=== PATIENT | female | born 1960 | race Caucasian/White ===

== ENCOUNTER → 2017-06-25 12:28 | Outpatient (CLI) | payer OTHER, SELFPAY ==
[2017-06-25 14:10] LABS: Absolute Lymphocyte Count 1.99 X10^3/ul (0.83-4.51); Absolute Neutrophil Count 2.7 X10^3/uL (2.0-7.7); Basophil# 0.02 X10^3/uL; Basophil% 0.4 % (0-1); Eosinophils% 1.9 % (0-5); Hematocrit 38.7 % (37-47); Hemoglobin 12.8 g/dl (12.0-15.0); Lymphocyte # 1.99 X10^3/ul (4.0); Mean Corp Hgb Conc 33.1 g/gl (32-36); Mean Corpuscular Hgb 29.2 pg (27.0-32.0); Mean Corpuscular Volume 88.2 fL (81-99); Mean Platelet Vol. 9.7 fl (6.2-12.0); Monocyte# 0.38 X10^3/uL; Monocyte% 7.3 % (0-10); Neutrophil # 2.74 X10^3/uL (2.7-7.7); Neutrophil % 52.4 % (47-70); Platelet Count 223 K/mm3 (150-450); RBC Distribution Width CV 13.1 % (11.6-14.6); RBC Distribution Width SD 41.8 fl (35.1-43.9); Red Blood Count 4.39 M/mm3 (4.2-5.4); White Blood Count 5.2 K/mm3 (4.4-11.0)
[2017-06-25 14:11] LABS: POSITIVE COUNT NO; POSITIVE DIFFERENTIAL NO; POSITIVE MORPHOLOGY NO
[2017-06-25 14:36] LABS: AST(SGOT) 18 U/L (15-37); Alanine Aminotransfer ALT/SGPT 25 U/L (13-56); Albumin, Serum 3.6 g/dL (3.2-5.0); Alkaline Phosphatase 74 U/L (45-117); Amylase 42 U/L (25-115); Anion Gap 6 (5-15); BUN 18 mg/dL (7-18); BUN/Creat Ratio 22.3 RATIO (10-20); Calcium,Total 8.8 mg/dL (8.5-10.1); Chloride 104 mmol/L (98-107); Creatinine, Serum 0.81 mg/dL (0.55-1.02); EST Glomerular Filtration Rate 77 mL/min (>60); Est Glom Filt Rate - Afr Amer 94 mL/min (>60); Globulin 3.5 g/dL (2.2-4.2); Glucose 128 mg/dL (74-106); Lipase 189 U/L (73-393); Potassium 3.7 mmol/L (3.5-5.1); Protein, Total 7.1 g/dL (6.4-8.2); Sodium Level 139 mmol/L (136-145); Thyroid Stim Hormone (TSH) 1.92 uIU/mL (0.358-3.74)
== END ==
PROVIDERS: Family Provider Family Medicine; PCP Family Medicine; Visit Provider Nurse Practitioner Adult Health
DX: R53.83 Other fatigue (principal); R11.0 Nausea
CPT/HCPCS: 36415; 80053; 82150; 83690; 84443; 85025

== ENCOUNTER → 2018-03-19 14:32 | Outpatient (CLI) | payer OTHER, SELFPAY ==
--- NOTE | 2018-03-19 14:34 | BI_ITS ---
MAMMOGRAPHY - BILATERAL SCREENING REASON FOR EXAM: Female, 58 years old. Routine annual screening examination. PERTINENT HISTORY: Mother with breast cancer. TECHNIQUE: Digital bilateral breast rosio (3D mammographic acquisition) in the CC and MLO projections. 2-D mediolateral oblique (MLO) and craniocaudad (CC) views of both breasts were obtained. CAD: Full Field Digital Mammography with Computer Added Detection was performed. COMPARISON: Comparison is made with prior study dated October 02, 2016 and May 08, 2016. FINDINGS: Breast Composition: The breasts are heterogeneously dense, which may obscure small masses. There are no dominant masses or suspicious calcifications. No other significant abnormalities are identified. There has been no significant change since the prior study. BI/SCREENING MAMM (CAD), BILAT IMPRESSION: Stable bilateral screening mammogram. Yearly follow-up mammogram recommended. (A) ASSESSMENT CATEGORY: BIRADS Category 1: Negative. A letter regarding these results will be sent to the patient by the facility within 30 days. Approximately 10% of breast cancers are not detected by mammography. A normal mammogram should not delay biopsy of a clinically suspicious abnormality. [id number] Electronically Signed: [place] MD at 15:32 EST Tel [phone], Service support ,
== END ==
PROVIDERS: Family Provider Family Medicine; PCP Family Medicine; Referring Provider Family Medicine; Visit Provider Family Medicine
DX: Z12.31 Encounter for screening mammogram for malignant neoplasm of breast (principal)
CPT/HCPCS: 77063; 77067

== ENCOUNTER → 2018-05-05 09:58 | Outpatient (CLI) | payer OTHER, SELFPAY ==
[2018-04-05 12:13] VITALS: BMI 24.5
[2018-05-05 12:49] LABS: AST(SGOT) 33 U/L (15-37); Alanine Aminotransfer ALT/SGPT 42 U/L (13-56); Cholesterol 267 mg/dL (200); High Density Lipoprotein 76 mg/dL; Thyroid Stim Hormone (TSH) 3.96 uIU/mL (0.358-3.74); Triglycerides 122 mg/dL; Very Low Density Lipoprotein 24 mg/dL (5-40)
[2018-05-05 15:27] LABS: T4 Total, Thyroxin 10.5 ug/dL (4.8-13.9)
== END ==
PROVIDERS: Family Provider Family Medicine; PCP Family Medicine; Visit Provider Family Medicine
DX: E78.00 Pure hypercholesterolemia, unspecified (principal); E03.9 Hypothyroidism, unspecified
CPT/HCPCS: 36415; 80061; 84436; 84443; 84450; 84460

== ENCOUNTER → 2018-07-10 08:01 | Outpatient (CLI) | payer OTHER, SELFPAY ==
[2018-04-05 12:13] VITALS: BMI 24.5
[2018-07-10 09:31] LABS: Cholesterol 153 mg/dL (200); High Density Lipoprotein 71 mg/dL; Thyroid Stim Hormone (TSH) 0.32 uIU/mL (0.358-3.74); Triglycerides 72 mg/dL; Very Low Density Lipoprotein 14 mg/dL (5-40)
== END ==
PROVIDERS: Family Provider Family Medicine; PCP Family Medicine; Referring Provider Family Medicine; Visit Provider Family Medicine
DX: E03.9 Hypothyroidism, unspecified (principal); E78.00 Pure hypercholesterolemia, unspecified
CPT/HCPCS: 36415; 80061; 84443

== ENCOUNTER → 2018-08-07 14:45 | Outpatient (CLI) | payer OTHER, SELFPAY ==
[2018-08-07 09:24] VITALS: BMI 24.5
[2018-08-07 14:48] LABS: Mucous, Urine 0 SEEN /hpf (<or=2+)
[2018-08-07 14:55] LABS: Color, Urine Yellow (Yellow); Glucose, Dipstick Normal (Normal); Ketone-Dipstick Negative (Negative); Leukocyte Esterase-Dipstick 500 /ul (Negative); Nitrite-Dipstick Positive (Negative); Occult Blood-Urine 50 /ul (Negative); Protein-Dipstick Negative (Negative); Urine Bilirubin Dipstick Negative (Negative); Urine Clarity Clear (Clear); Urine Urobilinogen Normal (Normal); Urine pH 6.5 (5.0 - 8.0)
[2018-08-07 15:02] LABS: Bacteria 2+ /hpf (None Seen); Red Blood Cells-Urine 0-5 SEEN /hpf (0-5); Squamous Epithelial Cells - UA 0-5 SEEN /hpf (5-10); White Blood Cells 10-25 SEEN /hpf (0-5)
== END ==
PROVIDERS: Family Provider Family Medicine; PCP Family Medicine; Visit Provider Physician Assistant
DX: R30.0 Dysuria (principal)
CPT/HCPCS: 81001; 87086; 87088; 87186

== ENCOUNTER → 2018-09-20 14:56 | Outpatient (CLI) | payer SELFPAY ==
[2018-09-19 08:09] VITALS: BMI 24.5
== END ==
PROVIDERS: Family Provider Family Medicine; PCP Family Medicine; Referring Provider Physician Assistant Medical; Visit Provider Physician Assistant Medical
DX: J02.9 Acute pharyngitis, unspecified (principal)
CPT/HCPCS: 87081

== ENCOUNTER → 2019-01-04 08:42 | Outpatient (CLI) | payer OTHER, SELFPAY ==
[2018-09-19 08:09] VITALS: BMI 24.5
--- NOTE | 2019-01-04 08:45 | BD_ITS ---
STUDY: DUAL ENERGY X-RAY ABSORPTIOMETRY / DXA REASON FOR EXAM: Female, 58 years old. Early menopause. Loss of height. TECHNIQUE: Bone Mineral Density (BMD) measurements of lumbar spine and bilateral hips were obtained. COMPARISON: Comparison is made with prior examination dated March 01, 2009. FINDINGS: Lumbar Spine (L1-L4): g/cm2 (0.834) / T-score (-2.9) / Z-score (-1.7) Findings are suggestive of osteoporosis with a high fracture risk. Left Femur Total: g/cm2 (0.718) / T-score (-2.3) / Z-score (-1.4) Left Femoral Neck: g/cm2 (0.737) / T-score (-2.2) / Z-score (-0.9) Right Femur Total: g/cm2 (0.701) / T-score (-2.4) / Z-score (-1.5) Right Femoral Neck: g/cm2 (0.763) / T-score (-2.0) / Z-score (-0.7) The T-Scores on the most recent prior examination were: Lumbar Spine (L1-L4): There has been worsening of bone density since the previous examination. Left Femur Total: which represents a worsening of 14.6%. Right Femur Total: which represents a worsening of 17%. BD/Dexa Bone Density Study IMPRESSION: The patient is considered osteoporotic as outlined below according to World Ck Organization (WHO) criteria with a high fracture risk. There has been worsening of bone density since the previous examination. Reference Information: The T-score is the number of standard deviations above or below the standard which is normal for young adults at their peak bone mineral density. The World Health Organization (WHO) interprets the T-scores as follows: Above -1 Normal bone density Between -1 and -2.5 Osteopenia Equal to / or below -2.5 Osteoporosis As a practical clinical guideline, osteopenia may be graded as follows: Mild -1 through -1.5 Moderate -1.6 through -2.0 Severe -2.1 through -2.4 The Z-score is the number of standard deviations above or below age-matched controls. A Z-score of less than -1.5 would be considered abnormal. References: 1. NIH Osteoporosis and Related Bone Diseases http://www.osteo.org 2. International Society for Clinical Densitometry http://www.iscd.org 3. National Osteoporosis Foundation http://www.nof.org Electronically Signed: [place], at 15:02 EDT , Service support ,
== END ==
PROVIDERS: Family Provider Family Medicine; PCP Family Medicine; Referring Provider Family Medicine; Visit Provider Family Medicine
DX: M85.80 Other specified disorders of bone density and structure, unspecified site (principal); M81.0 Age-related osteoporosis without current pathological fracture
CPT/HCPCS: 77080

== ENCOUNTER → 2019-01-05 13:32 | Outpatient (CLI) | payer OTHER, SELFPAY ==
[2018-09-19 08:09] VITALS: BMI 24.5
[2019-01-05 16:08] LABS: Vitamin D,25 Hydroxy 24.9 ng/mL (29.95-100.01)
== END ==
PROVIDERS: Family Provider Family Medicine; PCP Family Medicine; Referring Provider Family Medicine; Visit Provider Family Medicine
DX: M81.0 Age-related osteoporosis without current pathological fracture (principal)
CPT/HCPCS: 36415; 82306

== ENCOUNTER → 2019-05-06 10:09 | Outpatient (CLI) | payer OTHER, SELFPAY ==
[2018-09-19 08:09] VITALS: BMI 24.5
[2019-05-06 12:35] LABS: AST(SGOT) 31 U/L (15-37); Alanine Aminotransfer ALT/SGPT 46 U/L (13-56); Cholesterol 203 mg/dL (200); High Density Lipoprotein 83 mg/dL; T4 Total, Thyroxin 13.3 ug/dL (4.8-13.9); Thyroid Stim Hormone (TSH) 0.52 uIU/mL (0.358-3.74); Triglycerides 107 mg/dL; Very Low Density Lipoprotein 21 mg/dL (5-40)
== END ==
PROVIDERS: Family Provider Family Medicine; PCP Family Medicine; Visit Provider Family Medicine
DX: E03.9 Hypothyroidism, unspecified (principal); E78.00 Pure hypercholesterolemia, unspecified
CPT/HCPCS: 36415; 80061; 84436; 84443; 84450; 84460

== ENCOUNTER → 2019-06-16 09:48 | Outpatient (CLI) | payer OTHER, SELFPAY ==
[2019-05-17 09:22] VITALS: BMI 24.5
--- NOTE | 2019-06-16 09:48 | RAD_ITS ---
STUDY: X-RAY - CERVICAL SPINE REASON FOR EXAM: Female, 59 years old. RIGHT SHOULDER AND NECK PAIN TECHNIQUE: 5 view(s) of the cervical spine were obtained. COMPARISON: None FINDINGS: Normal anterior atlantoaxial articulation. Normal odontoid process. There is straightening of the normal cervical lordosis. There is multi-level endplate spondylosis. Disc space narrowing at multiple levels, most conspicuous at C5-C6 and C6-C7. Multilevel facet arthropathy uncovertebral hypertrophy. There is mild bilateral bony encroachment of bilateral C5-C6 and C6-C7. The soft tissue structures are unremarkable. RAD/Cerv Spine 4 or 5 Views IMPRESSION: 1. Degenerative changes, as above, most conspicuous at C5-C6 and C6-C7. Electronically Signed: Isreal Odonnell MD (Brooks) at 11:42 EST , Service support ,
--- NOTE | 2019-06-16 09:48 | RAD_ITS ---
STUDY: X-RAY - RIGHT SHOULDER REASON FOR EXAM: Right shoulder and neck pain. TECHNIQUE: 4 view(s) of the shoulder. COMPARISON: None. FINDINGS: Normal glenohumeral articulation. There is no substantial acromioclavicular arthrosis. Normal acromion. Normal humeral head and visualized proximal humerus. The soft tissue structures are unremarkable. Normal visualized pulmonary apex. RAD/Shoulder min 2 Views IMPRESSION: Unremarkable x-ray examination of the right shoulder. Electronically Signed: Dennis Petersen MD at 11:11 EST Tel , Service support ,
== END ==
PROVIDERS: PCP Family Medicine; Referring Provider Orthopaedic Surgery; Visit Provider Orthopaedic Surgery
DX: M25.511 Pain in right shoulder (principal); M54.2 Cervicalgia
CPT/HCPCS: 72050; 73030

== ENCOUNTER 2019-07-22 09:00 | Outpatient (RCR) | payer OTHER, SELFPAY ==
[2019-06-16 10:52] VITALS: BMI 24.5
--- NOTE | 2019-06-22 17:24 | HP.PTEVAL ---
Patient's Visit Information BIANCA MORTENSEN is a 59 year old F referred to Physical Therapy by Dr. Tita Gracia DO with a diagnosis of CERVICAL OA, BICEPS TENODESIS. Date of Evaluation: 06/22/19 Physical Therapist: Noelle Mcmahon, PT, Cert MDT - Visit Plan Frequency: 2-3x /Week Duration: 4-6 Weeks Plan: *OSTEOPOROSIS*. *PROGRESS SLOWLY*. US, CTX, POSTURE CORRECTION/STRENGTHENING, INSTRUCTION IN APPROPRIATE BODY MECHANICS AND ACTIVITY MODIFICATIONS. RADHA UE ROM, STRETCHING AND STRENGTHENING (INCLUDING REP RET IN SITTING. REP RET IN LYING. SCAP SQUEEZES. DEEP NECK FLEXOR LIFT. PRONE W'S. UE WALL SLIDES. PRONE ROWS. UE TBAND WALL WALKS. ANTERIOR/MIDDLE SCALENE STRETCH. UPPER TRAP STRETCH). HEP INSTRUCTION. 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 NOT CURRENTLY OFF WORK. Disability: NO. Present symptoms: NECK PAIN AND STIFFNESS, PAIN BETWEEN SHOULDER BLADES AND RIGHT SHOULDER PAIN. INTERMITTENT RADHA UE NUMBNESS ALL THE WAY DOWN. INTERMITTENT RIGHT DIGITS 1-3 NUMBNESS AND TINGLING. INTERMITTENT REED'S. Present since: MAR 2019. Pain Scale: Worst - 7/10 Least - 3/10. Currently: 07/18. Commenced as a result of: NO APPARENT REASON. Symptoms at onset: NUMBNESS IN THE ARMS. Worse: THROWING THE BALL FOR THE DOG, WALKING THE DOG, LIFTING, LYING ON RIGHT SIDE, IN A LOT OF PAIN AFTER TRYING TO DO UE WORKOUTS AT [employer] EVEN WITH MODIFICATIONS IT IS A DISASTER. Better: ICE, HEAT, STRETCHING ON A FOAM ROLLER, [facility]. Disturbed sleep: YES. Previous history/Previous treatment: HX OF NECK PROBLEMS FOR ABOUT 4 YEARS. TX IN THE PAST FOR NECK AND SHLD PAIN AT [facility]. 15 YEARS AGO NECK PAIN TREATED WITH TRACTION HERE IN PT. This episode: [facility] - HAS HELPED BUT STOPPED GOING FOR NOW AND WANTS TO TRY PT. ANTI-INFLAMMATORY. 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 Dizziness: YES. Tinnitis: YES - CHRONIC. Nausea: A LITTLE BIT. Shortness of Breath: NO. Difficulty Swollowing: NO. Gait: NORMAL. Accidents: NO. Unexplained weight loss: NO. Imaging: NECK AND SHLD RECENT X-RAYS - OSTEOPOROSIS. SEE [facility] EMR. PMH/Recent major surgery: OSTEOPOROSIS. HYPOTHYROIDISM - Objective Sitting Posture/Standing Posture: POOR. Active Correction of posture: BETTER. Other Observations: INDEP GAIT AND TRANSFERS. Motor deficit: RIGHT HANDED. RIGHT RESISTANCE BRAZER 60 LBS, LEFT 50 LBS. RADHA UE'S GROSSLY 5/5 WITH MMT'ING. Sensory deficit: RADHA UE LIGHT TOUCH SENSATION IS INTACT AND SYMMETRICAL. ROM deficit: RADHA UE'S WFL. Reflexes: 2/3 RADHA UE'S. Dural Signs: POSITIVE RADHA UE'S. Cervical Mvmt Loss: Flex: NIL. Pro: NIL. Ext: MIN - TIGHT. Ret: MOD. RSB: MOD. LSB: MOD +. R Rot: MOD. L Rot: MOD +. Postural strength: POOR. Palpation: MILD TENDERNESS WITH PALPATION OF RADHA CERVICAL AND THORACIC PARASPINALS AND UPPER TRAPS. MILD LOWER CERVICAL SPINE TENDERNESS. TRACTION: NE. TREATMENT: NEUROMUSCULAR REEDUCATION - RETRAINING OF MVMT AND POSTURE FOR SITTING, LYING AND STANDING ACTIVITIES. - Goals Goal 1:: DECREASE C/O NECK AND RADHA UE SX'S. Goal Time Frame: 4-6 Weeks Goal 2:: IMPROVE PERSONAL CARE, LIFTING, READING, SLEEP, DRIVING AND RECREATIONAL FUNCTION Goal Time Frame: 4-6 Weeks Goal 3:: INSTRUCT IN PROPHYLAXIS Goal Time Frame: 4-6 Weeks - Rehabilitation Potential Rehabilitation Potential: Fair - Anticipated Interventions Patient/Client Instruction: Educate patient on: Condition, Plan of Care, Risk Factors, Benefits of Fitness Program For the Purpose of:: To improve self management Therapeutic Exercise to Include: Strength training, Body mechanics, Postural training, Neuromotor development, Scapular Strength/Stabilization For the Purpose of:: To decrease pain, To increase ROM, To improve muscle performance and motor function, To increase tolerance to activity/condition/position, To improve ability of physical actions for home/community/work/leisure Thank you for the opportunity to evaluate your patient. For Medicare and Medicare HMO plans, please review the plan of care and approve it. It will need to be FAXED BACK to us at [phone] for Medicare purposes. For Medicare only, by signing this I certify the plan of care. Please let me know if there are questions or concerns regarding this plan of care. Physician Signature: Date:
--- NOTE | 2019-09-14 16:25 | HP.PTDCNRP_ITS ---
BIANCA MORTENSEN was seen in my office for initial evaluation on 06/22/19. The following Plan of Care was established for this patient: Initial Frequency: 2-3x /Week Initial Duration: 4-6 Weeks Patient/Client Instruction: Educate patient on: Condition, Plan of Care, Risk Factors, Benefits of Fitness Program For the Purpose of:: To improve self management Therapeutic Exercise to Include: Strength training, Body mechanics, Postural training, Neuromotor development, Scapular Strength/Stabilization For the Purpose of:: To decrease pain, To increase ROM, To improve muscle performance and motor function, To increase tolerance to ac tivity/condition/position, To improve ability of physical actions for home/community/work/leisure This patient was last seen in our office 07/22/19. Pertinent comments regarding their Physical therapy will appear below: This patient has not returned to Physical Therapy and is appropriate to return to MD for further follow-up as needed. Patient called and said she is doing her home ex's and doing well and does not feel she needs to come back at this time. At this point I will be discontinuing this patient from physical therapy. I would be happy to see this patient again in the future if found appropriate by the physician. Thank you! Noelle Mcmahon, PT, Cert MDT
== END 2019-07-22 19:00 | disposition home or self-care (01) ==
LOC: PT 09:00
PROVIDERS: PCP Family Medicine; Referring Provider Orthopaedic Surgery; Visit Provider Orthopaedic Surgery
DX: M47.812 Spondylosis without myelopathy or radiculopathy, cervical region (principal); M75.20 Bicipital tendinitis, unspecified shoulder; G56.22 Lesion of ulnar nerve, left upper limb
CPT/HCPCS: 97035; 97110; 97112; 97162; 97530

== ENCOUNTER 2019-12-13 14:53 | Emergency (ER) | payer OTHER, SELFPAY ==
[2019-06-25 08:17] VITALS: BMI 24.5
[2019-12-13 14:54] VITALS: BP 144/84; PULSE 121; RESP 21; TEMP 36.4; O2SAT 99; BMI 23.8
--- NOTE | 2019-12-13 14:57 | EKG12_ITS ---
Test Reason : CP Blood Pressure : / mmHG Vent. Rate : 117 BPM Atrial Rate : 117 BPM P-R Int : 174 ms QRS Dur : 072 ms QT Int : 318 ms P-R-T Axes : 076 097 068 degrees QTc Int : 443 ms Sinus tachycardia with frequent Premature ventricular complexes Low voltage QRS (Limb Leads) Confirmed by JOSI GIL, MARISELA ([id number]), map editor MAMI TELLES ([id number]) on 12/19/2019 9:16:43 AM Referred By: CRISTO Confirmed By:MARISELA PRATER MD
--- NOTE | 2019-12-13 15:07 | ED.VISSUMM ---
- ER Visit Summary Date of Service: 12/13/19 Chief Complaint: Palpitations History of Present Illness: The patient is a 59 F past medical history of high cholesterol and hypothyroidism. Patient states she had a negative stress test about 2 years ago. No prior cardiac catheterization. Denies any history of DVT or PE. No recent travel, surgery or mobilization. No hemoptysis. No calf pain. No substantial family history of cardiac disease or clotting disorder. She quit smoking 33 years ago. Denies any exertional dyspnea or exertional chest pain. Says she can walk steps without any difficulty. Patient states that since last evening and today she has had mainly palpitations possibly some mild chest discomfort. Really no shortness of breath. Not exertional. Physical Examination: White female no acute distress vital signs stable afebrile. Socks is 99% on room air no signs of hypoxia.. Frequent PVCs. H EENT exam unremarkable. Neck nontender. Lungs clear to auscultation bilaterally. Heart regular rhythm rate about 100-1 20 with a sinus rhythm with PVCs. No murmur. Chest were nontender. Abdomen soft nontender. Normal bowel sounds no peritoneal signs. Extremities moves all 4. Calves nontender without edema or cords. 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 Normal dorsi plantarflexion. Neurologically she is awake and alert with no focal motor deficits. Test Results: EKG shows a sinus tachycardia with frequent PVCs with a heart rate of 117. No signs of AK or ischemia. X-ray portable 1 view shows no acute abnormality read both by myself and radiologist. CBC normal white count 8. Hemoglobin 14. Chemistries unremarkable potassium slightly low at 3.2. Glucose elevated at 285 but patient states she ate prior to arrival. Normal gap. Normal troponin. Normal TSH at 0.7 she is on thyroid medication. Emergency Department Course and Treatment: Patient undergo cardiac work-up. She received aspirin. She does not have any significant exertional symptoms recently. She has obvious PVCs on the monitor during the exam. Repeat exam at 3:43 PM patient is doing well. Currently she has much less PVCs on the monitor. States she feels well. She and I discussed all of her test results. We went over different things here because palpitations. She really does not drink a lot of caffeine but does have some caffeine intake. Says she has been under a lot of stress and has had decrease in sleep both of which could cause this. She requested something else for sleep. States she is tried Benadryl with limited effectiveness. Treatment Plan: Follow-up with her house director as needed if symptoms persist. Ativan half milligram 1 to 2 hours before bedtime #5 no refill. Disposition: Discharge Impression: Acute palpitations secondary to PVCs. Atypical chest pain History of hypothyroidism This note was generated with [employer] dictation software. It may contain incorrect words, spelling, and punctuation that were not noted in review of the chart prior to signing ED Disposition - Plan for ED Patient: Referrals: Kimi Felix MD [Primary Care Provider] -
--- NOTE | 2019-12-13 15:10 | RAD_ITS ---
STUDY: X-RAY CHEST REASON FOR EXAM: Female, 59 years old. Pt with burning sternal chest pain on and off since last night worsening since noon. Pain worsened while at rest with palpitations TECHNIQUE: Single AP portable view of the chest. COMPARISON: Comparison is made with prior examination dated 09/18/2014. FINDINGS: EKG electrodes are seen. Hyperinflation. The lungs are clear. There is no demonstrated pleural abnormality. Normal size heart. Normal mediastinum and dariel. Normal visualized pulmonary arteries. Normal visualized aortic arch and descending thoracic aorta. Normal visualized thoracic spine. Normal visualized ribs, clavicles, and shoulders. There is no demonstrated abnormality of the visualized soft tissue structures of the upper abdomen. RAD/Chest 1 View (Portable) IMPRESSION: Hyperinflation. The lungs are clear. Electronically Signed: [place], at 15:41 EDT , Service support ,
[2019-12-13 15:13] LABS: Absolute Lymphocyte Count 1.51 X10^3/uL (0.83-4.51); Absolute Neutrophil Count 6.1 X10^3/uL (2.0-7.7); Basophil# 0.03 X10^3/uL; Basophil% 0.4 % (0-1); Eosinophil# 0.01 X10^3/uL; Eosinophils% 0.1 % (0-5); Hematocrit 42.6 % (37-47); Hemoglobin 14.3 g/dL (12.0-15.0); Lymphocyte # 1.51 X10^3/ul (4.0); Lymphocyte % 18.3 % (19-41); Mean Corp Hgb Conc 33.6 g/dL (32-36); Mean Corpuscular Hgb 29.6 pg (27.0-32.0); Mean Corpuscular Volume 88.2 fL (81-99); Mean Platelet Vol. 9.5 fl (6.2-12.0); Monocyte# 0.51 X10^3/uL; Monocyte% 6.2 % (0-10); NRBC Flagged by Analyzer 0 % (0-5); Neutrophil # 6.14 X10^3/uL (2.7-7.7); Neutrophil % 74.5 % (47-70); Platelet Count 282 K/mm3 (150-450); RBC Distribution Width CV 12.8 % (11.6-14.6); RBC Distribution Width SD 41.2 fl (35.1-43.9); Red Blood Count 4.83 M/mm3 (4.2-5.4); White Blood Count 8.2 K/mm3 (4.4-11.0)
[2019-12-13] MEDS: Aspirin 81 MG TAB.CHEW 324 MG PO (15:17)
[2019-12-13 15:38] LABS: Anion Gap 8 (5-15); BUN 9 mg/dL (7-18); BUN/Creat Ratio 9.6 RATIO (10-20); Calcium,Total 9.3 mg/dL (8.5-10.1); Chloride 105 mmol/L (98-107); Creatinine, Serum 0.94 mg/dL (0.55-1.02); EST Glomerular Filtration Rate 65 mL/min (>60); Est Glom Filt Rate - Afr Amer 78 mL/min (>60); Estimated Creatinine Clearance 61.89 ml/min; Glucose 285 mg/dL (74-106); Potassium 3.2 mmol/L (3.5-5.1); Sodium Level 138 mmol/L (136-145); Thyroid Stim Hormone (TSH) 0.71 uIU/mL (0.358-3.74)
[2019-12-13 15:46] VITALS: BP 137/90; PULSE 94; RESP 20; O2SAT 98
--- NOTE | 2019-12-13 15:48 | ED.DEP ---
ED Disposition - Plan for ED Patient: Disposition: Home or Assisted Living Instructions: ED Palpitations Prescriptions: Lorazepam [Ativan] 0.5 mg PO DAILY PRN PRN #7 tab PRN Reason: to sleep Prescription Printed Referrals: Kimi Felix MD [Primary Care Provider] - As Needed Additional Instructions: Follow-up with Dr. Felix or Dr. Jang if symptoms persist. Ativan 1 to 2 hours prior to bedtime to help you sleep. If works well you can ask Dr. Felix for a larger prescription. Do not drink alcohol or drive while using Ativan.
[2019-12-13 16:01] VITALS: BP 137/90; PULSE 95; RESP 18; O2SAT 98
== END 2019-12-13 16:02 | disposition home or self-care (01) ==
PROVIDERS: Emergency Provider Emergency Medicine; PCP Family Medicine
DX: R00.2 Palpitations (principal); R07.9 Chest pain, unspecified; E03.9 Hypothyroidism, unspecified; E78.00 Pure hypercholesterolemia, unspecified; Z87.891 Personal history of nicotine dependence
CPT/HCPCS: 71045; 80048; 84443; 84484; 85025; 93005; 99285

== ENCOUNTER → 2020-05-21 08:27 | Outpatient (CLI) | payer OTHER, SELFPAY ==
[2019-05-17 08:54] VITALS: BMI 24.5
--- NOTE | 2020-05-21 08:29 | BI_ITS ---
MAMMOGRAPHY - BILATERAL SCREENING REASON FOR EXAM: Female, 60 years old. Routine annual screening examination. PERTINENT HISTORY: Mother with breast cancer. Aunt with breast cancer. Occasional bilateral axillary tenderness. TECHNIQUE: Digital bilateral breast marcin (3D mammographic acquisition) in the CC and MLO projections. 2-D mediolateral oblique (MLO) and craniocaudad (CC) views of both breasts were obtained. CAD: Full Field Digital Mammography with Computer Added Detection was performed. COMPARISON: Comparison is made with prior study dated 03/19/2018 and 10/02/2016. FINDINGS: Breast Composition: The breasts are extremely dense, which lowers the sensitivity of mammography. There are no dominant masses or suspicious calcifications. No other significant abnormalities are identified. There has been no significant change since the prior study. BI/SCREEN MAMM (CAD) W/MARCIN BILAT IMPRESSION: Stable bilateral screening mammogram. Yearly follow-up mammogram recommended. (A) ASSESSMENT CATEGORY: BIRADS Category 1: Negative. A letter regarding these results will be sent to the patient by the facility within 30 days. Approximately 10% of breast cancers are not detected by mammography. A normal mammogram should not delay biopsy of a clinically suspicious abnormality. [id number] Electronically Signed: [place], at 9:50 EST , Service support ,
== END ==
PROVIDERS: Family Provider Family Medicine; PCP Family Medicine; Referring Provider Nurse Practitioner Women's Health; Visit Provider Nurse Practitioner Women's Health
DX: Z12.31 Encounter for screening mammogram for malignant neoplasm of breast (principal)
CPT/HCPCS: 77063; 77067

== ENCOUNTER → 2020-08-29 15:43 | Outpatient (CLI) | payer OTHER, SELFPAY ==
[2020-05-21 09:00] VITALS: BMI 22.8
[2020-08-29 17:42] LABS: Absolute Lymphocyte Count 1.98 X10^3/uL (0.83-4.51); Absolute Neutrophil Count 3.1 X10^3/uL (2.0-7.7); Basophil# 0.03 X10^3/uL; Basophil% 0.5 % (0-1); Eosinophil# 0.09 X10^3/uL; Eosinophils% 1.6 % (0-5); Hematocrit 42.9 % (37-47); Hemoglobin 13.9 g/dL (12.0-15.0); Lymphocyte # 1.98 X10^3/ul (0.83-4.51); Lymphocyte % 35.2 % (19-41); Mean Corp Hgb Conc 32.4 g/dL (32-36); Mean Corpuscular Hgb 29.6 pg (27.0-32.0); Mean Corpuscular Volume 91.5 fL (81-99); Mean Platelet Vol. 10.1 fl (6.2-12.0); Monocyte# 0.44 X10^3/uL; Monocyte% 7.8 % (0-10); NRBC Flagged by Analyzer 0 % (0-5); Neutrophil # 3.07 X10^3/uL (2.7-7.7); Neutrophil % 54.7 % (47-70); Platelet Count 255 K/mm3 (150-450); RBC Distribution Width CV 12.8 % (11.6-14.6); RBC Distribution Width SD 43.1 fl (35.1-43.9); Red Blood Count 4.69 M/mm3 (4.2-5.4); White Blood Count 5.6 K/mm3 (4.4-11.0)
== END ==
PROVIDERS: PCP Family Medicine; Visit Provider Family Medicine
DX: R19.7 Diarrhea, unspecified (principal)
CPT/HCPCS: 36415; 84443; 85025

== ENCOUNTER → 2020-08-31 10:27 | Outpatient (CLI) | payer OTHER, SELFPAY ==
[2020-05-21 09:00] VITALS: BMI 22.8
== END ==
PROVIDERS: PCP Family Medicine; Visit Provider Family Medicine
DX: R19.7 Diarrhea, unspecified (principal)
CPT/HCPCS: 87177; 87209; 87493; 87506

== ENCOUNTER → 2020-10-18 10:17 | Outpatient (CLI) | payer OTHER, SELFPAY ==
[2020-10-18 09:55] VITALS: BMI 22.8
[2020-10-18 12:20] LABS: PTHIN 24.2 pg/mL (18.4-80.1)
[2020-10-18 12:23] LABS: Vitamin D,25 Hydroxy 72.2 ng/mL
[2020-10-18 12:26] LABS: Thyroid Stim Hormone (TSH) 0.93 uIU/mL (0.358-3.74)
== END ==
PROVIDERS: PCP Family Medicine; Referring Provider Internal Medicine Endocrinology, Diabetes & Metabolism; Visit Provider Internal Medicine Endocrinology, Diabetes & Metabolism
DX: M81.0 Age-related osteoporosis without current pathological fracture (principal); E07.9 Disorder of thyroid, unspecified; E55.9 Vitamin D deficiency, unspecified
CPT/HCPCS: 36415; 82306; 83970; 84443

== ENCOUNTER → 2020-11-02 10:14 | Outpatient (CLI) | payer OTHER, SELFPAY ==
[2020-10-18 09:55] VITALS: BMI 22.8
[2020-11-02 10:29] VITALS: BP 99/63; PULSE 74; RESP 16; TEMP 36.6; O2SAT 100; BMI 22.8
[2020-11-02] MEDS: 0.9% NaCl Peripheral Flush Adult/Peds IV (10:35)
[2020-11-02] MEDS: Zoledronic Acid 5 MG 100 ML 300 MG IV (10:41)
[2020-11-02 11:08] VITALS: BP 98/61; PULSE 67; RESP 16
== END ==
PROVIDERS: PCP Family Medicine; Referring Provider Internal Medicine Endocrinology, Diabetes & Metabolism; Visit Provider Internal Medicine Endocrinology, Diabetes & Metabolism
DX: M81.0 Age-related osteoporosis without current pathological fracture (principal)
CPT/HCPCS: 96365; A4216; J3489

== ENCOUNTER → 2020-12-17 09:54 | Outpatient (CLI) | payer OTHER, SELFPAY ==
[2020-12-17 08:29] VITALS: BMI 22.8
[2020-12-17 10:04] LABS: Mucous, Urine 0 SEEN /hpf (<or=2+); Red Blood Cells-Urine 0 SEEN /hpf (0-5)
[2020-12-17 10:13] LABS: Color, Urine Yellow (Yellow); Glucose, Dipstick Normal (Normal); Ketone-Dipstick Negative (Negative); Leukocyte Esterase-Dipstick 500 /ul (Negative); Nitrite-Dipstick Negative (Negative); Occult Blood-Urine Negative /ul (Negative); Protein-Dipstick Negative (Negative); Specific Gravity, Urine 1.005 (1.002-1.030); Urine Bilirubin Dipstick Negative (Negative); Urine Clarity Sl. Cloudy (Clear); Urine Urobilinogen Normal (Normal)
[2020-12-17 10:19] LABS: Bacteria 1+ /hpf (None Seen); Squamous Epithelial Cells - UA 0-5 SEEN /hpf (5-10); White Blood Cells 25-50 SEEN /hpf (0-5)
== END ==
PROVIDERS: PCP Family Medicine; Visit Provider Physician Assistant Surgical
DX: R30.0 Dysuria (principal)
CPT/HCPCS: 81001; 87086; 87186

== ENCOUNTER → 2021-01-09 18:21 | Outpatient (CLI) | payer OTHER, SELFPAY | PROVIDERS: PCP Family Medicine; Visit Provider Family Medicine | DX: R30.0 Dysuria (principal) | CPT/HCPCS: 87086; 87088 ==

== ENCOUNTER → 2021-01-31 09:29 | Outpatient (CLI) | payer OTHER, SELFPAY | PROVIDERS: PCP Family Medicine; Referring Provider Family Medicine; Visit Provider Family Medicine | DX: M81.0 Age-related osteoporosis without current pathological fracture (principal) | CPT/HCPCS: 87086 ==

== ENCOUNTER → 2021-02-09 07:11 | Outpatient (CLI) | payer OTHER, SELFPAY ==
[2021-02-09 08:33] LABS: AST(SGOT) 18 U/L (15-37); Alanine Aminotransfer ALT/SGPT 28 U/L (13-56); Cholesterol 152 mg/dL (200); High Density Lipoprotein 78 mg/dL; Triglycerides 75 mg/dL; Very Low Density Lipoprotein 15 mg/dL (5-40)
== END ==
PROVIDERS: PCP Family Medicine; Referring Provider Family Medicine; Visit Provider Family Medicine
DX: E78.00 Pure hypercholesterolemia, unspecified (principal)
CPT/HCPCS: 36415; 80061; 84450; 84460

== ENCOUNTER → 2021-03-19 17:40 | Outpatient (CLI) | payer OTHER, SELFPAY ==
--- NOTE | 2021-03-19 17:48 | CT_ITS ---
INDICATION: RLQ pain EXAMINATION: CT ABDOMEN AND PELVIS WITH CONTRAST - CT Abdomen And Pelvis W/ Contrast Injection TECHNIQUE: Helically acquired images were obtained of the abdomen and pelvis following IV contrast. A radiation dose optimization technique was used for this scan. IV Contrast dosage and agent: 100 cc of [id number] Oral contrast: Redicat COMPARISON: None. FINDINGS: LOWER CHEST: Lung bases are clear. No cardiomegaly or pericardial effusion. LIVER: Peripheral segment 4 area of mildly decreased density suggesting mild focal hepatic steatosis. Segment 7, 6 mm hypodensity too small to currently characterize. Renal size and contour liver. GALLBLADDER AND BILIARY TREE: Collapse versus surgically absent gallbladder No gallbladder distension or wall edema. No intra- or extrahepatic biliary ductal dilation. PANCREAS: No focal cystic or solid mass. SPLEEN: Normal size without focal cystic or solid mass. ADRENAL GLANDS: No nodules. KIDNEYS AND URETERS: Normal renal size and position. No hydronephrosis. PERITONEUM: No ascites or free air. No other fluid collection. BOWEL: Retrocecal appendix, just inferior to the inferior margin of the liver, shows air in the proximal aspect however the distal half of the appendix contains fluid and there is slight mucosal hyperenhancement with a diameter at the upper limit of normal; 6 mm. In the right clinical setting, these findings can be consistent with early appendicitis. No surrounding inflammatory changes. No stomach or bowel distension. Small bowel is normal in appearance the majority of which contains enteric contrast. LYMPH NODES: No enlarged mesenteric or retroperitoneal lymph nodes. VESSELS: Aorta is non-dilated. URINARY BLADDER: Unremarkable. REPRODUCTIVE ORGANS: No pelvic masses. ABDOMINAL WALL: No discrete abdominal or pelvic wall hernia. BONES: No lytic or blastic abnormality. No fracture. L5-S1 degenerative disc changes. Benign bone island right femoral head. CT/Abdomen/Pelvis WITH Contrast IMPRESSION: Nonspecific findings as above which, in the right clinical setting, can be indicative of early appendicitis. 6 mm hypodensity segment 7 of the liver, too small to characterize. Likely focal fatty infiltration periphery of segment 4, liver. Electronically Signed: Jorge Guerrero DO at 21:30 EST Tel , Service support ,
[2021-03-19 17:55] LABS: CREATININE FINGERSTICK 0.7 mg/dL (0.55-1.02); EGFR FINGERSTICK > 60.0000 mL/min (>60)
== END ==
PROVIDERS: PCP Family Medicine; Visit Provider Family Medicine
DX: R10.31 Right lower quadrant pain (principal)
CPT/HCPCS: 74177; Q9967

== ENCOUNTER → 2021-03-27 09:47 | Outpatient (CLI) | payer OTHER, SELFPAY ==
[2021-03-27 10:15] LABS: Absolute Lymphocyte Count 1.92 X10^3/uL (0.83-4.51); Absolute Neutrophil Count 2.9 X10^3/uL (2.0-7.7); Basophil# 0.02 X10^3/uL; Basophil% 0.4 % (0-1); Eosinophil# 0.04 X10^3/uL; Eosinophils% 0.8 % (0-5); Hematocrit 41.7 % (37-47); Hemoglobin 13.9 g/dL (12.0-15.0); Lymphocyte # 1.92 X10^3/ul (0.83-4.51); Lymphocyte % 36.5 % (19-41); Mean Corp Hgb Conc 33.3 g/dL (32-36); Mean Corpuscular Hgb 29.5 pg (27.0-32.0); Mean Corpuscular Volume 88.5 fL (81-99); Mean Platelet Vol. 9.1 fl (6.2-12.0); Monocyte# 0.41 X10^3/uL; Monocyte% 7.8 % (0-10); NRBC Flagged by Analyzer 0 % (0-5); Neutrophil # 2.86 X10^3/uL (2.7-7.7); Neutrophil % 54.3 % (47-70); Platelet Count 227 K/mm3 (150-450); RBC Distribution Width CV 12.6 % (11.6-14.6); RBC Distribution Width SD 40.8 fl (35.1-43.9); Red Blood Count 4.71 M/mm3 (4.2-5.4); White Blood Count 5.3 K/mm3 (4.4-11.0)
[2021-03-27 10:48] LABS: AST(SGOT) 20 U/L (15-37); Alanine Aminotransfer ALT/SGPT 30 U/L (13-56); Albumin, Serum 3.8 g/dL (3.2-5.0); Alkaline Phosphatase 41 U/L (45-117); Anion Gap 4 (5-15); BUN 16 mg/dL (7-18); BUN/Creat Ratio 19.6 RATIO (10-20); Calcium,Total 9.7 mg/dL (8.5-10.1); Chloride 104 mmol/L (98-107); Creatinine, Serum 0.82 mg/dL (0.55-1.02); EST Glomerular Filtration Rate 76 mL/min (>60); Est Glom Filt Rate - Afr Amer 91 mL/min (>60); Glucose 88 mg/dL (74-106); Lipase 96 U/L (73-393); Potassium 3.9 mmol/L (3.5-5.1); Protein, Total 7.8 g/dL (6.4-8.2); Sodium Level 138 mmol/L (136-145)
== END ==
PROVIDERS: PCP Family Medicine; Referring Provider Surgery; Visit Provider Surgery
DX: R10.9 Unspecified abdominal pain (principal); R19.4 Change in bowel habit
CPT/HCPCS: 36415; 80053; 83690; 85025

== ENCOUNTER → 2021-03-28 08:49 | Outpatient (CLI) | payer OTHER, SELFPAY | PROVIDERS: PCP Family Medicine; Referring Provider Family Medicine; Visit Provider Surgery | DX: R10.9 Unspecified abdominal pain (principal); R19.7 Diarrhea, unspecified | CPT/HCPCS: 87177; 87209; 87506 ==

== ENCOUNTER 2021-04-15 09:49 | Day surgery (SDC) | payer OTHER, SELFPAY ==
--- NOTE | 2021-04-15 | GASB_PTH ---
PATIENT: BIANCA MORTENSEN LOC: EN U#:[id number] AGE/SX: 61/F ROOM: RE04/15/[address]: Dr. Jorge Kaur MD : 1960 BED: DIS: 04/15/2021 SPEC #: [id number] RECD: 04/15/21 13:49 STATUS: EDUARDO ARMENTAClarisse #: [id number] ELIA: 04/15/21 00:[address]: Jorge Kaur DEPT: SURGICAL PATHOLOGY RECD BY: Sandeep Roa ENTERED: 04/15/21 13:50 SP TYPE: Gastric Bx OTHR DR: Dr. Kimi Felix MD Tissues: A - Gastric mucous membrane B - Gastric mucous membrane C - Descending colon D - Sigmoid colon biopsy Procedures: Surgery Specimen Level IV HEADER OPERATION: Colonoscopy, EGD ([facility] [place]) PRE-OP DIAGNOSIS: Change in bowel habits and abdominal pain TISSUE SUBMITTED: A ? Antrum biopsy, H. pylori and path, B ? Gastric body polyp, C ? Random biopsy descending colon, D ? Sigmoid colon-sessile biopsy MICROSCOPIC DIAGNOSIS A. Gastric antrum, biopsy: Mild chronic gastritis. B. Gastric body polyp, biopsy: Polypoid fragments of gastric mucosa with focal hyperplastic change. C. Descending colon, biopsy: No pathologic change. D. Sigmoid colon, biopsy: Polypoid fragment of benign colonic mucosa. AM:jovita 04/16/2021 COMMENT A. The results of immunohistochemistry for Helicobacter pylori will be reported separately ([id number]). MICROSCOPIC DESCRIPTION Slides are reviewed. GROSS DESCRIPTION A - Received in fixative is one container labeled with the patient's name and designated antrum biopsy. The specimen consists of two irregular fragments of light pisano soft tissue that in aggregate measure 0.5 x 0.2 x 0.1 cm. The specimen is totally submitted in one cassette. B - Received in fixative is one container labeled with the patient's name and designated gastric body polyp. The specimen consists of multiple irregular fragments of light pisano soft tissue that in aggregate measure 0.5 x 0.3 x 0.1 cm. The specimen is totally submitted in one cassette. C - Received in fixative is one container labeled with the patient's name and designated random biopsy descending colon. The specimen consists of two irregular fragments of light pisano soft tissue that in aggregate measure 0.4 x 0.2 x 0.1 cm. The specimen is totally submitted in one cassette. D - Received in fixative is one container labeled with the patient's name and designated sigmoid colon sessile biopsy. The specimen consists of one irregular fragment of light pisano soft tissue that measures 0.3 x 0.3 x 0.1 cm. The specimen is totally submitted in one cassette. / SJ:rg 04/15/21 TC:3 CPT: 70934 x4
[2021-04-15] MEDS: Lactated Ringers 1,000 ML 15 ML IV (10:38)
[2021-04-15 10:39] VITALS: BMI 22.1
--- NOTE | 2021-04-15 11:00 | IMM_PTH ---
PATIENT: BIANCA MORTENSEN LOC: EN U#:[id number] AGE/SX: 61/F ROOM: RE04/15/[address]: Dr. Jorge Kaur MD : 1960 BED: DIS: 04/15/2021 SPEC #: [id number] RECD: 04/15/21 13:48 STATUS: EDUARDO REClarisse #: [id number] ELIA: 04/15/21 11:[address]: Jorge Kaur DEPT: IMMUNOHISTOCHEMISTRY RECD BY: Miryam Dsouza ENTERED: 04/15/21 13:49 SP TYPE: IMMUNO OTHR DR: Dr. Kimi Felix MD Tissues: A - Stomach, NOS Procedures: H Pylori (initial) PHYSICIAN & INSTITUTION [place] [id number] SPECIMEN INFORMATION: Tissue Source: A ? Antrum biopsy Clinical Info: Change in bowel habits, abdominal pain Specimen Number: [id number] CPT code: 23168 METHODOLOGY: Deparaffinized sections of prefer/formalin-fixed tissue or PAP/DQ stained slides are incubated with monoclonal/polyclonal antibodies/oligonucleotide probes. Localization is made via biotin free immunoperoxidase method. Appropriate controls are performed and reacted as expected. Results on target cell population are indicated in the following table: RESULTS: ANTIBODY / CLONE RESULT Block A H Pylori (polyclonal) negative These tests were developed and their performance characteristics determined by [facility]. They may not have been cleared or approved by the U.S. Food and Drug Administration. The FDA has determined that such clearance or approval is not necessary. INTERPRETATION: A. Antrum biopsy: Negative for Helicobacter pylori organisms. AM:jovita 04/17/2021
--- NOTE | 2021-04-15 11:10 | HP.PCM_ITS ---
History and Physical Date of Admission: 04/15/21 Date of Service: 03/27/21 MR#:[id number]: BIANCA MORTENSENRep #:[id number] Provider:Mikel Pringle/Sex: 61/F [facility] Vital Signs 03/27/21 08:49 Height 5 ft 7 in Weight: 163 lb 8 oz BMI 25.6 BP 109/72 Blood Pressure Location Rt brachial Position Sitting Respiration 18 Pulse 85 Pulse Source NIBP Temp 97.8 F Temp Source Temporal Pulse Oximetry (%) 100 Oxygen Delivery Method room air Intake Visit Reasons: ABDOMINAL PAIN, POSSIBLE EARLY APPENDITIS Chief Complaint: RLQ pain Global Climate Change Researcher Required: No Is patient in pain?: Yes (RLQ) Pain scale (1-10): 3 Allergies esomeprazole [From Nexium] Adverse Reaction (Mild, Verified 03/27/21 08:50) diarrhea Medications celecoxib 100 mg capsule 100 mg PO BID PRN 10/18/20 [History Confirmed 03/27/21] gabapentin 100 mg capsule 300 mg PO QHS PRN cap 10/18/20 [History Confirmed 03/27/21] lorazepam 0.5 mg tablet 0.5 mg PO QHS PRN 10/18/20 [History Confirmed 03/27/21] albuterol sulfate 90 mcg/actuation aerosol inhaler 1 inh INHALATION ONCE 03/27/21 [History Confirmed 03/27/21] ascorbate calcium (vitamin C) 500 mg tablet 500 mg PO DAILY 03/27/21 [History Confirmed 03/27/21] baclofen 20 mg tablet 20 mg PO DAILY PRN 03/27/21 [History Confirmed 03/27/21] cholecalciferol (vitamin D3) 50 mcg (2,000 unit) capsule 50 mcg PO DAILY 03/27/21 [History Confirmed 03/27/21] dicyclomine 20 mg tablet 20 mg PO BID PRN 03/27/21 [History Confirmed 03/27/21] fluticasone propionate 50 mcg/actuation blister powder for inhalation 1 inh INHALATION BID 03/27/21 [History Confirmed 03/27/21] levothyroxine 150 mcg tablet 150 mcg PO DAILY tab 03/27/21 [History Confirmed 03/27/21] miconazole nitrate 200 mg vaginal suppository 200 mg VAGINAL ONCE PRN ea 03/27/21 [History Confirmed 03/27/21] multivitamin 1 tab PO DAILY 03/27/21 [History Confirmed 03/27/21] simvastatin 40 mg tablet 40 mg PO DAILY tab 03/27/21 [History Confirmed 03/27/21] Is last menstrual period known: No Post menopausal: Yes Patient : No PFSH Medical History (Updated 03/27/21 @ 09:[address] Jorge Kaur MD) Arthritis Atrial fibrillation Back problem GERD (gastroesophageal reflux disease) High cholesterol HLD (hyperlipidemia) Hypoglycemia Hypothyroidism Irritable bowel syndrome Cormier's neuroma of right foot Nonrheumatic mitral valve prolapse Osteoporosis Other peripheral vertigo, unspecified ear Palpitations Pneumonia Seasonal allergies Thyroid disease Vitamin D deficiency Vitamin deficiency Surgical History (Updated 03/27/21 @ 08:47 by Mattie Ngeron) H/O bladder repair surgery History of colonoscopy (~2016) History of foot surgery History of total abdominal hysterectomy and bilateral salpingo-oophorectomy Hx of cholecystectomy S/P wrist surgery Family History Father Cancer Aunt Breast cancer Other Alcoholism Anemia Anxiety Depression High cholesterol Hypertension Kidney disease Osteoporosis Social History Smoking Status: Former smoker alcohol intake: never substance use type: does not use caffeine: Yes Type: coffee Number of servings: 2 what type of physical activity do you participate in: walking, bicycling and other details: hiking frequency: 1-2 times per week duration: 30-45 minutes/day seatbelt use: always do you feel safe at home: Yes HPI HPI HPI: BIANCA MORTENSEN, is a 61 F who presents to the office today for acute?on?chronic abdominal pain and recent CT imaging suggesting possibility of early appendicitis. Symptoms include: Right lower quadrant and periumbilical abdominal pain that is fluctuating intensity ranging from a 3-5 out of 10. Pain is not associated with any fever but there has been some chills past couple of days. Patient denies any overtly sick contacts but does have several grandchildren in public schools whom she has been in contact. Her bowel movements occur 1-4 times daily and recently have been looser in consistency. She denies noting any blood. She takes Metamucil daily. The abdominal discomfort and looser stools been associated with some mild nausea and bloating. The current symptoms have been present for approximately 1 month, however, she states that she has had 4 to 5 years of abdominal discomfort. At the beginning of the symptoms she underwent colonoscopy with Dr. Jimenez, but states the findings were unremarkable. She does have a diagnosis of irritable bowel syndrome which manifests as crampy upper abdominal pain for which she takes dicyclomine on a as needed basis but has not required this medication in several months. CT of the abdomen pelvis was obtained earlier this month which showed a mildly dilated appendix and radiology reported early appendicitis could not be excluded. Pertinent surgical history includes: A total abdominal hysterectomy and bilateral salpingo-oophorectomy (13 years ago) as well as bladder sling surgery all done minimally invasively. Patient has no family history of colon cancer, inflammatory bowel disease, or diverticulitis. Her father of pancreatic cancer and her mother of metastatic renal cancer. Patient has a [id number] smoking history but underwent cessation over 30 years ago. She takes Celebrex as needed for history of osteoarthritis. ROS General General: Yes weight change and fatigue; No appetite, colon cancer, breast cancer or weakness HEENT HEENT: No difficulty swallowing, eye injury, eye surgery, swollen glands or hoarseness Endo Endocrine: Yes thyroid disease; No diabetes mellitus, thyroid cancer, Hair loss, heat intolerance or cold intolerance Musc Musculoskeletal: Yes back problems and arthritis; No rheumatoid arthritis, gout or joint pain Cardio Cardiovascular: No murmur, pacemaker, heart disease, atrial fibrillation, high blood pressure, heart attack, heart stent, palpitations, shortness of breat with exertion or chest pain Psych Psychiatric: Yes anxiety; No depression or hearing voices Resp Respiratory: No shortness of breath, No sleep apnea, No cough, No COPD, No asthma, No emphysema and No wheezing Gastro Gastrointestinal: Yes abdominal pain, Yes nausea or vomiting, Yes diarrhea, No constipation, No blood in stool, Yes acid reflux, No hemorrhoids, No ulcers, Yes gallbladder problem and No black,tarry stools Jose Hematologic: No blood thinners, No blood disorders, No bleeding, No anemia and No blood clots Neuro Neurologic: No weakness Exam Const General: cooperative, healthy appearing, comfortable and no acute distress Orientation: alert, awake and oriented x3 GI Inspection: non-distended, scar (Port site scars now well-healed) and no visible herniation Palpation: soft, no guarding and tender in the LLQ (Mild) and in the RLQ (Mild, slightly more pronounced than in the left lower quadrant) Assessment and Plan Assessment and Plan (1) Change in bowel habits: Status: Acute Comment: This is a 61-year-old female with a chronic complaint of bilateral lower quadrant abdominal pain who underwent recent CT imaging with slightly abnormal appearance of her appendix., While she does have a recent, worsening of her abdominal symptoms that are associated with some chills and looser stools, her exam and other clinical presentation is not consistent with appendicitis. She describes her stools now as loose in consistency and watery in character. This is despite the use of Metamucil daily. Given the intensification of her abdominal pains as well, I am suspicious for possible infectious etiology versus microscopic colitis. Patient reports a unremarkable colonoscopic evaluation 4 to 5 years ago. We will look to obtain these records, but she will likely require repeat colonoscopy with random colon biopsies to exclude the latter diagnosis of this differential. Orders: Orders: Colonoscopy Today Comprehensive Metabolic Profil Today Lipase Today CBC W/Diff, Automated Today Plan - Dr. Jorge Kaur MD: ?Stool studies to evaluate for possible infectious etiology ?Obtain updated CBC with differential to assess for any abnormalities that could better direct the course of this investigation ?Plan to repeat colonoscopy with random biopsies (2) Abdominal pain: Status: Acute Qualifiers: Abdominal location: lower abdomen, unspecified Qualified Code(s): R10.30 - Lower abdominal pain, unspecified Comment: Exam and history not consistent with appendicitis but appendix is mildly dilated on CT imaging. Given change in bowel habits, suspicion is higher for some sort of enterocolitis. Work-up as above for investigation of this suspicion. I have not completely excluded possible diagnostic laparoscopy with laparoscopic appendectomy if the above work-up is unrevealing. Plan - Dr. Jorge Kaur MD: Labs and colonoscopy as above. Plan Details Other Orders: Orders: Colonoscopy Today R10.9 Comprehensive Metabolic Profil Today R10.9 Lipase Today R10.9 CBC W/Diff, Automated Today R10.9 Ova and Parasites 8623 Today R10.9, R19.7 ENTERIC PATHOGEN PANEL STOOL Today R19.7 I have re-examined the patient. There are no clinical changes since date of exam. Patient states that she complete her bowel prep and her output is now clear. She denies any significant changes in her GI complaints and confirms that she did receive news of her prior results to this point. Plan to proceed with scheduled EGD and colonoscopy under local [facility].
[2021-04-15 12:17] VITALS: BP 104/63; PULSE 81; RESP 16; TEMP 36.1; O2SAT 100
--- NOTE | 2021-04-15 12:19 | OP.EGD_ITS ---
Patient Name: Randee Issa Procedure Date: 04/15/2021 11:02 AM Date of : 1960 Age: 61 Procedure: Upper GI endoscopy Indications: Helicobacter pylori status to be determined, Abdominal bloating, Nausea with vomiting Providers: Jorge Kaur MD Medicines: See the Anesthesia note for documentation of the administered medications Patient Profile: Refer to note in patient chart for documentation of history and physical. Patient has symptoms of chronic abdominal distention and chronic nausea. Complications: No immediate complications. Estimated blood loss: Minimal. Procedure: Pre-Anesthesia Assessment: - The heart rate, respiratory rate, oxygen saturations, blood pressure, adequacy of pulmonary ventilation, and response to care were monitored throughout the procedure. After obtaining informed consent, the endoscope was passed under direct vision. Throughout the procedure, the patient's blood pressure, pulse, and oxygen saturations were monitored continuously. The gastroscope was introduced through the mouth, and advanced to the second part of duodenum. The upper GI endoscopy was accomplished without difficulty. The patient tolerated the procedure well. Scope In: 11:14:46 AM Scope Out: 11:35:19 AM Total Procedure Duration Time 0 hours 20 minutes 33 seconds Findings: No gross lesions were noted in the entire examined duodenum. Localized mild inflammation characterized by erythema was found in the gastric antrum. Biopsies were taken with a cold forceps for histology. Estimated blood loss was minimal. Biopsies were taken with a cold forceps for Helicobacter pylori testing. Estimated blood loss was minimal. A single 5 mm pedunculated and sessile polyp with bleeding and no stigmata of recent bleeding was found in the gastric body. The polyp was removed with a hot snare. Resection and retrieval were complete. Estimated blood loss was minimal. The Z-line was regular and was found 35 cm from the incisors. No biopsies or other specimens were collected for this exam. Impression: - No gross lesions in the entire examined duodenum. - Gastritis. Biopsied. - A single gastric polyp. Resected and retrieved. - Z-line regular, 35 cm from the incisors. No specimens collected. Recommendation: - Discharge patient to home (via wheelchair). - Resume regular diet today. - Use Prilosec (omeprazole) 20 mg PO daily today. - Await pathology results. - Telephone my office for pathology results in 1 week. - Continue present medications. Procedure Code(s): --- Professional --- 33097, Esophagogastroduodenoscopy, flexible, transoral; with removal of tumor(s), polyp(s), or other lesion(s) by snare technique 40832, 59, Esophagogastroduodenoscopy, flexible, transoral; with biopsy, single or multiple Diagnosis Code(s): --- Professional --- K29.70, Gastritis, unspecified, without bleeding K31.7, Polyp of stomach and duodenum R14.0, Abdominal distension (gaseous) R11.2, Nausea with vomiting, unspecified CPT copyright 2017 [employer]. All rights reserved. The codes documented in this report are preliminary and upon braille coder review may be revised to meet current compliance requirements. Jorge Kaur MD 04/15/2021 12:18:58 PM This report has been signed electronically. Number of Addenda: 0 Note Initiated On: 04/15/2021 11:02 AM
--- NOTE | 2021-04-15 12:19 | OP.CCLET_ITS ---
04/15/2021 Kimi Felix [address] [place] [address] Re : Upper GI endoscopy procedure for Randee Issa Dear Dr. Felix This procedure was performed on Thursday, April 15, 2021. My impressions and recommendations are as follows: Impressions : - No gross lesions in the entire examined duodenum. - Gastritis. Biopsied. - A single gastric polyp. Resected and retrieved. - Z-line regular, 35 cm from the incisors. No specimens collected. Recommendations : - Discharge patient to home (via wheelchair). - Resume regular diet today. - Use Prilosec (omeprazole) 20 mg PO daily today. - Await pathology results. - Telephone my office for pathology results in 1 week. - Continue present medications. My findings are described in the full procedure note, which is enclosed. If I can be of further assistance, please feel free to contact me at Doctor phone number(s): , Work: . Sincerely, Jorge Kaur MD 04/15/2021 12:18:58 PM This report has been signed electronically.
[2021-04-15 12:20] VITALS: BP 126/76; PULSE 78; RESP 16; O2SAT 100
[2021-04-15 12:25] VITALS: BP 112/69; PULSE 75; RESP 16; O2SAT 98
[2021-04-15 12:30] VITALS: BP 126/76; PULSE 79; RESP 16; O2SAT 16
--- NOTE | 2021-04-15 12:31 | OP.COLON_ITS ---
Patient Name: Randee Issa Procedure Date: 04/15/2021 11:37 AM Date of : 1960 Age: 61 Procedure: Colonoscopy Indications: Generalized abdominal pain, Diarrhea Providers: Jorge Kaur MD Medicines: See the Anesthesia note for documentation of the administered medications Patient Profile: Refer to note in patient chart for documentation of history and physical. Patient has symptoms of chronic abdominal distention and chronic nausea. Last Colonoscopy: 3 years ago. Complications: No immediate complications. Estimated blood loss: Minimal. Procedure: Pre-Anesthesia Assessment: - The heart rate, respiratory rate, oxygen saturations, blood pressure, adequacy of pulmonary ventilation, and response to care were monitored throughout the procedure. - The heart rate, respiratory rate, oxygen saturations, blood pressure, adequacy of pulmonary ventilation, and response to care were monitored throughout the procedure. After I obtained informed consent, the scope was passed under direct vision. Throughout the procedure, the patient's blood pressure, pulse, and oxygen saturations were monitored continuously. The Colonoscope was introduced through the anus and advanced to the cecum, identified by the ileocecal valve. The colonoscopy was performed without difficulty. The patient tolerated the procedure well. The quality of the bowel preparation was fair. Scope In: 11:39:20 AM Scope Withdrawal Time 0 hours 22 minutes 6 seconds Scope Out: 12:11:05 PM Total Procedure Duration Time 0 hours 31 minutes 45 seconds Findings: Many medium-mouthed diverticula were found in the sigmoid colon. No biopsies or other specimens were collected for this exam. No biopsies or other specimens were collected for this exam. One 7 mm mucosal nodule was found in the distal sigmoid colon. Biopsies were taken with a cold forceps for histology. Estimated blood loss was minimal. No additional abnormalities were found on retroflexion. Normal mucosa was found in the descending colon. Biopsies were taken with a cold forceps for histology. Estimated blood loss was minimal. Impression: - Preparation of the colon was fair. - Diverticulosis in the sigmoid colon. No specimens collected. - Mucosal nodule in the distal sigmoid colon. Biopsied. - Normal mucosa in the descending colon. Biopsied. Recommendation: - Discharge patient to home (via wheelchair). - Resume regular diet today. - Continue present medications. - Await pathology results. - Repeat colonoscopy for surveillance based on pathology results. - Telephone my office for pathology results in 1 week. Procedure Code(s): --- Professional --- 68771, Colonoscopy, flexible; with biopsy, single or multiple Diagnosis Code(s): --- Professional --- K63.89, Other specified diseases of intestine R10.84, Generalized abdominal pain R19.7, Diarrhea, unspecified K57.30, Diverticulosis of large intestine without perforation or abscess without bleeding CPT copyright 2017 [employer]. All rights reserved. The codes documented in this report are preliminary and upon milk receiver review may be revised to meet current compliance requirements. Jorge Kaur MD 04/15/2021 12:31:25 PM This report has been signed electronically. Number of Addenda: 0 Note Initiated On: 04/15/2021 11:37 AM
--- NOTE | 2021-04-15 12:32 | OP.CCLET_ITS ---
04/15/2021 Kimi Felix [address] [place] [address] Re : Colonoscopy procedure for Randee Issa Dear Dr. Felix This procedure was performed on Thursday, April 15, 2021. My impressions and recommendations are as follows: Impressions : - Preparation of the colon was fair. - Diverticulosis in the sigmoid colon. No specimens collected. - Mucosal nodule in the distal sigmoid colon. Biopsied. - Normal mucosa in the descending colon. Biopsied. Recommendations : - Discharge patient to home (via wheelchair). - Resume regular diet today. - Continue present medications. - Await pathology results. - Repeat colonoscopy for surveillance based on pathology results. - Telephone my office for pathology results in 1 week. My findings are described in the full procedure note, which is enclosed. If I can be of further assistance, please feel free to contact me at Doctor phone number(s): , Work: . Sincerely, Jorge Kaur MD 04/15/2021 12:31:25 PM This report has been signed electronically.
[2021-04-15 12:34] VITALS: PULSE 80; RESP 16; TEMP 36.1; O2SAT 100
== END 2021-04-15 13:02 ==
LOC: EN 09:54 → AC 09:57
PROVIDERS: PCP Family Medicine; Referring Provider Family Medicine; Visit Provider Surgery
PROC: 0DJD8ZZ Inspection of Lower Intestinal Tract, Via Natural or Artificial Opening Endoscopic (ICD-10-PCS; CPT 45378; principal; 2021-04-15 10:55)
DX: K31.7 Polyp of stomach and duodenum (principal); K29.50 Unspecified chronic gastritis without bleeding; K57.30 Diverticulosis of large intestine without perforation or abscess without bleeding; K31.89 Other diseases of stomach and duodenum; E55.9 Vitamin D deficiency, unspecified; E03.9 Hypothyroidism, unspecified; E07.9 Disorder of thyroid, unspecified; M19.90 Unspecified osteoarthritis, unspecified site; E78.00 Pure hypercholesterolemia, unspecified; K21.9 Gastro-esophageal reflux disease without esophagitis; K58.9 Irritable bowel syndrome, unspecified; F41.9 Anxiety disorder, unspecified; Z80.0 Family history of malignant neoplasm of digestive organs; Z87.891 Personal history of nicotine dependence; Z79.899 Other long term (current) drug therapy
CPT/HCPCS: 43239; 43251; 45380; 88305; 88342; J7120

== ENCOUNTER → 2021-04-29 13:43 | Outpatient (CLI) | payer OTHER, SELFPAY ==
--- NOTE | 2021-04-29 13:45 | CT_ITS ---
STUDY: CT ABDOMEN AND PELVIS WITH CONTRAST REASON FOR EXAM: Female, 61 years old. Abnormal colonoscopy. Intermittent abdominal pain. RADIATION DOSAGE (If Supplied By Facility): CTDIvol = ( 11.23 ) mGy, DLP = ( 583.88 ) mGycm TECHNIQUE: Transaxial images were obtained from the dome of the diaphragm to the symphysis pubis without oral contrast. IV 100mL Isovue-300 was administered. Sagittal and coronal images were reconstructed. Individualized dose optimization techniques were used for this CT. COMPARISON: Comparison is made with prior examination dated 03/19/2021. FINDINGS: The visualized lung bases are unremarkable. The visualized portions of the heart are within normal limits. Stable 7 mm cyst in the posterior aspect of the right lobe of the liver. The patient is status post cholecystectomy. Normal spleen. Normal pancreas. Normal bilateral adrenal glands. Normal right kidney. Normal left kidney. Normal visualized stomach. Normal small intestine. There are multiple colonic diverticula consistent with diverticulosis. A large amount of fecal material is seen in the right hemicolon. The appendix is visualized and appears normal. Normal abdominal aorta. Normal inferior vena cava. Normal retroperitoneum. Distended urinary bladder. There is absence of the uterus consistent with a prior hysterectomy. There is a small umbilical hernia containing fat. Disc space narrowing and degenerative changes at the L5-S1 level. CT/Abdomen/Pelvis W IV Cont ONLY IMPRESSION: Sigmoid diverticulosis. Moderate amount of fecal material is seen in the colon. Electronically Signed: New Morris MD at 15:09 EST , Service support ,
[2021-04-29 14:21] LABS: CREATININE FINGERSTICK < 0.6 mg/dL (0.55-1.02); EGFR FINGERSTICK > 60.0000 mL/min (>60)
== END ==
PROVIDERS: PCP Family Medicine; Referring Provider Surgery; Visit Provider Surgery
DX: R10.30 Lower abdominal pain, unspecified (principal); R19.4 Change in bowel habit; R93.3 Abnormal findings on diagnostic imaging of other parts of digestive tract
CPT/HCPCS: 74177; Q9967

== ENCOUNTER 2021-05-23 09:55 | Outpatient (CLI) | payer OTHER, SELFPAY ==
--- NOTE | 2021-05-23 09:57 | BI_ITS ---
MAMMOGRAPHY - BILATERAL SCREENING REASON FOR EXAM: Female, 61 years old. Routine annual screening examination. PERTINENT HISTORY: Mother with breast cancer. Aunt with breast cancer. TECHNIQUE: Digital bilateral breast marcin (3D mammographic acquisition) in the CC and MLO projections. 2-D mediolateral oblique (MLO) and craniocaudad (CC) views of both breasts were obtained. CAD: Full Field Digital Mammography with Computer Added Detection was performed. COMPARISON: Comparison is made with prior study dated 05/21/2020 and 03/19/2018. FINDINGS: Breast Composition: The breasts are extremely dense, which lowers the sensitivity of mammography. There are no dominant masses or suspicious calcifications. No other significant abnormalities are identified. There has been no significant change since the prior study. BI/SCRN MAMM (CAD)W/MARCIN BILAT IMPRESSION: Stable bilateral screening mammogram. Yearly follow-up mammogram recommended. (A) ASSESSMENT CATEGORY: BIRADS Category 1: Negative. A letter regarding these results will be sent to the patient by the facility within 30 days. Approximately 10% of breast cancers are not detected by mammography. A normal mammogram should not delay biopsy of a clinically suspicious abnormality. [id number] Electronically Signed: New Morris MD at 10:50 EST , Service support ,
== END 2021-05-23 23:59 | disposition short-term general hospital (02) ==
LOC: OPBI 09:55
PROVIDERS: PCP Family Medicine; Referring Provider Nurse Practitioner Women's Health; Visit Provider Nurse Practitioner Women's Health
DX: Z12.31 Encounter for screening mammogram for malignant neoplasm of breast (principal)
CPT/HCPCS: 77063; 77067

== ENCOUNTER 2021-06-04 10:21 | Outpatient (CLI) | payer OTHER, SELFPAY ==
--- NOTE | 2021-06-04 10:22 | RAD_ITS ---
STUDY: X-RAY - ABDOMEN/PELVIS REASON FOR EXAM: Female, 61 years old. Sitz marker test TECHNIQUE: Single AP view of the abdomen / pelvis. COMPARISON: None. FINDINGS: Normal visualized lung bases. There is an abundance of fecal material throughout the colon. The visualized liver, spleen and kidneys are grossly normal in size and morphology. Normal soft tissue structures. Normal visualized osseous structures. RAD/Abdomen Single View IMPRESSION: A large amount of fecal material is seen in the colon. Electronically Signed: New Morris MD at 10:45 EST ,
== END 2021-06-04 23:59 | disposition short-term general hospital (02) ==
LOC: MTRAD 10:22
PROVIDERS: PCP Family Medicine; Referring Provider Internal Medicine Gastroenterology; Visit Provider Internal Medicine Gastroenterology
DX: R19.8 Other specified symptoms and signs involving the digestive system and abdomen (principal)
CPT/HCPCS: 74018

== ENCOUNTER 2021-06-14 12:43 | Outpatient (CLI) | payer OTHER, SELFPAY ==
--- NOTE | 2021-06-14 12:49 | MRI_ITS ---
STUDY: MR MRCP WITHOUT CONTRAST REASON FOR EXAM: Female, 61 years old. abnormal EGD, sausage pancreas TECHNIQUE: Standard MRCP technique was utilized. 3-D postprocessing images were reviewed. COMPARISON: None. FINDINGS: Gall Bladder: Gall bladder is surgically absent. Cystic duct: Normal with no demonstrated fixed filling defect. Intrahepatic ducts: Normal visualized intrahepatic ducts with no demonstrated fixed filling defect, dilation or stricture. Common hepatic duct: Normal with no demonstrated fixed filling defect, dilation or stricture. Common bile duct: Normal with no demonstrated fixed filling defect, dilation or stricture. Pancreatic duct: Normal with no demonstrated fixed filling defect, dilation or stricture. MRI/MRCP Abdomen without Contrast IMPRESSION: Normal MR Cholangiopancreatography (MRCP). Electronically Signed: Blaine Casper MD at 19:26 [facility] ,
== END 2021-06-14 23:59 | disposition short-term general hospital (02) ==
PROVIDERS: PCP Family Medicine; Referring Provider Internal Medicine Gastroenterology; Visit Provider Internal Medicine Gastroenterology
DX: R19.8 Other specified symptoms and signs involving the digestive system and abdomen (principal)
CPT/HCPCS: 74181

== ENCOUNTER 2021-06-26 09:17 | Outpatient (CLI) | payer OTHER, SELFPAY ==
[2021-06-27 16:16] LABS: Carbohydrate AG 19-9 7 U/mL (0-35)
== END 2021-06-26 23:59 | disposition home or self-care (01) ==
LOC: MTLAB 09:18
PROVIDERS: PCP Family Medicine; Referring Provider Internal Medicine Gastroenterology; Visit Provider Internal Medicine Gastroenterology
DX: K59.00 Constipation, unspecified (principal)
CPT/HCPCS: 36415; 86301

== ENCOUNTER → 2021-10-21 | Outpatient (CLI) | payer OTHER, SELFPAY ==
[2021-10-21 12:23] LABS: ALB/GLOB Ratio 1.1 RATIO (0.9-2.4); AST(SGOT) 23 U/L (15-37); Alanine Aminotransfer ALT/SGPT 26 U/L (13-56); Alkaline Phosphatase 46 U/L (45-117); Anion Gap 5 (5-15); BUN 13 mg/dL (7-18); BUN/Creat Ratio 17.2 RATIO (10-20); Calcium,Total 9.3 mg/dL (8.5-10.1); Chloride 106 mmol/L (98-107); Cholesterol 190 mg/dL (200); Creatinine, Serum 0.76 mg/dL (0.55-1.02); EST Glomerular Filtration Rate 82 mL/min (>60); Est Glom Filt Rate - Afr Amer 99 mL/min (>60); Globulin 3.5 g/dL (2.2-4.2); Glucose 98 mg/dL (74-106); High Density Lipoprotein 73 mg/dL; Potassium 3.8 mmol/L (3.5-5.1); Protein, Total 7.5 g/dL (6.4-8.2); Sodium Level 140 mmol/L (136-145); T4 Free Direct 1.33 ng/dL (0.76-1.46); Thyroid Stim Hormone (TSH) 0.83 uIU/mL (0.358-3.74); Triglycerides 165 mg/dL; Very Low Density Lipoprotein 33 mg/dL (5-40)
[2021-10-21 12:33] LABS: Vitamin D,25 Hydroxy 44.2 ng/mL
== END | disposition home or self-care (01) ==
LOC: BIMLAB 10:50
PROVIDERS: PCP Family Medicine; Referring Provider Internal Medicine Endocrinology, Diabetes & Metabolism; Visit Provider Internal Medicine Endocrinology, Diabetes & Metabolism
DX: E55.9 Vitamin D deficiency, unspecified (principal); M81.0 Age-related osteoporosis without current pathological fracture; E03.9 Hypothyroidism, unspecified; E78.5 Hyperlipidemia, unspecified
CPT/HCPCS: 36415; 80053; 80061; 82306; 84439; 84443

== ENCOUNTER → 2021-11-08 | Outpatient (CLI) | payer OTHER, SELFPAY ==
[2021-11-08 09:59] VITALS: BP 103/73; PULSE 93; RESP 16; TEMP 37.2; O2SAT 99; BMI 23.5
[2021-11-08] MEDS: Zoledronic Acid 5 MG 100 ML 300 MG IV (10:10)
[2021-11-08] MEDS: 0.9% NaCl Peripheral Flush Adult/Peds IV (10:10)
[2021-11-08] MEDS: 0.9% NaCl IVPB Med Flush (250 mL) 15 ML IV (10:10)
[2021-11-08 10:37] VITALS: BP 114/65; PULSE 82; RESP 16; TEMP 36.8; O2SAT 99
== END | disposition home or self-care (01) ==
LOC: MEDOUTP 09:48
PROVIDERS: PCP Family Medicine; Referring Provider Internal Medicine Endocrinology, Diabetes & Metabolism; Visit Provider Internal Medicine Endocrinology, Diabetes & Metabolism
DX: M81.0 Age-related osteoporosis without current pathological fracture (principal)
CPT/HCPCS: 96365; J7050; A4216; J3489

== ENCOUNTER → 2021-11-19 | Outpatient (CLI) | payer OTHER, SELFPAY ==
[2021-11-20 16:04] LABS: Carbohydrate Ag 19-9 2261 7 U/mL (0-35)
[2021-11-22 11:08] LABS: Beef <0.10 kU/L (Class 0); Corn <0.10 kU/L (Class 0); Egg, Whole <0.10 kU/L (Class 0); Milk (Cow) <0.10 kU/L (Class 0); Peanut <0.10 kU/L (Class 0); Pork <0.10 kU/L (Class 0); Soybean <0.10 kU/L (Class 0); Wheat <0.10 kU/L (Class 0)
[2021-11-22 11:33] LABS: Chocolate <0.10 kU/L (Class 0)
== END | disposition home or self-care (01) ==
LOC: LAB 10:55
PROVIDERS: PCP Family Medicine; Visit Provider Internal Medicine Gastroenterology
DX: K58.1 Irritable bowel syndrome with constipation (principal); Z80.0 Family history of malignant neoplasm of digestive organs
CPT/HCPCS: 36415; 86003; 86005; 86301

== ENCOUNTER → 2021-12-12 | Outpatient (CLI) | payer OTHER, SELFPAY ==
--- NOTE | 2021-12-12 07:17 | MRI_ITS ---
STUDY: MRI LEFT ANKLE WITHOUT CONTRAST REASON FOR EXAM: Soft tissue mass at the lateral left ankle for one month. TECHNIQUE: Standardized fat and water weighted pulse sequences were obtained in all 3 orthogonal planes. COMPARISON: None. FINDINGS: There is a small ganglion cyst at the peripheral aspect of the peroneal tendon sheath corresponding to the skin marker (T2 coronal image 17; T2 axial image 19) measuring 0.45 cm in length. Normal posterior tibialis tendon. Normal flexor digitorum longus tendon. Normal flexor hallucis longus tendon. There is a longitudinal split of the perimalleolar peroneus brevis tendon (T2 axial images 15-18). Normal peroneus longus tendon. Normal tibialis anterior tendon. Normal extensor hallucis longus tendon. Normal extensor digitorum longus tendons. Normal Achilles tendon and teno-osseous insertion. Normal plantar fascia. Normal plantar calcaneal tubercles. Normal intrinsic muscles of the rearfoot. Normal distal tibiofibular syndesmotic ligamentous complex. Normal lateral ligamentous complex. Normal subtalar ligaments and sinus tarsi. Normal deltoid ligamentous complexes. Normal plantar calcaneonavicular (spring) ligament. Normal tibiotalar articulation. Normal talar dome. Normal subtalar articulations. There is a very small os trigonum. Normal talonavicular articulation. Normal calcaneocuboid articulation. Normal navicular-cuneiform articulations. MRI/Lower Ext Joint Only (Routine) IMPRESSION: Small ganglion cyst at the peripheral aspect of the peroneal tendon sheath corresponding to the skin marker. Longitudinal split of the peroneus brevis tendon. Electronically Signed: Dennis Petersen MD at 9:02 EDT ,
== END | disposition home or self-care (01) ==
PROVIDERS: PCP Family Medicine; Referring Provider Podiatrist; Visit Provider Podiatrist
DX: R22.42 Localized swelling, mass and lump, left lower limb (principal)
CPT/HCPCS: 73721

== ENCOUNTER 2022-02-17 10:30 | Outpatient (RCR) | payer OTHER, SELFPAY ==
--- NOTE | 2022-01-10 13:09 | HP.PTEVAL_ITS ---
Patient's Visit Information BIANCA MORTENSEN is a 62 year old F referred to Physical Therapy by Dr. Kimi Felix MD with a diagnosis of RIGHT UT TRAPEZIUS STRAIN ,LUMBAR STRAIN. Date of Evaluation: 01/10/22 Physical Therapist: Jamil Pink, PT, Cert MDT, OCS - Visit Plan Frequency: 2x /Week Duration: 6 Weeks Plan: PT INTERVETIONS POSTURAL EX'S , FLEXABILITY ,DLS , MANUAL THERAPY CERVICAL TRACTION ,CERVICAL/LUMBAR -MECKENZIE EX'S AND MODALTIES TO INCLUDE ICTX - Subjective This 62 y/o female presents to physical therapy with right UT and lumbar pain. Patient back 15 years and neck pain for ~ 5 years. Patient stated thinks recent ly flare up arthritis. Patient seen DR because pain was progressively worse, did steroid injection. Patient does take naproxen. Patient has seen chiropractor in past and PT in shoulder. Patient LBP is left back and posterior glut along UT and right neck. Aggravating lifting, bending ,sitting and affects housework tasks . Alleviating factors walking and moving. Denies paresthesia/tingling. Bowel/bladder-. Coughing/sneezing-. No abnormal night pain. Pain affect sleeping in back and neck. Aggravating factors neck lifting ,sitting and affects housework tasks. Denies dizziness/tinnitus/ nausea. No h/o . Patient lifting clients [employer] caused cumulative affect of back pain. Patient pain affects QOL and function. PRECAUTION: OSTEOPOROSIS Patient has h/o bulging disc. SOCAIL: . 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 NEURO: denies paresthesia/tingling ,reflexes C5-6-7 2/3 ,L3-4,L4-5,L5-S 1 2/3. PALPTION: tender SI/LS -L. CERVICAL ROM: flexion WFL ,lateral flexion/rotation ,extension min loss ,retraction WFL. LUMBAR ROM: flexion WFL ,extension min loss ,side glides WFL. MMT: BUE 4/5 except shoulders 4-/5 ,quads/hams/hip ankle 4/5 - Special Tests C/S Radiculapathy - Left Upper limb tension test: Negative C/S Radiculapathy - Right Upper limb tension test: Negative C/S Radiculapathy - Left Spurlings: Negative C/S Radiculapathy - Right Spurlings: Positive C/S Radiculapathy - Left Cervical distraction: Negative C/S Radiculapathy - Right Cervical distraction: Negative C/S Radiculapathy - Left Relief test: Negative C/S Radiculapathy - Right Relief test: Negative C/S Radiculapathy - Valsalva: Negative Sharp Vic: Negative Vertebral Artery Test: Negative Alar Ligament Test: Negative L/S Slump test left side: Negative L/S Slump test right side: Negative L/S Left Straight Leg Raise: Negative L/S Right Straight Leg Raise: Negative L/S Left Femoral Nerve Tension: Negative L/S Right Femoral Nerve Tension: Negative Lumbar Standing: Flexion - Mechanical Response: No effect Lumbar Standing: Flexion - Symptoms During Testing: No effect Lumbar Standing: Flexion - Symptoms After Testing: No effect Lumbar Standing: Extension - Mechanical Response: No effect Lumbar Standing: Extension - Symptoms During Testing: Decreases Lumbar Standing: Extension - Symptoms After Testing: No better Lumbar Standing: Right Side Glides - Mechanical Response: No effect Lumbar Standing: Right Side [place] - Symptoms During Testing: No effect Lumbar Standing: Right Side [place] - Symptoms After Testing: No effect Lumbar Standing: Left Side [place] - Mechanical Response: No effect Lumbar Standing: Left Side [place] - Symptoms During Testing: No effect Lumbar Standing: Left Side [place] - Symptoms After Testing: No effect - Balance/Special Test Scores Oswestry Low Back Score: 26 - Goals Goal 1:: I with HEP for neck and back Goal Time Frame: 4-6 Weeks Goal 2:: Patient to demonstrate 50% improvement with decrease pain and improved function with ADL'S Goal Time Frame: 4-6 Weeks Goal 3:: Patient to improve lumbar ROM for 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 Goal Time Frame: 4-6 Weeks Goal 4:: Patient to improve cervical ROM 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 Goal Time Frame: 4-6 Weeks Goal 5:: Patient to improve back oswestry score by 5 points to improve QOL and function Goal Time Frame: 4-6 Weeks - Rehabilitation Potential Physical Therapy Diagnosis: This patient has lumbar pain with possible disc derangement and right lateral stenosis with pain with positioning , motion testing affects ADL'S and job demands and postural deficits thus benefit from skilled PT Rehabilitation Potential: Good - Anticipated Interventions Patient/Client Instruction: Educate patient on: Condition, Plan of Care For the Purpose of:: To decrease pain, To increase ROM, To improve muscle performance and motor function, To improve ability to perform ADL's, To increase tolerance to activity/condition/position, To improve ability of physical actions for home/community/work/leisure, To improve health of tissue, To decrease soft tissue restriction, To increase flexibility/ROM, To prevent re-injury Therapeutic Exercise to Include: Strength training, Postural training, Flexibilty training, Active ROM, Dynamic Lumbar Stabilization, Keshia Exercises For the Purpose of:: To decrease pain, To increase ROM, To improve muscle performance and motor function, To improve ability to perform ADL's, To increase tolerance to activity/condition/position, To improve ability of physical actions for home/community/work/leisure, To improve health of tissue, To decrease soft tissue restriction, To increase flexibility/ROM, To prevent re-injury Manual Therapy Techniques to Include: Mobilization Comment: TRACTION For the Purpose of:: To decrease pain, To increase ROM, To improve health of tissue, To decrease soft tissue restriction, To increase flexibility/ROM TENS: Yes IF ES: Yes Cryotherapy (ice pack, ice massage): Yes Thermo therapy (hot pack): Yes Ultrasound (thermal/non thermal): Yes Intermittent cervical traction: Yes For the Purpose of:: To decrease pain, To increase ROM, To improve nutrient delivery to tissue, To increase oxygenation perfusion, To improve health of tissue, To decrease soft tissue restriction Thank you for the opportunity to evaluate your patient. For Medicare and Medicare HMO plans, please review the plan of care and approve it. It will need to be FAXED BACK to us at [phone] for Medicare purposes. For Medicare only, by signing this I certify the plan of care. Please let me know if there are questions or concerns regarding this plan of care. Physician Signature:__ Date:
--- NOTE | 2022-02-17 11:11 | HP.PTDCSUM ---
It has been my pleasure to treat BIANCA MORTENSEN referred by Dr. Kimi Felix MD, with the diagnosis of RIGHT UT TRAPEZIUS STRAIN ,LUMBAR STRAIN for a total of 9 visit(s). Discharge Date: 02/17/22 Please see the following information for a summary of their discharge status. Subjective: Patient reports a lot better .. Getting stronger Left Back Pain Intensity (Out of 10): 2 Right Pain Intensity (Out of 10): 2 % Improvement: 75 Objective/Function: CERVICAL ROM: MIN LOSS ALL PLANES. LUMBAR ROM: WNL FLEXION,EXTENSION MIN LOSS. MMT: BUE 4/5. MMT: QUADS/HAMS/HIP 4/5 RIGHT ,LEFT 4-/5. 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 Thank you for the referral of this patient. Sincerely, Jamil Pink, PT, Cert MDT, OCS Balance/Gait/Functional tests - Balance/Special Test Scores Oswestry Low Back Score: 4
== END 2022-02-17 19:00 | disposition home or self-care (01) ==
LOC: PT 10:30
PROVIDERS: PCP Family Medicine; Referring Provider Family Medicine; Visit Provider Family Medicine
DX: S29.012D Strain of muscle and tendon of back wall of thorax, subsequent encounter (principal); S39.012D Strain of muscle, fascia and tendon of lower back, subsequent encounter; X58.XXXD Exposure to other specified factors, subsequent encounter
CPT/HCPCS: 97012; 97110; 97162; 97530

== ENCOUNTER → 2022-06-05 | Outpatient (CLI) | payer OTHER, SELFPAY ==
--- NOTE | 2022-06-05 15:48 | BI_ITS ---
MAMMOGRAPHY - BILATERAL SCREENING REASON FOR EXAM: Female, 62 years old. Routine annual screening examination. PERTINENT HISTORY: Mother with breast cancer. Aunt with breast cancer. TECHNIQUE: Digital bilateral breast marcin (3D mammographic acquisition) in the CC and MLO projections. 2-D mediolateral oblique (MLO) and craniocaudad (CC) views of both breasts were obtained. CAD: Full Field Digital Mammography with Computer Added Detection was performed. COMPARISON: Comparison is made with prior study dated 05/23/2021 and 05/21/2020. FINDINGS: Breast Composition: The breasts are extremely dense, which lowers the sensitivity of mammography. There are no dominant masses or suspicious calcifications. No other significant abnormalities are identified. There has been no significant change since the prior study. BI/SCRN MAMM (CAD)W/MARCIN BILAT IMPRESSION: Stable bilateral screening mammogram. Yearly follow-up mammogram recommended. (A) ASSESSMENT CATEGORY: BIRADS Category 1: Negative. A letter regarding these results will be sent to the patient by the facility within 30 days. Approximately 10% of breast cancers are not detected by mammography. A normal mammogram should not delay biopsy of a clinically suspicious abnormality. [id number] Electronically Signed: New Morris MD at 8:17 EST ,
== END | disposition home or self-care (01) ==
LOC: OPBI 15:46
PROVIDERS: PCP Family Medicine; Referring Provider Nurse Practitioner Women's Health; Visit Provider Nurse Practitioner Women's Health
DX: Z12.31 Encounter for screening mammogram for malignant neoplasm of breast (principal)
CPT/HCPCS: 77063; 77067

== ENCOUNTER → 2022-08-27 | Outpatient (CLI) | payer OTHER, SELFPAY ==
--- NOTE | 2022-08-27 14:44 | NEURO_ITS ---
NCS and/or EMG Patient Report Ordering Doctor: Colten Mayes DATE OF SERVICE: 08/27/22 Randee presents electrodiagnostic testing of the upper limbs. She reports numbness and tingling in both hands as well as aching pain in the arms. Electrodiagnostic findings: Median motor nerve demonstrates normal distal latenc y, amplitude and conduction velocity bilaterally. Normal ulnar motor response bilaterally, including conduction across the elbow. Normal median and ulnar F waves. Sensory responses are within normal limits. On needle EMG, all muscles tested in the upper limbs showed no evidence of denervation with normal motor unit action potentials. Electrodiagnostic impression: This is a normal electrodiagnostic study of the upper limbs. There is no electrodiagnostic evidence for peripheral neuropathy, including carpal tunnel or cubital tunnel syndrome. There is no electrodiagnostic evidence for cervical radiculopathy.
== END | disposition home or self-care (01) ==
PROVIDERS: PCP Family Medicine; Referring Provider Orthopaedic Surgery; Visit Provider Orthopaedic Surgery
DX: M47.22 Other spondylosis with radiculopathy, cervical region (principal); R20.2 Paresthesia of skin
CPT/HCPCS: 95886; 95913

== ENCOUNTER → 2022-10-21 | Outpatient (CLI) | payer OTHER, SELFPAY ==
[2022-10-21 09:59] LABS: Vitamin D,25 Hydroxy 49.8 ng/mL
[2022-10-21 10:01] LABS: AST(SGOT) 22 U/L (15-37); Alanine Aminotransfer ALT/SGPT 36 U/L (13-56); Albumin, Serum 3.9 g/dL (3.2-5.0); Alkaline Phosphatase 54 U/L (45-117); Anion Gap 5 (5-15); BUN 17 mg/dL (7-18); BUN/Creat Ratio 21.8 RATIO (10-20); Calcium,Total 9.4 mg/dL (8.5-10.1); Chloride 105 mmol/L (98-107); Cholesterol 209 mg/dL (200); Creatinine, Serum 0.78 mg/dL (0.55-1.02); EST Glomerular Filtration Rate 79 mL/min (>60); Est Glom Filt Rate - Afr Amer 96 mL/min (>60); Globulin 3.8 g/dL (2.2-4.2); Glucose 96 mg/dL (74-106); High Density Lipoprotein 73 mg/dL; Potassium 4.1 mmol/L (3.5-5.1); Protein, Total 7.7 g/dL (6.4-8.2); Sodium Level 139 mmol/L (136-145); T4 Free Direct 1.48 ng/dL (0.76-1.46); Thyroid Stim Hormone (TSH) 0.84 uIU/mL (0.358-3.74); Triglycerides 334 mg/dL; Very Low Density Lipoprotein 67 mg/dL (5-40)
== END | disposition home or self-care (01) ==
LOC: LAB 08:33
PROVIDERS: PCP Family Medicine; Referring Provider Internal Medicine Endocrinology, Diabetes & Metabolism; Visit Provider Internal Medicine Endocrinology, Diabetes & Metabolism
DX: M81.0 Age-related osteoporosis without current pathological fracture (principal); E07.9 Disorder of thyroid, unspecified; E55.9 Vitamin D deficiency, unspecified; E78.00 Pure hypercholesterolemia, unspecified
CPT/HCPCS: 36415; 80053; 80061; 82306; 84439; 84443

== ENCOUNTER 2022-11-21 10:03 | Outpatient (CLI) | payer OTHER, SELFPAY ==
[2022-11-21 10:34] VITALS: BP 102/65; PULSE 73; RESP 16; TEMP 36.3; O2SAT 96; BMI 23.5
[2022-11-21] MEDS: Zoledronic Acid 5 MG 100 ML 300 MG IV (10:43)
[2022-11-21] MEDS: 0.9% NaCl Peripheral Flush Adult/Peds IV (10:43)
[2022-11-21 11:15] VITALS: BP 124/65; PULSE 68
== END 2022-11-21 10:04 | disposition home or self-care (01) ==
LOC: MEDOUTP 10:03
PROVIDERS: PCP Family Medicine; Referring Provider Internal Medicine Endocrinology, Diabetes & Metabolism; Visit Provider Internal Medicine Endocrinology, Diabetes & Metabolism
DX: M81.0 Age-related osteoporosis without current pathological fracture (principal)
CPT/HCPCS: 96365; A4216; J3489

== ENCOUNTER → 2022-12-22 | Outpatient (CLI) | payer OTHER, SELFPAY ==
[2022-12-22 14:03] LABS: Bacteria 0 SEEN /hpf (None Seen); Mucous, Urine 0 SEEN /hpf (<or=2+); Red Blood Cells-Urine 0 SEEN /hpf (0-5)
[2022-12-22 15:06] LABS: Color, Urine Yellow (Yellow); Glucose, Dipstick Normal (Normal); Ketone-Dipstick 5 mg/dl (Negative); Leukocyte Esterase-Dipstick 500 /ul (Negative); Nitrite-Dipstick Negative (Negative); Occult Blood-Urine Negative /ul (Negative); Protein-Dipstick Negative (Negative); Urine Bilirubin Dipstick Negative (Negative); Urine Clarity Sl. Cloudy (Clear); Urine Urobilinogen Normal (Normal)
[2022-12-22 15:19] LABS: Squamous Epithelial Cells - UA 0-5 SEEN /hpf (5-10); White Blood Cells 25-50 SEEN /hpf (0-5)
== END | disposition home or self-care (01) ==
PROVIDERS: PCP Family Medicine; Referring Provider Physician Assistant; Visit Provider Physician Assistant
DX: R30.0 Dysuria (principal)
CPT/HCPCS: 81001; 87086; 87088

== ENCOUNTER → 2022-12-31 | Outpatient (CLI) | payer OTHER, SELFPAY | END | disposition home or self-care (01) | LOC: LABSPEC 12:33 | PROVIDERS: PCP Family Medicine; Referring Provider Nurse Practitioner Family; Visit Provider Nurse Practitioner Family | DX: N39.0 Urinary tract infection, site not specified (principal) | CPT/HCPCS: 87086; 87088; 87186 ==

== ENCOUNTER → 2023-01-08 | Outpatient (CLI) | payer OTHER, SELFPAY ==
[2023-01-08 16:00] LABS: Absolute Lymphocyte Count 1.84 X10^3/uL (0.83-4.51); Absolute Neutrophil Count 4.4 X10^3/uL (2.0-7.7); Basophil# 0.04 X10^3/uL; Basophil% 0.6 % (0-1); Eosinophil# 0.05 X10^3/uL; Eosinophils% 0.7 % (0-5); Hematocrit 39.7 % (37-47); Hemoglobin 13.4 g/dL (12.0-15.0); Lymphocyte # 1.84 X10^3/ul (0.83-4.51); Lymphocyte % 26.8 % (19-41); Mean Corp Hgb Conc 33.8 g/dL (32-36); Mean Corpuscular Hgb 30.1 pg (27.0-32.0); Mean Corpuscular Volume 89.2 fL (81-99); Mean Platelet Vol. 9.7 fl (6.2-12.0); Monocyte# 0.52 X10^3/uL; Monocyte% 7.6 % (0-10); NRBC Flagged by Analyzer 0 % (0-5); Platelet Count 256 K/mm3 (150-450); RBC Distribution Width CV 12.7 % (11.6-14.6); RBC Distribution Width SD 41.6 fl (35.1-43.9); Red Blood Count 4.45 M/mm3 (4.2-5.4); White Blood Count 6.9 K/mm3 (4.4-11.0)
[2023-01-08 16:16] LABS: Erythrocyte Sedimentation Rate 4 mm/hr (0-30)
[2023-01-08 17:02] LABS: ALB/GLOB Ratio 1.1 RATIO (0.9-2.4); AST(SGOT) 24 U/L (15-37); Alanine Aminotransfer ALT/SGPT 29 U/L (13-56); Albumin, Serum 3.6 g/dL (3.2-5.0); Alkaline Phosphatase 49 U/L (45-117); Anion Gap 6 (5-15); BUN 13 mg/dL (7-18); BUN/Creat Ratio 12.9 RATIO (10-20); CRP < 2.90 mg/L (0.0-3.0); Calcium,Total 8.8 mg/dL (8.5-10.1); Chloride 103 mmol/L (98-107); Creatinine, Serum 1.01 mg/dL (0.55-1.02); EST Glomerular Filtration Rate 59 mL/min (>60); Est Glom Filt Rate - Afr Amer 71 mL/min (>60); Globulin 3.4 g/dL (2.2-4.2); Glucose 165 mg/dL (74-106); Potassium 3.5 mmol/L (3.5-5.1); Sodium Level 137 mmol/L (136-145)
== END | disposition home or self-care (01) ==
PROVIDERS: PCP Family Medicine; Referring Provider Internal Medicine Gastroenterology; Visit Provider Internal Medicine Gastroenterology
DX: R19.7 Diarrhea, unspecified (principal); K58.1 Irritable bowel syndrome with constipation; Z80.0 Family history of malignant neoplasm of digestive organs
CPT/HCPCS: 36415; 80053; 85025; 85652; 86140

== ENCOUNTER → 2023-01-09 | Outpatient (CLI) | payer OTHER, SELFPAY ==
[2023-01-14 22:06] LABS: Calprotectin, Stool 20 ug/g (0-120); Fats, Neutral Normal (.); Fats, Total Normal (.)
== END | disposition home or self-care (01) ==
LOC: LABSPEC 11:00
PROVIDERS: PCP Family Medicine; Referring Provider Internal Medicine Gastroenterology; Visit Provider Internal Medicine Gastroenterology
DX: K58.9 Irritable bowel syndrome, unspecified (principal); R19.7 Diarrhea, unspecified; Z80.0 Family history of malignant neoplasm of digestive organs
CPT/HCPCS: 36415; 82274; 82705; 83630; 83993; 87177; 87209; 87329; 87506

== ENCOUNTER → 2023-02-17 | Outpatient (CLI) | payer OTHER, SELFPAY ==
[2023-02-17 14:59] LABS: Mucous, Urine 0 SEEN /hpf (<or=2+)
[2023-02-17 17:24] LABS: Color, Urine Yellow (Yellow); Glucose, Dipstick Normal (Normal); Ketone-Dipstick Negative (Negative); Leukocyte Esterase-Dipstick 100 /ul (Negative); Nitrite-Dipstick Positive (Negative); Occult Blood-Urine 25 /ul (Negative); Protein-Dipstick 15 mg/dl (Negative); Specific Gravity, Urine 1.015 (1.002-1.030); Urine Bilirubin Dipstick Negative (Negative); Urine Clarity Sl. Cloudy (Clear); Urine Urobilinogen Normal (Normal)
[2023-02-17 17:40] LABS: Bacteria 3+ /hpf (None Seen); Red Blood Cells-Urine 0-5 SEEN /hpf (0-5); Squamous Epithelial Cells - UA 0-5 SEEN /hpf (5-10); White Blood Cells 5-10 SEEN /hpf (0-5)
== END | disposition home or self-care (01) ==
LOC: LABSPEC 12:09
PROVIDERS: PCP Family Medicine; Visit Provider Family Medicine
DX: N39.0 Urinary tract infection, site not specified (principal)
CPT/HCPCS: 81001; 87086; 87088; 87186

== ENCOUNTER → 2023-03-11 | Outpatient (CLI) | payer OTHER, SELFPAY ==
--- NOTE | 2023-03-11 11:35 | US_ITS ---
STUDY: RENAL ULTRASOUND - COMPLETE REASON FOR EXAM: Female, 63 years old. UTI TECHNIQUE: Ultrasound evaluation of the kidneys was performed with real-time and static lino-scale imaging. COMPARISON: None. FINDINGS: RIGHT KIDNEY: Normal location of the right kidney, which is normal in size. The right kidney measures 10.1 cm x 6 cm x 3.9 cm. There is a normal cortex of the right kidney. The renal cortex measures 1.3 cm. There is no right renal mass or cyst. There are no right renal calculi. There is no right hydronephrosis. DISTAL RIGHT URETER: There is non-visualization of the distal right ureter. There is no demonstrated right ureterovesical junction calculus. There is a visualized right ureteral jet. LEFT KIDNEY: Normal location of the left kidney, which is normal in size. The left kidney measures 11.7 cm x 4.6 cm x 5.9 cm. There is a normal cortex of the left kidney. The renal cortex measures 1.7 cm. There is no left renal mass or cyst. There are no left renal calculi. There is no left hydronephrosis. DISTAL LEFT URETER: There is non-visualization of the distal left ureter. There is no demonstrated left ureterovesical junction calculus. There is a visualized left ureteral jet. BLADDER: The distended urinary bladder has a volume of 771 ml. There is a normal wall thickness of the distended urinary bladder. There is no demonstrated mass within the urinary bladder. There are no demonstrated bladder calculi. US/Kidney and Bladder IMPRESSION: Normal ultrasound of the kidneys and urinary bladder. Electronically Signed: New Morris MD at 15:02 EDT ,
== END | disposition home or self-care (01) ==
LOC: US 11:33
PROVIDERS: PCP Family Medicine; Referring Provider Urology; Visit Provider Urology
DX: N39.0 Urinary tract infection, site not specified (principal)
CPT/HCPCS: 76770

== ENCOUNTER → 2023-04-24 | Outpatient (CLI) | payer OTHER, SELFPAY ==
--- NOTE | 2023-04-24 10:26 | NM_ITS ---
CLINICAL: 63-year-old female with history of abdominal pain and bloating. SEMI-SOLID PHASE 99m Tc SULFUR COLLOID GASTRIC EMPTYING STUDY COMPARISON: None available FINDINGS: The patient was administered 1.0 mCi of 99m Tc sulfur colloid mixed with oatmeal and consumed per os. Image acquisitions in the anterior-posterior projections were obtained for 60 minutes. There is prompt visualization of the stomach. There is no gastroesophageal reflux identified. The T ? raw data emptying was calculated to be 19.58 minutes, (Normal: 12-56 minutes). NM/Gastric Emptying Study IMPRESSION: 1. NORMAL 99m Tc sulfur colloid semi-solid phase (oatmeal) gastric emptying imaging examination. A. There is normal and preserved semi-solid phase gastric emptying compared to normal controls. (Hailey et al, J Nucl Med Tech 38: 186, 2010). Electronically Signed: Morales Owen DO at 9:01 EST ,
== END | disposition home or self-care (01) ==
LOC: NM 10:25
PROVIDERS: PCP Family Medicine; Referring Provider Internal Medicine Gastroenterology; Visit Provider Internal Medicine Gastroenterology
DX: K59.00 Constipation, unspecified (principal)
CPT/HCPCS: 78264; A9541

== ENCOUNTER → 2023-05-13 | Outpatient (CLI) | payer OTHER, SELFPAY ==
--- NOTE | 2023-05-13 11:22 | MRI_ITS ---
STUDY: MR ENTEROGRAPHY WITH CONTRAST REASON FOR EXAM: Female, 63 years old. K59.00 - Constipation, unspecified -- possible fistula TECHNIQUE: Multipulse sequence MRI performed with IV contrast according to standard MR enterography protocol following administration of oral contrast for maximal bowel distention. Images were obtained from the dome of the diaphragm to the symphysis pubis. IV 14cc clariscan was administered intravenously. TECHNICAL QUALITY: Image Quality: Satisfactory Small Bowel Distension: Adequate. COMPARISON: CT of abdomen and pelvis dated April 29, 2021. MRI MRCP of the abdomen dated June 14, 2021 FINDINGS: Bowel: Well opacified and adequately distended with oral contrast. No visualized small bowel obstruction or stricturing or narrowing. No intraluminal masses are present. The proximal colon is also opacified with contrast. Bowel wall thickening: Absent. Skip lesions: None. Vascularity: Normal. Enhancement: Normal. Fistula: None. Abscess: None. Other Findings: The lung bases are unremarkable. Normal liver. A single tiny cyst is present in the far anterior and central aspect of the right lobe of the liver, see image 7/24 series 5, which is of no clinical significance. Normal gallbladder and extrahepatic biliary system. Normal spleen. Normal pancreas. Normal bilateral adrenal glands. Normal right kidney. Normal left kidney. Normal visualized stomach. There are multiple distal colonic diverticula consistent with diverticulosis. The appendix is visualized and appears normal. Unremarkable abdominal aorta. Normal interior vena cava. Normal retroperitoneum. Normal urinary bladder. Normal abdominal wall. Unremarkable osseous structures. MRI/Enterography Abd/Pel IMPRESSION: 1. Unremarkable CT enterography. 2. Bowel: Well opacified and adequately distended with oral contrast. No visualized small bowel obstruction or stricturing or narrowing. No intraluminal masses are present. The proximal colon is also opacified with contrast. 3. Distal colonic diverticulosis Electronically Signed: Beka Vernon MD at 15:16 EST ,
[2023-05-13 11:54] VITALS: BP 135/66; PULSE 88; RESP 16; O2SAT 99; BMI 23.9
[2023-05-13 12:05] LABS: CREATININE FINGERSTICK < 1.0 mg/dL (0.55-1.02); EGFR FINGERSTICK > 60.0000 mL/min (>60)
[2023-05-13] MEDS: Glucagon 1 MG/ML Syringe IV (13:18)
[2023-05-13 13:35] VITALS: BP 138/68; PULSE 77; RESP 16; O2SAT 94
== END | disposition home or self-care (01) ==
LOC: MRI 11:07
PROVIDERS: PCP Family Medicine; Referring Provider Internal Medicine Gastroenterology; Visit Provider Internal Medicine Gastroenterology
DX: K59.00 Constipation, unspecified (principal)
CPT/HCPCS: 74183; 96374; A9575; A4216; J1610

== ENCOUNTER → 2023-06-08 | Outpatient (CLI) | payer OTHER, SELFPAY ==
--- NOTE | 2023-06-08 08:35 | BI_ITS ---
MAMMOGRAPHY - BILATERAL SCREENING REASON FOR EXAM: Female, 63 years old. Routine annual screening examination. PERTINENT HISTORY: Mother with breast cancer. Aunt with breast cancer. TECHNIQUE: Digital bilateral breast marcin (3D mammographic acquisition) in the CC and MLO projections. 2-D mediolateral oblique (MLO) and craniocaudad (CC) views of both breasts were obtained. CAD: Full Field Digital Mammography with Computer Added Detection was performed. COMPARISON: Comparison is made with prior study dated June 05, 2022 and May 23, 2021 FINDINGS: Breast Composition: The breasts are extremely dense, which lowers the sensitivity of mammography. There are no dominant masses or suspicious calcifications. No other significant abnormalities are identified. There has been no significant change since the prior study. BI/SCRN MAMM (CAD)W/MARCIN BILAT IMPRESSION: Stable bilateral screening mammogram. Yearly follow-up mammogram recommended. (A) ASSESSMENT CATEGORY: BIRADS Category 1: Negative. A letter regarding these results will be sent to the patient by the facility within 30 days. Approximately 10% of breast cancers are not detected by mammography. A normal mammogram should not delay biopsy of a clinically suspicious abnormality. [id number] Electronically Signed: New Morris MD at 9:22 EST ,
--- OUTSIDE RECORDS SUMMARY | 2023-06-08 08:59 | XMS RPT_ITS | CCD ---
Author Name Unknown Address [id number] [place] [address] Organization [facility] Care Team Providers Care Head Counselor Name Role Phone Zachariah De Jesus Unavailable Fabienne Feliz LPN Unavailable Unavailab le Allergies Allergy Classification Reported Allergen(s) Allergy Type Date of Onset Reaction(s) Facility (1 source) OTHER; Translations: [OTHER] Propensity to adverse reactions (disorder) 9 [facility] Repository Medications Completed/Discontinued Medications Medication Drug Class(es) Dates Sig (Normalized) Sig (Original) amoxicillin 500 mg oral tablet (3 sources) Penicillin-class Antibacterial Start: 09-08-2011 take 4 tablets by mouth every hour AMOXICILLIN 500 MG TABS 4 tablets by mouth 1 hr prior to procedure AMOXICILLIN [id number] Samantha Cisneros RN aspirin 81 mg delayed release oral tablet (6 sources) Nonsteroidal Anti-inflammatory Drug Start: 09-04-2011 End: 09-09-2012 take 1 tablet by mouth once daily ECOTRIN LOW STRENGTH 81 MG TBEC One tablet by mouth daily ASPIRIN [id number] Daniel Jang MD Problems Active Problems Problem Classification Problem Date Documented Da te Episodic/Chronic Disorders of lipid metabolism (3 sources) Hyperlipidemia; Translations: [Hyperlipidemia, unspecified] Onset: 09-04-2011 09-04-2011 Chronic Heart valve disorders (9 sources) Mitral valve prolapse; Translations: [Nonrheumatic mitral (valve) prolapse] Onset: 09-04-2011 05-08-2015 Chronic Thyroid disorders (3 sources) Hypothyroidism; Translations: [Hypothyroidism, unspecified] 04-14-2010 Chronic Past or Other Problems Problem Classification Problem Date Documented Da te Episodic/Chronic Cardiac dysrhythmias (3 sources) Palpitations; Translations: [Palpitations] Onset: 09-04-2011 09-04-2011 Episodic Conditions associated with dizziness or vertigo (3 sources) Other peripheral vertigo, unspecified ear; Translations: [Other peripheral vertigo, unspecified ear] Onset: 01-18-2015 01-18-2015 Episodic Medical examination/evaluation (3 sources) Encounter for pre-employment examination; Translations: [Encounter for pre-employment examination] Onset: 02-03-2017 02-03-2017 Episodic Nonspecific chest pain (6 sources) Chest pain, unspecified; Translations: [Chest pain, unspecified] Onset: 09-04-2011 Resolved: 01-18-2015 01-18-2015 Episodic Urinary tract infections (3 sources) Urinary tract infectious disease; Translations: [Urinary tract infection, site not specified] Onset: 04-14-2010 Resolved: 05-14-2010 04-14-2010 Episodic Results Test Name Value Interpretation Reference Range Facil ity Vital Signs Date Time Vital Sign Value Performing Clinician Facforrest sultana 05-08-2016 08:44-0500 BMI (Body Mass Index) 24.53 kg/m2 Zachariah BLUE [facility] Work Phone: 05-08-2016 08:44-0500 BP Diastolic 60 mm[Hg] Zachariah BLUE [facility] Work Phone: 05-08-2016 08:44-0500 BP Systolic 110 mm[Hg] Zachariah BLUE [facility] Work Phone: 05-08-2016 08:44-0500 BSA (Body Surface Area) 1.85 m2 Zachariah BLUE [facility] Work Phone: 05-08-2016 08:44-0500 Height 171.45 cm Zachariah BLUE [facility] Work Phone: 05-08-2016 08:44-0500 Pulse (Heart Rate) 68 /min Zachariah BLUE [facility] Work Phone: 05-08-2016 08:44-0500 Respiratory Rate 16 /min Zachariah BLUE [facility] Work Phone: 05-08-2016 08:44-0500 Weight 72.12 kg Zachariah BLUE [facility] Work Phone: 09-08-2011 16:19-0400 Heart rate 414 ms Zachariah BLUE [facility] Work Phone: 09-08-2011 16:19-0400 Heart rate 62 /min Zachariah BLUE [facility] Work Phone: 04-14-2010 11:55-0500 Body Temperature 98.2 [degF] Zachariah BLUE [facility] Work Phone: Encounters Encounter Date Encounter Type Care Provider Facility Start: 09-19-2017 End: 09-22-2017 [facility] Procedures Date Procedure Procedure Detail Performing Clinician Start: 02-03-2017 End: 02-03-2017 Pre-employment PE Zachariah BLUE Work Phone: Start: 02-03-2017 End: 02-03-2017 Pre-employment PE Zachariah BLUE Work Phone: Start: 05-08-2016 End: 05-08-2016 KAITLIN Jang MD Start: 05-08-2016 End: 05-08-2016 Follow Up Appt 1 year Daniel Jang MD Start: 05-08-2016 End: 05-08-2016 KAITLIN Jang MD Start: 05-08-2016 End: 05-08-2016 Follow Up Appt 1 year Daniel Jang MD Start: 05-10-2015 End: 05-10-2015 KAITLIN Jang MD Start: 05-10-2015 End: 05-10-2015 Follow Up Appt 1 year Daniel Jang MD Start: 05-10-2015 End: 05-10-2015 KAITLIN Jang MD Start: 05-10-2015 End: 05-10-2015 Follow Up Appt 1 year Daniel Jang MD Start: 01-26-2014 End: 01-26-2014 KAITLIN Jang MD Start: 01-26-2014 End: 01-30-2014 Echocardiography Daniel Jang MD Start: 01-26-2014 End: 01-26-2014 Follow Up Appt 1 year Daniel Jang MD Start: 01-26-2014 End: 01-26-2014 KAITLIN Jang MD Start: 01-26-2014 End: 01-30-2014 Echocardiography Daniel Jang MD Start: 01-26-2014 End: 01-26-2014 Follow Up Appt 1 year Daniel Jang MD Start: 09-09-2012 End: 09-09-2012 KAITLIN Jang MD Start: 09-09-2012 End: 09-09-2012 Follow Up Appt 1 year Daniel Jang MD Start: 09-09-2012 End: 09-09-2012 KAITLIN Jang MD Start: 09-09-2012 End: 09-09-2012 Follow Up Appt 1 year Daniel Jang MD Start: 09-08-2011 End: 09-18-2011 *Hepatic Function Panel Josias Orlando MD Start: 09-08-2011 End: 09-18-2011 Echocardiography Josias Orlando MD Start: 09-08-2011 End: 09-08-2011 Follow Up Appt 1 year Josias Orlando MD Start: 09-08-2011 End: 09-18-2011 Lipid 1996 panel - Serum or Plasma Josias Orlando MD Start: 09-08-2011 End: 09-18-2011 *Hepatic Function Panel Josias Orlando MD Start: 09-08-2011 End: 09-18-2011 Echocardiography Josias Orlando MD Start: 09-08-2011 End: 09-08-2011 Follow Up Appt 1 year Josias Orlando MD Start: 09-08-2011 End: 09-18-2011 Lipid panel [AGGREGATE] Josias Orlando MD Start: 04-17-2010 End: 04-17-2010 Urinalysis Zachariah BLUE Start: 04-14-2010 End: 04-14-2010 Urnls dip stick/tablet rgnt non-auto w/o micrscp Lisette Molina MS,PA-C Start: 04-14-2010 End: 04-14-2010 Urinalysis nonauto w/o scope Lisette fowler MS,PA-C Plan of Treatment Date Care Activity Detail Author Start: 05-07-2017 End: 05-07-2017 Appointment Appointment [facility] Work Phone: Start: 02-16-2017 End: 02-16-2017 Appointment Appointment [facility] Work Phone: Start: 02-03-2017 End: 02-03-2017 Appointment Appointment [facility] Work Phone: Start: 05-08-2016 End: 05-08-2016 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 Work Phone: Start: 05-08-2016 End: 05-08-2016 Follow Up Appt 1 year Follow Up Appt 1 year [facility] Work Phone: Start: 05-08-2016 End: 05-08-2016 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 Work Phone: Start: 05-08-2016 End: 05-08-2016 Follow Up Appt 1 year Follow Up Appt 1 year [facility] Work Phone: Start: 05-10-2015 End: 05-10-2015 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[facility] Work Phone: Start: 05-10-2015 End: 05-10-2015 Follow Up Appt 1 year Follow Up Appt 1 year [facility] Work Phone: Start: 05-10-2015 End: 05-10-2015 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[facility] Work Phone: Start: 05-10-2015 End: 05-10-2015 Follow Up Appt 1 year Follow Up Appt 1 year [facility] Work Phone: Start: 01-26-2014 End: 01-26-2014 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[facility] Work Phone: Start: 01-26-2014 End: 01-26-2014 Echocardiography Echocardiogram (complete) [facility] Work Phone: Start: 01-26-2014 End: 01-26-2014 Follow Up Appt 1 year Follow Up Appt 1 year [facility] Work Phone: Start: 01-26-2014 End: 01-26-2014 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[facility] Work Phone: Start: 01-26-2014 End: 01-26-2014 Echocardiography Echocardiogram (complete) [facility] Work Phone: Start: 01-26-2014 End: 01-26-2014 Follow Up Appt 1 year Follow Up Appt 1 year [facility] Work Phone: Start: 09-09-2012 End: 09-09-2012 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[facility] Work Phone: Start: 09-09-2012 End: 09-09-2012 Follow Up Appt 1 year Follow Up Appt 1 year [facility] Work Phone: Start: 09-09-2012 End: 09-09-2012 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[facility] Work Phone: Start: 09-09-2012 End: 09-09-2012 Follow Up Appt 1 year Follow Up Appt 1 year [facility] Work Phone: Start: 09-08-2011 End: 09-18-2011 *Hepatic Function Panel *Hepatic Function Panel [facility] Work Phone: Start: 09-08-2011 End: 09-08-2011 Echocardiography Echocardiogram (complete) [facility] Work Phone: Start: 09-08-2011 End: 09-08-2011 Follow Up Appt 1 year Follow Up Appt 1 year [facility] Work Phone: Start: 09-08-2011 End: 09-18-2011 Lipid 1996 panel *Lipid Profile [facility] Work Phone: Start: 09-08-2011 End: 09-18-2011 *Hepatic Function Panel *Hepatic Function Panel [facility] Work Phone: Start: 09-08-2011 End: 09-08-2011 Echocardiography Echocardiogram (complete) [facility] Work Phone: Start: 09-08-2011 End: 09-08-2011 Follow Up Appt 1 year Follow Up Appt 1 year [facility] Work Phone: Start: 09-08-2011 End: 09-18-2011 Lipid panel [AGGREGATE] *Lipid Profile [facility] Work Phone: Summary Purpose Family History No Family History Records FoundNo Family History Records Found Advance Directives No Advanced Directives Records FoundNo Advanced Directives Records Found Additional Source Comments INFORMATION SOURCE (unrecogn ized section and content) DATE CREATED AUTHOR AUTHOR'S ORGANIZ ATION 10/04/2020 [employer] FOR RECORDS PERTAINING TO PATIENTS WHO ARE OR HAVE BEEN ENROLLED IN A CHEMICAL DEPENDENCY/SUBSTANCEABUSE PROGRAM, SOME INFORMATION MAY BE OMITTED. This clinical summary was aggregated from multiple sources. Caution should be exercised in using it in the provision of clinical care. This summary normalizes information from multiple sources, and as a consequence, information in this document may materially change the coding, format and clinical context of patient data. In addition, data may be omitted in some cases. CLINICAL DECISIONS SHOULD BE BASED ON THE PRIMARY CLINICAL RECORDS. [facility]. provides no warranty or guarantee of the accuracy or completeness of information in this document.
== END | disposition home or self-care (01) ==
PROVIDERS: PCP Family Medicine; Referring Provider Nurse Practitioner Women's Health; Visit Provider Nurse Practitioner Women's Health
DX: Z12.31 Encounter for screening mammogram for malignant neoplasm of breast (principal)
CPT/HCPCS: 77063; 77067

== ENCOUNTER 2023-06-27 15:20 | Emergency (ER) | payer OTHER, SELFPAY ==
[2023-06-27 15:21] VITALS: BP 158/85; PULSE 110; RESP 16; TEMP 36.9; O2SAT 98; BMI 24.1
--- NOTE | 2023-06-27 15:28 | EKG12_ITS ---
Test Reason : CP Blood Pressure : / mmHG Vent. Rate : 112 BPM Atrial Rate : 112 BPM P-R Int : 188 ms QRS Dur : 080 ms QT Int : 320 ms P-R-T Axes : 073 095 068 degrees QTc Int : 436 ms Sinus tachycardia Rightward axis Low voltage QRS Borderline ECG Confirmed by ANDRE GIL, ADRIANNE ([id number]), senior editor MAMI TELLES ([id number]) on 06/29/2023 10:11:50 AM Referred By: Confirmed By:ADRIANNE POWELL MD
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
--- OUTSIDE RECORDS SUMMARY | 2023-06-27 15:58 | XMS RPT_ITS | CCD ---
Author Name Unknown Address [address] [place] [address] Organization [facility] Care Team Providers Care Police Officer Booking Name Role Phone Zachariah De Jesus Unavailable Fabienne Feliz LPN Unavailable Unavailab le Allergies Allergy Classification Reported Allergen(s) Allergy Type Date of Onset Reaction(s) Facility (1 source) OTHER; Translations: [OTHER] Propensity to adverse reactions (disorder) [facility] Repository Medications Completed/Discontinued Medications Medication Drug Class(es) Dates Sig (Normalized) Sig (Original) amoxicillin 500 mg oral tablet (3 sources) Penicillin-class Antibacterial Start: 09-08-2011 take 4 tablets by mouth every hour AMOXICILLIN 500 MG TABS 4 tablets by mouth 1 hr prior to procedure AMOXICILLIN [id number] Samantha Cisneros RN aspirin 81 mg delayed release oral tablet (6 sources) Nonsteroidal Anti-inflammatory Drug Start: 09-04-2011 End: 09-09-2012 take 1 tablet by mouth once daily ECOTRIN LOW STRENGTH 81 MG TBEC One tablet by mouth daily ASPIRIN [id number] Daniel Jang MD Problems Active Problems Problem [...] (Body Mass Index) 24.53 kg/m2 Zachariah [facility] Work Phone: 05-08-2016 08:44-0500 BP Diastolic 60 mm[Hg] Zachariah [facility] Work Phone: 05-08-2016 08:44-0500 BP Systolic 110 mm[Hg] Zachariah [facility] Work Phone: 05-08-2016 08:44-0500 BSA (Body Surface Area) 1.85 m2 Zachariah [facility] Work Phone: 05-08-2016 08:44-0500 Height 171.45 cm Zachariah [facility] Work Phone: 05-08-2016 08:44-0500 Pulse (Heart Rate) 68 /min Zachariah [facility] Work Phone: 05-08-2016 08:44-0500 Respiratory Rate 16 /min Zachariah [facility] Work Phone: 05-08-2016 08:44-0500 Weight 72.12 kg Zachariah [facility] Work Phone: 09-08-2011 16:19-0400 Heart rate 414 ms Zachariah [facility] Work Phone: 09-08-2011 16:19-0400 Heart rate 62 /min Zachariah [facility] Work Phone: 04-14-2010 11:55-0500 Body Temperature 98.2 [degF] Zachariah [facility] Work Phone: Encounters Encounter Date Encounter Type Care Provider Facility Start: 09-19-2017 End: 09-22-2017 Ambulatory [facility] Procedures Date Procedure Procedure Detail Performing Clinician [...] Author Start: 05-07-2017 End: 05-07-2017 Appointment Appointment [facility] Work Phone: Start: 02-16-2017 End: 02-16-2017 Appointment Appointment [facility] Work Phone: Start: 02-03-2017 End: 02-03-2017 Appointment Appointment [facility] Work Phone: Start: 05-08-2016 End: 05-08-2016 ENTRY LEVEL ACCOUNT EXECUTIVE [facility] Work Phone: Start: 05-08-2016 End: 05-08-2016 Follow Up Appt 1 year Follow Up Appt 1 year [facility] Work Phone: Start: 05-08-2016 End: 05-08-2016 ENTRY LEVEL ACCOUNT EXECUTIVE [facility] Work Phone: Start: 05-08-2016 End: 05-08-2016 Follow Up Appt 1 year Follow Up Appt 1 year [facility] Work Phone: Start: 05-10-2015 End: 05-10-2015 ENTRY LEVEL ACCOUNT EXECUTIVE ENTRY LEVEL ACCOUNT EXECUTIVE [facility] Work Phone: Start: 05-10-2015 End: 05-10-2015 Follow Up Appt 1 year Follow Up Appt 1 year [facility] Work Phone: Start: 05-10-2015 End: 05-10-2015 ENTRY LEVEL ACCOUNT EXECUTIVE ENTRY LEVEL ACCOUNT EXECUTIVE [facility] Work Phone: Start: 05-10-2015 End: 05-10-2015 Follow Up Appt 1 year Follow Up Appt 1 year [facility] Work Phone: Start: 01-26-2014 End: 01-26-2014 ENTRY LEVEL ACCOUNT EXECUTIVE ENTRY LEVEL ACCOUNT EXECUTIVE [facility] Work Phone: Start: 01-26-2014 End: 01-26-2014 Echocardiography Echocardiogram (complete) [facility] Work Phone: Start: 01-26-2014 End: 01-26-2014 Follow Up Appt 1 year Follow Up Appt 1 year [facility] Work Phone: Start: 01-26-2014 End: 01-26-2014 ENTRY LEVEL ACCOUNT EXECUTIVE ENTRY LEVEL ACCOUNT EXECUTIVE [facility] Work Phone: Start: 01-26-2014 End: 01-26-2014 Echocardiography Echocardiogram (complete) [facility] Work Phone: Start: 01-26-2014 End: 01-26-2014 Follow Up Appt 1 year Follow Up Appt 1 year [facility] Work Phone: Start: 09-09-2012 End: 09-09-2012 ENTRY LEVEL ACCOUNT EXECUTIVE ENTRY LEVEL ACCOUNT EXECUTIVE [facility] Work Phone: Start: 09-09-2012 End: 09-09-2012 Follow Up Appt 1 year Follow Up Appt 1 year [facility] Work Phone: Start: 09-09-2012 End: 09-09-2012 ENTRY LEVEL ACCOUNT EXECUTIVE ENTRY LEVEL ACCOUNT EXECUTIVE [facility] Work Phone: Start: 09-09-2012 End: 09-09-2012 Follow Up Appt 1 year Follow Up Appt 1 year [facility] Work Phone: Start: 09-08-2011 End: 09-18-2011 *Hepatic Function Panel *Hepatic Function Panel [facility] Work Phone: Start: 09-08-2011 End: 09-08-2011 Echocardiography Echocardiogram (complete) [facility] Work Phone: Start: 09-08-2011 End: 09-08-2011 Follow Up Appt 1 year Follow Up Appt 1 year [facility] Work Phone: Start: 09-08-2011 End: 09-18-2011 Lipid 1996 panel *Lipid Profile [facility] Work Phone: Start: 09-08-2011 End: 09-18-2011 *Hepatic Function Panel *Hepatic Function Panel [facility] Work Phone: Start: 09-08-2011 End: 09-08-2011 Echocardiography Echocardiogram (complete) [facility] Work Phone: Start: 09-08-2011 End: 09-08-2011 Follow Up Appt 1 year Follow Up Appt 1 year [facility] Work Phone: Start: 09-08-2011 End: 09-18-2011 Lipid panel [AGGREGATE] *Lipid Profile [facility] Work Phone: Summary Purpose Family History No Family History Records FoundNo Family History Records Found Advance Directives No Advanced Directives Records FoundNo Advanced Directives Records Found Additional Source Comments INFORMATION SOURCE (unrecogn ized section and content) DATE CREATED AUTHOR AUTHOR'S ORGANIZ ATION 10/04/2020 [email or web address] FOR RECORDS PERTAINING TO PATIENTS WHO ARE [...] BE BASED ON THE PRIMARY CLINICAL RECORDS. [facility] [employer] [facility] provides no warranty or guarantee of the accuracy or completeness of information in this document.
== END 2023-06-27 16:26 | disposition home or self-care (01) ==
PROVIDERS: Emergency Provider Emergency Medicine; PCP Family Medicine; Visit Provider Emergency Medicine
DX: S20.20XA Contusion of thorax, unspecified, initial encounter (principal); E03.9 Hypothyroidism, unspecified; E78.5 Hyperlipidemia, unspecified; R00.0 Tachycardia, unspecified; Z79.899 Other long term (current) drug therapy; Z87.891 Personal history of nicotine dependence; V49.40XA Driver injured in collision with unspecified motor vehicles in traffic accident, initial encounter
CPT/HCPCS: 71046; 93005; 99283

== ENCOUNTER → 2023-11-13 | Outpatient (CLI) | payer OTHER, SELFPAY ==
[2023-11-13 10:29] LABS: ALB/GLOB Ratio 1.1 RATIO (0.9-2.4); AST(SGOT) 25 U/L (15-37); Alanine Aminotransfer ALT/SGPT 33 U/L (13-56); Albumin, Serum 3.8 g/dL (3.2-5.0); Alkaline Phosphatase 45 U/L (45-117); Anion Gap 5 (5-15); BUN 11 mg/dL (7-18); BUN/Creat Ratio 16.9 RATIO (10-20); Calcium,Total 9.3 mg/dL (8.5-10.1); Chloride 108 mmol/L (98-107); Cholesterol 188 mg/dL (200); Creatinine, Serum 0.65 mg/dL (0.55-1.02); EST Glomerular Filtration Rate 97 mL/min (>60); Est Glom Filt Rate - Afr Amer 118 mL/min (>60); Globulin 3.4 g/dL (2.2-4.2); Glucose 125 mg/dL (74-106); High Density Lipoprotein 66 mg/dL; Potassium 3.7 mmol/L (3.5-5.1); Protein, Total 7.2 g/dL (6.4-8.2); Sodium Level 140 mmol/L (136-145); T4 Free Direct 1.32 ng/dL (0.76-1.46); Thyroid Stim Hormone (TSH) 0.25 uIU/mL (0.358-3.74); Triglycerides 157 mg/dL; Very Low Density Lipoprotein 31 mg/dL (5-40)
== END | disposition home or self-care (01) ==
LOC: LAB 08:24
PROVIDERS: PCP Family Medicine; Referring Provider Internal Medicine Endocrinology, Diabetes & Metabolism; Visit Provider Internal Medicine Endocrinology, Diabetes & Metabolism
DX: E55.9 Vitamin D deficiency, unspecified (principal); M81.0 Age-related osteoporosis without current pathological fracture; E03.9 Hypothyroidism, unspecified; E78.2 Mixed hyperlipidemia
CPT/HCPCS: 36415; 80053; 80061; 82306; 84439; 84443

== ENCOUNTER 2023-11-26 12:40 | Outpatient (CLI) | payer OTHER, SELFPAY ==
[2023-11-26 13:08] VITALS: BP 115/66; PULSE 75; RESP 16; TEMP 36.3; O2SAT 99; BMI 25.2
[2023-11-26] MEDS: 0.9% NaCl Peripheral Flush Adult/Peds IV (13:14)
[2023-11-26] MEDS: Zoledronic Acid 5 MG 100 ML 300 MG IV (13:17)
[2023-11-26 13:46] VITALS: BP 125/77; PULSE 76; RESP 16; TEMP 36.3; O2SAT 100
== END 2023-11-26 23:59 | disposition home or self-care (01) ==
LOC: MEDOUTP 12:40
PROVIDERS: PCP Family Medicine; Referring Provider Internal Medicine Endocrinology, Diabetes & Metabolism; Visit Provider Internal Medicine Endocrinology, Diabetes & Metabolism
DX: M81.0 Age-related osteoporosis without current pathological fracture (principal)
CPT/HCPCS: 96365; A4216; J3489

== ENCOUNTER → 2024-01-04 | Outpatient (CLI) | payer OTHER, SELFPAY ==
[2024-01-04 14:27] LABS: Absolute Lymphocyte Count 1.75 X10^3/uL (0.83-4.51); Basophil# 0.04 X10^3/uL; Basophil% 0.5 % (0-1); Eosinophil# 0.07 X10^3/uL; Hemoglobin 12.9 g/dL (12.0-15.0); Lymphocyte # 1.75 X10^3/ul (0.83-4.51); Mean Corp Hgb Conc 33.1 g/dL (32-36); Mean Corpuscular Hgb 29.4 pg (27.0-32.0); Mean Corpuscular Volume 88.8 fL (81-99); Mean Platelet Vol. 9.5 fl (6.2-12.0); Monocyte# 0.46 X10^3/uL; Monocyte% 6.3 % (0-10); NRBC Flagged by Analyzer 0 % (0-5); Neutrophil # 4.95 X10^3/uL (2.7-7.7); Neutrophil % 67.8 % (47-70); Platelet Count 226 K/mm3 (150-450); RBC Distribution Width CV 12.8 % (11.6-14.6); RBC Distribution Width SD 41.6 fl (35.1-43.9); Red Blood Count 4.39 M/mm3 (4.2-5.4); White Blood Count 7.3 K/mm3 (4.4-11.0)
[2024-01-04 15:02] LABS: AST(SGOT) 17 U/L (15-37); Alanine Aminotransfer ALT/SGPT 25 U/L (13-56); Albumin, Serum 3.6 g/dL (3.2-5.0); Alkaline Phosphatase 54 U/L (45-117); Anion Gap 6 (5-15); BUN 13 mg/dL (7-18); BUN/Creat Ratio 15.2 RATIO (10-20); Calcium,Total 9.3 mg/dL (8.5-10.1); Chloride 107 mmol/L (98-107); Creatinine, Serum 0.86 mg/dL (0.55-1.02); EST Glomerular Filtration Rate 71 mL/min (>60); Est Glom Filt Rate - Afr Amer 85 mL/min (>60); Globulin 3.7 g/dL (2.2-4.2); Glucose 180 mg/dL (74-106); Potassium 3.7 mmol/L (3.5-5.1); Protein, Total 7.3 g/dL (6.4-8.2); Sodium Level 140 mmol/L (136-145)
[2024-01-06 20:08] LABS: Carbohydrate Ag 19-9 2261 5 U/mL (0-35)
== END | disposition home or self-care (01) ==
LOC: LAB 13:50
PROVIDERS: PCP Family Medicine; Referring Provider Student in an Organized Health Care Education/Training Program; Visit Provider Student in an Organized Health Care Education/Training Program
DX: K58.1 Irritable bowel syndrome with constipation (principal); Z80.0 Family history of malignant neoplasm of digestive organs
CPT/HCPCS: 36415; 80053; 85025; 86301

== ENCOUNTER → 2024-01-18 | Outpatient (CLI) | payer MEDICARE, SELFPAY ==
--- NOTE | 2024-01-18 07:34 | CT_ITS ---
STUDY: CT ABDOMEN AND PELVIS WITH CONTRAST REASON FOR EXAM: Female, 64 years old. Abdominal pain RADIATION DOSAGE (If Supplied By Facility): CTDIvol = ( 13.7 ) mGy, DLP = ( 686.29 ) mGycm TECHNIQUE: Oral and amp; IV Readi-CAT and amp; 100mL Isovue-300 was administered. Transaxial images were obtained from the dome of the diaphragm to the symphysis pubis. Multiplanar coronal and sagittal images were reformatted. The protocol utilizes one or more of the following dose reduction techniques: automated exposure control, adjustment of mA and/or kV according to patient size,and/or use of iterative reconstruction technique. COMPARISON: No relevant prior comparison study available FINDINGS: The visualized lung bases are unremarkable. The visualized portions of the heart are within normal limits. Small cyst in the right lobe of the liver. No other focal lesions are identified. There is non-visualization of the gallbladder, which may be secondary to either contraction or a prior cholecystectomy. Normal spleen. Normal pancreas. Normal bilateral adrenal glands. Normal visualized stomach. Normal in caliber small bowel loops. Diverticulosis of the distal descending and sigmoid colon without evidence of acute diverticulitis. The appendix is visualized and appears normal. Normal abdominal aorta. No retroperitoneal adenopathy. Normal right kidney. Normal left kidney. Normal urinary bladder. There is absence of the uterus consistent with a prior hysterectomy. Normal abdominal wall. No demonstrated acute osseous changes. CT/Abdomen/Pelvis WITH Contrast IMPRESSION: 1. Diverticulosis without evidence of acute diverticulitis. 2. No focal acute inflammatory process. 3. Nonvisualization of the gallbladder. 4. Status post hysterectomy. Electronically Signed: Aaron Ruggiero MD at 16:03 EDT ,
== END | disposition home or self-care (01) ==
PROVIDERS: PCP Family Medicine; Referring Provider Family Medicine; Visit Provider Family Medicine
DX: R10.9 Unspecified abdominal pain (principal)
CPT/HCPCS: 74177; Q9967

== ENCOUNTER → 2024-04-06 | Outpatient (CLI) | payer MEDICARE, SELFPAY | END | disposition home or self-care (01) | LOC: LABSPEC 15:44 | PROVIDERS: PCP Family Medicine; Referring Provider Nurse Practitioner Women's Health; Visit Provider Nurse Practitioner Women's Health | DX: N89.8 Other specified noninflammatory disorders of vagina (principal) | CPT/HCPCS: 87070; 87077; 87186; 87205 ==

== ENCOUNTER → 2024-04-15 | Outpatient (CLI) | payer MEDICARE, SELFPAY ==
--- NOTE | 2024-04-15 15:11 | US_ITS ---
EXAM: US PELVIS TRANSABDOMINAL, COMPLETE CLINICAL INDICATION: pelvic pain TECHNIQUE: Transabdominal pelvic ultrasound was performed with grayscale and color Doppler imaging. COMPARISON: No relevant prior studies available. FINDINGS: UTERUS/CERVIX: Status post hysterectomy. RIGHT OVARY: Status post right oophorectomy. LEFT OVARY: Status post left oophorectomy. FREE FLUID: None. BLADDER: Urinary bladder appears normal. US/Pelvic (Non ) IMPRESSION: 1. Status post hysterectomy. 2. Status post right oophorectomy. 3. Status post left oophorectomy. 4. Normal urinary bladder. No acute findings. Electronically Signed: Francisco J Knox DO at 11:35 EST ,
== END | disposition home or self-care (01) ==
LOC: US 15:09
PROVIDERS: PCP Family Medicine; Referring Provider Nurse Practitioner Women's Health; Visit Provider Nurse Practitioner Women's Health
DX: R10.2 Pelvic and perineal pain (principal)
CPT/HCPCS: 76856

== ENCOUNTER → 2024-04-18 | Outpatient (CLI) | payer MEDICARE, SELFPAY ==
[2024-04-18 15:35] LABS: Hemoglobin A1c 6.3 % (3.8-5.6)
[2024-04-18 15:53] LABS: Thyroid Stim Hormone (TSH) 0.921 uIU/mL (0.358-3.740)
== END | disposition home or self-care (01) ==
LOC: MFPLAB 11:42
PROVIDERS: PCP Family Medicine; Referring Provider Family Medicine; Visit Provider Family Medicine
DX: E03.9 Hypothyroidism, unspecified (principal); R73.9 Hyperglycemia, unspecified
CPT/HCPCS: 36415; 83036; 84443

== ENCOUNTER → 2024-06-09 | Outpatient (CLI) | payer MEDICARE, SELFPAY ==
--- NOTE | 2024-06-09 06:59 | BI_ITS ---
PROCEDURE: SCRN MAMM (CAD)W/MARCIN BILAT REASON FOR EXAM: F, Age 64 y/o, no family history. Routine mammogram. TECHNIQUE: Bilateral screening digital breast tomosynthesis with 2D and 3D images. Computer aided detection. COMPARISON: Prior exam(s) dating back to June 08, 2023.. FINDINGS: The breasts are extremely dense which lowers the sensitivity of mammography. Stable examination. No suspicious masses, areas of developing architectural distortion, or suspicious calcifications. BI/SCRN MAMM (CAD)W/MARCIN BILAT IMPRESSION: BI-RADS 1: NEGATIVE. RECOMMEND ANNUAL MAMMOGRAPHIC SCREENING. Follow-up code: Routine Follow-up The patient will be notified of the results by letter. Reading Location: [place] [id number]
== END | disposition home or self-care (01) ==
LOC: OPBI 06:54
PROVIDERS: PCP Family Medicine; Referring Provider Family Medicine; Visit Provider Family Medicine
DX: Z12.31 Encounter for screening mammogram for malignant neoplasm of breast (principal)
CPT/HCPCS: 77063; 77067

== ENCOUNTER 2024-10-14 11:00 | Outpatient (RCR) | payer MEDICARE, SELFPAY ==
--- NOTE | 2024-10-13 17:55 | HP.OTEVAL ---
Patient's Visit Information Visit Information Visit Information: BIANCA MORTENSEN is a 64 year old F, referred to Occupational Therapy by Zeenat Medina MD, with a diagnosis of Tenosynovitis. Date of Evaluation: 10/13/24 Occupational Therapist: Kelly Keating Subjective Subjective: Pt is a 64 y/o female referred by Dr. Zeenat Medina for tenosynovitis to E. She reports she has pain radiating from L side of neck, down to wrist. Pt was placed on Prednisone and took her last dose this date. Pt reports she is very active, playing pickle ball, kayaking, walking, going to the gym, etc. Pt reports past hx of subluxing radial ulnar repair but unsure of date. ADLs Kitchen: Peel fruits & vegetables, Open jars and Open bottle caps Comments: Able to complete but with pain Yard: [place] Comments: Able to complete but with pain Miscellaneous: Drive Comments: Increased pain with use of steering wheel Pain LUE: Current Pain Intensity: 3 Pain Intensity Range: 4, 5 and 6 Objective Objective/Observation: Pt demonstrates with LUE pain that radiates from neck down to wrist, ranging from 3-6/10 pain with steroids. She is presenting with BUE WNL for ROM and slight decrease in strength to LUE compared to RUE. ROM ROM Comments: BUE WNL Strength Shoulder: R:10.9 L:10.8 Elbow: R: 16.9 Flx/19.1 Ex L: 17.2 Flx/14.6 Ex Numberer And Wirer: R:60# L:41# Lateral Pinch: R:14# L:14# Tripod Pinch: R:14# L:13# Tip-to-Tip Pinch: R: 11# L: 9# Quick DASH-Disab of Arm,Shoulder& Hand Quick DASH Score: [phone] Goals Goal:: Pt will report decrease in pain to 2/10 to L wrist with daily tasks for increased independence with IADLs and preferred tasks. Goal:: Following education, pt will demonstrate improved independence in joint protection to wrist while completing daily tasks for decreased pain with IADLs and preferred tasks. Rehabilitation Rehabilitation Potential: Excellent Anticipated Interventions Anticipated Interventions: A/AAROM/PROM, Strengthening, Massage, Modalities, Joint Protection/Energy Conservation, Education re assistive Equipment and Home Program Visit Plan Frequency: 1x/Week Duration: 4 Weeks General Plan: Pt demonstrates with pain radiating down L side of neck to L wrist resulting in range of pain from 4-6/10. Pt would benefit from outpatient occupational therapy for continued education on joint protection and ergonomics, pain management, and wrist stabilization activities to assist in reduction of pain for improved independence with ADLs/IADLs and preferred tasks. Pt to be seen 1x/wk for 4 weeks for areas listed above while monitoring activities that trigger pain. Pt would also benefit from referral to PT for focus on root cause of neck pain. TEXT: Thank you for the opportunity to evaluate your patient. For Medicare and Medicare HMO plans, please review the plan of care and approve it. It will need to be FAXED BACK to us at [phone] for Medicare purposes. Please let me know if there are questions or concerns regarding this plan of care. Physician Signature: Date:
--- NOTE | 2025-01-31 12:05 | HP.OT.NRP ---
Patient Information Patient Information: BIANCA MORTENSEN was seen in my office for initial evaluation on 10/13/24. The following Plan of Care was established for this patient: POC Established Initial Frequency: 1x/Week Initial Duration: 4 Weeks Plan: Continue POC: 4 weeks - 1x week Anticipated Interventions Anticipated Interventions: A/AAROM/PROM, Strengthening, Massage, Modalities, Joint Protection/Energy Conservation, Education re assistive Equipment and Home Program Last Seen Last Seen: This patient was last seen in our office 10/14/24. Pertinent comments regarding their Occupational therapy will appear below: no further apts have been scheduled and due to time lapse in services pt is d/c at this time. At this point I will be discontinuing this patient from occupational therapy. I would be happy to see this patient again in the future if found appropriate by the physician. Thank you! Nona Scales, OTR/L, CHT
== END 2024-10-14 19:00 | disposition home or self-care (01) ==
LOC: OT 11:00
PROVIDERS: PCP Family Medicine; Referring Provider Family Medicine; Visit Provider Family Medicine
DX: M65.90 Unspecified synovitis and tenosynovitis, unspecified site (principal)
CPT/HCPCS: 97035; 97140; 97165; 97530

== ENCOUNTER → 2024-11-18 | Outpatient (CLI) | payer MEDICARE, SELFPAY ==
[2024-11-18 11:54] LABS: AST(SGOT) 25 U/L (<=31); Alanine Aminotransfer ALT/SGPT 23 U/L (<=34); Albumin, Serum 4.6 g/dL (3.4-4.8); Alkaline Phosphatase 47 U/L (35-104); Anion Gap 11 (5-15); BUN 12 mg/dL (4-19); BUN/Creat Ratio 15.8 RATIO (10-20); Calcium,Total 9.9 mg/dL (7.6-11.0); Carbon Dioxide 25.0 mmol/L (21.0-32.0); Chloride 104 mmol/L (98-108); Cholesterol 186 mg/dL (<=200); Globulin 2.8 g/dL (2.2-4.2); Glucose 124 mg/dL (70-99); Low Density Lipoprotein Calc. 87 mg/dL; Potassium 4.7 mmol/L (3.3-5.1); Triglycerides 153 mg/dL; Very Low Density Lipoprotein 31 mg/dL (5-40); Vitamin D,25 Hydroxy 45.8 ng/mL (30-100); cholesterol:hdl ratio screen 2.70
== END | disposition home or self-care (01) ==
LOC: LAB 08:37
PROVIDERS: PCP Family Medicine; Referring Provider Internal Medicine Endocrinology, Diabetes & Metabolism; Visit Provider Internal Medicine Endocrinology, Diabetes & Metabolism
DX: E55.9 Vitamin D deficiency, unspecified (principal); E11.9 Type 2 diabetes mellitus without complications; E03.9 Hypothyroidism, unspecified; M81.0 Age-related osteoporosis without current pathological fracture; E78.2 Mixed hyperlipidemia
CPT/HCPCS: 36415; 80053; 80061; 82306; 83036; 84443

== ENCOUNTER → 2024-11-21 | Outpatient (CLI) | payer MEDICARE, SELFPAY ==
[2024-11-21 13:11] LABS: Creatinine, Urine (random) 30.90 mg/dL (28.00-217.00); Microalbumin,Random Urine < 12.0 mg/L (NO RANGE EST.)
[2024-11-21 13:37] LABS: Amylase 37 U/L (28-100); CRP < 3.00 mg/L (0.0-3.0); Lipase 22 U/L (13-75)
== END | disposition home or self-care (01) ==
LOC: MFPLAB 09:21
PROVIDERS: PCP Family Medicine; Referring Provider Family Medicine; Visit Provider Family Medicine
DX: E11.9 Type 2 diabetes mellitus without complications (principal)
CPT/HCPCS: 36415; 82043; 82150; 82570; 83036; 83525; 83690; 86140

== ENCOUNTER 2024-11-29 09:14 | Outpatient (CLI) | payer MEDICARE, SELFPAY ==
[2024-11-29 09:21] VITALS: BP 128/66; PULSE 71; RESP 16; TEMP 35.6; O2SAT 99; BMI 23.8
[2024-11-29] MEDS: 0.9% NaCl Peripheral Flush Adult IV (09:26)
[2024-11-29 09:53] VITALS: BP 115/61; PULSE 70
== END 2024-11-29 23:59 | disposition home or self-care (01) ==
PROVIDERS: PCP Family Medicine; Referring Provider Internal Medicine Endocrinology, Diabetes & Metabolism; Visit Provider Internal Medicine Endocrinology, Diabetes & Metabolism
DX: M81.0 Age-related osteoporosis without current pathological fracture (principal)
CPT/HCPCS: 96365; 87070; 87077; 87186; 87205; A4216; J3489

== ENCOUNTER 2024-12-26 13:41 | Outpatient (RCR) | payer MEDICARE, SELFPAY | END 2025-01-08 23:59 | LOC: NS 13:41 | PROVIDERS: PCP Family Medicine; Referring Provider Family Medicine; Visit Provider Family Medicine | DX: Z71.3 Dietary counseling and surveillance (principal); E11.9 Type 2 diabetes mellitus without complications | CPT/HCPCS: 97802 ==

== ENCOUNTER → 2025-02-28 | Outpatient (CLI) | payer MEDICARE, SELFPAY ==
--- OUTSIDE RECORDS SUMMARY | 2025-02-28 09:20 | XMS RPT_ITS | CCD ---
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 Syncope History of diverticulosis History of IBS Gastric reflux Former smoker Leg cramps History of echocardiogram History of stress test Cardiology follow-up encounter Vitamin D deficiency Cormier's neuroma of right foot GERD (gastroesophageal reflux disease) Pneumonia Osteoporosis Hypoglycemia Atrial fibrillation Arthritis Seasonal allergies Other peripheral vertigo, unspecified ear Nonrheumatic mitral valve prolapse Hypothyroidism Palpitations Surgical History History of colonoscopy ( 2017) H/O bladder repair surgery History of foot surgery S/P wrist surgery Hx of cholecystectomy History of total abdominal hysterectomy and bilateral salpingo-oophorectomy Family History Father Cancer Aunt Breast cancer Mother Cancer Other Alcoholism Anemia Anxiety Depression High cholesterol Hypertension Kidney disease Osteoporosis Social History household members: spouse Smoking Status: Former smoker alcohol intake: never substance use type: does not use caffeine: Yes Type: coffee Number of servings: 2 what type of physical activity do you participate in: walking and other frequency: 3-4 times per week duration: 30-45 minutes/day seatbelt use: always do you feel safe at home: Yes HPI r/o yeast infection Details: RANDEE OMRTENSEN is a 64 year old who presents for persistent vaginal dryness she has tried multiple products including estrogen cream and tablets, osphena. she dneies any bleeding or discharge co itching burning. she uses mineral oil PRN.. History 3 Elective abortions Hx Para 3 Spontaneous abortions Hx # Term Pregnancies 3 Ectopic pregnancies Hx # Pregnancies Multiple births # of living children 3 Past Pregnancies Del. Date Name GA/Weeks Outcome Route Bth Weight Infant Gen Labor Lgth Anesthesia Del Locatn Provider FOB Unknown Simran 1979 Unknown Rick 1985 Unknown Christi 1987 ROS Const Constitutional: Reports system reviewed and no additional complaints, except as documented Eyes Eyes: Reports system reviewed and no additional complaints, except as documented GI GI: Denies abdominal pain or change in bowel habits : Reports as per HPI Exam Const General: cooperative and no acute distress Nutritional Appearance: well nourished Orientation: oriented x3 External Female Exam: other (mild atrophy noted. ) Speculum Exam - Vagina: normal vaginal discharge, vagina atrophic and other (Pain w/exam just above vag cuff and deep palpation. ) Speculum Exam - Cervix: absent Bimanual Exam- Vagina Uterus: uterus absent Bimanual Exam- Adnexa, other: no masses, non-tender and cystocele Pelvic Support: cystocele mild Coding Level of Care Co (more content not included)... Normal [facility] Insulin Levelon 11-22-2024 INSULIN,FASTING 6.4 uIU/mL Normal 2.6-24.9 [facility] Comment on above: Result Comment: Perf ormed at: - [facility] [address] [id number] Kiln Labourer: Joss Arroyo PhD, Phone: [phone] Performed By: #### L [id number] #### [facility] [address] [place], [place], [id number] Amylaseon 11-21-2024 KIMI 37 U/L Normal 28-100 [facility] Comment on above: Order Comment: Order Date: 11/21/24 Order Info: 1798-8 - KIMI Order Info: 3040-3 - LIPASE Order Info: [id number] - CRP Performed By: #### L [id number] #### [facility] [address] [place], [place], [address] CRPon 11-21-2024 C-REACTIVE PROT < 3.00 Normal 0.0-3.0 [facility] Comment on above: Order Comment: Order Date: 11/21/24 Order Info: 1798-8 - KIMI Order Info: 3040-3 - LIPASE Order Info: [id number] - CRP Performed By: #### L [id number] #### [facility] [address] [place], [place], [address] Hemoglobin A1con 11-21-2024 HbA1c (Bld) [Mass fraction] 6.9 % High <=5.6 [facility] Comment on above: Order Comment: Order Date: 11/21/24 Order Info: [id number] - A1C Result Comment: Norm al < 5.7 % Prediabetic 5.7 - 6.4 % Diabetic >or= 6.5 % Please note range changes. Performed By: #### L [id number] #### [facility] [address] [place], [place], [address] Hemoglobin A1c percentageOrd ered By: Zeenat Medina on 11-21-2024 HbA1c (Bld) [Mass fraction] 6.9 % High <5.7 [facility] Comment on above: Normal < 5.7 % Predi abetic 5.7 - 6.4 % Diabetic >or= 6.5 % Please note range changes. Lipaseon 11-21-2024 Lipase [Catalytic activity/Vol] 22 U/L Normal 13-75 [facility] Comment on above: Order Comment: Order Date: 11/21/24 Order Info: [id number] - KIMI Order Info: 3040-3 - LIPASE Order Info: [id number] - CRP Result Comment: Belén duong note: LIPASE revised reference range effective 22. New Lipase methodology. Expected to produce lower values than the previous assay method. NEW Reference Range: 13 - 75 U/L Performed By: #### L [id number] #### [facility] [address] [place], [address] Lipase measurementOrdered By : Zeenat Medina on 11-21-2024 Lipase [Catalytic activity/Vol] 22 U/L 13-75 [facility] Comment on above: Please note:LIPASE r evised reference range effective 22. New Lipase methodology. Expected to produce lower values than the previous assay method. NEW Reference Range: 13 - 75 U/L Microalb:Creat Ratio,Random URon 11-21-2024 Creatinine [Mass/Vol] 30.90 mg/dL Normal 28.00- 217. 00 [facility] Comment on above: Order Comment: Order Date: 11/21/24 Order Info: 1798-8 - KIMI Order Info: 3040-3 - LIPASE Order Info: [id number] - CRP Performed By: #### L [id number] #### [facility] [address] [place], [place], [address] MALB:CREAT UNABLE TO CALCULATE Normal [facility] Comment on above: Order Comment: Order Date: 11/21/24 Order Info: 1798-8 - KIMI Order Info: 3040-3 - LIPASE Order Info: [id number] - CRP Performed By: #### L [id number] #### [facility] [address] [place], [place], [id number] MICROALBUMIN,UR < 12.0 Normal NO RANGE EST. [facility] Comment on above: Order Comment: Order Date: 11/21/24 Order Info: 8-8 - KIMI Order Info: 3040-3 - LIPASE Order Info: [id number] - CRP Performed By: #### L [id number] #### [facility] [address] [place], [place], [id number] Microalbumin/creat ratio urO rdered By: Zeenat Medina on 11-21-2024 Urine microalbumin/creatinin e ratio measurement UNABLE TO CALCULATE mg/g CRE [facility] Random urine creatinine stephanie urement (mass/volume)Ordered By: Zeenat Medina on 11-21-2024 Creatinine Unsp time (U) [Mass/Vol] 30.90 mg/dL 28.00-217. 00 [facility] Serum or plasma C reactive p rotein measurement (mass/volume)Ordered By: Zeenat Medina on 11-21-2024 CRP [Mass/Vol] mg/L 0.0-3.0 [facility] Serum or plasma amylase stephanie urement (enzymatic activity/volume)Ordered By: Zeenat Medina on 11-21-2024 Amylase [Catalytic activity/Vol] 37 U/L 28-100 [facility] Serum or plasma insulin stephanie urement (mass/volume)Ordered By: Zeenat Medina on 11-21-2024 Insulin [Mass/Vol] 6.4 uIU/mL 2.6-24.9 [facility] Comment on above: Performed at: [address] [id number] Director: Joss Arroyo PhD, Phone: [phone] Urine albumin measurement [facility] detection limit of 20 mg/L or less (mass/volume)Ordered By: Zeenat Medina on 11-21-2024 Albumin DL <= 20 mg/L (U) [Mass/Vol] < 12.0 mg/L NO RANGE EST. [facility] Anion gap in Serum or Plasma Ordered By: Preston Mukherjee on 11-18-2024 Anion gap [Moles/Vol] 11 mmol/L 5-15 [facility] BUN/creatinine ratioOrdered By: Preston Mukherjee on 11-18-2024 Urea nitrogen/Creatinine [Mass ratio] 15.8 mg/mg 10-20 [facility] Bilirubin, totalOrdered By: Preston Mukherjee on 11-18-2024 Bilirubin [Mass/Vol] 0.40 mg/dL 0.00-1.30 [facility] Calculated very low density lipoprotein (VLDL) cholesterol measurementOrdered By: Preston Mukherjee on 11-18-2024 Calculated very low density lipoprotein (VLDL) cholesterol measurement 31 mg/dL 5-40 [facility] Carbon dioxide, total [Moles /volume] in Central venous bloodOrdered By: Preston Mukherjee on 11-18-2024 CO2 [Moles/Vol] 25.0 mmol/L 21.0-32.0 [facility] Chloride assayOrdered By: Matthew Mukherjee on 11-18-2024 Chloride [Moles/Vol] 104 mmol/L 98-108 [facility] Comprehensive Metabolic Prof ilon 11-18-2024 Albumin [Mass/Vol] 4.6 g/dL Normal 3.4-4.8 [facility] Comment on above: Performed By: #### L [id number], [id number], L506.1001, L500.4050, L500.4100 #### [facility] [address] [place], [address] Albumin/Globulin [Mass ratio] 1.6 {ratio} Normal 0.9-2.4 [facility] Comment on above: Performed By: #### L [id number], [id number], L506.1001, L500.4050, L500.4100 #### [facility] [address], [address] ALK PHOS 47 U/L Normal 35-104 [facility] Comment on above: Performed By: #### L [id number], [id number], L506.1001, L500.4050, L500.4100 #### [facility] [address] [place], [address] ALT [Catalytic activity/Vol] 23 U/L Normal <=34 [facility] Comment on above: Performed By: #### L [id number], [id number], L506.1001, L500.4050, L500.4100 #### [facility] [address] [place], [address] AST [Catalytic activity/Vol] 25 U/L Normal <=31 [facility] Comment on above: Performed By: #### L [id number], [id number], L506.1001, L500.4050, L500.4100 #### [facility] [address] [place], [address] Bilirubin [Mass/Vol] 0.40 mg/dL Normal 0.00-1.30 [facility] Comment on above: Performed By: #### L [id number], [id number], L506.1001, L500.4050, L500.4100 #### [facility] [address] [place], [address] BUN/CRE 15.8 RATIO Normal 10-20 [facility] Comment on above: Performed By: #### L [id number], [id number], L506.1001, L500.4050, L500.4100 #### [facility] [address] [place], [address] Calcium [Mass/Vol] 9.9 mg/dL Normal 7.6-11.0 [facility] Comment on above: Performed By: #### L [id number], [id number], L506.1001, L500.4050, L500.4100 #### [facility] [address] [place], [address] Chloride [Moles/Vol] 104 mmol/L Normal 98-108 [facility] Comment on above: Performed By: #### L [id number], [id number], L506.1001, L500.4050, L500.4100 #### [facility] [address] [place], [address] CO2 [Moles/Vol] 25.0 mmol/L Normal 21.0-32.0 [facility] Comment on above: Performed By: #### L [id number], [id number], L506.1001, L500.4050, L500.4100 #### [facility] [address] [place], [address] Creatinine [Mass/Vol] 0.77 mg/dL Normal 0.70-1.20 [facility] Comment on above: Performed By: #### L [id number], [id number], L506.1001, L500.4050, L500.4100 #### [facility] [address] [place], [address] GAP 11 Normal 5-15 [facility] Comment on above: Performed By: #### L [id number], L501.9985, L506.1001, L500.4050, L500.4100 #### [facility] [address] [place], [address] GFR/1.73 sq M.predicted among non-blacks MDRD (S/P/Bld) [Vol rate/Area] 85 mL/min/{1.73_m2} Normal >60 [facility] Comment on above: Result Comment: mL/m in/1.73m2 CKD-EPI Creatinine Equation (2020) Performed By: #### L [id number], L501.9985, L506.1001, L500.4050, L500.4100 #### [facility] [address] [place], [address] Globulin (S) [Mass/Vol] 2.8 g/dL Normal 2.2-4.2 [facility] Comment on above: Performed By: #### L [id number], L501.9985, L506.1001, L500.4050, L500.4100 #### [facility] [address] [place], [address] Glucose [Mass/Vol] 124 mg/dL High 70-99 [facility] Comment on above: Performed By: #### L [id number], L501.9985, L506.1001, L500.4050, L500.4100 #### [facility] [address] [place], [address] Potassium [Moles/Vol] 4.7 mmol/L Normal 3.3-5.1 [facility] Comment on above: Performed By: #### L [id number], L501.9985, L506.1001, L500.4050, L500.4100 #### [facility] [address] [place], [address] Sodium [Moles/Vol] 141 mmol/L Normal 133-145 [facility] Comment on above: Performed By: #### L [id number], L501.9985, L506.1001, L500.4050, L500.4100 #### [facility] [address] [place], [address] T PROT 7.4 g/dL Normal 5.9-8.4 [facility] Comment on above: Performed By: #### L [id number], L501.9985, L506.1001, L500.4050, L500.4100 #### [facility] [address] [place], [address] Urea nitrogen [Mass/Vol] 12 mg/dL Normal 4-19 [facility] Comment on above: Performed By: #### L [id number], L501.9985, L506.1001, L500.4050, L500.4100 #### [facility] [address] [place], [address] Endocrinology Visit Reporton 11-18-2024 Endocrinology Visit Report [facility] [address] [place] [address] OFFICE VISIT Date of Service: 11/18/24 MR#: [id number] Acct: [id number] Name: RANDEE MORTENSEN Rep #: [id number] : 1960 Provider: Nettie Cr Age/Sex: 64/F Location: [facility] Status: Signed Intake Vital Signs 11/13/23 07:56 05/25/24 14:06 11/18/24 07:50 Height 5 ft 6 in 5 ft 6 in 5 ft 6 in Weight: 151 lb BMI 24.3 BP 119/74 Blood Pressure Location Rt brachial Position Sitting Pulse 62 Pulse Source Monitor Pulse Oximetry (%) 97 Oxygen Delivery Method room air Intake Visit Reasons: 1 Y FU Chief Complaint: Bone/thyroid/A1C Is patient in pain?: Yes Allergies esomeprazole (From Nexium) Adverse Reaction (Mild, Verified 11/18/24 07:56) diarrhea Medications ???Medication ???Instructions ???Recorded ???Confirmed ???Type albuterol sulfate 90 mcg/actuation 1 inh inhalation ONCE PRN SOB 11/18/24 History aerosol inhaler (Proventil HFA) ascorbate calcium (vitamin C) 500 500 mg PO DAILY 03/27/21 11/18/24 History mg tablet simvastatin 40 mg tablet 40 mg PO DAILY 03/27/21 11/18/24 H istory fluticasone propionate 50 1 spray intranasal BID PRN 04/11/ 1 11/18/24 History mcg/actuation nasal ALLERGIES spray,suspension (Flonase Allergy Relief) cholecalciferol (vitamin D3) 25 25 mcg PO DAILY 11/13/23 11/18/24 History mcg (1,000 unit) capsule gabapentin 300 mg capsule 300 mg PO QDAY 11/13/23 11/18/24 H istory levothyroxine 125 mcg tablet 125 mcg PO DAILY #90 tabs 11/16/23 11/18/24 Rx dicyclomine 10 mg capsule 10 mg PO BID PRN abdominal pain 11/18/24 Rx #30 caps estradiol 10 mcg vaginal tablet 10 mcg vaginal 2XW #24 tabs 11/18/24 Rx (Vagifem) zoledronic acid 5 mg/100 mL in 1 ea .Route ONCE #100 mL 11/18/24 11/18/24 Rx mannitol 5 %-water intravenous piggybck Have you fallen in the past year?: Yes PFSH Medical History Diabetes Abnormal colonoscopy Anxiety Thyroid disease High cholesterol Easy bruising Back pain Injury of head and neck Syncope History of diverticulosis History of IBS Gastric reflux Former smoker Leg cramps History of echocardiogram History of stress test Cardiology follow-up encounter Vitamin D deficiency Cormier's neuroma of right foot GERD (gastroesophageal reflux disease) Pneumonia Osteoporosis Hypoglycemia Atrial fibrillation Arthritis Seasonal allergies Other peripheral vertigo, unspecified ear Nonrheumatic mitral valve prolapse Hypothyroidism Palpitations Surgical History History of colonoscopy ( 2017) H/O bladder repair surgery History of foot surgery S/P wrist surgery Hx of cholecystectomy History of total abdominal hysterectomy and bilateral salpingo-oophorectomy Family History Father Cancer Aunt Breast cancer Mother Cancer Other Alcoholism Anemia Anxiety Depression High cholesterol Hypertension Kidney disease Osteoporosis Social History household members: spouse Smoking Status: Former smoker alcohol intake: never substance use type: does not use caffeine: Yes Type: coffee Number of servings: 2 what type of physical activity do you participate in: walking and other frequency: 3-4 times per week duration: 30-45 minutes/day seatbelt use: always do you feel safe at home: Yes HPI HPI Chief Complaint: Bone/thyroid/A1C Details: RANDEE MORTENSEN, is a 64 F who presents to the office today for follow up. She has osteoporosis. Bone density 2019 -2.9 LS spine -2.4 femoral neck. No history of fractures. She falls occasionally due to being in a hurry. She has received 4 infusions of Reclast, will get her 5th infusion this year. She has hypothyroidism and is taking levothyroxine. She is taking vitamin D. She has hyperlipidemia and is on a statin. She had an A1C of 6.3% in April. No FMH of DM2. Her father at age 55 of pancreatic cancer. Randee told me that she had a funny shaped pancreas, but I don't see that on the imaging that she has had. No personal history of pancreatitis or pancreatic injury. She does report having reactive hypoglycemia and avoids low fiber carbs or eats them with a protein. ROS Const Constitutional: No fatigue, weight change or change in appetite Eyes Eyes: No change in vision ENT ENT: No dizziness/vertigo or difficulty swallowing Cardio Cardiology: Positive for palpitations; No chest pain at rest, chest pain with exertion or shortness of breath Musc Musculoskeletal (more content not included)... Normal [facility] Glomerular filtration rate ( GFR) estimation/1.73 sq m using serum, plasma, or whole bOrdered By: Preston Mukherjee on 11-18-2024 GFR/1.73 sq M.predicted among non-blacks MDRD (S/P/Bld) [Vol rate/Area] 85 mL/min/{1.73_m2} >60 [facility] Comment on above: mL/min/1.73m2 CKD-EP I Creatinine Equation (2020) Hemoglobin A1con 11-18-2024 HbA1c (Bld) [Mass fraction] 7.2 % High <=5.6 [facility] Comment on above: Result Comment: Norm al < 5.7 % Prediabetic 5.7 - 6.4 % Diabetic >or= 6.5 % Please note range changes. Performed By: #### L 501.4031, L501.9976, L506.1001, L500.4050, L500.4100 #### [facility] [address] [place], [place], [id number] Hemoglobin A1c percentageOrd ered By: Preston Mukherjee on 11-18-2024 HbA1c (Bld) [Mass fraction] 7.2 % High <5.7 [facility] Comment on above: Normal < 5.7 % Predi abetic 5.7 - 6.4 % Diabetic >or= 6.5 % Please note range changes. LDL calc ser/plasOrdered By: Preston Mukherjee on 11-18-2024 Cholesterol in LDL [Mass/Vol] 87 mg/dL [facility] Comment on above: Dspfbzypbq=093-478 m g/dL & Higher Najr=502 mg/dL or greater Laboratory - Chemistry and C hemistry - challengeOrdered By: Preston Mukherjee on 11-18-2024 AST [Catalytic activity/Vol] 25 U/L <32 [facility] Lipid Profileon 11-18-2024 CHOL:HDL 2.70 Normal [facility] Comment on above: Performed By: #### L [id number], L501.9985, L506.1001, L500.4050, L500.4100 #### [facility] [address] [place], [address] Cholesterol [Mass/Vol] 186 mg/dL Normal <=200 [facility] Comment on above: Result Comment: Chol esterol level, Desirable <200 mg/dL Borderline high cholesterol 200-239 mg/dL High cholesterol >=240 mg/dL Recommendations of the NCEP Adult Treatment Panel for the following risk-cutoff thresholds for the [place] population. Performed By: #### L [id number], L501.9985, L506.1001, L500.4050, L500.4100 #### [facility] [address] [place], [address] Cholesterol in HDL [Mass/Vol] 69 mg/dL Normal [facility] Comment on above: Result Comment: Khloe onchivo Cholesterol Education Program (NCEP) guidelines: <40 mg/dL: Low HDL-cholesterol (major risk factor for CHD) >= 60 mg/dL: High HDL-cholesterol (negative risk factor for CHD) HDL-cholesterol is affected by a number of factors, e.g. smoking, exercise, hormones, sex and age. Performed By: #### L [id number], L501.9985, L506.1001, L500.4050, L500.4100 #### [facility] [address] [place], [address] Cholesterol in LDL [Mass/Vol] 87 mg/dL Normal [facility] Comment on above: Result Comment: Bord jglxbl=737-054 mg/dL Higher Rorj=150 mg/dL or greater Performed By: #### L [id number], L501.9985, L506.1001, L500.4050, L500.4100 #### [facility] [address] [place], [address] Cholesterol in VLDL [Mass/Vol] 31 mg/dL Normal 5-40 [facility] Comment on above: Performed By: #### L [id number], L501.9985, L506.1001, L500.4050, L500.4100 #### [facility] [address] [place], [address] Triglyceride [Mass/Vol] 153 mg/dL Normal [facility] Comment on above: Result Comment: The drugs N-Acetylcysteine and Metamizole may falsely depress this assay. Normal range: <150 mg/dL Borderline High: 150-199 mg/dL High: 200-499 mg/dL Very High: >500 mg/dL Performed By: #### L [id number], L501.9985, L506.1001, L500.4050, L500.4100 #### [facility] [address] [place], [address] Potassium measurement (mass/ volume)Ordered By: Preston Mukherjee on 11-18-2024 Potassium (Unsp spec) [Mass/Vol] 4.7 mmol/L 3.3-5.1 [facility] Screening total cholesterol/ high density lipoprotein (HDL) cholesterol ratioOrdered By: Preston Mukherjee on 11-18-2024 Cholesterol.total/Chol esterol in HDL [Mass ratio] 2.70 {ratio} [facility] Serum creatinine measurement (mass/volume)Ordered By: Preston Mukherjee on 11-18-2024 Creatinine [Mass/Vol] 0.77 mg/dL 0.70-1.20 [facility] Serum globulin measurementOr dered By: Preston Mukherjee on 11-18-2024 Globulin (S) [Mass/Vol] 2.8 g/dL 2.2-4.2 [facility] Serum glucose measurement (m ass/volume)Ordered By: Preston Mukherjee on 11-18-2024 Glucose [Mass/Vol] 124 mg/dL High 70-99 [facility] Serum or plasma alanine rivas otransferase (ALT) measurementOrdered By: Preston Mukherjee on 11-18-2024 ALT [Catalytic activity/Vol] 23 U/L <35 [facility] Serum or plasma albumin stephanie urement (mass/volume)Ordered By: Preston Mukherjee on 11-18-2024 Albumin [Mass/Vol] 4.6 g/dL 3.4-4.8 [facility] Serum or plasma albumin/glob ulin mass ratioOrdered By: Preston Mukherjee on 11-18-2024 Albumin/Globulin [Mass ratio] 1.6 {ratio} 0.9-2.4 [facility] Serum or plasma alkaline carrillo sphatase measurementOrdered By: Preston Mukherjee on 11-18-2024 ALP [Catalytic activity/Vol] 47 U/L 35-104 [facility] Serum or plasma calcium stephanie urement (mass/volume)Ordered By: Preston Mukherjee on 11-18-2024 Calcium [Mass/Vol] 9.9 mg/dL 7.6-11.0 [facility] Serum or plasma cholesterol in HDL measurement (mass/volume)Ordered By: Preston Mukherjee on 11-18-2024 Cholesterol in HDL [Mass/Vol] 69 mg/dL >40 [facility] Comment on above: National Cholesterol Education Program (NCEP) guidelines:<40 mg/dL: Low HDL-cholesterol (major risk factor for CHD)>= 60 mg/dL: High HDL-cholesterol (negative risk factor for CHD)HDL-cholesterol is affected by a number of factors, e.g. smoking, exercise, hormones, sex and age. Serum or plasma cholesterol measurement (mass/volume)Ordered By: Preston Mukherjee on 11-18-2024 Cholesterol [Mass/Vol] 186 mg/dL <201 [facility] Comment on above: Cholesterol level, D esirable <200 mg/dLBorderline high cholesterol 200-239 mg/dLHigh cholesterol >=240 mg/dLRecommendations of the NCEP Adult Treatment Panel for the following risk-cutoff thresholds for the [place] population. Serum or plasma urea nitroge n measurement (mass/volume)Ordered By: Preston Mukherjee on 11-18-2024 Urea nitrogen [Mass/Vol] 12 mg/dL 4-19 [facility] Sodium levelOrdered By: Preston Mukherjee on 11-18-2024 Sodium [Moles/Vol] 141 mmol/L 133-145 [facility] TSH DL <= 0.005 mIU/L QnOrde red By: Preston Mukherjee on 11-18-2024 TSH Qn 1.110 uIU/mL 0.300-4.20 0 [facility] Thyroid Stim Hormone (TSH)on 11-18-2024 TSH 1.110 uIU/mL Normal 0.300-4.20 0 [facility] Comment on above: Performed By: #### L 501.9520, L501.9985, L506.1001, L500.4050, L500.4100 #### [facility] Laboratory [address] [place], [address] Total proteinOrdered By: Ollie Mukherjee on 11-18-2024 Protein [Mass/Vol] 7.4 g/dL 5.9-8.4 [facility] Triglycerides measurementOrd ered By: Preston Mukherjee on 11-18-2024 Triglyceride [Mass/Vol] 153 mg/dL <199 [facility] Comment on above: The drugs N-Acetylcy steine and Metamizole may falsely depress this assay. Normal range: <150 mg/dLBorderline High: 150-199 mg/dLHigh: 200-499 mg/dLVery High: >500 mg/dL Vitamin D,25 Hydroxyon 11-18 Vitamin D 25-OH 45.8 ng/mL Normal 30-100 [facility] Comment on above: Result Comment: Trista min D Status Deficiency: <20 ng/mL (50nmol/L) Insufficiency: 20-30 ng/mL (50-75 nmol/L) Sufficiency: 30-100 ng/mL (75-250 nmol/L) Toxicity: >100 ng/mL (>250 nmol/L) Performed By: #### L 501.9520, L501.9985, L506.1001, L500.4050, L500.4100 #### [facility] [address] [place], [place], [address] OT General Evaluationon 06-0 OT General Evaluation [facility] Occupational Therapy [facility] [address] [place] [address] / REHABILITATION SERVICES INITIAL EVALUATION MR#: [id number] Acct: [id number] Name: RANDEE MORTENSEN Rep #: [id number] : 1960 64 From: Kelly Keating Referring Dr.: Dr. Zeenat Medina MD Status: REG [facility] Insurance: [facility] Eval Date: SELF PAY INSURANCE Patient's Visit Information Visit Information Visit Information: RANDEE MORTENSEN is a 64 year old F, referred to Occupational Therapy by Zeenat Medina MD, with a diagnosis of Tenosynovitis. Date of Evaluation: 10/13/24 Occupational Therapist: Kelly Keating Subjective Subjective: Pt is a 64 y/o female referred by Dr. Zeenat Medina for tenosynovitis to [facility]. She reports she has pain radiating from L side of neck, down to wrist. Pt was placed on Prednisone and took her last dose this date. Pt reports she is very active, playing pickle ball, kayaking, walking, going to the gym, etc. Pt reports past hx of subluxing radial ulnar repair but unsure of date. ADLs Kitchen: Peel fruits vegetables, Open jars and Open bottle caps Comments: Able to complete but with pain Yard: [place] Comments: Able to complete but with pain Miscellaneous: Drive Comments: Increased pain with use of steering wheel Pain LUE: Current Pain Intensity: 3 Pain Intensity Range: 4, 5 and 6 Objective Objective/Observation: Pt demonstrates with LUE pain that radiates from neck down to wrist, ranging from 3-6/10 pain with steroids. She is presenting with BUE WNL for ROM and slight decrease in strength to LUE compared to RUE. 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 Goal:: Following education, pt will demonstrate improved independence in joint protection to wrist while completing daily tasks for decreased pain with IADLs and preferred tasks. Rehabilitation Rehabilitation Potential: Excellent Anticipated Interventions Anticipated Interventions: A/AAROM/PROM, Strengthening, Massage, Modalities, Joint Protection/Energy Conservation, Education re assistive Equipment and Home Program Visit Plan Frequency: 1x/Week Duration: 4 Weeks General Plan: Pt demonstrates with pain radiating down L side of neck to L wrist resulting in range of pain from 4-6/10. Pt would benefit from outpatient occupational therapy for continued education on joint protection and ergonomics, pain management, and wrist stabilization activities to assist in reduction of pain for improved independence with ADLs/IADLs and preferred tasks. Pt to be seen 1x/wk for 4 weeks for areas listed above while monitoring activities that trigger pain. Pt would also benefit from referral to PT for focus on root cause of neck pain. TEXT: Thank you for the opportunity to evaluate your patient. For Medicare and Medicare HMO plans, please review the plan of care and approve it. It will need to be FAXED BACK to us at [phone] for Medicare purposes. Please let me know if there are questions or concerns regarding this plan of care. Physician Signature: Date: 10/13/24 1755 CC: Dr. Kimi Felix MD; Dr. Zeenat Medina MD OM Signed For Medicare only, by signing this I certify the plan of care. _ Physicians Signature Date Normal [facility] SCRN MAMM (CAD)W/MARCIN BILATo n 06-09-2024 SCRN MAMM (CAD)W/MARCIN BILAT [facility] Imaging Services [address] [place] [address] SCRN MAMM (CAD)W/MARCIN BILAT MR#: [id number] Acct: [id number] Name: RANDEE MORTENSEN Rep #: [id number] : 1960 F 64 From: [place] MD PCP: Dr. Kimi Felix MD Status: [facility] Study: SCRN MAMM (CAD)W/MARCIN BILAT Date of Exam: 05/13 Exam# [id number] Ordering Dr: Kimi Felix MD PROCEDURE: SCRN MAMM (CAD)W/MARCIN BILAT REASON FOR EXAM: F, Age 64 y/o, no family history. Routine mammogram. TECHNIQUE: Bilateral screening digital breast tomosynthesis with 2D and 3D images. Computer aided detection. COMPARISON: Prior exam(s) dating back to June 08, 2023.. FINDINGS: The breasts are extremely dense which lowers the sensitivity of mammography. Stable examination. No suspicious masses, areas of developing architectural distortion, or suspicious calcifications. BI/SCRN MAMM (CAD)W/MARCIN BILAT IMPRESSION: BI-RADS 1: NEGATIVE. RECOMMEND ANNUAL MAMMOGRAPHIC SCREENING. Follow-up code: Routine Follow-up The patient will be notified of the results by letter. Reading Location: [facility] CC: Dr. Kimi Felix MD Manager Transport: Signed Normal [facility] Manager Float Office Visit Reporton 05-25-2024 Manager Float Office Visit Report [facility] [address], [address] [place] [address] OFFICE VISIT Date of Service: 05/25/24 MR#: [id number] Acct: [id number] Name: RANDEE MORTENSEN Rep #: [id number] : 1960 Provider: Dr. Hillary Torres DO Age/Sex: 64/F Location[place] [facility] Status: Signed Intake Vital Signs 04/06/24 14:46 05/25/24 14:06 Height 5 ft 6 in 5 ft 6 in Weight: 155 lb 4 oz BMI 25.0 BP 121/80 H Intake Visit Reasons: discuss medication options Chief Complaint: Vaginal dryness and pain Hl7 Interface Developer Required: No Is patient in pain?: No Allergies esomeprazole (From Nexium) Adverse Reaction (Mild, Verified 05/25/24 14:06) diarrhea Medications ???Medication ???Instructions ???Recorded ???Confirmed ???Type lorazepam 0.5 mg tablet 0.5 mg PO QHS PRN Anxiety 10/18/20 05/25/24 History albuterol sulfate 90 mcg/actuation 1 inh inhalation ONCE PRN SOB 03/27/21 05/25/24 History aerosol inhaler (Proventil HFA) ascorbate calcium (vitamin C) 500 500 mg PO DAILY 03/27/21 05/25/24 History mg tablet baclofen 20 mg tablet 20 mg PO DAILY PRN Pain 03/27/21 05/25/24 History simvastatin 40 mg tablet 40 mg PO DAILY 03/27/21 05/25/24 History fluticasone propionate 50 1 spray intranasal BID PRN 04/11/21 05/25/24 History mcg/actuation nasal ALLERGIES spray,suspension (Flonase Allergy Relief) naproxen 500 mg tablet 500 mg PO BID PRN pain 09/07/23 05/25/24 History cholecalciferol (vitamin D3) 25 25 mcg PO DAILY 11/13/23 05/25/24 History mcg (1,000 unit) capsule gabapentin 300 mg capsule 300 mg PO QDAY 11/13/23 05/25/24 History zoledronic acid 5 mg/100 mL in 1 ea .Route ONCE #100 mL 11/13/23 05/25/24 Rx mannitol 5 %-water intravenous piggybck levothyroxine 125 mcg tablet 125 mcg PO DAILY #90 tabs 11/16/23 05/25/24 Rx dicyclomine 10 mg capsule 10 mg PO BID PRN abdominal pain 01/04/24 05/25/24 Rx #30 caps estradiol 10 mcg vaginal tablet 10 mcg vaginal 2XW #10 tabs 04/25/24 05/25/24 Rx (Vagifem) ospemifene 60 mg tablet (Osphena) 60 mg PO QDAY #30 tabs 05/25/24 05/25/24 Rx Is last menstrual period known: No Post menopausal: Yes Patient : No : No PFSH Medical History Abnormal colonoscopy Anxiety Thyroid disease High cholesterol Easy bruising Back pain Injury of head and neck Syncope History of diverticulosis History of IBS Gastric reflux Former smoker Leg cramps History of echocardiogram History of stress test Cardiology follow-up encounter Vitamin D deficiency Cormier's neuroma of right foot GERD (gastroesophageal reflux disease) Pneumonia Osteoporosis Hypoglycemia Atrial fibrillation Arthritis Seasonal allergies Other peripheral vertigo, unspecified ear Nonrheumatic mitral valve prolapse Hypothyroidism Palpitations Surgical History History of colonoscopy ( 2017) H/O bladder repair surgery History of foot surgery S/P wrist surgery Hx of cholecystectomy History of total abdominal hysterectomy and bilateral salpingo-oophorectomy Family History Father Cancer Aunt Breast cancer Mother Cancer Other Alcoholism Anemia Anxiety Depression High cholesterol Hypertension Kidney disease Osteoporosis Social History household members: spouse Smoking Status: Former smoker alcohol intake: never substance use type: does not use caffeine: Yes Type: coffee Number of servings: 2 what type of physical activity do you participate in: walking and other frequency: 3-4 times per week duration: 30-45 minutes/day seatbelt use: always do you feel safe at home: Yes HPI discuss medication options Details: RANDEE MORTENSEN is a 64 year old who presents for discussion about vaginal estrogen not working. She is experiencing more discomfort now and can only use it every other week. She has osteoporosis and a history of vaginal hyst + BSO. History 3 Elective abortions Hx Para 3 Spontaneous abortions Hx # Term Pregnancies 3 Ectopic pregnancies Hx # Pregnancies Multiple births # of living children 3 Past Pregnancies Del. Date Name GA/Weeks Outcome Route Bth Weight Gen Labor Lgth Anesthesia Del Locatn Provider FOB Unknown Simran 1979 Unknown Rick 1984 Unknown Christi 1987 ROS Const Constitutional: Reports system reviewed and no additional complaints, except as documented Eyes Eyes: Reports system reviewed and no additional complaints, except as documented GI GI: Denies abdominal pain or change in bowel habits : Reports as per HPI Exam (more content not included)... Normal [facility] Hemoglobin A1con 04-18-2024 HbA1c (Bld) [Mass fraction] 6.3 % High 3.8-5.6 [facility] Comment on above: Result Comment: Norm al < 5.7 % Prediabetic 5.7 - 6.4 % Diabetic >or= 6.5 % Please note range changes. Performed By: #### L 501.9985, L501.9520 #### [facility] Laboratory [address] [place], [place], [id number] Thyroid Stim Hormone (TSH)on 04-18-2024 TSH 0.921 uIU/mL Normal 0.358-3.74 0 [facility] Comment on above: Performed By: #### L 501.9985, L501.9520 #### [facility] [address], [id number] Pelvic (Non )on Pelvic (Non ) [facility] Imaging Services [address] [place], [place] [id number] Pelvic (Non ) MR#: [id number] Acct: [id number] Name: RANDEE MORTENSEN Rep #: [id number] : 1960 F 64 From: Francisco J wang DO PCP: Dr. Kimi Felix MD Status: REG CLI Study: Pelvic (Non ) Date of Exam: 04/15/24 Exam# [id number] Ordering Dr: Jaimee Dorsey NP, NP [id number] EXAM: US PELVIS TRANSABDOMINAL, COMPLETE CLINICAL INDICATION: pelvic pain TECHNIQUE: Transabdominal pelvic ultrasound was performed with grayscale and color Doppler imaging. COMPARISON: No relevant prior studies available. FINDINGS: UTERUS/CERVIX: Status post hysterectomy. RIGHT OVARY: Status post right oophorectomy. LEFT OVARY: Status post left oophorectomy. FREE FLUID: None. BLADDER: Urinary bladder appears normal. US/Pelvic (Non ) IMPRESSION: 1. Status post hysterectomy. 2. Status post right oophorectomy. 3. Status post left oophorectomy. 4. Normal urinary bladder. No acute findings. Electronically Signed: Francisco J Knox DO at 11:35 EST , CC: RAMAN Dorsey; Dr. Kimi Felix MD Manager Transport: Signed Normal [facility] Genital Culture Comprehensiv eli 04-10-2024 VAC Reason for Exam: Vag inal irritation Klebsiella pneumoniae sp pneum Amount Growth 3+ Enterococcus faecalis Enterococcus faecalis Klebsiella pneumoniae sp pneum: REACTION Ampicillin Islt JASON >=32 R Ampicillin+Sulbac Islt JASON >=32 ceFAZolin Islt JASON <=4 S Cefepime Islt JASON <=0.12 S cefTRIAXone Islt JASON <=0.25 S Ciprofloxacin Islt JASON <=0.25 S B-Lactamase Extended Susc Islt NEG Gentamicin Islt JASON <=1 S Imipenem Islt JASON <=0.25 S levoFLOXacin Islt JASON <=0.12 S Pip+Tazo Islt JASON 32 R Tobramycin Islt JASON <=1 S TMP SMX Islt JASON <=20 S Enterococcus faecalis: REACTION Ampicillin Islt JASON <=2 S Gentamicin Synergy Susc Islt SYN-S Linezolid Islt JASON 2 S Streptomycin High Pot Susc Islt SYN-S S Vancomycin Islt JASON 1 S Normal [facility] Comment on above: Performed By: #### L 501.9985 #### [facility] Laboratory [address] [place], [place], [id number] Gram Stainon 04-08-2024 GS Reason for Exam: Vag inal irritation Gram Stain 1+ Gram positive cocci in chains 3+ Gram positive rods No White Blood Cells No Gram negative diplococci Normal [facility] Comment on above: Performed By: #### L 501.9985 #### [facility] [address] [place], [place], [id number] Manager Float Office Visit Reporton 04-06-2024 Manager Float Office Visit Report [facility]'s [address], [address] [place] [address] OFFICE VISIT Date of Service: 04/06/24 MR#: [id number] Acct: [id number] Name: RANDEE MORTENSEN Rep #: [id number] : 1960 Provider: RAMAN ventura Age/Sex: 64/F Location[place] [facility] Status: Signed Intake Vital Signs 11/26/23 13:08 04/06/24 14:40 04/06/24 14:46 Height 5 ft 6 in 5 ft 6 in 5 ft 6 in Weight: 153 lb 4 oz BMI 24.7 BP 122/72 H Intake Visit Reasons: vaginal dryness and pain Chief Complaint: Vaginal dryness and pain Hl7 Interface Developer Required: No Is patient in pain?: No Allergies esomeprazole (From Nexium) Adverse Reaction (Mild, Verified 04/06/24 14:39) diarrhea Medications ???Medication ???Instructions ???Recorded ???Confirmed ???Type lorazepam 0.5 mg tablet 0.5 mg PO QHS PRN Anxiety 10/18/20 04/06/24 History albuterol sulfate 90 mcg/actuation 1 inh inhalation ONCE PRN SOB 03/27/21 04/06/24 History aerosol inhaler (Proventil HFA) ascorbate calcium (vitamin C) 500 500 mg PO DAILY 03/27/21 04/06/24 History mg tablet baclofen 20 mg tablet 20 mg PO DAILY PRN Pain 03/27/21 04/06/24 History simvastatin 40 mg tablet 40 mg PO DAILY 03/27/21 04/06/24 History fluticasone propionate 50 1 spray intranasal BID PRN 04/11/21 04/06/24 History mcg/actuation nasal ALLERGIES spray,suspension (Flonase Allergy Relief) estradiol 0.01% (0.1 mg/gram) See Rx Instructions vaginal 2XW 06/22/23 04/06/24 Rx vaginal cream #42.5 grams naproxen 500 mg tablet 500 mg PO BID PRN pain 09/07/23 04/06/24 History cholecalciferol (vitamin D3) 25 25 mcg PO DAILY 11/13/23 04/06/24 History mcg (1,000 unit) capsule gabapentin 300 mg capsule 300 mg PO QDAY 11/13/23 04/06/24 History zoledronic acid 5 mg/100 mL in 1 ea .Route ONCE #100 mL 11/13/23 04/06/24 Rx mannitol 5 %-water intravenous piggybck levothyroxine 125 mcg tablet 125 mcg PO DAILY #90 tabs 11/16/23 04/06/24 Rx dicyclomine 10 mg capsule 10 mg PO BID PRN abdominal pain 01/04/24 04/06/24 Rx #30 caps Is last menstrual period known: No Post menopausal: Yes Patient : No : No PFSH Medical History Abnormal colonoscopy Anxiety Thyroid disease High cholesterol Easy bruising Back pain Injury of head and neck Syncope History of diverticulosis History of IBS Gastric reflux Former smoker Leg cramps History of echocardiogram History of stress test Cardiology follow-up encounter Vitamin D deficiency Cormier's neuroma of right foot GERD (gastroesophageal reflux disease) Pneumonia Osteoporosis Hypoglycemia Atrial fibrillation Arthritis Seasonal allergies Other peripheral vertigo, unspecified ear Nonrheumatic mitral valve prolapse Hypothyroidism Palpitations Surgical History History of colonoscopy ( 2016) H/O bladder repair surgery History of foot surgery S/P wrist surgery Hx of cholecystectomy History of total abdominal hysterectomy and bilateral salpingo-oophorectomy Family History Father Cancer Aunt Breast cancer Mother Cancer Other Alcoholism Anemia Anxiety Depression High cholesterol Hypertension Kidney disease Osteoporosis Social History household members: spouse Smoking Status: Former smoker alcohol intake: never substance use type: does not use caffeine: Yes Type: coffee Number of servings: 2 what type of physical activity do you participate in: walking and other frequency: 3-4 times per week duration: 30-45 minutes/day seatbelt use: always do you feel safe at home: Yes HPI vaginal dryness and pain Details: RANDEE MORTENSEN is a 64 year old who presents for having more persistent pelvic pain. Did have evaluation per Dr Gaming and Dr Andres and no urinary or GI etiology. She is using estradiol cream for atrophy but states she feels burning with application and also external vulva feels swollen after use. States has tried to be consistent with use but not seeing results and with burning she is very hesitant to continue. History 3 Elective abortions Hx Para 3 Spontaneous abortions Hx # Term Pregnancies 3 Ectopic pregnancies Hx # Pregnancies Multiple births # of living children 3 Past Pregnancies Del. Date Name GA/Weeks Outcome Route Bth Weight Infant Gen Labor Lgth Anesthesia Del Locatn Provider FOB Unknown Simran 1979 Unknown Rick 1984 Unknown Christi 1987 ROS Const Constitutional: Reports system reviewed and no additional complaints, except as documented Eyes Eyes: Reports system reviewed and n (more content not included)... Normal [facility] Basophil percentageOrdered B y: Alexandre Andres on 05-13-2023 Basophil percentage < 1.0 mg/dL 0.55-1.02 [facility] No Panel InformationOrdered By: Alexandre Andres on 05-13-2023 Bedside Estimated GFR (eGFR) > 60.0000 mL/min >60 [facility] Culture, urineOrdered By: Yaakov Felix on 02-18-2023 Bacteria identified Cx Nom (U) Presumptive E. coli [facility] Basophil percentageOrdered B y: Kimi Felix on 02-17-2023 Basophil percentage 5-10 SEEN /hpf 0-5 [facility] Bilirubin Test strip Ql (U)O rdered By: Kimi Felix on 02-17-2023 Bilirubin Ql (U) Negative Negative [facility] Culture, urineOrdered By: Yaakov Felix on 02-17-2023 Bacteria identified Cx Nom (U) Presumptive E. coli [facility] Ketones Test strip Ql (U)Ord ered By: Kimi Felix on 02-17-2023 Ketones Ql (U) Negative Negative [facility] Mucus LM Ql (Urine sed)Order ed By: Kimi Felix on 02-17-2023 Mucus Ql (Urine sed) 0 SEEN /hpf [facility] Nitrite Test strip Ql (U)Ord ered By: Kimi Felix on 02-17-2023 Nitrite Ql (U) Positive Negative [facility] Protein Test strip Ql (U)Ord ered By: Kimi Felix on 02-17-2023 Protein Ql (U) 15 mg/dl Negative [facility] Squamous epithelial cells de tection in urine sediment by light microscopyOrdered By: Kimi Felix on 02-17-2023 Epithelial cells.squamous LM Ql (Urine sed) 0-5 SEEN /hpf 5-10 [facility] Urine blood detectionOrdered By: Kimi Felix on 02-17-2023 RBC Ql (U) 25 /ul Negative [facility] RBC Ql (U) 0-5 SEEN /hpf 0-5 [facility] Urine clarityOrdered By: Kimi Felix on 02-17-2023 Clarity (U) Sl. Cloudy Clear [facility] Urine color determinationOrd ered By: Kimi Felix on 02-17-2023 Color (U) Yellow Yellow [facility] Urine glucose detectionOrder ed By: Kimi Felix on 02-17-2023 Glucose Ql (U) Normal mg/dl Normal [facility] Urine leukocyte esterase det ection by dipstickOrdered By: Kimi Felix on 02-17-2023 Leukocyte esterase Test strip Ql (U) 100 /ul Negative [facility] Urine pHOrdered By: Kimi Brian iff on 02-17-2023 pH (U) 8.0 [pH] 5.0 - 8.0 [facility] Urine sediment bacteria coun t by microscopy (number/high power field)Ordered By: Kimi Felix on 02-17-2023 Bacteria LM.HPF (Urine sed) [#/Area] 3 /[HPF] None Seen [facility] Urine specific gravity measu rementOrdered By: Kimi Felix on 02-17-2023 Specific gravity (U) [Rel density] 1.015 1.002-1.03 0 [facility] Urobilinogen Auto test strip Ql (U)Ordered By: Kimi Felix on 02-17-2023 Urobilinogen Ql (U) Normal mg/dl Normal [facility] No Panel InformationOrdered By: Alexandre Andres on 01-10-2023 Giardia Antigen (JASON) [facility] Ova and parasitesOrdered By: Alexandre Andres on 01-10-2023 Ova and parasites identified LM Nom (Unsp spec) [facility] [facility] No Panel InformationOrdered By: Alexandre Andres on 01-09-2023 Stool Calprotectin 20 ug/g 0-120 [facility] Comment on above: Concentration Interp retation Follow-Up< 5 - 50 ug/g Normal None>50 -120 ug/g Borderline Re-evaluate in 4-6 weeks >120 ug/g Abnormal Repeat as clinically indicatedPerformed at: [facility] [address] [id number] Director: Joss Arroyo PhD, Phone: [phone] at: [facility] [employer] [id number] Director: Dedrick Baron MD, Phone: [phone] Stool Neutral Fats Normal . [facility] Comment on above: Normal (<60 Droplets /HPF) Giardia Antigen (JASON) [facility] Ova and parasitesOrdered By: Alexandre Andres on 01-09-2023 Ova and parasites identified LM Nom (Unsp spec) [facility] Qualitative fecal fat or lip idsOrdered By: Alexandre Andres on 01-09-2023 Fat Ql (Stl) Normal . [facility] Comment on above: Normal (<100 Droplet s/HPF) Stool enteric pathogen panel by probe and target amplification methodOrdered By: Alexandre Andres on 01-09-2023 Gastrointestinal pathogens panel SANJAY+probe (Stl) [facility] Stool gastrointestinal hemog lobin detection by immunologic methodOrdered By: Alexandre Andres on 01-09-2023 Lower GI hemoglobin IA Ql (Stl) [facility] Stool lactoferrin detection by immunoassayOrdered By: Alexandre Andres on 01-09-2023 Lactoferrin IA Ql (Stl) [facility] Absolute lymphocyte countOrd ered By: Alexandrejaylen Andres on 01-08-2023 Lymphocytes Auto (Unsp spec) [#/Vol] 1.84 10*3/uL 0.83-4.51 [facility] Basophil percentageOrdered B y: Alexandre Andres on 01-08-2023 Basophils/100 WBC (Bld) 0.6 % 0-1 [facility] Bilirubin [Mass/Vol] 0.10 mg/dL 0.20-1.00 [facility] Comment on above: For patients on eltr ombopag therapy, use of Dimension [place] TBIL is not recommended. Chloride [Moles/Vol] 103 mmol/L 98-107 [facility] Eosinophils/100 WBC (Bld) 0.7 % 0-5 [facility] Glucose [Mass/Vol] 165 mg/dL 74-106 [facility] Comment on above: Fasting Glucose resu lt greater than or equal to 126 mg/dL suggests DIABETES MELLITUS per A.D.A. criteria. Neutrophils (Bld) [#/Vol] 4.4 10*3/uL 2.0-7.7 [facility] Neutrophils/100 WBC (Bld) 64.0 % 47-70 [facility] Potassium [Moles/Vol] 3.5 mmol/L 3.5-5.1 [facility] Comment on above: Slight Hemolysis, Re sult may be falsely increased. Protein [Mass/Vol] 7.0 g/dL 6.4-8.2 [facility] Sodium [Moles/Vol] 137 mmol/L 136-145 [facility] WBC (Bld) [#/Vol] 6.9 10*3/uL 4.4-11.0 [facility] Blood erythrocytes count (nu mber/volume)Ordered By: Alexandre Anders on 01-08-2023 RBC (Bld) [#/Vol] 4.45 10*6/uL 4.2-5.4 [facility] Blood hemoglobin measurement (mass/volume)Ordered By: Alexandre Andres on 01-08-2023 Hemoglobin (Bld) [Mass/Vol] 13.4 g/dL 12.0-15.0 [facility] Blood lymphocytes/100 leukoc ytesOrdered By: Alexandre Andres on 01-08-2023 Lymphocytes/100 WBC (Bld) 26.8 % 19-41 [facility] Blood monocytes/100 leukocyt esOrdered By: Alexandre Andres on 01-08-2023 Monocytes/100 WBC (Bld) 7.6 % 0-10 [facility] Blood platelet mean volumeOr dered By: Alexandre Andres on 01-08-2023 Platelet mean volume (Bld) [Entitic vol] 9.7 fL 6.2-12.0 [facility] Determination of erythrocyte mean corpuscular volume (MCV)Ordered By: Alexandre Andres on 01-08-2023 MCV (RBC) [Entitic vol] 89.2 fL 81-99 [facility] Erythrocyte sedimentation ra teOrdered By: Alexandre Andres on 01-08-2023 ESR (Bld) [Velocity] 4 mm/h 0-30 [facility] Hematocrit Auto (Bld) [Volum e fraction]Ordered By: Alexandre Andres on 01-08-2023 Hematocrit (Bld) [Volume fraction] 39.7 % 37-47 [facility] Laboratory - Chemistry and C hemistry - challengeOrdered By: Alexandre Andres on 01-08-2023 ALP [Catalytic activity/Vol] 49 U/L 45-117 [facility] ALT [Catalytic activity/Vol] 29 U/L 13-56 [facility] CO2 [Moles/Vol] 28.0 mmol/L 21.0-32.0 [facility] Globulin (S) [Mass/Vol] 3.4 g/dL 2.2-4.2 [facility] Urea nitrogen/Creatinine [Mass ratio] 12.9 mg/mg 10-20 [facility] Laboratory - Hematology and Cell countsOrdered By: Alexandre Andres on 01-08-2023 Erythrocyte distribution width (RBC) [Entitic vol] 41.6 fL 35.1-43.9 [facility] Erythrocyte distribution width (RBC) [Ratio] 12.7 % 11.6-14.6 [facility] Immature granulocytes/100 WBC (Bld) 0.300 % 0.0-0.9 [facility] Comment on above: IG% - Immature Granu locytes (promyelocytes, myelocytes and metamyelocytes) > 1% indicates that a LEFT SHIFT is Present. MCH (RBC) [Entitic mass] 30.1 pg 27.0-32.0 [facility] Nucleated RBC/100 WBC (Bld) [Ratio] 0 % 0-5 [facility] MCHC Auto (RBC) [Mass/Vol]Or dered By: Alexandre Andres on 01-08-2023 MCHC (RBC) [Mass/Vol] 33.8 g/dL 32-36 [facility] No Panel InformationOrdered By: Alexandre Andres on 01-08-2023 Estimated GFR (MDRD) Amer 71 mL/min >60 [facility] Comment on above: GFR Calc Estimated GFR (MDRD) Non-Af Amer 59 mL/min >60 [facility] Comment on above: Non- GFR Calc Miscellaneous Test See comment [facility] Comment on above: TEST RESULT LIMITSVi staSeq Pancreatic Cancer Specimen Type Whole Blood Preauthorization No prior authorization performed- specimen will be billed to the ordering account. Result Summary Negative No clinically significant sequence or copy number variants were detected. No pathogenic or variants of uncertain clinical significance were detected by full gene sequencing or deletion/duplication analysis for any of the genes tested in this panel.Recommendations Genetic counseling is recommended to discuss the clinicalimplications of this result. Genetic counselors areavailable for health care providers to discuss this resultfurther at [phone]. To refer your patient forgenetic counseling through [facility], please call the scheduling line at .LIST OF ALL GENES IN PANELAPC VHL MSH2 PMS2 BRCA1 PALB2 EPCAMATM MLH1 MSH6 TP53 BRCA2 STK11 [id number] Information Specimen Type: Whole BloodIndication for Testing: The indication for testing for this patient was not provided.Variant Classification: Variant classification is a weighted assessment that incorporates but is not limited to the following components: prevalence of a variant in the unaffected (general) population, evidence of co-segregation in affected individuals, review of locus specific databases and observed/reported co-occurrence with other deleterious variants within the gene, published functional evidence linking a variant to phenotypes, and predicted functional impact as determined using in-silico analyses. Variants classified within each gene are reported in accordance to the ACMG standards and guidelines. Evidence affecting a variant classification that alters its clinical significance will be reported via an amended report. Pathogenic variants negatively affect normal gene function, are associated with disease, and should be used in clinical decision making.Likely pathogenic variants are strongly suggestive of normal gene function being negatively affected, and when combined with other evidence of cancer, may be used in clinical decision making. Variants of uncertain significance (VUS) have unknown effects on gene function, have not been previously reported or have been reported with inadequate or conflicting evidence regarding pathogenicity, clinical relevance, or cancer risk. A VUS should not be used in clinical decision making but additional monitoring may be considered. Likely benign variants are strongly suggestive of having no effect on gene function and are unlikely to have an increased risk for cancer. Benign variants have sufficient evidence to be considered of no clinical significance. Likely benign, benign and synonymous variants are not reported, but are available upon request.Methodology and Limitations The coding region and flanking splice sites are analyzed by NGS (+/-10bp) and deletion/duplication analysis. Exon-level deletions/duplications are assessed by aCGH or by MLPA.Analysis is limited to deletion/duplication testing forEPCAM. Analysis is expanded for BRCA1/2 flanking splicesites (+/-20bp) and to include promoter deletions for APC(1B and 1A).Sequencing cannot detect variants in regions not covered by this analysis, including noncoding or deep intronic variants and may not reliably detect changes in repetitive elements, such as microsatellite repeats. Sequencing may not detect mosaic variants, inversions, or other genomic rearrangements such as transposable element insertions. Sequence analysis may also be affected by allele drop-out due to the presence of a rare variant under a primer site or homopolymeric regions. The method does not allow any conclusion as to whether two heterozygous variants are present on the same or on different chromosome copies.Copy number variations are assessed by microarray hwyumlwhrfs-jvbewvjf-uyazd amplification assay (MLPA) todetect gross deletions and duplications. Copy numberanalyses are designed to detect single exon, multi-exon, and full gene deletions or duplications. These analyses may not detect certain genomic rearrangements, such astranslocations (balanced or unbalanced), inversions, or some partial exon rearrangements. This assay cannot determine exact breakpoints of deletions or duplications detected. The presence of pseudogenes can interfere with the abilityto detect variants in certain genes. For example,deletion/duplication analysis of PMS2 exons 11-15, amongothers, is complicated by the highly homologous [id number]. Deletions/duplications in PMS2CL have not beenassociated with Zayas syndrome, however this assay may notbe able to determine if a deletion/duplication affects PMS2 or PMS2CL.Each gene sequence is interpreted independently of all other gene sequences; however, variants in different genes may interact to cause or modify a typically monogenic disease phenotype. In addition, the presence of an inherited cancer syndrome due to a different genetic cause cannot be ruled out. Any interpretation given should be clinically correlated with availabl (more content not included)... Platelets bldOrdered By: Titus Andres on 01-08-2023 Platelets (Bld) [#/Vol] 256 10*3/uL 150-450 [facility] Serum or plasma C reactive p rotein measurement (mass/volume)Ordered By: Alexandre Andres on 01-08-2023 CRP [Mass/Vol] mg/L 0.0-3.0 [facility] Comment on above: C-Reactive Protein ( CRP) provides useful information for thediagnosis, therapy and monitoring of inflammatory processesand associated diseases. For the evaluation of Relative Riskfor Cardiovascular Disease, a High Sensitivity CRP (HSCRP)should be ordered. Serum or plasma albumin stephanie urement (mass/volume)Ordered By: Alexandre Andres on 01-08-2023 Albumin [Mass/Vol] 3.6 g/dL 3.2-5.0 [facility] Serum or plasma albumin/glob ulin mass ratioOrdered By: Alexandre Andres on 01-08-2023 Albumin/Globulin [Mass ratio] 1.1 {ratio} 0.9-2.4 [facility] Serum or plasma calcium stephanie urement (mass/volume)Ordered By: Alexandre Andres on 01-08-2023 Calcium [Mass/Vol] 8.8 mg/dL 8.5-10.1 [facility] Serum or plasma creatinine m easurement (mass/volume)Ordered By: Alexandre Andres on 01-08-2023 Creatinine [Mass/Vol] 1.01 mg/dL 0.55-1.02 [facility] Comment on above: The validity of the calculated GFR & GFRAA in patients over 70 years has not been determined. Clinical correlation is essential. Serum or plasma urea nitroge n measurement (mass/volume)Ordered By: Alexandre Andres on 01-08-2023 Urea nitrogen [Mass/Vol] 13 mg/dL 7-18 [facility] Thin prep Papanicolaou smear with manual screeningOrdered By: Alexandre Andres on 01-08-2023 Thin prep Papanicolaou smear with manual screening 24 U/L 15-37 [facility] Comment on above: Slight Hemolysis, Re sult may be falsely increased. Thin prep Papanicolaou smear with manual screening 6 5-15 [facility] Culture, urineOrdered By: Judith cramen Stathopoulos on 12-31-2022 Bacteria identified Cx Nom (U) Presumptive E. coli [facility] Bacteria identified Cx Nom (U) Presumptive E. coli [facility] Basophil percentageOrdered B y: Rito Brewer on 12-22-2022 Basophil percentage 25-50 SEEN /hpf 0-5 [facility] Bilirubin Test strip Ql (U)O rdered By: Rito Brewer on 12-22-2022 Bilirubin Ql (U) Negative Negative [facility] Culture, urineOrdered By: St roxy Brewer on 12-22-2022 Bacteria identified Cx Nom (U) Mixed Gram Pos & Gram Neg Org [facility] Bacteria identified Cx Nom (U) Mixed Gram Pos & Gram Neg Org [facility] Ketones Test strip Ql (U)Ord ered By: Rito Brewer on 12-22-2022 Ketones Ql (U) 5 mg/dl Negative [facility] Laboratory - Chemistry and C hemistry - challengeon 12-22-2022 Bilirubin Ql (U) Negative [facility] Glucose Ql (U) Negative [facility] Ketones Ql (U) Negative [facility] pH (U) 7.5 [pH] [facility] Specific gravity (U) [Rel density] 1.005 [facility] Urobilinogen (U) [Mass/Vol] 0.5773141 mg/dL [facility] Laboratory - Hematology and Cell countson 12-22-2022 Hemoglobin Ql (U) Negative [facility] Laboratory - Specimen inform ationon 12-22-2022 Clarity (U) Clear [facility] Color (U) Nita [facility] Laboratory - Urinalysison Nitrite Ql (U) Negative [facility] Protein Ql (U) Negative [facility] Mucus LM Ql (Urine sed)Order ed By: Rito Brewer on 12-22-2022 Mucus Ql (Urine sed) 0 SEEN /hpf [facility] Nitrite Test strip Ql (U)Ord ered By: Rito Brewer on 12-22-2022 Nitrite Ql (U) Negative Negative [facility] No Panel Informationon 12-22 Urine Leukocytes Positive [facility] Urine Non-Hemolyzed Blood Negative [facility] Protein Test strip Ql (U)Ord ered By: Rito Brewer on 12-22-2022 Protein Ql (U) Negative Negative [facility] Squamous epithelial cells de tection in urine sediment by light microscopyOrdered By: Rito Brewer on 12-22-2022 Epithelial cells.squamous LM Ql (Urine sed) 0-5 SEEN /hpf 5-10 [facility] Urine blood detectionOrdered By: Rito Brewer on 12-22-2022 RBC Ql (U) Negative Negative [facility] RBC Ql (U) 0 SEEN /hpf 0-5 [facility] Urine clarityOrdered By: Carlos Brewer on 12-22-2022 Clarity (U) Sl. Cloudy Clear [facility] Urine color determinationOrd ered By: Rito Brewer on 12-22-2022 Color (U) Yellow Yellow [facility] Urine glucose detectionOrder ed By: Rito Brewer on 12-22-2022 Glucose Ql (U) Normal mg/dl Normal [facility] Urine leukocyte esterase det ection by dipstickOrdered By: Rito Brewer on 12-22-2022 Leukocyte esterase Test strip Ql (U) 500 /ul Negative [facility] Urine pHOrdered By: Rito lee on 12-22-2022 pH (U) 7.0 [pH] 5.0 - 8.0 [facility] Urine sediment bacteria coun t by microscopy (number/high power field)Ordered By: Rito Brewer on 12-22-2022 Bacteria LM.HPF (Urine sed) [#/Area] 0 /[HPF] None Seen [facility] Urine specific gravity measu rementOrdered By: Rito Brewer on 12-22-2022 Specific gravity (U) [Rel density] 1.010 1.002-1.03 0 [facility] Urobilinogen Auto test strip Ql (U)Ordered By: Rito Brewer on 12-22-2022 Urobilinogen Ql (U) Normal mg/dl Normal [facility] No Panel Informationon 12-14 POC SARS CoV-2 Antigen Positive [facility] Laboratory - Chemistry and C hemistry - challengeon 11-29-2022 Ketones Ql (U) Negative [facility] pH (U) 6.0 [pH] [facility] Specific gravity (U) [Rel density] 1.005 [facility] Laboratory - Hematology and Cell countson 11-29-2022 Hemoglobin Ql (U) Negative [facility] Laboratory - Specimen inform ationon 11-29-2022 Clarity (U) Clear [facility] Color (U) Yellow [facility] Laboratory - Urinalysison Nitrite Ql (U) Negative [facility] Protein Ql (U) Negative [facility] No Panel Informationon 11-29 Urine Leukocytes Positive [facility] Basophil percentageOrdered B y: Preston Mukherjee on 10-21-2022 Bilirubin [Mass/Vol] 0.30 mg/dL 0.20-1.00 [facility] Comment on above: For patients on eltr ombopag therapy, use of Dimension [place] TBIL is not recommended. Chloride [Moles/Vol] 105 mmol/L 98-107 [facility] Cholesterol [Mass/Vol] 209 mg/dL <200 [facility] Comment on above: <200 mg/dL Desirable 200-240 mg/dL Borderline >240 mg/dL High Risk Glucose [Mass/Vol] 96 mg/dL 74-106 [facility] Potassium [Moles/Vol] 4.1 mmol/L 3.5-5.1 [facility] Protein [Mass/Vol] 7.7 g/dL 6.4-8.2 [facility] Sodium [Moles/Vol] 139 mmol/L 136-145 [facility] Triglyceride [Mass/Vol] 334 mg/dL <199 [facility] Comment on above: The drugs N-Acetylcy steine and Metamizole may falsely depress this assay.Serum Triglycerides Reference Interval Normal <150 mg/dL Borderline high 150 - 199 mg/dL High 200 - 499 mg/dL Very High > or = 500 mg/dL Laboratory - Chemistry and C hemistry - challengeOrdered By: Preston Mukherjee on 10-21-2022 ALP [Catalytic activity/Vol] 54 U/L 45-117 [facility] ALT [Catalytic activity/Vol] 36 U/L 13-56 [facility] CO2 [Moles/Vol] 29.0 mmol/L 21.0-32.0 [facility] Free T4 [Mass/Vol] 1.48 ng/dL 0.76-1.46 [facility] Globulin (S) [Mass/Vol] 3.8 g/dL 2.2-4.2 [facility] Urea nitrogen/Creatinine [Mass ratio] 21.8 mg/mg 10-20 [facility] No Panel InformationOrdered By: Preston Mukherjee on 10-21-2022 Estimated GFR (MDRD) Amer 96 mL/min >60 [facility] Comment on above: GFR Calc Estimated GFR (MDRD) Non-Af Amer 79 mL/min >60 [facility] Comment on above: Non- GFR Calc Thyroid Stimulating Hormone (TSH) 0.84 uIU/mL 0.358-3.74 [facility] Vitamin D 25-Hydroxy 49.8 ng/mL [facility] Comment on above: Vitamin D 25(OH) Sta tus Range Deficiency <20 ng/mL (50nmol/L) Insufficiency 20 - 30 ng/mL (50 - 75 nmol/L) Sufficiency 30 - 100 ng/mL (75 - 250 nmol/L) Toxicity >100 ng/mL (>250 nmol/L) Serum or plasma albumin stephanie urement (mass/volume)Ordered By: Preston Mukherjee on 10-21-2022 Albumin [Mass/Vol] 3.9 g/dL 3.2-5.0 [facility] Serum or plasma albumin/glob ulin mass ratioOrdered By: Preston Mukherjee on 10-21-2022 Albumin/Globulin [Mass ratio] 1.0 {ratio} 0.9-2.4 [facility] Serum or plasma calcium stephanie urement (mass/volume)Ordered By: Preston Mukherjee on 10-21-2022 Calcium [Mass/Vol] 9.4 mg/dL 8.5-10.1 [facility] Serum or plasma cholesterol in HDL measurement (mass/volume)Ordered By: Preston Mukherjee on 10-21-2022 Cholesterol in HDL [Mass/Vol] 73 mg/dL >40 [facility] Comment on above: The drugs N-Acetylcy steine and Metamizole may falsely depress this assay. Reference Range HDL <40 mg/dL Low HDL Cholesterol HDL >or= 60 mg/dL High HDL Cholesterol Serum or plasma cholesterol in VLDL measurement (mass/volume)Ordered By: Preston Mukherjee on 10-21-2022 Cholesterol in VLDL [Mass/Vol] 67 mg/dL 5-40 [facility] Serum or plasma creatinine m easurement (mass/volume)Ordered By: Preston Mukherjee on 10-21-2022 Creatinine [Mass/Vol] 0.78 mg/dL 0.55-1.02 [facility] Comment on above: The validity of the calculated GFR & GFRAA in patients over 70 years has not been determined. Clinical correlation is essential. Serum or plasma low density lipoprotein (LDL) cholesterol measurement (mass/volume)Ordered By: Preston Mukherjee on 10-21-2022 Cholesterol in LDL [Mass/Vol] 69 mg/dL 0-130 [facility] Serum or plasma urea nitroge n measurement (mass/volume)Ordered By: Preston Mukherjee on 10-21-2022 Urea nitrogen [Mass/Vol] 17 mg/dL 7-18 [facility] Thin prep Papanicolaou smear with manual screeningOrdered By: Preston Mkuherjee on 10-21-2022 Thin prep Papanicolaou smear with manual screening 22 U/L 15-37 [facility] Thin prep Papanicolaou smear with manual screening 5 5-15 [facility] No Panel Informationon 11-19 CA 19-9 Antigen 7 U/mL 0-35 [facility] Work Phone: Comment on above: [employer] ectrochemiluminescence Immunoassay(ECLIA)Values obtained with different assay methods or kits cannotbe used interchangeably. Results cannot be interpreted asabsolute evidence of the presence or absence of malignantdisease.Performed at: [email or web address] [id number] Director: Joss Arroyo PhD, Phone: [phone] [place] 19-9 Antigen Serial Monitoring Not Reportable [facility] Work Phone: Basophil percentageon 2021 Bilirubin [Mass/Vol] 0.20 mg/dL 0.20-1.00 [facility] Work Phone: Comment on above: For patients on eltr ombopag therapy, use of Dimension [place] TBIL is not recommended. Chloride [Moles/Vol] 106 mmol/L 98-107 [facility] Work Phone: Cholesterol [Mass/Vol] 190 mg/dL <200 [facility] Work Phone: Comment on above: <200 mg/dL Desirable 200-240 mg/dL Borderline >240 mg/dL High Risk Glucose [Mass/Vol] 98 mg/dL 74-106 [facility] Work Phone: Potassium [Moles/Vol] 3.8 mmol/L 3.5-5.1 [facility] Work Phone: Protein [Mass/Vol] 7.5 g/dL 6.4-8.2 [facility] Work Phone: Sodium [Moles/Vol] 140 mmol/L 136-145 [facility] Work Phone: Triglyceride [Mass/Vol] 165 mg/dL <199 [facility] [facility] Work Phone: Comment on above: The drugs N-Acetylcy steine and Metamizole may falsely depress this assay.Serum Triglycerides Reference Interval Normal <150 mg/dL Borderline high 150 - 199 mg/dL High 200 - 499 mg/dL Very High > or = 500 mg/dL Laboratory - Chemistry and C hemistry - challengeon 10-21-2021 ALP [Catalytic activity/Vol] 46 U/L 45-117 [facility] Work Phone: ALT [Catalytic activity/Vol] 26 U/L 13-56 [facility] Work Phone: CO2 [Moles/Vol] 29.0 mmol/L 21.0-32.0 [facility] Work Phone: Free T4 [Mass/Vol] 1.33 ng/dL 0.76-1.46 [facility] Work Phone: Globulin (S) [Mass/Vol] 3.5 g/dL 2.2-4.2 [facility] Work Phone: Urea nitrogen/Creatinine [Mass ratio] 17.2 mg/mg 10-20 [facility] Work Phone: No Panel Informationon 10-21 Estimated GFR (MDRD) Amer 99 mL/min >60 [facility] Work Phone: Comment on above: GFR Calc Estimated GFR (MDRD) Non-Af Amer 82 mL/min >60 [facility] Work Phone: Comment on above: Non- GFR Calc Thyroid Stimulating Hormone (TSH) 0.83 uIU/mL 0.358-3.74 [facility] Work Phone: Vitamin D 25-Hydroxy 44.2 ng/mL [facility] Work Phone: Comment on above: Vitamin D 25(OH) Sta tus Range Deficiency <20 ng/mL (50nmol/L) Insufficiency 20 - 30 ng/mL (50 - 75 nmol/L) Sufficiency 30 - 100 ng/mL (75 - 250 nmol/L) Toxicity >100 ng/mL (>250 nmol/L) Serum or plasma albumin stephanie urement (mass/volume)on 10-21-2021 Albumin [Mass/Vol] 4.0 g/dL 3.2-5.0 [facility] Work Phone: Serum or plasma albumin/glob ulin mass ratioon 10-21-2021 Albumin/Globulin [Mass ratio] 1.1 {ratio} 0.9-2.4 [facility] Work Phone: Serum or plasma calcium stephanie urement (mass/volume)on 10-21-2021 Calcium [Mass/Vol] 9.3 mg/dL 8.5-10.1 [facility] Work Phone: Serum or plasma cholesterol in HDL measurement (mass/volume)on 10-21-2021 Cholesterol in HDL [Mass/Vol] 73 mg/dL >40 [facility] Work Phone: Comment on above: The drugs N-Acetylcy steine and Metamizole may falsely depress this assay. Reference Range HDL <40 mg/dL Low HDL Cholesterol HDL >or= 60 mg/dL High HDL Cholesterol Serum or plasma cholesterol in VLDL measurement (mass/volume)on 10-21-2021 Cholesterol in VLDL [Mass/Vol] 33 mg/dL 5-40 [facility] Work Phone: Serum or plasma creatinine m easurement (mass/volume)on 10-21-2021 Creatinine [Mass/Vol] 0.76 mg/dL 0.55-1.02 [facility] Work Phone: Comment on above: The validity of the calculated GFR & GFRAA in patients over 70 years has not been determined. Clinical correlation is essential. Serum or plasma low density lipoprotein (LDL) cholesterol measurement (mass/volume)on 10-21-2021 Cholesterol in LDL [Mass/Vol] 84 mg/dL 0-130 [facility] Work Phone: Serum or plasma urea nitroge n measurement (mass/volume)on 10-21-2021 Urea nitrogen [Mass/Vol] 13 mg/dL 7-18 [facility] Work Phone: Thin prep Papanicolaou smear with manual screeningon 10-21-2021 Thin prep Papanicolaou smear with manual screening 23 U/L 15-37 [facility] Work Phone: Thin prep Papanicolaou smear with manual screening 5 5-15 [facility] Work Phone: No Panel Informationon 06-26 CA 19-9 Antigen 7 U/mL 0-35 [facility] Work Phone: Comment on above: [employer] El ectrochemiluminescence Immunoassay(ECLIA)Values obtained with different assay methods or kits cannotbe used interchangeably. Results cannot be interpreted asabsolute evidence of the presence or absence of malignantdisease.Performed at: [address] [id number] Director: Joss Arroyo PhD, Phone: [phone] Initial Visit (Gastroenterol ogy)on 09-27-2020 Initial Visit (Gastroenterology) Diagnoses/Problems Assessed Irritable bowel syndrome with diarrhea (564.1) (K58.0) Orders Irritable bowel syndrome with diarrhea Start: Dicyclomine HCl - 20 MG Oral Tablet; 1 TAB 30 MINUTES BEFORE MEALS NEEDED FOR BOWEL SPASM Rx By: Marii Barreto; Dispense: 0 Days ; #:90 Tablet; Refill: 6;For: Irritable bowel syndrome with diarrhea; MAX = N; Sent To: [id number] SocHx: Former cigarette smoker Tobacco Use Screening; Status:Complete; Done: 27Sep2020 Perform:Not Applicable;Ordered; For:SocHx: Former cigarette smoker; Ordered By:Marylin Mullins; Patient Discussion/Summary 1. Previous GI records were reviewed. 2. Begin dicyclomine 20 mg 30 minutes before meals as needed for bowel spasm. 3. Continue Metamucil 1-2 times daily. 4. A FODMAP diet was encouraged for irritable bowel syndrome. 5. Contact office in 3 to 4 weeks with status update. Will defer repeat colonoscopy at this time. Chief Complaint An interactive audio and video telecommunication system which permits real time communications between the patient (at the originating site) and provider (at the distant site) was utilized to provide this telehealth service. Verbal consent was requested and obtained from RANDEE LUIS MANUEL on this date, 09/27/2020 12:30 PM , for a telehealth visit. Diarrhea History of Present [id number] female seen today via virtual visit as a new patient referred by Dr. Felix for diarrhea. Patient has a longstanding history of intermittent diarrhea which led her to have a normal colonoscopy by Dr. Jimenez in 2018. Random colon biopsies were negative for microscopic colitis. She states she has tested negative for celiac disease in the past. She is having between 1 and 4 stools daily prior to starting duloxetine. She was having significant anxiety and depression after the passing of her mother and believes this also exasperated her diarrhea. She was reporting up to 10 bowel movements per day. There was one episode of nocturnal defecation. This was associated with abdominal cramping diffusely throughout the lower abdomen wrapping around towards her back. Stool culture, C. difficile, and ova parasite returned negative. CBC and TSH were normal. Patient has weaned off of her duloxetine over the last 10 days and has noticed an improvement in her diarrhea. She is down to 4 stools per day without hematochezia or melena. There are no fevers, chills, nausea, vomiting. She does continue to have occasional abdominal pain primarily in the right lower quadrant but will occasionally radiate throughout the lower abdomen. This often occurs after eating with improvement after defecation. She does limit bread in her diet as this causes bloating but no other dietary triggers have been identified. Appetite is normal without weight loss. She is taking Metamucil once daily. Review of Systems Const: Denies fatigue, fever and weight loss. CV: Denies chest pain, pacemaker, palpitations and valvular heart disease. Resp: Denies cough, sleep apnea, SOB and snoring. GI: Denies symptoms other than stated above. Musculo: Denies joint pain and muscle pain. Skin: Denies hives and rash. Neuro: Denies seizures and stroke. Psych: Reports anxiety and depression. Endocrine: Reports hypothyroidism. Denies intolerance to cold, hot flashes and impaired glucose tolerance. Jose/Lymph: Denies anemia, blood transfusions, chemotherapy, enlarged lymph nodes and radiation treatment of any kind. Active Problems Problems Irritable bowel syndrome with diarrhea (564.1) (K58.0) Past Medical History Problems History of Anxiety and depression (300.00,311) (F41.9,F32.9) History of chronic obstructive lung disease (V12.69) (Z87.09) History of hyperlipidemia (V12.29) (Z86.39) History of hypothyroidism (V12.29) (Z86.39) History of vitamin D deficiency (V12.1) (Z86.39) Surgical History Problems History of Bladder surgery History of Cholecystectomy History of Colonoscopy History of Esophagogastroduodenoscopy History of Hysterectomy History of Cormier's neuroma excision History of Ulnar nerve transposition Family History Mother Family history of Father Family history of Other Denied: Family history of malignant neoplasm of colon Social History Problems Caffeine use (V49.89) (Z78.9) Denies alcohol consumption (V49.89) (Z78.9) Does not have living will Former cigarette smoker (V15.82) (Z87.891) No illicit drug use Allergies Medication NexIUM 24HR TBEC Diarrhea; Recorded By: Marii Barreto; 09/27/2020 12:23:26 PM NexIUM CPDR Recorded By: Marylin Mullins; 09/27/2020 12:22:27 PM Current Meds Medication NameInstruction Calcium 600 TABSTAKE 1 TABLET DAILY. CeleBREX 100 MG Oral CapsuleTAKE 1 CAPSULE TWICE DAILY NEEDED. Fish Oil 1200 MG Oral CapsuleTAKE DIRECTED. Gabapentin 300 MG Oral Capsule Metamucil 48.57 % Oral PowderUSE DIRECTED. Multi-Vitamins TABSTAKE 1 TABLET DAILY. Simvastatin 40 MG Oral Ta (more content not included)... Normal [employer] CNOVon 09-19-2017 CNOV Office Visit ([facility]) -------RANDEE MORTENSEN ([id number]) 1960 [facility] Time Provider Department09/19/17 9:[address] [facility] During your visit today, we recorded the following information about you: Temperature Pulse Respiration Blood pressure 98 degrees 80/minute 18/minute 118/70 Weight 72.5 kgMohan Ashraf (Mirza) 09/19/2017 10:04 AM SignedSubjectiveCheryl Abraham Luis Manuel is a 57 year old female who presents with a one month h/o redeyes. She has had purulent drainage off and on and also watery drainage. Botheyes are affected, but the right eye is getting worse. She has been usingantihistamine eye drops, warm and cool compresses, she has been taking Zyrtec.Nothing seems to be helping.PAST MEDICAL HISTORYDiagnosis Date- Abdominal pain, unspecified site- Acute gastritis- Diarrhea- Hypoglycemia, unspecified- Mitral valve disorders(424.0)- Unspecified hypothyroidismPAST SURGICAL HISTORYProcedure Laterality Date- HEMORRHOID;BAND LIGAT, SNGL/MUL 08/18/2006 Hemorrhoidectomy- LAPAROSCOPIC CHOLEYCYSTECTOMY Cholecystectomy, lap- LIGATE FALLOPIAN TUBE Tubal ligation- PAST SURGICAL HISTORY OF torn meniscus R knee- PAST SURGICAL HISTORY OF bladder sling- VAGINAL HYSTERECTOMY 10/2008 Hysterectomy, vaginal, totalALLERGIES Seasonal [Other]MEDICATIONSsimvastat in (ZOCOR) 20 mg tablet Take 20 mg by mouth daily at bedtime.multivitamins(MULTI PLE VITAMIN TAB) Take one(1) tablet daily.cetirizine hcl(ZYRTEC 10 MG TAB) Take one(1) tablet daily. As neededMethylcellulose (Laxative) (CITRUCEL) 500 mg ORAL Tab TAKE TWO TABLETS TWICEDAILYPRILOSEC 40 MG CAP Take one(1) capsule daily.SYNTHROID 75 MCG TAB Take one(1) tablet daily.BLACK COHOSH 40 MG CAP as neededsoy protein(SOY PRO PROTEIN ORAL POWDER) as neededFAMILY HISTORYProblem Relation Age of Onset- Breast Cancer Mother- Cancer Father ??Pancreatic- Diabetes Father- Heart Paternal Uncle- Cancer Maternal Aunt kidney- Cancer Son melanoma juvenileSocial HistorySubstance Use Topics- Smoking status: Former Smoker Packs/day: 1.00 Years: 15.00 Types: Cigarettes Quit date: 05/11/1988- Smokeless tobacco: Never Used- Alcohol use NoReview of SystemsConstitutional: Negative for chills and fever.HENT: Negative for ear pain, sinus pain and sore throat.Eyes: Positive for discharge and redness. Negative for blurred vision, doublevision, photophobia and pain.Respiratory: Negative for cough.All other systems reviewed and are negative.ObjectivePhysical ExamConstitutional: She is oriented to person, place, and time and well-developed,well-nourish ed, and in no distress.HENT:Head: Normocephalic.Right Ear: External ear normal.Eyes: EOM are normal. Pupils are equal, round, and reactive to light. Right eyeexhibits discharge. Left eye exhibits no discharge. No scleral icterus.Bilateral scleral injection. Drainage from the right eye.Cardiovascular: Normal rate, regular rhythm, normal heart sounds and intactdistal pulses.Pulmonary/Chest: Effort normal and breath sounds normal.Abdominal: Soft. Bowel sounds are normal.Neurological: She is alert and oriented to person, place, and time.Skin: Skin is warm and dry.Psychiatric: Affect normal.Blood pressure 118/70, pulse 80, temperature 36.7 ?C (98 ?F), temperaturesource Tympanic, resp. rate 18, weight 72.5 kg (159 lb 12.8 oz), last menstrualperiod 08/28/2008.ASSESSMENT/PLAN: 1. Bacterial conjunctivitis - ICD9: 372.39, 041.9, ICD10: H10.9- see medication orders- course and contagiousness issues discussed, including hand washing.- Instructed to call if high fever, development of periorbital redness orswelling, eye pain, visual changes, concerns or if symptoms persist.- ERYTHROMYCIN 5 MG/GRAM (0.5 %) EYE OINTMENTMIRZA Terry-CReferring Provider: SELF [200]Allergies As of Date: 09/19/2017 Noted Allergy ReactionSEASONAL [Other] 10/20/2008Date Reviewed: 09/19/2017Reviewed by: Halie Hill LPN - Fully AssessedReason for Visit: bilateral red eyes [Other] Cmt: x 1 monthPrimary Visit Diagnosis:Bacterial conjunctivitis [H10.9]Order(s):erythromyci n 5 mg/gram (0.5 %) ophthalmic ointmentDisp: Rfl:Prescriptions as of 09/19/2017 Sig: SIMVASTATIN 20 MG TABLET Take 20 mg by mouth daily at * * MULTIPLE VITAMIN TABLET Take one(1) tablet daily. * ZYRTEC 10 MG TABLET Take one(1) tablet daily. As * * CITRUCEL 500 MG TABLET TAKE TWO TABLETS TWICE DAILY * PRILOSEC 40 MG CAPSULE,DELAYE* Take one(1) capsule daily. * SYNTHROID 75 MCG TABLET Take one(1) tablet daily. * BLACK COHOSH ROOT EXTRACT 40 * as needed * SOY PRO PROTEIN ORAL POWDER as neededMedication notes this encounter BLACK COHOSH ROOT EXTRACT 40 MG CAPSULE >> Halie Hill LPN 09/19/2017 9:48 AM >> RANDALLMIKEJF CONTRERASRA VARGAS Sat September 19, 2017 9:48 AM Not Taking SOY PRO PROTEIN ORAL POWDER >> Halie Hill LPN 09/19/2017 9:48 AM >> NAKITA HALIE LPN Sat September 19, 2017 9:48 AM Not TakingProblem List As Of Date 09/19/2017 Noted Resolved DIARRHEA NOS [R19.7] INVALID FOR* INT HEMORRHOID W/O COMPL [K64.8] INVALID FOR* ESOPHAGEAL REFLUX [K21.9] INVALID FOR* MITRAL VALVE DISORDER [I05.9] INVALID FOR* HYPOTHYROIDISM NOS [E03.9] INVALID FOR*Prescriptions ordered this encounter Disp Refills Start End ERYTHROMYCIN 5 MG/GRAM (0.5 %) EYE O* 09/19/2017 Class: Suppress Questions Route: BOTH EYESEncounter Number: [id number] Status:Closed by MOHAN ASHRAF PA-C on 09/19/17 [facility] PROGRESSon 09-19-2017 PROGRESS HNO ID: [id number] thor: Mohan Ashraf (Mirza)Service: (none)Author Type: Physician AssistantType: Progress NotesFiled: 09/19/2017 10:04 AMNote Text:SubjectiveHPIPamela Leigh Mortensen is a 57 year old female who presents with a one month h/ored eyes. She has had purulent drainage off and on and also waterydrainage. Both eyes are affected, but the right eye is getting worse. Shehas been using antihistamine eye drops, warm and cool compresses, she hasbeen taking Zyrtec. Nothing seems to be helping.PAST MEDICAL HISTORYDiagnosis Date- Abdominal pain, unspecified site- Acute gastritis- Diarrhea- Hypoglycemia, unspecified- Mitral valve disorders(424.0)- Unspecified hypothyroidismPAST SURGICAL HISTORYProcedure Laterality Date- HEMORRHOID;BAND LIGAT, SNGL/MUL 08/18/2006 Hemorrhoidectomy- LAPAROSCOPIC CHOLEYCYSTECTOMY Cholecystectomy, lap- LIGATE FALLOPIAN TUBE Tubal ligation- PAST SURGICAL HISTORY OF torn meniscus R knee- PAST SURGICAL HISTORY OF bladder sling- VAGINAL HYSTERECTOMY 10/2008 Hysterectomy, vaginal, totalALLERGIES Seasonal [Other]MEDICATIONSsimvastat in (ZOCOR) 20 mg tablet Take 20 mg by mouth daily at bedtime.multivitamins(MULTI PLE VITAMIN TAB) Take one(1) tablet daily.cetirizine hcl(ZYRTEC 10 MG TAB) Take one(1) tablet daily. As neededMethylcellulose (Laxative) (CITRUCEL) 500 mg ORAL Tab TAKE TWO TABLETSTWICE DAILYPRILOSEC 40 MG CAP Take one(1) capsule daily.SYNTHROID 75 MCG TAB Take one(1) tablet daily.BLACK COHOSH 40 MG CAP as neededsoy protein(SOY PRO PROTEIN ORAL POWDER) as neededFAMILY HISTORYProblem Relation Age of Onset- Breast Cancer Mother- Cancer Father ??Pancreatic- Diabetes Father- Heart Paternal Uncle- Cancer Maternal Aunt kidney- Cancer Son melanoma juvenileSocial HistorySubstance Use Topics- Smoking status: Former Smoker Packs/day: 1.00 Years: 15.00 Types: Cigarettes Quit date: 05/11/1988- Smokeless tobacco: Never Used- Alcohol use NoReview of SystemsConstitutional: Negative for chills and fever.HENT: Negative for ear pain, sinus pain and sore throat.Eyes: Positive for discharge and redness. Negative for blurred vision,double vision, photophobia and pain.Respiratory: Negative for cough.All other systems reviewed and are negative.ObjectivePhysical ExamConstitutional: She is oriented to person, place, and time andwell-developed, well-nourished, and in no distress.HENT:Head: Normocephalic.Right Ear: External ear normal.Eyes: EOM are normal. Pupils are equal, round, and reactive to light.Right eye exhibits discharge. Left eye exhibits no discharge. No scleralicterus.Bilateral scleral injection. Drainage from the right eye.Cardiovascular: Normal rate, regular rhythm, normal heart sounds andintact distal pulses.Pulmonary/Chest: Effort normal and breath sounds normal.Abdominal: Soft. Bowel sounds are normal.Neurological: She is alert and oriented to person, place, and time.Skin: Skin is warm and dry.Psychiatric: Affect normal.Blood pressure 118/70, pulse 80, temperature 36.7 ?C (98 ?F), temperaturesource Tympanic, resp. rate 18, weight 72.5 kg (159 lb 12.8 oz), lastmenstrual period 08/28/2008.ASSESSMENT/PLAN: 1. Bacterial conjunctivitis - ICD9: 372.39, 041.9, ICD10: H10.9- see medication orders- course and contagiousness issues discussed, including hand washing.- Instructed to call if high fever, development of periorbital redness orswelling, eye pain, visual changes, concerns or if symptoms persist.- ERYTHROMYCIN 5 MG/GRAM (0.5 %) EYE OINTMENTMohan Ashraf PA-C Normal [facility] Office Visiton 02-03-2017 Documentation of current medications (procedure) Done Invalid Interpretation Code [facility] Work Phone: Protein mass conc Done Invalid Interpretation Code [facility] Work Phone: Tobacco smoking status NHIS Never smoker Invalid Interpretation Code [facility] Work Phone: Tobacco use CPHS Never smoker Invalid Interpretation Code [facility] Work Phone: External Other: Preferred Me thod of Contacton 05-10-2015 methcontact phone Invalid Interpretation Code [facility] Work Phone: Patient's prefered method of contact phone Invalid Interpretation Code [facility] Work Phone: Office Visiton 05-10-2015 cardiac risk group B Invalid Interpretation Code [facility] Work Phone: General cardiovascular disease 10Y risk [#] Hammett.D'Agostino 2 % Invalid Interpretation Code [facility] Work Phone: Clinical Lists Update: Prelo manager support 12-27-2014 Anion gap 8 mmol/L Invalid Interpretation Code [facility] Work Phone: Anion gap 4 molar conc 8 Invalid Interpretation Code [facility] Work Phone: basophils as percent of blood leukocytes, manual count 0.6 % Invalid Interpretation Code [facility] Work Phone: BUN/Creatinine Ratio 21.4 mg/mg High [facility] Work Phone: Calcium 8.9 mg/dL Invalid Interpretation Code [facility] Work Phone: Chloride 107 mmol/L Invalid Interpretation Code [facility] Work Phone: CO2 26.0 mmol/L Invalid Interpretation Code [facility] Work Phone: [phone] CO2 ppres (BldV) 26.0 mmol/L Invalid Interpretation Code [facility] Work Phone: Creatinine 0.70 mg/dL Invalid Interpretation Code [facility] Work Phone: [phone] eGFR (non-black) 112 mL/min/{1.73_m2} Invalid Interpretation Code [facility] Work Phone: eGFR (non-black) 92 mL/min/{1.73_m2} Invalid Interpretation Code [facility] Work Phone: [phone] eosinophils as percent of blood leukocytes, manual count 1.3 % Invalid Interpretation Code [facility] Work Phone: Erythrocytes (RBC) 4.38 10*6/uL Invalid Interpretation Code [facility] Work Phone: [phone] Glomerular Filtration Rate 112 mL/min/1.73m2 Invalid Interpretation Code [facility] Work Phone: Glucose 129 mg/dL High [facility] Work Phone: [phone] Glucose mass conc 129 mg/dL High [facility] Work Phone: Hematocrit (HCT) 37.9 % Invalid Interpretation Code [facility] Work Phone: [phone] Hemoglobin (HGB) 13.4 g/dL Invalid Interpretation Code [facility] Work Phone: Lymphocytes/100 leukocytes 35.2 % Invalid Interpretation Code [facility] Work Phone: MCH 30.6 pg Invalid Interpretation Code [facility] Work Phone: [phone] MCHC 35.4 g/dL Invalid Interpretation Code [facility] Work Phone: MCV 86.5 fL Invalid Interpretation Code [facility] Work Phone: Monocytes/100 leukocytes 8.0 % Invalid Interpretation Code [facility] Work Phone: [phone] neutrophils, band form as percent of blood leukocytes, manual count 54.9 % Invalid Interpretation Code [facility] Work Phone: [phone] Platelets 208 10*3/mm3 Invalid Interpretation Code [facility] Work Phone: [phone] PMV by Amy 9.4 fL Invalid Interpretation Code [facility] Work Phone: [phone] Potassium 3.8 mmol/L Invalid Interpretation Code [facility] Work Phone: [phone] RDW-CA 12.9 % Invalid Interpretation Code [facility] Work Phone: [phone] Sodium 141 mmol/L Invalid Interpretation Code [facility] Work Phone: [phone] Urea nitrogen 15 mg/dL Invalid Interpretation Code [facility] Work Phone: [phone] WBC (Leukocytes) 4.7 10*3/uL Invalid Interpretation Code [facility] Work Phone: Clinical Lists Update: Prelo manager support 01-21-2013 Alanine aminotransferase (ALT) 28 U/L Invalid Interpretation Code [facility] Work Phone: [phone] Albumin 4.0 g/dL Invalid Interpretation Code [facility] Work Phone: Alkaline phosphatase (ALP) 76 U/L Invalid Interpretation Code [facility] Work Phone: ALP enzyme act/vol (Bld) 76 U/L Invalid Interpretation Code [facility] Work Phone: Aspartate aminotransferase (AST) 18 U/L Invalid Interpretation Code [facility] Work Phone: Bilirubin (direct) 0.09 mg/dL Invalid Interpretation Code [facility] Work Phone: [phone] Bilirubin (total) 0.40 mg/dL Invalid Interpretation Code [facility] Work Phone: [phone] Cholesterol 179 mg/dL Invalid Interpretation Code [facility] Work Phone: [phone] HDL Cholesterol 71 mg/dL Invalid Interpretation Code [facility] Work Phone: [phone] LDL Cholesterol 90 mg/dL Invalid Interpretation Code [facility] Work Phone: [phone] Protein 7.4 g/dL Invalid Interpretation Code [facility] Work Phone: [phone] Triglyceride 88 mg/dL Invalid Interpretation Code [facility] Work Phone: [phone] very low density lipoproteins 18 mg/dL Invalid Interpretation Code [facility] Work Phone: [phone] Clinical Lists Update: Prelo manager support 05-10-2012 Thyroid stimulating hormone (TSH) 1.85 u[iU]/mL Invalid Interpretation Code [facility] Work Phone: triiodothyronine (t3) uptake, serum 32 % Invalid Interpretation Code [facility] Work Phone: [phone] Lab Report: [facility] 09-17-19 12 GE use only - for LinkLogic import when terms are not otherwise specified 7.5 g/dL Normal 6.4-8.2 [facility] Work Phone: [phone] TPROT 7.5 g/dL Normal 6.4-8.2 [facility] Work Phone: [phone] Replaced Document: Feng MARIE Observationson 09-08-2011 EKG QRS axis 70 deg Invalid Interpretation Code [facility] Work Phone: electrocardiogram interpretation Sinus Rhythm WITHIN NORMAL LIMITS Invalid Interpretation Code [facility] Work Phone: Interpretation Sinus Rhythm WITHIN NORMAL LIMITS Invalid Interpretation Code [facility] Work Phone: P [place] 50 deg Invalid Interpretation Code [facility] Work Phone: P wave axis, electrocardiogram 50 deg Invalid Interpretation Code [facility] Work Phone: CT Interval 180 ms Invalid Interpretation Code [facility] Work Phone: [phone] interval, electrocardiogram 180 ms Invalid Interpretation Code [facility] Work Phone: [phone] Pulse (Heart Rate) 62 /min Invalid Interpretation Code [facility] Work Phone: [phone] Pulse (Heart Rate) 414 ms Invalid Interpretation Code [facility] Work Phone: [phone] QRS axis, electrocardiogram 70 deg Invalid Interpretation Code [facility] Work Phone: [phone] QRS Duration 82 ms Invalid Interpretation Code [facility] Work Phone: [phone] QRS duration, electrocardiogram 82 ms Invalid Interpretation Code [facility] Work Phone: [phone] QT Interval new path ms Invalid Interpretation Code [facility] Work Phone: [phone] QT interval, electrocardiogram new path ms Invalid Interpretation Code [facility] Work Phone: [phone] T [place] 53 deg Invalid Interpretation Code [facility] Work Phone: [phone] T wave axis, electrocardiogram 53 deg Invalid Interpretation Code [facility] Work Phone: [phone] Office Visit: Rechecked UAon 04-17-2010 Albumin Ql (U) Negative Invalid Interpretation Code [facility] Work Phone: [phone] Bilirubin Ql (U) Negative Invalid Interpretation Code [facility] Work Phone: [phone] blood in urine (hemoglobin) by dipstick Negative Invalid Interpretation Code [facility] Work Phone: [phone] Glucose Test strip mass conc (U) Negative Invalid Interpretation Code [facility] Work Phone: [phone] Ketones mass conc (U) Negative Invalid Interpretation Code [facility] Work Phone: [phone] specific gravity, urine 1.005 Invalid Interpretation Code [facility] Work Phone: [phone] Urine, appearance clear Invalid Interpretation Code [facility] Work Phone: [phone] Urine, bilirubin presence Negative Invalid Interpretation Code [facility] Work Phone: [phone] Urine, color lt. yellow Invalid Interpretation Code [facility] Work Phone: [phone] Urine, glucose presence Negative Invalid Interpretation Code [facility] Work Phone: [phone] Urine, ketones presence Negative Invalid Interpretation Code [facility] Work Phone: [phone] Urine, leukocyte esterase presence Negative Invalid Interpretation Code [facility] Work Phone: [phone] Urine, nitrite presence Negative Invalid Interpretation Code [facility] Work Phone: [phone] Urine, pH 5.0 [pH] Invalid Interpretation Code [facility] Work Phone: [phone] Urine, protein Negative Invalid Interpretation Code [facility] Work Phone: [phone] Urine, urobilinogen presence Negative Invalid Interpretation Code [facility] Work Phone: Vital Signs Date Time Vital Sign Value Performing Clinician Zaira liny 01-17-2025 08:07-0400 Body height 167.[address] Kimi Felix MD Work Phone: [facility] 01-17-2025 08:07-0400 Body mass index (BMI) [Ratio] 22.2 kg/m2 Dr. Kimi Felix MD Work Phone: [facility] 01-17-2025 08:07-0400 Body weight 62.[address] Kimi Felix MD Work Phone: [facility] 01-17-2025 08:07-0400 Diastolic blood pressure 95 mm[Hg] Dr. Kimi Felix MD Work Phone: [facility] 01-17-2025 08:07-0400 Heart rate 76 /min Dr. Kimi Felix MD Work Phone: [facility] 01-17-2025 08:07-0400 Systolic blood pressure 126 mm[Hg] Dr. Kimi Felix MD Work Phone: [facility] 12-26-2024 13:50-0400 Body height 167.[address] Kimi Felix MD Work Phone: [facility] 12-26-2024 13:50-0400 Body weight 62.[address] Kimi Felxi MD Work Phone: [facility] 12-19-2024 08:49-0400 Body height 167.[address] Kimi Felix MD Work Phone: [facility] 12-19-2024 08:49-0400 Body mass index (BMI) [Ratio] 23.8 kg/m2 Dr. Kimi Felix MD Work Phone: [facility] 12-19-2024 08:49-0400 Body weight 66.[address] Kimi Felix MD Work Phone: [facility] 12-19-2024 08:49-0400 Diastolic blood pressure 91 mm[Hg] Dr. Kimi Felix MD Work Phone: [facility] 12-19-2024 08:49-0400 Heart rate 82 /min Dr. Kimi Felix MD Work Phone: [facility] 12-19-2024 08:49-0400 Systolic blood pressure 133 mm[Hg] Dr. Kimi Felix MD Work Phone: [facility] 11-29-2024 13:06-0400 Body height 167.[address] Kimi Felix MD Work Phone: 7(439)579-542443 [place] [address] 11-29-2024 13:06-0400 Body mass index (BMI) [Ratio] 23.8 kg/m2 Dr. Kimi Felix MD Work Phone: 7(967)859-575044 [address] 11-29-2024 13:06-0400 Body weight 66.[address] Kimi Felix MD Work Phone: 1(085)233-210243 [place] [address] 11-29-2024 13:06-0400 Diastolic blood pressure 80 mm[Hg] Dr. Kimi Felix MD Work Phone: 5(429)640-213943 [place] [address] 11-29-2024 13:06-0400 Systolic blood pressure 132 mm[Hg] Dr. Kimi Felix MD Work Phone: [facility] 11-29-2024 09:53-0400 Diastolic blood pressure 61 mm[Hg] Dr. Kimi Felix MD Work Phone: [facility] 11-29-2024 09:53-0400 Heart rate 70 /min Dr. Kimi Felix MD Work Phone: [facility] 11-29-2024 09:53-0400 Systolic blood pressure 115 mm[Hg] Dr. Kimi Felix MD Work Phone: [facility] 11-29-2024 09:21-0400 Body mass index (BMI) [Ratio] 23.8 kg/m2 Dr. Kimi Felix MD Work Phone: [facility] 11-29-2024 09:21-0400 Body temperature 96 [degF] Dr. Kimi Felix MD Work Phone: 6(802)330-257043 [place] [address] 11-29-2024 09:21-0400 Body weight 67.[address] Kimi Felix MD Work Phone: [facility] 11-29-2024 09:21-0400 Respiratory rate 16 /min Dr. Kimi Felix MD Work Phone: 5(049)623-921044 [address] 11-29-2024 09:21-0400 SaO2% (BldA) [Mass fraction] 99 % Dr. Kimi Felix MD Work Phone: 9(332)070-524797 [place] [address] 11-18-2024 07:50-0400 Body height 167.[address] Kimi Felix MD Work Phone: 7(600)951-457697 [place] [address] 11-18-2024 07:50-0400 Body mass index (BMI) [Ratio] 24.3 kg/m2 Dr. Kimi Felix MD Work Phone: 7(364)624-454443 [place] [address] 11-18-2024 07:50-0400 Body weight 68.[address] Kimi Felix MD Work Phone: 7(556)602-404897 [place] [address] 11-18-2024 07:50-0400 Diastolic blood pressure 74 mm[Hg] Dr. Kimi Felix MD Work Phone: 5(320)270-203997 [place] [address] 11-18-2024 07:50-0400 Heart rate 62 /min Dr. Kimi Felix MD Work Phone: 2(840)205-693797 [place] [address] 11-18-2024 07:50-0400 SaO2% (BldA) [Mass fraction] 97 % Dr. Kimi Felix MD Work Phone: 4(367)065-421697 [place] [address] 11-18-2024 07:50-0400 Systolic blood pressure 119 mm[Hg] Dr. Kimi Felix MD Work Phone: 8(642)967-826097 [place] [address] 06-27-2023 15:21-0500 Body height 167.[address] Kimi Felix Work Phone: 3(625)597-180397 [place] [address] 06-27-2023 15:21-0500 Body mass index (BMI) [Ratio] 24.1 kg/m2 Dr. Kimi Felix Work Phone: [facility] 06-27-2023 15:21-0500 Body temperature 98.5 [degF] Dr. Kimi Felix Work Phone: [facility] 06-27-2023 15:21-0500 Body weight 67.[address] Kimi Felix Work Phone: 4(681)570-788643 [place] [address] 06-27-2023 15:21-0500 Diastolic blood pressure 85 mm[Hg] Dr. Kimi Felix Work Phone: 8(740)540-085643 [place] [address] 06-27-2023 15:21-0500 Heart rate 110 /min Dr. Kimi Felix Work Phone: 1(696)423-585243 [place] [address] 06-27-2023 15:21-0500 Respiratory rate 16 /min Dr. Kimi Felix Work Phone: 6(867)035-124243 [place] [address] 06-27-2023 15:21-0500 SaO2% (BldA) [Mass fraction] 98 % Dr. Kimi Felix Work Phone: 5(873)636-333943 [place] [address] 06-27-2023 15:21-0500 Systolic blood pressure 158 mm[Hg] Dr. Kimi Felix Work Phone: 8(807)188-485343 [place] [address] 06-08-2023 09:11-0500 Body height 170.[address] Kimi Felix Work Phone: [facility] 06-08-2023 09:04-0500 Body mass index (BMI) [Ratio] 24.5 kg/m2 Dr. Kimi Felix Work Phone: [facility] 06-08-2023 09:04-0500 Body weight 70.[address] Kimi Felix Work Phone: [facility] 06-08-2023 09:04-0500 Diastolic blood pressure 66 mm[Hg] Dr. Kimi Felix Work Phone: 6(954)547-744843 [place] [address] 06-08-2023 09:04-0500 Systolic blood pressure 110 mm[Hg] Dr. Kimi Felix Work Phone: [facility] 05-13-2023 13:35-0500 Diastolic blood pressure 68 mm[Hg] Dr. Kimi Felix Work Phone: [facility] 05-13-2023 13:35-0500 Heart rate 77 /min Dr. Kimi Felix Work Phone: [facility] 05-13-2023 13:35-0500 Respiratory rate 16 /min Dr. iKmi Felix Work Phone: [facility] 05-13-2023 13:35-0500 SaO2% (BldA) [Mass fraction] 94 % Dr. Kimi Felix Work Phone: [facility] 05-13-2023 13:35-0500 Systolic blood pressure 138 mm[Hg] Dr. Kimi Felix Work Phone: [facility] 05-13-2023 11:54-0500 Body height 170.[address] Kimi Felix Work Phone: [facility] 05-13-2023 11:54-0500 Body mass index (BMI) [Ratio] 23.9 kg/m2 Dr. Kimi Felix Work Phone: [facility] 05-13-2023 11:54-0500 Body weight 69.[address] Kimi Felix Work Phone: [facility] 12-22-2022 13:51-0400 Body temperature 98.5 [degF] Dr. Kimi Felix Work Phone: [facility] 12-22-2022 13:51-0400 Diastolic blood pressure 74 mm[Hg] Dr. Kimi Felix Work Phone: [facility] 12-22-2022 13:51-0400 Heart rate 80 /min Dr. Kimi Felix Work Phone: [facility] 12-22-2022 13:51-0400 Respiratory rate 14 /min Dr. Kimi Felix Work Phone: [facility] 12-22-2022 13:51-0400 SaO2% (BldA) [Mass fraction] 98 % Dr. Kimi Felix Work Phone: [facility] 12-22-2022 13:51-0400 Systolic blood pressure 126 mm[Hg] Dr. Kimi Felix Work Phone: 9(350)572-559343 [place] [address] 12-14-2022 10:52-0400 Body temperature 98.1 [degF] Dr. Kimi Felix Work Phone: 3(749)922-589144 [address] 12-14-2022 10:52-0400 Diastolic blood pressure 89 mm[Hg] Dr. Kimi Felix Work Phone: 0(327)976-020244 [address] 12-14-2022 10:52-0400 Heart rate 96 /min Dr. Kimi Felix Work Phone: 7(625)776-684943 [place] [address] 12-14-2022 10:52-0400 Respiratory rate 17 /min Dr. Kimi Felix Work Phone: [facility] 12-14-2022 10:52-0400 SaO2% (BldA) [Mass fraction] 97 % Dr. Kimi Felix Work Phone: 5(604)450-883443 [place] [address] 12-14-2022 10:52-0400 Systolic blood pressure 138 mm[Hg] Dr. Kimi Felix Work Phone: [facility] 11-29-2022 08:15-0400 Body height 170.[address] Kimi Felix Work Phone: [facility] 11-29-2022 08:15-0400 Body mass index (BMI) [Ratio] 23.8 kg/m2 Dr. Kimi Felix Work Phone: [facility] 11-29-2022 08:15-0400 Body weight 68.[address] Kimi Felix Work Phone: [facility] 11-29-2022 08:15-0400 Heart rate 72 /min Dr. Kimi Felix Work Phone: [facility] 11-29-2022 08:15-0400 Respiratory rate 16 /min Dr. Kimi Felix Work Phone: [facility] 11-21-2022 11:15-0400 Diastolic blood pressure 65 mm[Hg] Dr. Kimi Felix Work Phone: 8(973)713-506143 [place] [address] 11-21-2022 11:15-0400 Heart rate 68 /min Dr. Kimi Felix Work Phone: 3(640)467-838544 [address] 11-21-2022 11:15-0400 Systolic blood pressure 124 mm[Hg] Dr. Kimi Felix Work Phone: 3(895)948-731697 [place] [address] 11-21-2022 10:34-0400 Body height 170.[address] Kimi Felix Work Phone: 4(651)809-542097 [place] [address] 11-21-2022 10:34-0400 Body mass index (BMI) [Ratio] 23.5 kg/m2 Dr. Kimi Felix Work Phone: 8(346)505-022243 [place] [address] 11-21-2022 10:34-0400 Body temperature 97.3 [degF] Dr. Kimi Felix Work Phone: 1(972)504-361243 [place] [address] 11-21-2022 10:34-0400 Body weight 68.[address] Kimi Felix Work Phone: 3(782)663-856743 [place] [address] 11-21-2022 10:34-0400 Respiratory rate 16 /min Dr. Kimi Felix Work Phone: 5(752)100-305243 [place] [address] 11-21-2022 10:34-0400 SaO2% (BldA) [Mass fraction] 96 % Dr. Kimi Felix Work Phone: 3(586)044-726844 [address] 10-20-2022 15:33-0400 Body mass index (BMI) [Ratio] 23.6 kg/m2 Dr. Kimi Felix Work Phone: 9(056)108-934043 [place] [address] 10-20-2022 15:33-0400 Body temperature 98.4 [degF] Dr. Kimi Felix Work Phone: [facility] 10-20-2022 15:33-0400 Body weight 68.[address] Kimi Felix Work Phone: [facility] 10-20-2022 15:33-0400 Diastolic blood pressure 76 mm[Hg] Dr. Kimi Felix Work Phone: [facility] 10-20-2022 15:33-0400 Heart rate 76 /min Dr. Kimi Felix Work Phone: [facility] 10-20-2022 15:33-0400 Respiratory rate 16 /min Dr. Kimi Felix Work Phone: 3(804)620-657743 [place] [address] 10-20-2022 15:33-0400 SaO2% (BldA) [Mass fraction] 97 % Dr. Kimi Felix Work Phone: [facility] 10-20-2022 15:33-0400 Systolic blood pressure 121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 Inactive Member Role/Relationship Status Dates Zeenat Medina MD Primary Care Provider Active St art: November 18, 2024 End: November 18, 2024 Dr. Preston Mukherjee MD Attending Provider Active Sta rt: November 18, 2024 End: November 18, 2024 Dr. Preston Mukherjee MD Referring Provider Active Sta rt: November 18, 2024 End: November 18, 2024 Team Status: Active Member Role/Relationship Status Dates Zeenat Medina MD Primary Care Provider Active St art: November 21, 2024 Zeenat Medina MD Attending Provider Active Start : November 21, 2024 Zeenat Medina MD Referring Provider Active Start : November 21, 2024 Team Status: Inactive Member Role/Relationship Status Dates Zeenat Medina MD Primary Care Provider Active St art: November 21, 2024 End: November 21, 2024 Zeenat Medina MD Attending Provider Active Start : November 21, 2024 End: November 21, 2024 Zeenat Meidna MD Referring Provider Active Start : November 21, 2024 End: November 21, 2024 Team Status: Inactive Member Role/Relationship Status Jose Medina MD Primary Care Provider Active St art: November 08, 2024 Dr. Melody Gaming MD Attending Provider Active Start: November 08, 2024 Team Status: Inactive Member Role/Relationship Status Dates Dr. Kimi Felix MD Primary Care Provider Active Start: November 18, 2024 End: November 18, 2024 Dr. Kimi Felix MD Referring Provider Active Start: November 18, 2024 End: November 18, 2024 Dr. Preston Mukherjee MD Attending Provider Active Sta rt: November 18, 2024 End: November 18, 2024 Team Status: Inactive Member Role/Relationship Status Jose Medina MD Primary Care Provider Active St art: November 18, 2024 End: November 18, 2024 Dr. Preston Mukherjee MD Attending Provider Active Sta rt: November 18, 2024 End: November 18, 2024 Dr. Preston Mukherjee MD Referring Provider Active Sta rt: November 18, 2024 End: November 18, 2024 Team Status: Inactive Member Role/Relationship Status Jose Medina MD Primary Care Provider Active St art: November 21, 2024 End: November 21, 2024 Zeenat Medina MD Attending Provider Active Start : November 21, 2024 End: November 21, 2024 Zeenat Medina MD Referring Provider Active Start : November 21, 2024 End: November 21, 2024 Team Status: Active Member Role/Relationship Status Jose Medina MD Primary Care Provider Active St art: November 29, 2024 Dr. Preston Mukherjee MD Attending Provider Active Sta rt: November 29, 2024 Dr. Preston Mukherjee MD Referring Provider Active Sta rt: November 29, 2024 Team Status: Inactive Member Role/Relationship Status Jose Medina MD Primary Care Provider Active St art: November 29, 2024 End: November 29, 2024 Zeenat Medina MD Referring Provider Active Start : November 29, 2024 End: November 29, 2024 Dr. Darshana Joseph MD Attending Provider Active Start: November 29, 2024 End: November 29, 2024 Team Status: Inactive Member Role/Relationship Status Jose Medina MD Primary Care Provider Active St art: November 29, 2024 End: November 29, 2024 Dr. Preston Mukherjee MD Attending Provider Active Sta rt: November 29, 2024 End: November 29, 2024 Dr. Preston Mukherjee MD Referring Provider Active Sta rt: November 29, 2024 End: November 29, 2024 Team Status: Inactive Member Role/Relationship Status Jose Medina MD Primary Care Provider Active St art: December 19, 2024 End: December 19, 2024 Zeenat Medina MD Referring Provider Active Start : December 19, 2024 End: December 19, 2024 Dr. Melody Gaming MD Attending Provider Active Start: December 19, 2024 End: December 19, 2024 Team Status: Inactive Member Role/Relationship Status Jose Medina MD Primary Care Provider Active St art: December 26, 2024 End: January 08, 2025 Zeenat Medina MD Attending Provider Active Start : December 26, 2024 End: January 08, 2025 Zeenat Medina MD Referring Provider Active Start : December 26, 2024 End: January 08, 2025 Team Status: Inactive Member Role/Relationship Status Jose Medina MD Primary Care Provider Active St art: January 17, 2025 End: January 17, 2025 Zeenat Medina MD Referring Provider Active Start : January 17, 2025 End: January 17, 2025 Dr. Melody Gaming MD Attending Provider Active Start: January 17, 2025 End: January 17, 2025 Team Status: Active Member Role/Relationship Status Jose Medina MD Primary care physician Active Team Status: Inactive Member Role/Relationship Status Dates Dr. Kimi Felix MD Primary care physician Active Start: October 14, 2024 End: October 14, 2024 Zeenat Medina MD Attending physician Active Star t: October 14, 2024 End: October 14, 2024 Zeenat Medina MD Referring Provider Active Start : October 14, 2024 End: October 14, 2024 Team Status: Inactive Member Role/Relationship Status Jose Medina MD Primary care physician Active S tart: November 08, 2024 Dr. Melody Gaming MD Attending physician Active Start: November 08, 2024 Team Status: Inactive Member Role/Relationship Status Dates Dr. Kimi Felix MD Primary care physician Active Start: November 18, 2024 End: November 18, 2024 Dr. Kimi Felix MD Referring Provider Active Start: November 18, 2024 End: November 18, 2024 Dr. Preston Mukherjee MD Attending physician Active St art: November 18, 2024 End: November 18, 2024 Team Status: Inactive Member Role/Relationship Status Dates Zeenat Medina MD Primary care physician Active S tart: November 18, 2024 End: November 18, 2024 Dr. Preston Mukherjee MD Attending physician Active St art: November 18, 2024 End: November 18, 2024 Dr. Preston Mukherjee MD Referring Provider Active Sta rt: November 18, 2024 End: November 18, 2024 Team Status: Inactive Member Role/Relationship Status Dates Zeenat Medina MD Primary care physician Active S tart: November 21, 2024 End: November 21, 2024 Zeenat Medina MD Attending physician Active Star t: November 21, 2024 End: November 21, 2024 Zeenat Medina MD Referring Provider Active Start : November 21, 2024 End: November 21, 2024 Team Status: Inactive Member Role/Relationship Status Jose Medina MD Primary care physician Active S tart: November 29, 2024 End: November 29, 2024 Dr. Preston Mukherjee MD Attending physician Active St art: November 29, 2024 End: November 29, 2024 Dr. Preston Mukherjee MD Referring Provider Active Sta rt: November 29, 2024 End: November 29, 2024 Team Status: Inactive Member Role/Relationship Status Dates Zeenat Medina MD Primary care physician Active S tart: November 29, 2024 End: November 29, 2024 Zeenat Medina MD Referring Provider Active Start : November 29, 2024 End: November 29, 2024 Dr. Darshana Joseph MD Attending physician Active Start: November 29, 2024 End: November 29, 2024 Team Status: Inactive Member Role/Relationship Status Jose Medina MD Primary care physician Active S tart: December 19, 2024 End: December 19, 2024 Zeenat Medina MD Referring Provider Active Start : December 19, 2024 End: December 19, 2024 Dr. Melody Gaming MD Attending physician Active Start: December 19, 2024 End: December 19, 2024 Team Status: Inactive Member Role/Relationship Status Jose Medina MD Primary care physician Active S tart: December 26, 2024 End: January 08, 2025 Zeenat Medina MD Attending physician Active Star t: December 26, 2024 End: January 08, 2025 Zeenat Medina MD Referring Provider Active Start : December 26, 2024 End: January 08, 2025 Team Status: Inactive Member Role/Relationship Status Jose Medina MD Primary care physician Active S tart: January 17, 2025 End: January 17, 2025 Zeenat Medina MD Referring Provider Active Start : January 17, 2025 End: January 17, 2025 Dr. Melody Gaming MD Attending physician Active Start: January 17, 2025 End: January 17, 2025 FOR RECORDS PERTAINING TO PATIENTS WHO ARE [...] BE BASED ON THE PRIMARY CLINICAL RECORDS. [facility] [employer] provides no warranty or guarantee of the accuracy or completeness of information in this document.
--- OUTSIDE RECORDS SUMMARY | 2025-02-28 09:20 | XMS RPT_ITS | CCD ---
Author Organization [facility] Care Team Providers Care President & Ceo Name Role Phone Zachariah De Jesus Unavailable Fabienne Feliz LPN Unavailable Unavailab Dr. Kimi Vivas Primary Care Provider Dr. Kimi Felix Referring Provider [phone] Alexandre Andres Attending Provider 1([facility])[phone] Dr. Preston Mukherjee Attending Provider 1([facility])[phone] Dr. Preston Mukherjee Attending Provider Dr. Kimi Felix Primary Care Provider Dr. Kimi Felix Referring Provider [phone] RAMAN Dorsey NP Attending Provider [phone] Dr. Kimi Felix Primary Care Provider Dr. Kimi Felix Referring Provider [phone] RAMAN Dorsey NP Attending Provider [phone] Dr. Colten Mayes Referring Provider Dr. Colten Mayes Other Provider Dr. Kimberly Benjamin Attending Provider Dr. Kimi Felix Primary Care Provider Dr. Kimberly Benjamin Attending Provider Dr. Kimi Felix Referring Provider Dr. Preston Mukherjee Attending Provider 1([facility])[phone] MIRZA Meyer Attending Provider MIRZA De [...] Provider Dr. Alexandre Andres Attending Provider Sunita OCCUPATIONAL HEALTH AND SAFETY MANAGER, OCCUPATIONAL HEALTH AND SAFETY MANAGER-C Jaimee Attending Provider Dr. Kimi Felix MD Primary Care Provider Zeenat Medina MD Attending Provider Zeenat Medina MD Referring Provider Dr. Kimi Felix MD Referring Provider King JEFFERY, Dr. Johnston Attending Provider Zeenat Medina MD Primary Care Provider Dr. Preston Mukherjee MD Referring Provider Zeenat Medina MD Primary Care Provider Dr. Melody Gaming MD Attending Provider Opal GIL, Dr. Gilliland Attending Provider [phone] Amberly GIL, Dr. Oliver Attending Provider Amberly GIL, Dr. Oliver Attending Provider Sunita OCCUPATIONAL HEALTH AND SAFETY MANAGER, Jaimee Referring Unavailable [place] OCCUPATIONAL HEALTH AND SAFETY MANAGER, Jaimee Attending Unavailable Jolliff, Kimi S Primary Care Unavailable [place] OCCUPATIONAL HEALTH AND SAFETY MANAGER, Jaimee Referring Unavailable [place] OCCUPATIONAL HEALTH AND SAFETY MANAGER, Jaimee Attending Unavailable Jolliff, Kimi S Primary Care Unavailable Adam, Chalon Primary Care Unavailable Adam, Chalon Referring Unavailable Wyneski, Melody Attending Unavailable Adam, Chalon Primary Care Unavailable Adam, Chalon Referring Unavailable Wyneski, Melody Attending Unavailable Adam, Chalon Primary Care Unavailable Adam, Chalon Referring Unavailable Marcanthony, Darshana Attending Unavailable Jolliff, Kimi S Primary Care Unavailable Jolliff, Kimi S Referring Unavailable Lnony, Preston Attending Unavailable Adam, Chalon Attending Unavailable [...] Care Unavailable Lonny, Preston Referring Unavailable Sunita OCCUPATIONAL HEALTH AND SAFETY MANAGER, Jaimee Attending Unavailable Jolliff, Kimi S Referring [...] Care Physician Adam GIL, Zeenat Attending Physician Adam GIL, Zeenat Primary Care Physician Amberly GIL, Dr. Oliver Attending Physician King JEFFERY, Dr. Johnston Attending Physician Opal GIL, Dr. Gilliland Attending Physician Allergies Allergy Classification Reported Allergen(s) Allergy Type Date of Onset Reaction(s) Facility (1 source) OTHER; Translations: [OTHER] Propensity to adverse reactions (disorder) 9 [facility] Repository (20 sources) Esomeprazole Drug Allergy 2 diarrhea [facility] (1 source) Esomeprazole Drug Allergy 5 [facility] Repository Medications Current Medications Medication Drug Class(es) [...] MG C APS as needed DICYCLOMINE HCL [id number] Daniel Jang MD Start: 09-09-2012 BENTYL 10 MG C APS as needed DICYCLOMINE HCL [id number] Daniel Jang MD fluticasone propionate 0.05 mg/actuat metered dose nasal spray (20 sources) Corticosteroid Start: 04-11-2021 Fluticasone Pr opionate (Flonase Allergy Relief) 50 mcg/actuation [place],Suspension Active 1 NMA INTRANASAL TWICE A DAY as needed for ALLERGIES April 11, 2021 1:00am Complies with drug therapy Start: 04-11-2021 Fluticasone Pr opionate (Flonase Allergy Relief) 50 mcg/actuation [place],Suspension Active 1 SPRAY INTRANASAL TWICE A DAY [...] One tablet by mouth twice daily OMEPRAZOLE 06327268929 Daniel Jang MD Start: 09-09-2012 take 1 tablet by jorgito once daily PRILOSEC 20 MG CPDR One tablet by mouth daily OMEPRAZOLE [id number] Daniel Jang MD Start: 09-09-2012 take 1 tablet by jorgito twice daily PRILOSEC 20 MG CPDR One tablet by mouth twice daily OMEPRAZOLE 89113685989 Daniel Jang MD Start: 04-14-2010 take 1 tablet by jorgito once daily PRILOSEC 40 MG CPDR One tablet by mouth daily OMEPRAZOLE 54477123770 Lisette Molina MS,PADorindaC Start: 04-14-2010 take 1 tablet by jorgito once daily PRILOSEC 40 MG CPDR One tablet by mouth daily OMEPRAZOLE 83910509794 Lisette Molina MSPA-C simvastatin 40 mg oral [...] One tablet by mouth daily LEVOTHYROXINE SODIUM 94734708934 Samantha Cisneros RN Start: 04-14-2010 take 1 tablet by jorgito th once daily SYNTHROID 75 MCG TABS One tablet by mouth daily LEVOTHYROXINE SODIUM 92523714163 Lisette Molina MS,PA-C Start: 04-14-2010 take 1 tablet by jorgito th once daily SYNTHROID 75 MCG TABS One tablet by mouth daily LEVOTHYROXINE SODIUM 71737520950 Lisette Molina MS,PADorindaC Completed/Discontinued Medications Medication Drug [...] HOURS NEEDED 10 3 June 27, 2023 [id number] 200 actuat albuterol 0.09 mg/actuat metered dose [...] Start: 09-08-2011 take 4 tablets by mo [facility] every hour AMOXICILLIN 500 MG TABS 4 tablets by mouth 1 hr prior to procedure AMOXICILLIN 81552828423 Samantha Cisneros RN aspirin 81 mg delayed release oral tablet (6 sources) Nonsteroidal Anti-inflammatory Drug Start: 09-04-2011 End: 09-09-2012 take 1 tablet by mouth once daily ECOTRIN LOW STRENGTH 81 MG TBEC One tablet by mouth daily ASPIRIN 69155976481 Daniel Jang MD Start: 09-04-2011 End: 09-09-2012 take 1 tablet by mouth once daily ECOTRIN LOW STRENGTH 81 MG TBEC One tablet by mouth daily ASPIRIN 10459514191 Daniel Jang MD azithromycin 250 mg oral [...] 2018 12:00am June 25, 2019 9:14am Ca-D3-Mag Jz-Fbaw-Bwh-Raad-B or (17 sources) Start: 01-20-2014 End: 04-05-2018 Ca-D3-Mag Lu-Cdjq-Rsw-Raad-B or Discontinued 1 EACH PO January 19, 2014 11:00pm April 05, 2018 12:23pm Start: 01-20-2014 End: 04-05-2018 Ca-D3-Mag Eh-Djsp-Qcl-Raad-B or Discontinued 1 EACH PO January 20, 2014 12:00am April 05, 2018 1:23pm Ca-D3-Mag Ho-Jtmo-Vha-Raad-Bor 1 EACH tablet (9 sources) Start: 01-20-2014 End: 04-05-2018 Ca-D3-Mag Gu-Yncl-Xbe-Raad-Bor 1 EACH tablet Discontinued 1 NMA PO [...] One tablet by mouth daily CETIRIZINE HCL 61428641218 Roya Patterson ciprofloxacin 500 mg oral tablet [...] 1:24pm Start: 05-08-2016 take 1 tablet by [facility] once daily MOBIC 15 MG TABS One tablet by mouth daily MELOXICAM 65498812090 Daniel Jang MD Multivitamin preparation (17 sources) [...] by mouth daily OMEGA-3 FATTY ACIDS CPDR 31156673464 Roya Patterson OMEGA-3 FATTY ACIDS CPDR (2 sources) Start: 09-04-2011 take 500 tablets by mouth once daily OMEGA 3 CPDR 500, One tablet by mouth daily OMEGA-3 FATTY ACIDS CPDR 70930318196 Roya Patterson ORPHENADRINE CITRATE SOLN (6 sources) Muscle Relaxant Start: 09-04-2011 End: 09-08-2011 NORFLEX SOLN 100mg, Take as directed ORPHENADRINE CITRATE SOLN 05651371453 Samantha Cisneros RN Start: 09-04-2011 NORFLEX SOLN 1 00mg, Take as directed ORPHENADRINE CITRATE SOLN 90507954031 Roya Patterson Start: 09-04-2011 End: 09-08-2011 NORFLEX SOLN 100mg, Take as directed ORPHENADRINE CITRATE SOLN 80480519895 Roya Patterson ospemifene 60 mg oral tablet [...] tablet by mouth twice daily SULFAMETHOXAZOLE- TRIMETHOPRIM 48923272488 Samantha Cisneros RN Start: 04-14-2010 End: 09-08-2011 take 1 tablet by mouth twice daily BACTRIM DS 800-160 MG TABS One tablet by mouth twice daily SULFAMETHOXAZOLE-TRIMETHOPRIM 59451557458 Samantha Cisneros RN Start: 04-14-2010 take 1 tablet by jorgito th twice daily BACTRIM DS 800-160 MG TABS One tablet by mouth twice daily SULFAMETHOXAZOLE-TRIMETHOPRIM 35123123786 Lisette Molina MS,PA-C B COMPLEX VITAMINS (20 sources) Start: 01-26-2014 take 1 tablet by mouth once daily VITAMIN B COMPLEX TABS One tablet by mouth daily B COMPLEX VITAMINS 22044663217 Daniel Jang MD Start: 01-26-2014 take 1 tablet by jorgito th once daily VITAMIN B COMPLEX TABS One tablet by mouth daily B COMPLEX VITAMINS 62473864086 Daniel Jang MD Start: 01-20-2014 End: 04-05-2018 [...] sources) Bisphosphonate Start: 10-21-2021 End: 11-29-2024 Zoledronic Lnur-Hqweljgl-Dnphw 5 mg/100 mL piggyback Discontinued 1 NMA .Route ONCE 100 0 November 14, 2022 7:56am November 13, 2023 8:14am infuse over 20 minutes. Start: 10-18-2020 End: 03-27-2021 Zoledronic Wlwx-Oatdxsqg-Wzh er 5 mg/100 mL piggyback Discontinued 1 [...] 01-31-2025 OT D/C of Non Returning Pt [facility] [place] [address] / REHABILITATION SERVICES DISCHARGE SUMMARY MR#: [id number] Acct: [id number] Name: LUIS MANUELRANDEE GUEVARA Rep #: [id number] : 1960 65 From: Nona Scales OTR/L, CHT Referring Dr.: Dr. Zeenat Medina MD Status: REG RCR Eval Date: Discharge Date: Patient Information Patient Information: RANDEE OMRTENSEN was seen in my office for initial [...] Dr. Zeenat Medina MD MK Signed Normal [facility] MR/BMS.Harper 01-17-2025 MR/BMS.FELICITA [facility] [address] [place] [address], [address] [place] [address] OFFICE VISIT Date of Service: 01/17/25 MR#: [id number] Acct: [id number] Name: RANDEE MORTENSEN Rep #: [id number] : 1960 Provider: Dr. Melody Hauser i, MD Age/Sex: 65/F [place] [facility] [place]: [place] Intake Vital Signs 12/19/24 08:49 12/26/24 13:50 01/17/25 08:07 Height 5 ft 6 in 5 ft 6 in 5 ft 6 in Weight: 138 lb BMI 22.2 BP 126/95 H Pulse 76 Intake Visit Reasons: 4-6wk f/u Chief Complaint: 4-6 week testosterone/estradiol cream follow up Leather Cleaner Required: No Accompanied by: Self Is patient [...] reports that her vaginal dryness seems better. [facility] Medical History Vulvar atrophy Urge incontinence Overactive [...] No yello (more content not included)... Normal [facility] MR/BMSFlako 12-19-2024 /GONZALO [facility] [address] [facility], [address] [place] [address] OFFICE VISIT Date of Service: 12/19/24 MR#: [id number] Acct: [id number] Name: RANDEE MORTENSEN Rep #: [id number] : 1960 Provider: Dr. Melody Hauser i, MD Age/Sex: 64/F Location: [facility] [place] Status: Signed Intake Vital Signs 11/29/24 13:06 12/19/24 08:49 Height 5 ft 6 in 5 ft 6 in Weight: 147 lb 4 oz BMI 23.8 BP 133/91 H Pulse 82 Intake Visit Reasons: possible prolapse Chief Complaint: possible prolapse Leather Cleaner Required: No Accompanied by: Self Is patient [...] macanthony states prolapse and recurrent vaginal infection. [facility] Medical History (Updated 12/20/24 @ 08:02 by [...] and other (more content not included)... Normal [facility] Genital Culture Comprehensiv eli 12-02-2024 VAC Reason [...] TMP SMX Islt JASON <=20 S Normal [facility] Comment on above: Performed By: #### L 501.9985 #### [facility] [address] [place], [address] Genital cultureOrdered By: Cedrick Joseph on 11-29-2024 Source specific culture Klebsiella pneumoniae sp pneum Abnormal [facility] Gram Stainon 11-29-2024 GS Reason for Exam: vag inal irritation Gram Stain 2+ Gram positive rods 3+ Gram variable chichi No Gram negative diplococci Score = 5 Interpretation: 0-3 Normal, 4-6 Intermediate, 7-10 Positive BV Normal [facility] Comment on above: Performed By: #### L 501.9985 #### [facility] [address] [place], [address] Gram stainOrdered By: Darshana Joseph on 11-29-2024 Microscopic observation Gram stain Nom (Unsp spec) [facility] Recycler Office Visit Reporton 11-29-2024 Recycler Office Visit Report [facility] [address] [place] [address], [address] [place] [address] OFFICE VISIT Date of Service: 11/29/24 MR#: [id number] Acct: [id number] Name: RANDEE MORTENSEN Rep #: [id number] : 1960 Provider: Dr. Darshana payne MD Age/Sex: 64/F Location: [facility] [place] Status: Signed Intake Vital Signs 11/18/24 07:50 11/29/24 09:21 11/29/24 13:06 Height 5 ft 6 in 5 ft 6 in 5 ft 6 in Weight: 147 lb 4 oz BMI 23.8 BP 132/80 H Intake Visit Reasons: r/o yeast infection Chief Complaint: Vaginal dryness and pain Leather Cleaner Required: No Is patient in pain?: Yes [...] Yes HPI r/o yeast infection Details: RANDEE MORTENSEN is a 64 year [...] Care Co (more content not included)... Normal [facility] Insulin Levelon 11-22-2024 INSULIN,FASTING 6.4 uIU/mL Normal 2.6-24.9 [facility] Comment on above: Result Comment: Perf ormed at: - [facility] [address] [id number] Lost Charge Card Clerk: Joss Arroyo PhD, Phone: [phone] Performed By: #### L 501.6710 #### [facility] [address] [place], [place], [address] Amylaseon 11-21-2024 KIMI 37 U/L Normal 28-100 [facility] Comment on above: Order Comment: Order Date: 11/21/24 Order Info: 1798-8 - KIMI Order Info: 3040-3 - LIPASE Order Info: [id number] - CRP Performed By: #### L 501.6710 #### [facility] [address] [place], [place], [address] CRPon 11-21-2024 C-REACTIVE PROT < 3.00 Normal 0.0-3.0 [facility] Comment on above: Order Comment: Order Date: 11/21/24 Order Info: 1798-8 - KIIM Order Info: 3040-3 - LIPASE Order Info: [id number] - CRP Performed By: #### L 501.6710 #### [facility] [address] [place], [place], [address] Hemoglobin A1con 11-21-2024 HbA1c (Bld) [Mass fraction] 6.9 % High <=5.6 [facility] Comment on above: Order Comment: Order Date: 11/21/24 Order Info: 4548-4 - A1C Result Comment: Norm al < 5.7 % Prediabetic 5.7 - 6.4 % Diabetic >or= 6.5 % Please note range changes. Performed By: #### L 501.9985 #### [facility] [address] [place], [place], [address] Hemoglobin A1c percentageOrd ered By: Zeenat Medina on 11-21-2024 HbA1c (Bld) [Mass fraction] 6.9 % High <5.7 [facility] Comment on above: Normal < 5.7 % Predi abetic 5.7 - 6.4 % Diabetic >or= 6.5 % Please note range changes. Lipaseon 11-21-2024 Lipase [Catalytic activity/Vol] 22 U/L Normal 13-75 [facility] Comment on above: Order Comment: Order Date: 11/21/24 Order Info: 1798-8 - KIMI Order Info: 3040-3 - LIPASE Order Info: [id number] - CRP Result Comment: Belén duong note: LIPASE revised reference range effective 22. New Lipase methodology. Expected to produce lower values than the previous assay method. NEW Reference Range: 13 - 75 U/L Performed By: #### L 501.6710 #### [facility] [address] [place], [address] Lipase measurementOrdered By : Zeenat Medina on 11-21-2024 Lipase [Catalytic activity/Vol] 22 U/L 13-75 [facility] Comment on above: Please note:LIPASE r evised reference range effective 22. New Lipase methodology. Expected to produce lower values than the previous assay method. NEW Reference Range: 13 - 75 U/L Microalb:Creat Ratio,Random URon 11-21-2024 Creatinine [Mass/Vol] 30.90 mg/dL Normal 28.00- 217. 00 [facility] Comment on above: Order Comment: Order Date: 11/21/24 Order Info: 1798-8 - KIMI Order Info: 3040-3 - LIPASE Order Info: 11031-7 - CRP Performed By: #### L 501.6710 #### [facility] [address] [place], [place], [address] MALB:CREAT UNABLE TO CALCULATE Normal [facility] Comment on above: Order Comment: Order Date: 11/21/24 Order Info: 1798-8 - KIMI Order Info: 3040-3 - LIPASE Order Info: [id number] - CRP Performed By: #### L 501.6710 #### [facility] [address] [place], [place], [address] MICROALBUMIN,UR < 12.0 Normal NO RANGE EST. [facility] Comment on above: Order Comment: Order Date: 11/21/24 Order Info: 8-8 - KIMI Order Info: 3040-3 - LIPASE Order Info: [id number] - CRP Performed By: #### L 501.6710 #### [facility] [address] [place], [place], [address] Microalbumin/creat ratio urO rdered By: Zeenat Medina on 11-21-2024 Urine microalbumin/creatinin e ratio measurement UNABLE TO CALCULATE mg/g CRE [facility] Random urine creatinine stephanie urement (mass/volume)Ordered By: Zeenat Medina on 11-21-2024 Creatinine Unsp time (U) [Mass/Vol] 30.90 mg/dL 28.00-217. 00 [facility] Serum or plasma C reactive p rotein measurement (mass/volume)Ordered By: Zeenat Medina on 11-21-2024 CRP [Mass/Vol] mg/L 0.0-3.0 [facility] Serum or plasma amylase stephanie urement (enzymatic activity/volume)Ordered By: Zeenat Medina on 11-21-2024 Amylase [Catalytic activity/Vol] 37 U/L 28-100 [facility] Serum or plasma insulin stephanie urement (mass/volume)Ordered By: Zeenat Medina on 11-21-2024 Insulin [Mass/Vol] 6.4 uIU/mL 2.6-24.9 [facility] Comment on above: Performed at: [address] [id number] Director: Joss Arroyo PhD, Phone: [phone] Urine albumin measurement [facility] detection limit of 20 mg/L or less (mass/volume)Ordered By: Zeenat Medina on 11-21-2024 Albumin DL <= 20 mg/L (U) [Mass/Vol] < 12.0 mg/L NO RANGE EST. [facility] Anion gap in Serum or Plasma Ordered By: Preston Mukherjee on 11-18-2024 Anion gap [Moles/Vol] 11 mmol/L 5-15 [facility] BUN/creatinine ratioOrdered By: Preston Mukherjee on 11-18-2024 Urea nitrogen/Creatinine [Mass ratio] 15.8 mg/mg 10-20 [facility] Bilirubin, totalOrdered By: Preston Mukherjee on 11-18-2024 Bilirubin [Mass/Vol] 0.40 mg/dL 0.00-1.30 [facility] Calculated very low density lipoprotein (VLDL) cholesterol measurementOrdered By: Preston Mukherjee on 11-18-2024 Calculated very low density lipoprotein (VLDL) cholesterol measurement 31 mg/dL 5-40 [facility] Carbon dioxide, total [Moles /volume] in Central venous bloodOrdered By: Preston Mukherjee on 11-18-2024 CO2 [Moles/Vol] 25.0 mmol/L 21.0-32.0 [facility] Chloride assayOrdered By: Matthew Mukherjee on 11-18-2024 Chloride [Moles/Vol] 104 mmol/L 98-108 [facility] Comprehensive Metabolic Prof ilon 11-18-2024 Albumin [Mass/Vol] 4.6 g/dL Normal 3.4-4.8 [facility] Comment on above: Performed By: #### L 501.9520, L501.9985, L506.1001, L500.4050, L500.4100 #### [facility] [address] [place], [address] Albumin/Globulin [Mass ratio] 1.6 {ratio} Normal 0.9-2.4 [facility] Comment on above: Performed By: #### L 501.9520, L501.9985, L506.1001, L500.4050, L500.4100 #### [facility] [address] [place], [address] ALK PHOS 47 U/L Normal 35-104 [facility] Comment on above: Performed By: #### L 501.9520, L501.9985, L506.1001, L500.4050, L500.4100 #### [facility] [address] [place], [address] ALT [Catalytic activity/Vol] 23 U/L Normal <=34 [facility] Comment on above: Performed By: #### L 501.9520, L501.9985, L506.1001, L500.4050, L500.4100 #### [facility] [address] [place], [address] AST [Catalytic activity/Vol] 25 U/L Normal <=31 [facility] Comment on above: Performed By: #### L 501.9520, L501.9985, L506.1001, L500.4050, L500.4100 #### [facility] [address] [place], [address] Bilirubin [Mass/Vol] 0.40 mg/dL Normal 0.00-1.30 [facility] Comment on above: Performed By: #### L 501.9520, L501.9985, L506.1001, L500.4050, L500.4100 #### [facility] [address] [place], [address] BUN/CRE 15.8 RATIO Normal 10-20 [facility] Comment on above: Performed By: #### L 501.9520, L501.9985, L506.1001, L500.4050, L500.4100 #### [facility] [address] [place], [address] Calcium [Mass/Vol] 9.9 mg/dL Normal 7.6-11.0 [facility] Comment on above: Performed By: #### L 501.9520, L501.9985, L506.1001, L500.4050, L500.4100 #### [facility] [address] [place], [address] Chloride [Moles/Vol] 104 mmol/L Normal 98-108 [facility] Comment on above: Performed By: #### L 501.9520, L501.9985, L506.1001, L500.4050, L500.4100 #### [facility] [address] [place], [address] CO2 [Moles/Vol] 25.0 mmol/L Normal 21.0-32.0 [facility] Comment on above: Performed By: #### L 501.9520, L501.9985, L506.1001, L500.4050, L500.4100 #### [facility] [address] [place], [address] Creatinine [Mass/Vol] 0.77 mg/dL Normal 0.70-1.20 [facility] Comment on above: Performed By: #### L 501.9520, L501.9985, L506.1001, L500.4050, L500.4100 #### [facility] [address] [place], [address] GAP 11 Normal 5-15 [facility] Comment on above: Performed By: #### L 501.9520, L501.9985, L506.1001, L500.4050, L500.4100 #### [facility] [address] [place], [address] GFR/1.73 sq M.predicted among non-blacks MDRD (S/P/Bld) [Vol rate/Area] 85 mL/min/{1.73_m2} Normal >60 [facility] Comment on above: Result Comment: mL/m in/1.73m2 CKD-EPI Creatinine Equation (2020) Performed By: #### L 501.9520, L501.9985, L506.1001, L500.4050, L500.4100 #### [facility] [address] [place], [address] Globulin (S) [Mass/Vol] 2.8 g/dL Normal 2.2-4.2 [facility] Comment on above: Performed By: #### L 501.9520, L501.9985, L506.1001, L500.4050, L500.4100 #### [facility] [address] [place], [address] Glucose [Mass/Vol] 124 mg/dL High 70-99 [facility] Comment on above: Performed By: #### L 501.9520, L501.9985, L506.1001, L500.4050, L500.4100 #### [facility] [address] [place], [address] Potassium [Moles/Vol] 4.7 mmol/L Normal 3.3-5.1 [facility] Comment on above: Performed By: #### L 501.9520, L501.9985, L506.1001, L500.4050, L500.4100 #### [facility] [address] [place], [address] Sodium [Moles/Vol] 141 mmol/L Normal 133-145 [facility] Comment on above: Performed By: #### L 501.9520, L501.9985, L506.1001, L500.4050, L500.4100 #### [facility] [address] [place], [address] T PROT 7.4 g/dL Normal 5.9-8.4 [facility] Comment on above: Performed By: #### L 501.9520, L501.9985, L506.1001, L500.4050, L500.4100 #### [facility] [address] [place], [address] Urea nitrogen [Mass/Vol] 12 mg/dL Normal 4-19 [facility] Comment on above: Performed By: #### L 501.9520, L501.9985, L506.1001, L500.4050, L500.4100 #### [facility] [address] [place], [address] Endocrinology Visit Reporton 11-18-2024 Endocrinology Visit Report [facility] [address] [place] [address] OFFICE VISIT Date of Service: 11/18/24 MR#: [id number] Acct: [id number] Name: RANDEE MORTENSEN Rep #: [id number] : 1960 Provider: Nettie Cr Age/Sex: 64/F [place] [facility] [place]: Signed Intake Vital Signs 11/13/23 07:56 [...] Musc Musculoskeletal (more content not included)... Normal [facility] Glomerular filtration rate ( GFR) estimation/1.73 sq m using serum, plasma, or whole bOrdered By: Preston Mukherjee on 11-18-2024 GFR/1.73 sq M.predicted among non-blacks MDRD (S/P/Bld) [Vol rate/Area] 85 mL/min/{1.73_m2} >60 [facility] Comment on above: mL/min/1.73m2 CKD-EP I Creatinine Equation (2020) Hemoglobin A1con 11-18-2024 HbA1c (Bld) [Mass fraction] 7.2 % High <=5.6 [facility] Comment on above: Result Comment: Norm al < 5.7 % Prediabetic 5.7 - 6.4 % Diabetic >or= 6.5 % Please note range changes. Performed By: #### L 501.2801, L501.9940, L506.1001, L500.4050, L500.4100 #### [facility] [address] [place], [place], [id number] Hemoglobin A1c percentageOrd ered By: Preston Mukherjee on 11-18-2024 HbA1c (Bld) [Mass fraction] 7.2 % High <5.7 [facility] Comment on above: Normal < 5.7 % Predi abetic 5.7 - 6.4 % Diabetic >or= 6.5 % Please note range changes. LDL calc ser/plasOrdered By: Preston Mukherjee on 11-18-2024 Cholesterol in LDL [Mass/Vol] 87 mg/dL [facility] Comment on above: Egibergqka=384-816 m g/dL & Higher Usju=603 mg/dL or greater Laboratory - Chemistry and C hemistry - challengeOrdered By: Preston Mukherjee on 11-18-2024 AST [Catalytic activity/Vol] 25 U/L <32 [facility] Lipid Profileon 11-18-2024 CHOL:HDL 2.70 Normal [facility] Comment on above: Performed By: #### L 501.9520, L501.9985, L506.1001, L500.4050, L500.4100 #### [facility] [address] [place], [address] Cholesterol [Mass/Vol] 186 mg/dL Normal <=200 [facility] Comment on above: Result Comment: Chol esterol level, Desirable <200 mg/dL Borderline high cholesterol 200-239 mg/dL High cholesterol >=240 mg/dL Recommendations of the NCEP Adult Treatment Panel for the following risk-cutoff thresholds for the [place] Stateless population. Performed By: #### L 501.9520, L501.9985, L506.1001, L500.4050, L500.4100 #### [facility] [address] [place], [address] Cholesterol in HDL [Mass/Vol] 69 mg/dL Normal [facility] Comment on above: Result Comment: Khloe onchivo Cholesterol Education Program (NCEP) guidelines: <40 mg/dL: Low HDL-cholesterol (major risk factor for CHD) >= 60 mg/dL: High HDL-cholesterol (negative risk factor for CHD) HDL-cholesterol is affected by a number of factors, e.g. smoking, exercise, hormones, sex and age. Performed By: #### L 501.9520, L501.9985, L506.1001, L500.4050, L500.4100 #### [facility] [address] [place], [address] Cholesterol in LDL [Mass/Vol] 87 mg/dL Normal [facility] Comment on above: Result Comment: Bord pdofee=764-551 mg/dL Higher Kjgd=212 mg/dL or greater Performed By: #### L 501.9520, L501.9985, L506.1001, L500.4050, L500.4100 #### [facility] [address] [place], [address] Cholesterol in VLDL [Mass/Vol] 31 mg/dL Normal 5-40 [facility] Comment on above: Performed By: #### L 501.9520, L501.9985, L506.1001, L500.4050, L500.4100 #### [facility] [address] [place], [address] Triglyceride [Mass/Vol] 153 mg/dL Normal [facility] Comment on above: Result Comment: The drugs N-Acetylcysteine and Metamizole may falsely depress this assay. Normal range: <150 mg/dL Borderline High: 150-199 mg/dL High: 200-499 mg/dL Very High: >500 mg/dL Performed By: #### L 501.9520, L501.9985, L506.1001, L500.4050, L500.4100 #### [facility] [address] [place], [address] Potassium measurement (mass/ volume)Ordered By: Preston Mukherjee on 11-18-2024 Potassium (Unsp spec) [Mass/Vol] 4.7 mmol/L 3.3-5.1 [facility] Screening total cholesterol/ high density lipoprotein (HDL) cholesterol ratioOrdered By: Preston Mukherjee on 11-18-2024 Cholesterol.total/Chol esterol in HDL [Mass ratio] 2.70 {ratio} [facility] Serum creatinine measurement (mass/volume)Ordered By: Preston Mukherjee on 11-18-2024 Creatinine [Mass/Vol] 0.77 mg/dL 0.70-1.20 [facility] Serum globulin measurementOr dered By: Preston Mukherjee on 11-18-2024 Globulin (S) [Mass/Vol] 2.8 g/dL 2.2-4.2 [facility] Serum glucose measurement (m ass/volume)Ordered By: Preston Mukherjee on 11-18-2024 Glucose [Mass/Vol] 124 mg/dL High 70-99 [facility] Serum or plasma alanine rivas otransferase (ALT) measurementOrdered By: Preston Mukherjee on 11-18-2024 ALT [Catalytic activity/Vol] 23 U/L <35 [facility] Serum or plasma albumin stephanie urement (mass/volume)Ordered By: Preston Mukherjee on 11-18-2024 Albumin [Mass/Vol] 4.6 g/dL 3.4-4.8 [facility] Serum or plasma albumin/glob ulin mass ratioOrdered By: Preston Mukherjee on 11-18-2024 Albumin/Globulin [Mass ratio] 1.6 {ratio} 0.9-2.4 [facility] Serum or plasma alkaline carrillo sphatase measurementOrdered By: Preston Mukherjee on 11-18-2024 ALP [Catalytic activity/Vol] 47 U/L 35-104 [facility] Serum or plasma calcium stephanie urement (mass/volume)Ordered By: Preston Mukherjee on 11-18-2024 Calcium [Mass/Vol] 9.9 mg/dL 7.6-11.0 [facility] Serum or plasma cholesterol in HDL measurement (mass/volume)Ordered By: Preston Mukherjee on 11-18-2024 Cholesterol in HDL [Mass/Vol] 69 mg/dL >40 [facility] Comment on above: National Cholesterol Education Program (NCEP) guidelines:<40 mg/dL: Low HDL-cholesterol (major risk factor for CHD)>= 60 mg/dL: High HDL-cholesterol (negative risk factor for CHD)HDL-cholesterol is affected by a number of factors, e.g. smoking, exercise, hormones, sex and age. Serum or plasma cholesterol measurement (mass/volume)Ordered By: Preston Mukherjee on 11-18-2024 Cholesterol [Mass/Vol] 186 mg/dL <201 [facility] Comment on above: Cholesterol level, D esirable <200 mg/dLBorderline high cholesterol 200-239 mg/dLHigh cholesterol >=240 mg/dLRecommendations of the NCEP Adult Treatment Panel for the following risk-cutoff thresholds for the [place] Stateless population. Serum or plasma urea nitroge n measurement (mass/volume)Ordered By: Preston Mukherjee on 11-18-2024 Urea nitrogen [Mass/Vol] 12 mg/dL 4-19 [facility] Sodium levelOrdered By: Preston Mukherjee on 11-18-2024 Sodium [Moles/Vol] 141 mmol/L 133-145 [facility] TSH DL <= 0.005 mIU/L QnOrde red By: Preston Mukherjee on 11-18-2024 TSH Qn 1.110 uIU/mL 0.300-4.20 0 [facility] Thyroid Stim Hormone (TSH)on 11-18-2024 TSH 1.110 uIU/mL Normal 0.300-4.20 0 [facility] Comment on above: Performed By: #### L 501.9520, L501.9985, L506.1001, L500.4050, L500.4100 #### [facility] [address] [place], [address] Total proteinOrdered By: Ollie Mukherjee on 11-18-2024 Protein [Mass/Vol] 7.4 g/dL 5.9-8.4 [facility] Triglycerides measurementOrd ered By: Preston Mukherjee on 11-18-2024 Triglyceride [Mass/Vol] 153 mg/dL <199 [facility] Comment on above: The drugs N-Acetylcy steine and Metamizole may falsely depress this assay. Normal range: <150 mg/dLBorderline High: 150-199 mg/dLHigh: 200-499 mg/dLVery High: >500 mg/dL Vitamin D,25 Hydroxyon 11-18 Vitamin D 25-OH 45.8 ng/mL Normal 30-100 [facility] Comment on above: Result Comment: Trista min D Status Deficiency: <20 ng/mL (50nmol/L) Insufficiency: 20-30 ng/mL (50-75 nmol/L) Sufficiency: 30-100 ng/mL (75-250 nmol/L) Toxicity: >100 ng/mL (>250 nmol/L) Performed By: #### L 501.9520, L501.9985, L506.1001, L500.4050, L500.4100 #### [facility] [address] [place], [place], [address] OT General Evaluationon 06-0 OT General Evaluation [facility] Occupational Therapy [facility] [address] [place] [address] / REHABILITATION SERVICES INITIAL EVALUATION MR#: [id number] Acct: [id number] Name: RANDEE MORTENSEN Rep #: [id number] : 1960 64 From: Kelly Keating Referring Dr.: Dr. Zeenat Medina MD Status: REG [facility] Insurance: [facility] Eval Date: SELF PAY INSURANCE Patient's Visit Information Visit Information Visit Information: RANDEE MORTENSEN is a 64 year old F, referred to Occupational Therapy by Zeenat Medina MD, with a diagnosis of Tenosynovitis. Date of Evaluation: 10/13/24 Occupational Therapist: Kelly Keating Subjective Subjective: Pt is a 64 y/o female referred by Dr. Zeenat Medina for tenosynovitis to [facility] [place]. She reports she has pain radiating from [...] Able to complete but with pain Yard: [place] Comments: Able to complete but with pain [...] 16.9 Flx/19.1 Ex L: 17.2 Flx/14.6 Ex Customs And Immigration Officer: R:60# L:41# Lateral Pinch: R:14# L:14# Tripod [...] to be FAXED BACK to us at [phone] for Medicare purposes. Please let me know if there are questions or concerns regarding this plan of care. Physician Signature: Date: 10/13/24 1755 CC: Dr. Kimi Felix MD; Dr. Zeenat Medina MD OM Signed For Medicare only, by signing this I certify the plan of care. _ Physicians Signature Date Normal [facility] SCRN MAMM (CAD)W/MARCIN BILATo n 06-09-2024 SCRN MAMM (CAD)W/MARCIN BILAT [facility] Imaging Services [address] [place] [address] SCRN MAMM (CAD)W/MARCIN BILAT MR#: [id number] Acct: [id number] Name: RANDEE MORTENSEN Rep #: [id number] : 1960 F 64 From: [place] MD PCP: Dr. Kimi Felix MD Status: [facility] Study: SCRN MAMM (CAD)W/MARCIN BILAT Date of Exam: 05/13 Exam# [id number] Ordering Dr: Kimi Felix MD PROCEDURE: SCRN [...] of the results by letter. Reading Location: [facility] CC: Dr. Kimi Felix MD Mammography Technician: Signed Normal [facility] Recycler Office Visit Reporton 05-25-2024 Recycler Office Visit Report [facility] [address], [address] [place] [address] OFFICE VISIT Date of Service: 05/25/24 MR#: [id number] Acct: [id number] Name: RANDEE MORTENSEN Rep #: [id number] : 1960 Provider: Dr. Hillary Torres DO Age/Sex: 64/F Location: [facility] [facility] Status: Signed Intake Vital Signs 04/06/24 14:46 05/25/24 14:06 Height 5 ft 6 in 5 ft 6 in Weight: 155 lb 4 oz BMI 25.0 BP 121/80 H Intake Visit Reasons: discuss medication options Chief Complaint: Vaginal dryness and pain Leather Cleaner Required: No Is patient in pain?: No [...] HPI Exam (more content not included)... Normal [facility] Hemoglobin A1con 04-18-2024 HbA1c (Bld) [Mass fraction] 6.3 % High 3.8-5.6 [facility] Comment on above: Result Comment: Norm al < 5.7 % Prediabetic 5.7 - 6.4 % Diabetic >or= 6.5 % Please note range changes. Performed By: #### L 501.9985, L501.9520 #### [facility] [address] [place], [place], [id number] Thyroid Stim Hormone (TSH)on 04-18-2024 TSH 0.921 uIU/mL Normal 0.358-3.74 0 [facility] Comment on above: Performed By: #### L 501.9985, L501.9520 #### [facility] [address], [place], [id number] Pelvic (Non )on Pelvic (Non ) [facility] Imaging Services [address] [place], [place] [id number] Pelvic (Non ) MR#: [id number] Acct: [id number] Name: RANDEE MORTENSEN Rep #: [id number] : 1960 F 64 From: Francisco J wang DO PCP: Dr. Kimi Felix MD Status: REG CLI Study: Pelvic (Non ) Date of Exam: 04/15/24 Exam# [id number] Ordering Dr: Jaimee Dorsey NP, NP [id number] EXAM: US PELVIS TRANSABDOMINAL, COMPLETE CLINICAL INDICATION: [...] CC: RAMAN Dorsey; Dr. Kimi Felix MD Mammography Technician: Signed Normal [facility] Genital Culture Comprehensiv eli 04-10-2024 VAC Reason [...] S Vancomycin Islt JASON 1 S Normal [facility] Comment on above: Performed By: #### L 501.9985 #### [facility] [address] [place], [place], [address] Gram Stainon 04-08-2024 GS Reason for Exam: Vag inal irritation Gram Stain 1+ Gram positive cocci in chains 3+ Gram positive rods No White Blood Cells No Gram negative diplococci Normal [facility] Comment on above: Performed By: #### L 501.9985 #### [facility] [address] [place], [place], [id number] Recycler Office Visit Reporton 04-06-2024 Recycler Office Visit Report [facility]'s [address], [address] [place] [address] OFFICE VISIT Date of Service: 04/06/24 MR#: [id number] Acct: [id number] Name: RANDEE MORTENSEN Rep #: [id number] : 1960 Provider: RAMAN ventura Age/Sex: 64/F Location: [facility] [place] [facility] Status: Signed Intake Vital Signs 11/26/23 13:08 04/06/24 14:40 04/06/24 14:46 Height 5 ft 6 in 5 ft 6 in 5 ft 6 in Weight: 153 lb 4 oz BMI 24.7 BP 122/72 H Intake Visit Reasons: vaginal dryness and pain Chief Complaint: Vaginal dryness and pain Leather Cleaner Required: No Is patient in pain?: No [...] and n (more content not included)... Normal [facility] Basophil percentageOrdered B y: [place] Andres on 05-13-2023 Basophil percentage < 1.0 mg/dL 0.55-1.02 [facility] No Panel InformationOrdered By: [place] Andres on 05-13-2023 Bedside Estimated GFR (eGFR) > 60.0000 mL/min >60 [facility] Culture, urineOrdered By: Yaakov Felix on 02-18-2023 Bacteria identified Cx Nom (U) Presumptive E. coli [facility] Basophil percentageOrdered B y: Kimi Felix on 02-17-2023 Basophil percentage 5-10 SEEN /hpf 0-5 [facility] Bilirubin Test strip Ql (U)O rdered By: Kimi Felix on 02-17-2023 Bilirubin Ql (U) Negative Negative [facility] Culture, urineOrdered By: Yaakov Felix on 02-17-2023 Bacteria identified Cx Nom (U) Presumptive E. coli [facility] Ketones Test strip Ql (U)Ord ered By: Kimi Felix on 02-17-2023 Ketones Ql (U) Negative Negative [facility] Mucus LM Ql (Urine sed)Order ed By: Kimi Felix on 02-17-2023 Mucus Ql (Urine sed) 0 SEEN /hpf [facility] Nitrite Test strip Ql (U)Ord ered By: Kimi Felix on 02-17-2023 Nitrite Ql (U) Positive Negative [facility] Protein Test strip Ql (U)Ord ered By: Kimi Felix on 02-17-2023 Protein Ql (U) 15 mg/dl Negative [facility] Squamous epithelial cells de tection in urine sediment by light microscopyOrdered By: Kimi Felix on 02-17-2023 Epithelial cells.squamous LM Ql (Urine sed) 0-5 SEEN /hpf 5-10 [facility] Urine blood detectionOrdered By: Kimi Felix on 02-17-2023 RBC Ql (U) 25 /ul Negative [facility] RBC Ql (U) 0-5 SEEN /hpf 0-5 [facility] Urine clarityOrdered By: Kimi Felix on 02-17-2023 Clarity (U) Sl. Cloudy Clear [facility] Urine color determinationOrd ered By: Kimi Felix on 02-17-2023 Color (U) Yellow Yellow [facility] Urine glucose detectionOrder ed By: Kimi Felix on 02-17-2023 Glucose Ql (U) Normal mg/dl Normal [facility] Urine leukocyte esterase det ection by dipstickOrdered By: Kimi Felix on 02-17-2023 Leukocyte esterase Test strip Ql (U) 100 /ul Negative [facility] Urine pHOrdered By: Kimi Brian iff on 02-17-2023 pH (U) 8.0 [pH] 5.0 - 8.0 [facility] Urine sediment bacteria coun t by microscopy (number/high power field)Ordered By: Kimi Felix on 02-17-2023 Bacteria LM.HPF (Urine sed) [#/Area] 3 /[HPF] None Seen [facility] Urine specific gravity measu rementOrdered By: Kimi Felxi on 02-17-2023 Specific gravity (U) [Rel density] 1.015 1.002-1.03 0 [facility] Urobilinogen Auto test strip Ql (U)Ordered By: Kimi Felix on 02-17-2023 Urobilinogen Ql (U) Normal mg/dl Normal [facility] No Panel InformationOrdered By: [place] Andres on 01-10-2023 Giardia Antigen (JASON) [facility] Ova and parasitesOrdered By: [place] Andres on 01-10-2023 Ova and parasites identified LM Nom (Unsp spec) [facility] No Panel InformationOrdered By: [place] Andres on 01-09-2023 Stool Calprotectin 20 ug/g 0-120 [facility] Comment on above: Concentration Interp retation Follow-Up< 5 - 50 ug/g Normal None>50 -120 ug/g Borderline Re-evaluate in 4-6 weeks >120 ug/g Abnormal Repeat as clinically indicatedPerformed at: [facility] [address] [id number] Director: Joss Arroyo PhD, Phone: [phone] at: [facility] [employer] [id number] Director: Dedrick Baron MD, Phone: [phone] Stool Neutral Fats Normal . [facility] Comment on above: Normal (<60 Droplets /HPF) Giardia Antigen (JASON) [facility] Ova and parasitesOrdered By: [place] Andres on 01-09-2023 Ova and parasites identified LM Nom (Unsp spec) [facility] Qualitative fecal fat or lip idsOrdered By: [place] Andres on 01-09-2023 Fat Ql (Stl) Normal . [facility] Comment on above: Normal (<100 Droplet s/HPF) Stool enteric pathogen panel by probe and target amplification methodOrdered By: [place] Andres on 01-09-2023 Gastrointestinal pathogens panel SANJAY+probe (Stl) [facility] Stool gastrointestinal hemog lobin detection by immunologic methodOrdered By: [place] Andres on 01-09-2023 Lower GI hemoglobin IA Ql (Stl) [facility] Stool lactoferrin detection by immunoassayOrdered By: [place] Andres on 01-09-2023 Lactoferrin IA Ql (Stl) [facility] Absolute lymphocyte countOrd ered By: Alexandrejaylen Andres on 01-08-2023 Lymphocytes Auto (Unsp spec) [#/Vol] 1.84 10*3/uL 0.83-4.51 [facility] Basophil percentageOrdered B y: [place] Andres on 01-08-2023 Basophils/100 WBC (Bld) 0.6 % 0-1 [facility] Bilirubin [Mass/Vol] 0.10 mg/dL 0.20-1.00 [facility] Comment on above: For patients on eltr ombopag therapy, use of Dimension Sigurd TBIL is not recommended. Chloride [Moles/Vol] 103 mmol/L 98-107 [facility] Eosinophils/100 WBC (Bld) 0.7 % 0-5 [facility] Glucose [Mass/Vol] 165 mg/dL 74-106 [facility] Comment on above: Fasting Glucose resu lt greater than or equal to 126 mg/dL suggests DIABETES MELLITUS per A.D.A. criteria. Neutrophils (Bld) [#/Vol] 4.4 10*3/uL 2.0-7.7 [facility] Neutrophils/100 WBC (Bld) 64.0 % 47-70 [facility] Potassium [Moles/Vol] 3.5 mmol/L 3.5-5.1 [facility] Comment on above: Slight Hemolysis, Re sult may be falsely increased. Protein [Mass/Vol] 7.0 g/dL 6.4-8.2 [facility] Sodium [Moles/Vol] 137 mmol/L 136-145 [facility] WBC (Bld) [#/Vol] 6.9 10*3/uL 4.4-11.0 [facility] Blood erythrocytes count (nu mber/volume)Ordered By: [place] Andres on 01-08-2023 RBC (Bld) [#/Vol] 4.45 10*6/uL 4.2-5.4 [facility] Blood hemoglobin measurement (mass/volume)Ordered By: [place] Andres on 01-08-2023 Hemoglobin (Bld) [Mass/Vol] 13.4 g/dL 12.0-15.0 [facility] Blood lymphocytes/100 leukoc ytesOrdered By: [place]re Andres on 01-08-2023 Lymphocytes/100 WBC (Bld) 26.8 % 19-41 [facility] Blood monocytes/100 leukocyt esOrdered By: [place]re Andres on 01-08-2023 Monocytes/100 WBC (Bld) 7.6 % 0-10 [facility] Blood platelet mean volumeOr dered By: [place]re Andres on 01-08-2023 Platelet mean volume (Bld) [Entitic vol] 9.7 fL 6.2-12.0 [facility] Determination of erythrocyte mean corpuscular volume (MCV)Ordered By: [place]re Andres on 01-08-2023 MCV (RBC) [Entitic vol] 89.2 fL 81-99 [facility] Erythrocyte sedimentation ra teOrdered By: [place]re Andres on 01-08-2023 ESR (Bld) [Velocity] 4 mm/h 0-30 [facility] Hematocrit Auto (Bld) [Volum e fraction]Ordered By: [place]re Andres on 01-08-2023 Hematocrit (Bld) [Volume fraction] 39.7 % 37-47 [facility] Laboratory - Chemistry and C hemistry - challengeOrdered By: [place]re Andres on 01-08-2023 ALP [Catalytic activity/Vol] 49 U/L 45-117 [facility] ALT [Catalytic activity/Vol] 29 U/L 13-56 [facility] CO2 [Moles/Vol] 28.0 mmol/L 21.0-32.0 [facility] Globulin (S) [Mass/Vol] 3.4 g/dL 2.2-4.2 [facility] Urea nitrogen/Creatinine [Mass ratio] 12.9 mg/mg 10-20 [facility] - Hematology and Cell countsOrdered By: [place]re Andres on 01-08-2023 Erythrocyte distribution width (RBC) [Entitic vol] 41.6 fL 35.1-43.9 [facility] Erythrocyte distribution width (RBC) [Ratio] 12.7 % 11.6-14.6 [facility] Immature granulocytes/100 WBC (Bld) 0.300 % 0.0-0.9 [facility] Comment on above: IG% - Immature Granu locytes (promyelocytes, myelocytes and metamyelocytes) > 1% indicates that a LEFT SHIFT is Present. MCH (RBC) [Entitic mass] 30.1 pg 27.0-32.0 [facility] Nucleated RBC/100 WBC (Bld) [Ratio] 0 % 0-5 [facility] MCHC Auto (RBC) [Mass/Vol]Or dered By: [place]re Andres on 01-08-2023 MCHC (RBC) [Mass/Vol] 33.8 g/dL 32-36 [facility] No Panel InformationOrdered By: [place]re Andres on 01-08-2023 Estimated GFR (MDRD) Amer 71 mL/min >60 [facility] Comment on above: GFR Calc Estimated GFR (MDRD) Non-Af Amer 59 mL/min >60 [facility] Comment on above: Non- GFR Calc Miscellaneous Test See comment [facility] Comment on above: TEST RESULT LIMITSVi staSeq [...] care providers to discuss this resultfurther at [phone]. To refer your patient forgenetic counseling through [facility], please call the scheduling line at .LIST OF ALL GENES IN PANELAPC VHL MSH2 PMS2 BRCA1 PALB2 EPCAMATM MLH1 MSH6 TP53 BRCA2 STK11 [id number] Information Specimen Type: Whole BloodIndication for Testing: [...] copies.Copy number variations are assessed by microarray xokcxjxpseu-ecaklsce-ytnbs amplification assay (MLPA) todetect gross deletions and [...] amongothers, is complicated by the highly homologous [id number]. Deletions/duplications in PMS2CL have not beenassociated with [...] 01-08-2023 Platelets (Bld) [#/Vol] 256 10*3/uL 150-450 [facility] Serum or plasma C reactive p rotein measurement (mass/volume)Ordered By: [place]re Andres on 01-08-2023 CRP [Mass/Vol] mg/L 0.0-3.0 [facility] Comment on above: C-Reactive Protein ( CRP) provides useful information for thediagnosis, therapy and monitoring of inflammatory processesand associated diseases. For the evaluation of Relative Riskfor Cardiovascular Disease, a High Sensitivity CRP (HSCRP)should be ordered. Serum or plasma albumin stephanie urement (mass/volume)Ordered By: [place]re Andres on 01-08-2023 Albumin [Mass/Vol] 3.6 g/dL 3.2-5.0 [facility] Serum or plasma albumin/glob ulin mass ratioOrdered By: Alexandre Andres on 01-08-2023 Albumin/Globulin [Mass ratio] 1.1 {ratio} 0.9-2.4 [facility] Serum or plasma calcium stephanie urement (mass/volume)Ordered By: Alexandre Andres on 01-08-2023 Calcium [Mass/Vol] 8.8 mg/dL 8.5-10.1 [facility] Serum or plasma creatinine m easurement (mass/volume)Ordered By: Alexandre Andres on 01-08-2023 Creatinine [Mass/Vol] 1.01 mg/dL 0.55-1.02 [facility] Comment on above: The validity of the calculated GFR & GFRAA in patients over 70 years has not been determined. Clinical correlation is essential. Serum or plasma urea nitroge n measurement (mass/volume)Ordered By: Alexandre Andres on 01-08-2023 Urea nitrogen [Mass/Vol] 13 mg/dL 7-18 [facility] Thin prep Papanicolaou smear with manual screeningOrdered By: Alexandre Andres on 01-08-2023 Thin prep Papanicolaou smear with manual screening 24 U/L 15-37 [facility] Comment on above: Slight Hemolysis, Re sult may be falsely increased. Thin prep Papanicolaou smear with manual screening 6 5-15 [facility] Culture, urineOrdered By: Judith carmen Stathopoulos on 12-31-2022 Bacteria identified Cx Nom (U) Presumptive E. coli [facility] Bacteria identified Cx Nom (U) Presumptive E. coli [facility] Basophil percentageOrdered B y: Rito Brewer on 12-22-2022 Basophil percentage 25-50 SEEN /hpf 0-5 [facility] Bilirubin Test strip Ql (U)O rdered By: Rito Brewer on 12-22-2022 Bilirubin Ql (U) Negative Negative [facility] Culture, urineOrdered By: St roxy Brewer on 12-22-2022 Bacteria identified Cx Nom (U) Mixed Gram Pos & Gram Neg Org [facility] Bacteria identified Cx Nom (U) Mixed Gram Pos & Gram Neg Org [facility] Ketones Test strip Ql (U)Ord ered By: Rito Brewer on 12-22-2022 Ketones Ql (U) 5 mg/dl Negative [facility] Laboratory - Chemistry and C hemistry - challengeon 12-22-2022 Bilirubin Ql (U) Negative [facility] Glucose Ql (U) Negative [facility] Ketones Ql (U) Negative [facility] pH (U) 7.5 [pH] [facility] Specific gravity (U) [Rel density] 1.005 [facility] Urobilinogen (U) [Mass/Vol] 0.6492797 mg/dL [facility] Laboratory - Hematology and Cell countson 12-22-2022 Hemoglobin Ql (U) Negative [facility] Laboratory - Specimen inform ationon 12-22-2022 Clarity (U) Clear [facility] Color (U) Nita [facility] Laboratory - Urinalysison Nitrite Ql (U) Negative [facility] Protein Ql (U) Negative [facility] Mucus LM Ql (Urine sed)Order ed By: Rito Brewer on 12-22-2022 Mucus Ql (Urine sed) 0 SEEN /hpf [facility] Nitrite Test strip Ql (U)Ord ered By: Rito Brewer on 12-22-2022 Nitrite Ql (U) Negative Negative [facility] No Panel Informationon 12-22 Urine Leukocytes Positive [facility] Urine Non-Hemolyzed Blood Negative [facility] Protein Test strip Ql (U)Ord ered By: Rito Brewer on 12-22-2022 Protein Ql (U) Negative Negative [facility] Squamous epithelial cells de tection in urine sediment by light microscopyOrdered By: Rito Brewer on 12-22-2022 Epithelial cells.squamous LM Ql (Urine sed) 0-5 SEEN /hpf 5-10 [facility] Urine blood detectionOrdered By: Rito Brewer on 12-22-2022 RBC Ql (U) Negative Negative [facility] RBC Ql (U) 0 SEEN /hpf 0-5 [facility] Urine clarityOrdered By: Carlos Brewer on 12-22-2022 Clarity (U) Sl. Cloudy Clear [facility] Urine color determinationOrd ered By: Rito Brewer on 12-22-2022 Color (U) Yellow Yellow [facility] Urine glucose detectionOrder ed By: Rito Brewer on 12-22-2022 Glucose Ql (U) Normal mg/dl Normal [facility] Urine leukocyte esterase det ection by dipstickOrdered By: Rito Brewer on 12-22-2022 Leukocyte esterase Test strip Ql (U) 500 /ul Negative [facility] Urine pHOrdered By: Rito lee on 12-22-2022 pH (U) 7.0 [pH] 5.0 - 8.0 [facility] Urine sediment bacteria coun t by microscopy (number/high power field)Ordered By: Rito Brewer on 12-22-2022 Bacteria LM.HPF (Urine sed) [#/Area] 0 /[HPF] None Seen [facility] Urine specific gravity measu rementOrdered By: Rito Brewer on 12-22-2022 Specific gravity (U) [Rel density] 1.010 1.002-1.03 0 [facility] Urobilinogen Auto test strip Ql (U)Ordered By: Rito Brewer on 12-22-2022 Urobilinogen Ql (U) Normal mg/dl Normal [facility] No Panel Informationon 12-14 POC SARS CoV-2 Antigen Positive [facility] Laboratory - Chemistry and C hemistry - challengeon 11-29-2022 Ketones Ql (U) Negative [facility] pH (U) 6.0 [pH] [facility] Specific gravity (U) [Rel density] 1.005 [facility] Laboratory - Hematology and Cell countson 11-29-2022 Hemoglobin Ql (U) Negative [facility] Laboratory - Specimen inform ationon 11-29-2022 Clarity (U) Clear [facility] Color (U) Yellow [facility] Laboratory - Urinalysison Nitrite Ql (U) Negative [facility] Protein Ql (U) Negative [facility] No Panel Informationon 11-29 Urine Leukocytes Positive [facility] Basophil percentageOrdered B y: Preston Mukherjee on 10-21-2022 Bilirubin [Mass/Vol] 0.30 mg/dL 0.20-1.00 [facility] Comment on above: For patients on eltr ombopag therapy, use of Dimension Sigurd TBIL is not recommended. Chloride [Moles/Vol] 105 mmol/L 98-107 [facility] Cholesterol [Mass/Vol] 209 mg/dL <200 [facility] Comment on above: <200 mg/dL Desirable 200-240 mg/dL Borderline >240 mg/dL High Risk Glucose [Mass/Vol] 96 mg/dL 74-106 [facility] Potassium [Moles/Vol] 4.1 mmol/L 3.5-5.1 [facility] Protein [Mass/Vol] 7.7 g/dL 6.4-8.2 [facility] Sodium [Moles/Vol] 139 mmol/L 136-145 [facility] Triglyceride [Mass/Vol] 334 mg/dL <199 [facility] Comment on above: The drugs N-Acetylcy steine and Metamizole may falsely depress this assay.Serum Triglycerides Reference Interval Normal <150 mg/dL Borderline high 150 - 199 mg/dL High 200 - 499 mg/dL Very High > or = 500 mg/dL Laboratory - Chemistry and C hemistry - challengeOrdered By: Preston Mukherjee on 10-21-2022 ALP [Catalytic activity/Vol] 54 U/L 45-117 [facility] ALT [Catalytic activity/Vol] 36 U/L 13-56 [facility] CO2 [Moles/Vol] 29.0 mmol/L 21.0-32.0 [facility] Free T4 [Mass/Vol] 1.48 ng/dL 0.76-1.46 [facility] Globulin (S) [Mass/Vol] 3.8 g/dL 2.2-4.2 [facility] Urea nitrogen/Creatinine [Mass ratio] 21.8 mg/mg 10-20 [facility] No Panel InformationOrdered By: Preston Mukherjee on 10-21-2022 Estimated GFR (MDRD) Amer 96 mL/min >60 [facility] Comment on above: GFR Calc Estimated GFR (MDRD) Non-Af Amer 79 mL/min >60 [facility] Comment on above: Non- GFR Calc Thyroid Stimulating Hormone (TSH) 0.84 uIU/mL 0.358-3.74 [facility] Vitamin D 25-Hydroxy 49.8 ng/mL [facility] Comment on above: Vitamin D 25(OH) Sta tus Range Deficiency <20 ng/mL (50nmol/L) Insufficiency 20 - 30 ng/mL (50 - 75 nmol/L) Sufficiency 30 - 100 ng/mL (75 - 250 nmol/L) Toxicity >100 ng/mL (>250 nmol/L) Serum or plasma albumin stephanie urement (mass/volume)Ordered By: Preston Mukherjee on 10-21-2022 Albumin [Mass/Vol] 3.9 g/dL 3.2-5.0 [facility] Serum or plasma albumin/glob ulin mass ratioOrdered By: Preston Mukherjee on 10-21-2022 Albumin/Globulin [Mass ratio] 1.0 {ratio} 0.9-2.4 [facility] Serum or plasma calcium stephanie urement (mass/volume)Ordered By: Preston Mukherjee on 10-21-2022 Calcium [Mass/Vol] 9.4 mg/dL 8.5-10.1 [facility] Serum or plasma cholesterol in HDL measurement (mass/volume)Ordered By: Preston Mukherjee on 10-21-2022 Cholesterol in HDL [Mass/Vol] 73 mg/dL >40 [facility] Comment on above: The drugs N-Acetylcy steine and Metamizole may falsely depress this assay. Reference Range HDL <40 mg/dL Low HDL Cholesterol HDL >or= 60 mg/dL High HDL Cholesterol Serum or plasma cholesterol in VLDL measurement (mass/volume)Ordered By: Preston Mukherjee on 10-21-2022 Cholesterol in VLDL [Mass/Vol] 67 mg/dL 5-40 [facility] Serum or plasma creatinine m easurement (mass/volume)Ordered By: Preston Mukherjee on 10-21-2022 Creatinine [Mass/Vol] 0.78 mg/dL 0.55-1.02 [facility] Comment on above: The validity of the calculated GFR & GFRAA in patients over 70 years has not been determined. Clinical correlation is essential. Serum or plasma low density lipoprotein (LDL) cholesterol measurement (mass/volume)Ordered By: Preston Mukherjee on 10-21-2022 Cholesterol in LDL [Mass/Vol] 69 mg/dL 0-130 [facility] Serum or plasma urea nitroge n measurement (mass/volume)Ordered By: Preston Mukherjee on 10-21-2022 Urea nitrogen [Mass/Vol] 17 mg/dL 7-18 [facility] Thin prep Papanicolaou smear with manual screeningOrdered By: Preston Mukherjee on 10-21-2022 Thin prep Papanicolaou smear with manual screening 22 U/L 15-37 [facility] Thin prep Papanicolaou smear with manual screening 5 5-15 [facility] No Panel Informationon 11-19 CA 19-9 Antigen 7 U/mL 0-35 [facility] Work Phone: Comment on above: [employer] El ectrochemiluminescence Immunoassay(ECLIA)Values obtained with different assay methods or kits cannotbe used interchangeably. Results cannot be interpreted asabsolute evidence of the presence or absence of malignantdisease.Performed at: [employer] [id number] Director: Joss Arroyo PhD, Phone: [phone] CA 19-9 Antigen Serial Monitoring Not Reportable [facility] Work Phone: Basophil percentageon 2021 Bilirubin [Mass/Vol] 0.20 mg/dL 0.20-1.00 [facility] Work Phone: Comment on above: For patients on eltr ombopag therapy, use of Dimension Sigurd TBIL is not recommended. Chloride [Moles/Vol] 106 mmol/L 98-107 [facility] Work Phone: Cholesterol [Mass/Vol] 190 mg/dL <200 [facility] Work Phone: Comment on above: <200 mg/dL Desirable 200-240 mg/dL Borderline >240 mg/dL High Risk Glucose [Mass/Vol] 98 mg/dL 74-106 [facility] Work Phone: Potassium [Moles/Vol] 3.8 mmol/L 3.5-5.1 [facility] Work Phone: Protein [Mass/Vol] 7.5 g/dL 6.4-8.2 [facility] Work Phone: Sodium [Moles/Vol] 140 mmol/L 136-145 [facility] Work Phone: Triglyceride [Mass/Vol] 165 mg/dL <199 [facility] Work Phone: Comment on above: The drugs N-Acetylcy steine and Metamizole may falsely depress this assay.Serum Triglycerides Reference Interval Normal <150 mg/dL Borderline high 150 - 199 mg/dL High 200 - 499 mg/dL Very High > or = 500 mg/dL Laboratory - Chemistry and C hemistry - challengeon 10-21-2021 ALP [Catalytic activity/Vol] 46 U/L 45-117 [facility] Work Phone: ALT [Catalytic activity/Vol] 26 U/L 13-56 [facility] Work Phone: CO2 [Moles/Vol] 29.0 mmol/L 21.0-32.0 [facility] Work Phone: Free T4 [Mass/Vol] 1.33 ng/dL 0.76-1.46 [facility] Work Phone: Globulin (S) [Mass/Vol] 3.5 g/dL 2.2-4.2 [facility] Work Phone: Urea nitrogen/Creatinine [Mass ratio] 17.2 mg/mg 10-20 [facility] Work Phone: No Panel Informationon 10-21 Estimated GFR (MDRD) Amer 99 mL/min >60 [facility] Work Phone: Comment on above: GFR Calc Estimated GFR (MDRD) Non-Af Amer 82 mL/min >60 [facility] Work Phone: Comment on above: Non- GFR Calc Thyroid Stimulating Hormone (TSH) 0.83 uIU/mL 0.358-3.74 [facility] Work Phone: Vitamin D 25-Hydroxy 44.2 ng/mL [facility] Work Phone: Comment on above: Vitamin D 25(OH) Sta tus Range Deficiency <20 ng/mL (50nmol/L) Insufficiency 20 - 30 ng/mL (50 - 75 nmol/L) Sufficiency 30 - 100 ng/mL (75 - 250 nmol/L) Toxicity >100 ng/mL (>250 nmol/L) Serum or plasma albumin stephanie urement (mass/volume)on 10-21-2021 Albumin [Mass/Vol] 4.0 g/dL 3.2-5.0 [facility] Work Phone: Serum or plasma albumin/glob ulin mass ratioon 10-21-2021 Albumin/Globulin [Mass ratio] 1.1 {ratio} 0.9-2.4 [facility] Work Phone: Serum or plasma calcium stephanie urement (mass/volume)on 10-21-2021 Calcium [Mass/Vol] 9.3 mg/dL 8.5-10.1 [facility] Work Phone: Serum or plasma cholesterol in HDL measurement (mass/volume)on 10-21-2021 Cholesterol in HDL [Mass/Vol] 73 mg/dL >40 [facility] Work Phone: Comment on above: The drugs N-Acetylcy steine and Metamizole may falsely depress this assay. Reference Range HDL <40 mg/dL Low HDL Cholesterol HDL >or= 60 mg/dL High HDL Cholesterol Serum or plasma cholesterol in VLDL measurement (mass/volume)on 10-21-2021 Cholesterol in VLDL [Mass/Vol] 33 mg/dL 5-40 [facility] Work Phone: Serum or plasma creatinine m easurement (mass/volume)on 10-21-2021 Creatinine [Mass/Vol] 0.76 mg/dL 0.55-1.02 [facility] Work Phone: Comment on above: The validity of the calculated GFR & GFRAA in patients over 70 years has not been determined. Clinical correlation is essential. Serum or plasma low density lipoprotein (LDL) cholesterol measurement (mass/volume)on 10-21-2021 Cholesterol in LDL [Mass/Vol] 84 mg/dL 0-130 [facility] Work Phone: Serum or plasma urea nitroge n measurement (mass/volume)on 10-21-2021 Urea nitrogen [Mass/Vol] 13 mg/dL 7-18 [facility] Work Phone: Thin prep Papanicolaou smear with manual screeningon 10-21-2021 Thin prep Papanicolaou smear with manual screening 23 U/L 15-37 [facility] Work Phone: Thin prep Papanicolaou smear with manual screening 5 5-15 [facility] Work Phone: No Panel Informationon 06-26 CA 19-9 Antigen 7 U/mL 0-35 [facility] Work Phone: Comment on above: [employer] El ectrochemiluminescence Immunoassay(ECLIA)Values obtained with different assay methods or kits cannotbe used interchangeably. Results cannot be interpreted asabsolute evidence of the presence or absence of malignantdisease.Performed at: [address] [id number] Director: Joss Arroyo PhD, Phone: [phone] Initial Visit (Gastroenterol ogy)on 09-27-2020 Initial Visit (Gastroenterology) Diagnoses/Problems Assessed Irritable bowel syndrome with diarrhea (564.1) (K58.0) Orders Irritable bowel syndrome with diarrhea Start: Dicyclomine HCl - 20 MG Oral Tablet; 1 TAB 30 MINUTES BEFORE MEALS NEEDED FOR BOWEL SPASM Rx By: Marii Barreto; Dispense: 0 Days ; #:90 Tablet; Refill: 6;For: Irritable bowel syndrome with diarrhea; MAX = N; Sent To: [id number] SocHx: Former cigarette smoker Tobacco Use Screening; [...] a telehealth visit. Diarrhea History of Present [id number] female seen today via virtual visit as [...] Oral Ta (more content not included)... Normal [employer] CNOVon 09-19-2017 CNOV Office Visit ([facility]) -------RANDEE MORTENSEN ([id number]) 1960 [facility] Time Provider Department09/19/17 9:45 AM [facility] During your visit today, we [...] Class: Suppress Questions Route: BOTH EYESEncounter Number: [id number] Status:Closed by MOHAN ASHRAF PA-C on 09/19/17 [facility] PROGRESSon 09-19-2017 PROGRESS HNO ID: [id number] thor: Mohan Ashraf (Mirza)Service: (none)Author Type: Physician [...] (0.5 %) EYE OINTMENTMohan Ashraf PA-C Normal [facility] Office Visiton 02-03-2017 Documentation of current medications (procedure) Done Invalid Interpretation Code [facility] Work Phone: Protein mass conc Done Invalid Interpretation Code [facility] Work Phone: Tobacco smoking status NHIS Never smoker Invalid Interpretation Code [facility] Work Phone: Tobacco use CPHS Never smoker Invalid Interpretation Code [facility] Work Phone: External Other: Preferred Me thod of Contacton 05-10-2015 methcontact phone Invalid Interpretation Code [facility] Work Phone: Patient's prefered method of contact phone Invalid Interpretation Code [facility] Work Phone: Office Visiton 05-10-2015 cardiac risk group B Invalid Interpretation Code [facility] Work Phone: General cardiovascular disease 10Y risk [#] [place].D'Agostino 2 % Invalid Interpretation Code [facility] Work Phone: Clinical Lists Update: 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 manager 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 12-27-2014 Anion gap 8 mmol/L Invalid Interpretation Code [facility] Work Phone: Anion gap 4 molar conc 8 Invalid Interpretation Code [facility] Work Phone: basophils as percent of blood leukocytes, manual count 0.6 % Invalid Interpretation Code [facility] Work Phone: BUN/Creatinine Ratio 21.4 mg/mg High [facility] Work Phone: Calcium 8.9 mg/dL Invalid Interpretation Code [facility] Work Phone: Chloride 107 mmol/L Invalid Interpretation Code [facility] Work Phone: CO2 26.0 mmol/L Invalid Interpretation Code [facility] Work Phone: [phone] CO2 ppres (BldV) 26.0 mmol/L Invalid Interpretation Code [facility] Work Phone: Creatinine 0.70 mg/dL Invalid Interpretation Code [facility] Work Phone: [phone] eGFR (non-black) 112 mL/min/{1.73_m2} Invalid Interpretation Code [facility] Work Phone: eGFR (non-black) 92 mL/min/{1.73_m2} Invalid Interpretation Code [facility] Work Phone: [phone] eosinophils as percent of blood leukocytes, manual count 1.3 % Invalid Interpretation Code [facility] Work Phone: Erythrocytes (RBC) 4.38 10*6/uL Invalid Interpretation Code [facility] Work Phone: [phone] Glomerular Filtration Rate 112 mL/min/1.73m2 Invalid Interpretation Code [facility] Work Phone: Glucose 129 mg/dL High [facility] Work Phone: [phone] Glucose mass conc 129 mg/dL High [facility] Work Phone: Hematocrit (HCT) 37.9 % Invalid Interpretation Code [facility] Work Phone: [phone] Hemoglobin (HGB) 13.4 g/dL Invalid Interpretation Code [facility] Work Phone: Lymphocytes/100 leukocytes 35.2 % Invalid Interpretation Code [facility] Work Phone: MCH 30.6 pg Invalid Interpretation Code [facility] Work Phone: [phone] MCHC 35.4 g/dL Invalid Interpretation Code [facility] Work Phone: MCV 86.5 fL Invalid Interpretation Code [facility] Work Phone: Monocytes/100 leukocytes 8.0 % Invalid Interpretation Code [facility] Work Phone: [phone] neutrophils, band form as percent of blood leukocytes, manual count 54.9 % Invalid Interpretation Code [facility] Work Phone: [phone] Platelets 208 10*3/mm3 Invalid Interpretation Code [facility] Work Phone: [phone] PMV by Amy 9.4 fL Invalid Interpretation Code [facility] Work Phone: [phone] Potassium 3.8 mmol/L Invalid Interpretation Code [facility] Work Phone: [phone] RDW-CA 12.9 % Invalid Interpretation Code [facility] Work Phone: [phone] Sodium 141 mmol/L Invalid Interpretation Code [facility] Work Phone: [phone] Urea nitrogen 15 mg/dL Invalid Interpretation Code [facility] Work Phone: [phone] WBC (Leukocytes) 4.7 10*3/uL Invalid Interpretation Code [facility] Work Phone: Clinical Lists Update: Prelo office manager 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 01-21-2013 Alanine aminotransferase (ALT) 28 U/L Invalid Interpretation Code [facility] Work Phone: [phone] Albumin 4.0 g/dL Invalid Interpretation Code [facility] Work Phone: Alkaline phosphatase (ALP) 76 U/L Invalid Interpretation Code [facility] Work Phone: ALP enzyme act/vol (Bld) 76 U/L Invalid Interpretation Code [facility] Work Phone: Aspartate aminotransferase (AST) 18 U/L Invalid Interpretation Code [facility] Work Phone: Bilirubin (direct) 0.09 mg/dL Invalid Interpretation Code [facility] Work Phone: [phone] Bilirubin (total) 0.40 mg/dL Invalid Interpretation Code [facility] Work Phone: [phone] Cholesterol 179 mg/dL Invalid Interpretation Code [facility] Work Phone: [phone] HDL Cholesterol 71 mg/dL Invalid Interpretation Code [facility] Work Phone: [phone] LDL Cholesterol 90 mg/dL Invalid Interpretation Code [facility] Work Phone: [phone] Protein 7.4 g/dL Invalid Interpretation Code [facility] Work Phone: [phone] Triglyceride 88 mg/dL Invalid Interpretation Code [facility] Work Phone: [phone] very low density lipoproteins 18 mg/dL Invalid Interpretation Code [facility] Work Phone: [phone] Clinical Lists Update: Prelo office manager 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 05-10-2012 Thyroid stimulating hormone (TSH) 1.85 u[iU]/mL Invalid Interpretation Code [facility] Work Phone: triiodothyronine (t3) uptake, serum 32 % Invalid Interpretation Code [facility] Work Phone: [phone] Lab Report: [facility] 09-17-19 12 GE use only - for [employer] import when terms are not otherwise specified 7.5 g/dL Normal 6.4-8.2 [facility] Work Phone: [phone] TPROT 7.5 g/dL Normal 6.4-8.2 [facility] Work Phone: [phone] Replaced Document: Feng MARIE Observationson 09-08-2011 EKG QRS axis 70 deg Invalid Interpretation Code [facility] Work Phone: electrocardiogram interpretation Sinus Rhythm WITHIN NORMAL LIMITS Invalid Interpretation Code [facility] Work Phone: Interpretation Sinus Rhythm WITHIN NORMAL LIMITS Invalid Interpretation Code [facility] Work Phone: P [place] 50 deg Invalid Interpretation Code [facility] Work Phone: P wave axis, electrocardiogram 50 deg Invalid Interpretation Code [facility] Work Phone: NV Interval 180 ms Invalid Interpretation Code [facility] Work Phone: [phone] NV interval, electrocardiogram 180 ms Invalid Interpretation Code [facility] Work Phone: [phone] Pulse (Heart Rate) 62 /min Invalid Interpretation Code [facility] Work Phone: [phone] Pulse (Heart Rate) 414 ms Invalid Interpretation Code [facility] Work Phone: [phone] QRS axis, electrocardiogram 70 deg Invalid Interpretation Code [facility] Work Phone: [phone] QRS Duration 82 ms Invalid Interpretation Code [facility] Work Phone: [phone] QRS duration, electrocardiogram 82 ms Invalid Interpretation Code [facility] Work Phone: [phone] QT Interval new path ms Invalid Interpretation Code [facility] [facility] Work Phone: [phone] QT interval, electrocardiogram new path ms Invalid Interpretation Code [facility] Work Phone: [phone] T [place] 53 deg Invalid Interpretation Code [facility] Work Phone: [phone] T wave axis, electrocardiogram 53 deg Invalid Interpretation Code [facility] Work Phone: [phone] Office Visit: Rechecked UAon 04-17-2010 Albumin Ql (U) Negative Invalid Interpretation Code [facility] Work Phone: [phone] Bilirubin Ql (U) Negative Invalid Interpretation Code [facility] Work Phone: [phone] blood in urine (hemoglobin) by dipstick Negative Invalid Interpretation Code [facility] Work Phone: [phone] Glucose Test strip mass conc (U) Negative Invalid Interpretation Code [facility] Work Phone: [phone] Ketones mass conc (U) Negative Invalid Interpretation Code [facility] Work Phone: [phone] specific gravity, urine 1.005 Invalid Interpretation Code [facility] Work Phone: [phone] Urine, appearance clear Invalid Interpretation Code [facility] Work Phone: [phone] Urine, bilirubin presence Negative Invalid Interpretation Code [facility] Work Phone: [phone] Urine, color lt. yellow Invalid Interpretation Code [facility] Work Phone: [phone] Urine, glucose presence Negative Invalid Interpretation Code [facility] Work Phone: [phone] Urine, ketones presence Negative Invalid Interpretation Code [facility] Work Phone: [phone] Urine, leukocyte esterase presence Negative Invalid Interpretation Code [facility] Work Phone: [phone] Urine, nitrite presence Negative Invalid Interpretation Code [facility] Work Phone: [phone] Urine, pH 5.0 [pH] Invalid Interpretation Code [facility] Work Phone: [phone] Urine, protein Negative Invalid Interpretation Code [facility] Work Phone: [phone] Urine, urobilinogen presence Negative Invalid Interpretation Code [facility] Work Phone: Vital Signs Date Time Vital Sign Value Performing Clinician Zaira liny 01-17-2025 08:07-0400 Body height 167.[address] Kimi Felix MD Work Phone: [facility] 01-17-2025 08:07-0400 Body mass index (BMI) [Ratio] 22.2 kg/m2 Dr. Kimi Felix MD Work Phone: [facility] 01-17-2025 08:07-0400 Body weight 62.[address] Kimi Felix MD Work Phone: [facility] 01-17-2025 08:07-0400 Diastolic blood pressure 95 mm[Hg] Dr. Kimi Felix MD Work Phone: [facility] 01-17-2025 08:07-0400 Heart rate 76 /min Dr. Kimi Felix MD Work Phone: [facility] 01-17-2025 08:07-0400 Systolic blood pressure 126 mm[Hg] Dr. Kimi Felix MD Work Phone: [facility] 12-26-2024 13:50-0400 Body height 167.[address] Kimi Felix MD Work Phone: [facility] 12-26-2024 13:50-0400 Body weight 62.[address] Kimi Felix MD Work Phone: [facility] 12-19-2024 08:49-0400 Body height 167.[address] Kimi Felix MD Work Phone: [facility] 12-19-2024 08:49-0400 Body mass index (BMI) [Ratio] 23.8 kg/m2 Dr. Kimi Felix MD Work Phone: [facility] 12-19-2024 08:49-0400 Body weight 66.[address] Kimi Felix MD Work Phone: [facility] 12-19-2024 08:49-0400 Diastolic blood pressure 91 mm[Hg] Dr. Kimi Felix MD Work Phone: [facility] 12-19-2024 08:49-0400 Heart rate 82 /min Dr. Kimi Felix MD Work Phone: [facility] 12-19-2024 08:49-0400 Systolic blood pressure 133 mm[Hg] Dr. Kimi Felix MD Work Phone: [facility] 11-29-2024 13:06-0400 Body height 167.[address] Kimi Felix MD Work Phone: 2(681)540-288877 [place] [address] 11-29-2024 13:06-0400 Body mass index (BMI) [Ratio] 23.8 kg/m2 Dr. Kimi Felix MD Work Phone: 0(332)268-116163 [address] 11-29-2024 13:06-0400 Body weight 66.[address] Kimi Felix MD Work Phone: 3(231)574-197577 [place] [address] 11-29-2024 13:06-0400 Diastolic blood pressure 80 mm[Hg] Dr. Kimi Felix MD Work Phone: 9(815)705-026477 [place] [address] 11-29-2024 13:06-0400 Systolic blood pressure 132 mm[Hg] Dr. Kimi Felix MD Work Phone: [facility] 11-29-2024 09:53-0400 Diastolic blood pressure 61 mm[Hg] Dr. Kimi Felix MD Work Phone: [facility] 11-29-2024 09:53-0400 Heart rate 70 /min Dr. Kimi Felix MD Work Phone: [facility] 11-29-2024 09:53-0400 Systolic blood pressure 115 mm[Hg] Dr. Kimi Felix MD Work Phone: [facility] 11-29-2024 09:21-0400 Body mass index (BMI) [Ratio] 23.8 kg/m2 Dr. Kimi Felix MD Work Phone: [facility] 11-29-2024 09:21-0400 Body temperature 96 [degF] Dr. Kimi Felix MD Work Phone: 2(351)072-722277 [place] [address] 11-29-2024 09:21-0400 Body weight 67.[address] Kimi Felix MD Work Phone: [facility] 11-29-2024 09:21-0400 Respiratory rate 16 /min Dr. Kimi Felix MD Work Phone: 7(888)107-719963 [address] 11-29-2024 09:21-0400 SaO2% (BldA) [Mass fraction] 99 % Dr. Kimi Felix MD Work Phone: 9(352)669-212214 [place] [address] 11-18-2024 07:50-0400 Body height 167.[address] Kimi Felix MD Work Phone: 8(956)986-737814 [place] [address] 11-18-2024 07:50-0400 Body mass index (BMI) [Ratio] 24.3 kg/m2 Dr. Kimi Felix MD Work Phone: 0(790)094-590077 [place] [address] 11-18-2024 07:50-0400 Body weight 68.[address] Kimi Felix MD Work Phone: 0(593)766-367814 [place] [address] 11-18-2024 07:50-0400 Diastolic blood pressure 74 mm[Hg] Dr. Kimi Felix MD Work Phone: 7(241)484-065414 [place] [address] 11-18-2024 07:50-0400 Heart rate 62 /min Dr. Kimi Felix MD Work Phone: 0(885)660-914714 [place] [address] 11-18-2024 07:50-0400 SaO2% (BldA) [Mass fraction] 97 % Dr. Kimi Felix MD Work Phone: 6(187)012-917114 [place] [address] 11-18-2024 07:50-0400 Systolic blood pressure 119 mm[Hg] Dr. Kimi Felix MD Work Phone: 4(003)866-382414 [place] [address] 06-27-2023 15:21-0500 Body height 167.[address] Kimi Felix Work Phone: 3(247)156-309114 [place] [address] 06-27-2023 15:21-0500 Body mass index (BMI) [Ratio] 24.1 kg/m2 Dr. Kimi Felix Work Phone: [facility] 06-27-2023 15:21-0500 Body temperature 98.5 [degF] Dr. Kimi Felix Work Phone: [facility] 06-27-2023 15:21-0500 Body weight 67.[address] Kimi Felix Work Phone: 3(699)040-804177 [place] [address] 06-27-2023 15:21-0500 Diastolic blood pressure 85 mm[Hg] Dr. Kimi Felix Work Phone: 4(065)232-119877 [place] [address] 06-27-2023 15:21-0500 Heart rate 110 /min Dr. Kimi Felix Work Phone: 6(403)689-668477 [place] [address] 06-27-2023 15:21-0500 Respiratory rate 16 /min Dr. Kimi Felix Work Phone: 0(264)183-937877 [place] [address] 06-27-2023 15:21-0500 SaO2% (BldA) [Mass fraction] 98 % Dr. Kimi Felix Work Phone: 0(507)161-729677 [place] [address] 06-27-2023 15:21-0500 Systolic blood pressure 158 mm[Hg] Dr. Kimi Felix Work Phone: 6(505)019-035277 [place] [address] 06-08-2023 09:11-0500 Body height 170.[address] Kimi Felix Work Phone: [facility] 06-08-2023 09:04-0500 Body mass index (BMI) [Ratio] 24.5 kg/m2 Dr. Kimi Felix Work Phone: [facility] 06-08-2023 09:04-0500 Body weight 70.[address] Kimi Felix Work Phone: [facility] 06-08-2023 09:04-0500 Diastolic blood pressure 66 mm[Hg] Dr. Kimi Felix Work Phone: 2(121)213-706977 [place] [address] 06-08-2023 09:04-0500 Systolic blood pressure 110 mm[Hg] Dr. Kimi Felix Work Phone: [facility] 05-13-2023 13:35-0500 Diastolic blood pressure 68 mm[Hg] Dr. Kimi Felix Work Phone: [facility] 05-13-2023 13:35-0500 Heart rate 77 /min Dr. Kimi Felix Work Phone: [facility] 05-13-2023 13:35-0500 Respiratory rate 16 /min Dr. Kimi Felix Work Phone: [facility] 05-13-2023 13:35-0500 SaO2% (BldA) [Mass fraction] 94 % Dr. Kimi Felix Work Phone: [facility] 05-13-2023 13:35-0500 Systolic blood pressure 138 mm[Hg] Dr. Kimi Felix Work Phone: [facility] 05-13-2023 11:54-0500 Body height 170.[address] Kimi Felix Work Phone: [facility] 05-13-2023 11:54-0500 Body mass index (BMI) [Ratio] 23.9 kg/m2 Dr. Kimi Felix Work Phone: [facility] 05-13-2023 11:54-0500 Body weight 69.[address] Kimi Felix Work Phone: [facility] 12-22-2022 13:51-0400 Body temperature 98.5 [degF] Dr. Kimi Felix Work Phone: [facility] 12-22-2022 13:51-0400 Diastolic blood pressure 74 mm[Hg] Dr. Kimi Felix Work Phone: [facility] 12-22-2022 13:51-0400 Heart rate 80 /min Dr. Kimi Felix Work Phone: [facility] 12-22-2022 13:51-0400 Respiratory rate 14 /min Dr. Kimi Felix Work Phone: [facility] 12-22-2022 13:51-0400 SaO2% (BldA) [Mass fraction] 98 % Dr. Kimi Felix Work Phone: [facility] 12-22-2022 13:51-0400 Systolic blood pressure 126 mm[Hg] Dr. Kimi Felix Work Phone: 8(797)509-593877 [place] [address] 12-14-2022 10:52-0400 Body temperature 98.1 [degF] Dr. Kimi Felix Work Phone: 8(167)914-295263 [address] 12-14-2022 10:52-0400 Diastolic blood pressure 89 mm[Hg] Dr. Kimi Felix Work Phone: 7(968)950-380763 [address] 12-14-2022 10:52-0400 Heart rate 96 /min Dr. Kimi Felix Work Phone: 4(952)874-891577 [place] [address] 12-14-2022 10:52-0400 Respiratory rate 17 /min Dr. Kimi Felix Work Phone: [facility] 12-14-2022 10:52-0400 SaO2% (BldA) [Mass fraction] 97 % Dr. Kimi Felix Work Phone: 5(758)852-149977 [place] [address] 12-14-2022 10:52-0400 Systolic blood pressure 138 mm[Hg] Dr. Kimi Felix Work Phone: [facility] 11-29-2022 08:15-0400 Body height 170.[address] Kimi Felix Work Phone: [facility] 11-29-2022 08:15-0400 Body mass index (BMI) [Ratio] 23.8 kg/m2 Dr. Kimi Felix Work Phone: [facility] 11-29-2022 08:15-0400 Body weight 68.[address] Kimi Felix Work Phone: [facility] 11-29-2022 08:15-0400 Heart rate 72 /min Dr. Kimi Felix Work Phone: [facility] 11-29-2022 08:15-0400 Respiratory rate 16 /min Dr. Kimi Felix Work Phone: [facility] 11-21-2022 11:15-0400 Diastolic blood pressure 65 mm[Hg] Dr. Kimi Felix Work Phone: 5(006)338-842877 [place] [address] 11-21-2022 11:15-0400 Heart rate 68 /min Dr. Kimi Felix Work Phone: 3(246)302-436863 [address] 11-21-2022 11:15-0400 Systolic blood pressure 124 mm[Hg] Dr. Kimi Felix Work Phone: 8(006)983-156314 [place] [address] 11-21-2022 10:34-0400 Body height 170.[address] Kimi Felix Work Phone: 8(986)299-777514 [place] [address] 11-21-2022 10:34-0400 Body mass index (BMI) [Ratio] 23.5 kg/m2 Dr. Kimi Felix Work Phone: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 Date/ Time Living Will Yes June 27, 024 4:24pm Do you have a Healthcare Power 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 Yes June 27, 2023 4:24pm Chief Complaint [...] RT TRAPWZIUS STRAIN- LUMBAR. 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 Other spondylosis with radiculopathy, cervical reg [...] Constipation, unspecified POSSIBLE FISTULA; CONSTIPATION SCREENING Annual (MIXER HELPER) Reason for Visit Diarrhea Family history of pancreatic cancer Irritable bowel syndrome with constipation Atrophic vaginitis Encounter for routine gynecological examination Chief Complaint Urinary tract infect ion, site not specified BOWEL Constipation, unspecified POSSIBLE FISTULA; CONSTIPATION SCREENING 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 Kimi Felix MD Primary Care Prov ider, Attending Provider, Referring Provider Active Team Status: Inactive Member Role Status Dates Dr. Kimi Felix MD Primary Care Provider Active Jaimee Dorsey OCCUPATIONAL HEALTH AND SAFETY MANAGER, OCCUPATIONAL HEALTH AND SAFETY MANAGER-C Attending Provider, Referring Provider Active Team Status: [...] Primary Care Provider Active Margoth Romero , OCCUPATIONAL HEALTH AND SAFETY MANAGER-C Attending Provider, Referr ing Provider Active Team Status: Inactive Member Role Status Dates Dr. Kimi Felix MD Primary Care Provider, Referrin g Provider Active Dr. Alexandre Anders DO Attending Provider Active Team Status: Active [...] Status: Inactive Member Role/Relationship Status Dates Dr. iKmi Felix MD Primary care physician Active Start: [...] BE BASED ON THE PRIMARY CLINICAL RECORDS. [facility] [employer] provides no warranty or guarantee of the accuracy or completeness of information in this document.
== END | disposition home or self-care (01) ==
LOC: MFPLAB 08:55
PROVIDERS: PCP Family Medicine; Visit Provider Family Medicine
DX: E11.9 Type 2 diabetes mellitus without complications (principal)
CPT/HCPCS: 36415; 83036

== ENCOUNTER 2025-03-13 08:49 | Outpatient (RCR) | payer MEDICARE, SELFPAY | END 2025-04-09 23:59 | LOC: NS 08:49 | PROVIDERS: PCP Family Medicine; Referring Provider Family Medicine; Visit Provider Family Medicine | DX: Z71.3 Dietary counseling and surveillance (principal); E11.9 Type 2 diabetes mellitus without complications | CPT/HCPCS: 97803 ==

== ENCOUNTER → 2025-04-13 | Outpatient (CLI) | payer MEDICARE, SELFPAY | END | disposition home or self-care (01) | LOC: MFPLAB 11:25 | PROVIDERS: PCP Family Medicine; Visit Provider Family Medicine | DX: E03.9 Hypothyroidism, unspecified (principal) | CPT/HCPCS: 36415; 84443 ==

== ENCOUNTER → 2025-04-14 | Outpatient (CLI) | payer MEDICARE, SELFPAY ==
--- OUTSIDE RECORDS SUMMARY | 2025-04-14 09:15 | XMS RPT_ITS | CCD ---
Author Organization [facility] Care Team Providers Care Tow Feeder Name Role Phone Zachariah De Jesus Unavailable Fabienne Feliz LPN Unavailable Unavailab Dr. Kimi Vivas Primary Care Provider Dr. Kimi Felix Referring Provider [phone] Alexandre Andres Attending Provider 1([facility])[phone] Dr. Preston Mukherjee Attending Provider 1([facility])[phone] Dr. Preston Mukherjee Attending Provider Dr. Kimi Felix Primary Care Provider Dr. Kimi Felix Referring Provider [phone] RAMAN Dorsey NP Attending Provider [phone] Dr. Kimi Felix Primary Care Provider Dr. Kimi Felix Referring Provider [phone] RAMAN Dorsey NP Attending Provider [phone] Dr. Colten Mayes Referring Provider Dr. Colten Mayes Other Provider Dr. Kimberly Benjamin Attending Provider Dr. Kimi Felix Primary Care Provider Dr. Kimberly Benjamin Attending Provider [phone] Kimi Felix Referring Provider Dr. Preston Mukherjee Attending Provider 1([facility])[phone] MIRZA Meyer Attending Provider MIRZA [...] Provider Dr. Alexandre Andres Attending Provider Sunita AUTO BODY MAN, AUTO BODY MAN-C Jaimee Attending Provider Dr. Kimi Felix MD Primary Care Provider Zeenat Medina MD Attending Provider Zeenat Medina MD Referring Provider Dr. Kimi Felix MD Referring Provider King JEFFERY, Dr. Johnston Attending Provider Zeenat Medina MD Primary Care Provider Dr. Preston Mukherjee MD Referring Provider Zeenat Medina MD Primary Care Provider Dr. Melody Gaming MD Attending Provider Opal GIL, Dr. Gilliland Attending Provider [phone] Amberly GIL, Dr. Oliver Attending Provider Amberly GIL, Dr. Oliver Attending Provider Elvira GIL, Dr. Kimi Philip Primary Care Physician Adam GIL, Zeenat Attending Physician Adam GIL, Zeenat Primary Care Physician [phone] Amberly GIL, Dr. Oliver Attending Physician King JEFFERY, Dr. Johnston Attending Physician Opal GIL, Dr. Gilliland Attending Physician Adam, Chalon Referring Unavailable Adam, Chalon Primary Care Unavailable Adam, Chalon Attending Unavailable Adam, Chalon Primary Care Unavailable Adam, Chalon Referring Unavailable Adam, Joelon Attending Unavailable Adam, Chalon Primary Care Unavailable Adam, Chalon Referring Unavailable WyneskiMelody Attending Unavailable Adam, Chalon Primary Care Unavailable Adam, Chalon Referring Unavailable WynesMelody harris Attending Unavailable Jolliff, Kimi S Primary Care Unavailable Jolliff, Kimi S Referring Unavailable Preston Mukherjee Attending Unavailable Adam, Chalon Primary Care Unavailable Adam, Chalon Referring Unavailable MarcanthonyDarshana Attending Unavailable Adam, Chalon Primary Care Unavailable Adam, Chalon Attending Unavailable Jolliff, Kimi S Primary Care Unavailable Jolliff, Kimi S Referring Unavailable Jolliff, Kimi S Attending Unavailable Jolliff, Kimi S Primary Care Unavailable Adam, Chalon Referring Unavailable Adam, Chalon Attending Unavailable Jolliff, Kimi S Primary Care Unavailable Sunita AUTO BODY MAN, Jaimee Referring Unavailable [place] AUTO BODY MAN, Jaimee Attending Unavailable Jolliff, Kimi S Primary Care Unavailable Jolliff, Kimi S Referring Unavailable Jolliff, Kimi S Attending Unavailable Jolliff, Kimi S Primary Care Unavailable Sunita AUTO BODY MAN, Jaimee Referring Unavailable [place] AUTO BODY MAN, Jaimee Attending Unavailable Jolliff, Kimi S Primary Care Unavailable Jolliff, Kimi S Referring Unavailable [place] AUTO BODY MAN, Jaimee Attending Unavailable Jolliff, Kimi S Primary Care Unavailable Jolliff, Kimi S Referring Unavailable Hillary Pedro Attending Unavailabl e Zeenat Medina Primary Care Unavailable Preston Mukherjee Referring Unavailable Preston Mukherjee Attending Unavailable Zeenat Medina Primary Care Unavailable Zeenat Medina Referring Unavailable Zeenat Medina Attending Unavailable Zeenat Medina Primary Care Unavailable Preston Mukherjee Referring Unavailable Preston Mukherjee Attending Unavailable Allergies Allergy Classification Reported Allergen(s) Allergy Type Date of Onset Reaction(s) Facility (1 source) OTHER; Translations: [OTHER] Propensity to adverse reactions (disorder) 9 [facility] Repository (20 sources) Esomeprazole Drug Allergy 2 diarrhea [facility] (1 source) Esomeprazole Drug Allergy 5 [facility] Repository Medications Current Medications Medication Drug Class(es) Dates Sig (Normalized) Sig (Original) Blood-Glucose Meter (Onetouch Ultra2 Meter) misc (4 sources) Start: 12-19-2024 Blood-Glucose Meter (Onetouch Ultra2 Meter) [facility] Active NMA .ROUTE THREE TIMES A DAY [...] ug PO DAILY March 27, 2021 1:00am Payton 5th, 2024 7:59am dicyclomine hydrochloride 10 mg oral capsule [...] MG C APS as needed DICYCLOMINE HCL [id number] Daniel Jang MD Start: 09-09-2012 BENTYL 10 MG C APS as needed DICYCLOMINE HCL [id number] Daniel Jang MD fluticasone propionate 0.05 mg/actuat metered dose nasal spray (20 sources) Corticosteroid Start: 04-11-2021 Fluticasone Pr opionate (Flonase Allergy Relief) 50 mcg/actuation [place],Suspension Active 1 NMA INTRANASAL TWICE A DAY as needed for ALLERGIES April 11, 2021 1:00am Complies with drug therapy Start: 04-11-2021 Fluticasone Pr opionate (Flonase Allergy Relief) 50 mcg/actuation Pacific,Suspension Active 1 SPRAY INTRANASAL TWICE A DAY [...] Start: 09-09-2012 take 1 tablet by jorgito th twice daily PRILOSEC 20 MG CPDR One tablet by mouth twice daily OMEPRAZOLE [id number] Daniel Jang MD Start: 09-09-2012 take 1 tablet by jorgito th once daily PRILOSEC 20 MG CPDR One tablet by mouth daily OMEPRAZOLE 72195707844 Daniel Jang MD Start: 09-09-2012 take 1 tablet by jorgito th twice daily PRILOSEC 20 MG CPDR One tablet by mouth twice daily OMEPRAZOLE 15154581917 Daniel Jang MD Start: 04-14-2010 take 1 tablet by jorgito th once daily PRILOSEC 40 MG CPDR One tablet by mouth daily OMEPRAZOLE 60770355120 Lisette Molina MSPADorindaC Start: 04-14-2010 take 1 tablet by jrogito th once daily PRILOSEC 40 MG CPDR One tablet by mouth daily OMEPRAZOLE 39410954002 Lisette Molina MSPADorindaC simvastatin 40 mg oral tablet (20 sources) [...] One tablet by mouth daily LEVOTHYROXINE SODIUM 05239967922 Samantha Cisneros RN Start: 04-14-2010 take 1 tablet by jorgito th once daily SYNTHROID 75 MCG TABS One tablet by mouth daily LEVOTHYROXINE SODIUM 84547044975 Lisette Molnia MS,PA-C Start: 04-14-2010 take 1 tablet by jorgito th once daily SYNTHROID 75 MCG TABS One tablet by mouth daily LEVOTHYROXINE SODIUM 17172915608 Lisette Molina MS,PADorindaC Completed/Discontinued Medications Medication Drug [...] HOURS NEEDED 10 3 June 27, 2023 [id number] 200 actuat albuterol 0.09 mg/actuat metered dose [...] Start: 09-08-2011 take 4 tablets by mo uth every hour AMOXICILLIN 500 MG TABS 4 tablets by mouth 1 hr prior to procedure AMOXICILLIN 53280203277 Samantha Cisneros RN aspirin 81 mg delayed release oral tablet (6 sources) Nonsteroidal Anti-inflammatory Drug Start: 09-04-2011 End: 09-09-2012 take 1 tablet by mouth once daily ECOTRIN LOW STRENGTH 81 MG TBEC One tablet by mouth daily ASPIRIN 34609233943 Daniel Jang MD Start: 09-04-2011 End: 09-09-2012 take 1 tablet by mouth once daily ECOTRIN LOW STRENGTH 81 MG TBEC One tablet by mouth daily ASPIRIN 99557547766 Daniel Jang MD azithromycin 250 mg oral [...] 2018 12:00am June 25, 2019 9:14am Ca-D3-Mag Zs-Gysc-Ftu-Raad-B or (17 sources) Start: 01-20-2014 End: 04-05-2018 Ca-D3-Mag Sa-Mwcq-Gpr-Raad-B or Discontinued 1 EACH PO January 19, 2014 11:00pm April 05, 2018 12:23pm Start: 01-20-2014 End: 04-05-2018 Ca-D3-Mag Ga-Cghe-Xxn-Raad-B or Discontinued 1 EACH PO January 20, 2014 12:00am April 05, 2018 1:23pm Ca-D3-Mag Wm-Xsyg-Lbj-Raad-Bor 1 EACH tablet (9 sources) Start: 01-20-2014 End: 04-05-2018 Ca-D3-Mag Ws-Dozb-Tqt-Raad-Bor 1 EACH tablet Discontinued 1 NMA PO [...] One tablet by mouth daily CETIRIZINE HCL 13127167940 Roya Patterson ciprofloxacin 500 mg oral tablet [...] 1:24pm Start: 05-08-2016 take 1 tablet by jorgito th once daily MOBIC 15 MG TABS One tablet by mouth daily MELOXICAM 24705135691 Daniel Jang MD Multivitamin preparation (17 sources) [...] by mouth daily OMEGA-3 FATTY ACIDS CPDR 67251213378 Roya Patterson OMEGA-3 FATTY ACIDS CPDR (2 sources) Start: 09-04-2011 take 500 tablets by mouth once daily OMEGA 3 CPDR 500, One tablet by mouth daily OMEGA-3 FATTY ACIDS CPDR 94850654055 Roya Patterson ORPHENADRINE CITRATE SOLN (6 sources) Muscle Relaxant Start: 09-04-2011 End: 09-08-2011 NORFLEX SOLN 100mg, Take as directed ORPHENADRINE CITRATE SOLN 76668067154 Samantha Cisneros RN Start: 09-04-2011 NORFLEX SOLN 1 00mg, Take as directed ORPHENADRINE CITRATE SOLN 13259700454 Roya Patterson Start: 09-04-2011 End: 09-08-2011 NORFLEX SOLN 100mg, Take as directed ORPHENADRINE CITRATE SOLN 08584354020 Roya Patterson ospemifene 60 mg oral tablet [...] tablet by mouth twice daily SULFAMETHOXAZOLE- TRIMETHOPRIM 98560597551 Samantha Cisneros RN Start: 04-14-2010 End: 09-08-2011 take 1 tablet by mouth twice daily BACTRIM DS 800-160 MG TABS One tablet by mouth twice daily SULFAMETHOXAZOLE-TRIMETHOPRIM 28277740179 Samantha Cisneros RN Start: 04-14-2010 take 1 tablet by jorgito th twice daily BACTRIM DS 800-160 MG TABS One tablet by mouth twice daily SULFAMETHOXAZOLE-TRIMETHOPRIM 69057341172 Lisette Molina MS,PA-C B COMPLEX VITAMINS (20 sources) Start: 01-26-2014 take 1 tablet by mouth once daily VITAMIN B COMPLEX TABS One tablet by mouth daily B COMPLEX VITAMINS 43844685473 Daniel Jang MD Start: 01-26-2014 take 1 tablet by jorgito th once daily VITAMIN B COMPLEX TABS One tablet by mouth daily B COMPLEX VITAMINS 79339633497 Daniel Jang MD Start: 01-20-2014 End: 04-05-2018 [...] sources) Bisphosphonate Start: 10-21-2021 End: 11-29-2024 Zoledronic Evjs-Wcywafij-Ecqoa 5 mg/100 mL piggyback Discontinued 1 NMA .Route ONCE 100 0 November 14, 2022 7:56am November 13, 2023 8:14am infuse over 20 minutes. Start: 10-18-2020 End: 03-27-2021 Zoledronic Akzh-Knotlknm-Kzs er 5 mg/100 mL piggyback Discontinued 1 [...] [Age-related osteoporosis without current pathological fracture] Onset: Chronic Comment on above: reclast completed Other [...] Test Name Value Interpretation Reference Range Facility Hemoglobin A1con 02-28-2025 HbA1c (Bld) [Mass fraction] 6.0 % High <=5.6 [facility] Comment on above: Result Comment: Norm al < 5.7 % Prediabetic 5.7 - 6.4 % Diabetic >or= 6.5 % Please note range changes. Performed By: #### L 501.9985 #### [facility] [address] [place], [address] OT D/C of Non Returning Pton 01-31-2025 OT D/C of Non Returning Pt [facility] [place] [id number] [facility] [place] [address] / REHABILITATION SERVICES DISCHARGE SUMMARY MR#: [id number] Acct: [id number] Name: RANDEE MORTENSEN Rep #: [id number] : 1960 65 From: Nona Scales OTR/L, [...] by the physician. Thank you! Nona Scales, DONR/L, CHT 01/31/25 [id number] CC: Dr. Kimi Felix MD; Dr. Zeenat Medina MD MK Signed Normal [facility] MR/BMS.Harper 01-17-2025 MR/BMS.FELICITA [facility] [address] [facility] [address], [address] [place], [place] [address] OFFICE VISIT Date of Service: 01/17/25 MR#: [id number] Acct: [id number] Name: RANDEE MORTENSEN Rep #: [id number] : 1960 Provider: Dr. Melody Hauser i, MD Age/Sex: 65/F Location: [facility] Status: Signed Intake Vital Signs 12/19/24 08:49 12/26/24 13:50 01/17/25 08:07 Height 5 ft 6 in 5 ft 6 in 5 ft 6 in Weight: 138 lb BMI 22.2 BP 126/95 H Pulse 76 Intake Visit Reasons: 4-6wk f/u Chief Complaint: 4-6 week testosterone/estradiol cream follow up Black Belt Required: No Accompanied by: Self Is patient [...] reports that her vaginal dryness seems better. PFSH Medical History Vulvar atrophy Urge incontinence Overactive [...] No yello (more content not included)... Normal [facility] MR/BMSFlako 12-19-2024 MR/BMSPAPA [facility] [address] [address], [address] [place] [address] OFFICE VISIT Date of Service: 12/19/24 MR#: [id number] Acct: [id number] Name: RANDEE MORTENSEN Rep #: [id number] : 1960 Provider: Dr. Melody Hauser i, MD Age/Sex: 64/F [place] [facility] Status: Signed Intake Vital Signs 11/29/24 13:06 12/19/24 08:49 Height 5 ft 6 in 5 ft 6 in Weight: 147 lb 4 oz BMI 23.8 BP 133/91 H Pulse 82 Intake Visit Reasons: possible prolapse Chief Complaint: possible prolapse Black Belt Required: No Accompanied by: Self Is patient in pain?: No Allergies esomeprazole (From Nexium) Adverse Reaction (Mild, Verified 12/19/24 08:47) diarrhea Medications ???Medication ???Instructions ???Recorded ???Confirmed ???Type ascorbate calcium (vitamin C) 500 500 mg PO DAILY 03/27/21 12/19/24 History mg tablet simvastatin 40 mg tablet 40 mg PO DAILY 03/27/21 12/19/24 H istory fluticasone propionate 50 1 spray intranasal BID PRN 1 12/19/24 History mcg/actuation nasal ALLERGIES spray,suspension [...] macanthony states prolapse and recurrent vaginal infection. [facility] Medical History (Updated 12/20/24 @ 08:02 by [...] and other (more content not included)... Normal [facility] Genital Culture Comprehensiv eli 12-02-2024 VAC [...] TMP SMX Islt JASON <=20 S Normal [facility] Comment on above: Performed By: #### M 100.5040, M100.1999 ####[facility] [address] [place], [place], [id number] Genital cultureOrdered By: Cedrick Joseph on 11-29-2024 Source specific culture Klebsiella pneumoniae sp pneum Abnormal [facility] Gram Stainon 11-29-2024 GS Reason for Exam: vag inal irritation Gram Stain 2+ Gram positive rods 3+ Gram variable chichi No Gram negative diplococci Score = 5 Interpretation: 0-3 Normal, 4-6 Intermediate, 7-10 Positive BV Normal [facility] Comment on above: Performed By: #### M 100.3200, M100.1999 ####[facility] [address] [place], [address] Gram stainOrdered By: Darshana Joseph on 11-29-2024 Microscopic observation Gram stain Nom (Unsp spec) [facility] Leather Lacer Office Visit Reporton 11-29-2024 Leather [facility] Office Visit Report [facility] [address], [address] [place] [address] OFFICE VISIT Date of Service: 11/29/24 MR#: [id number] Acct: [id number] Name: RANDEE MORTENSEN Rep #: [id number] : 1960 Provider: Dr. Darshana payne MD Age/Sex: 64/F Location: [facility] [place] Status: Signed Intake Vital Signs 11/18/24 07:50 11/29/24 09:21 11/29/24 13:06 Height 5 ft 6 in 5 ft 6 in 5 ft 6 in Weight: 147 lb 4 oz BMI 23.8 BP 132/80 H Intake Visit Reasons: r/o yeast infection Chief Complaint: Vaginal dryness and pain Black Belt Required: No Is patient in pain?: Yes [...] Care Co (more content not included)... Normal [facility] Insulin Levelon 11-22-2024 INSULIN,FASTING 6.4 uIU/mL Normal 2.6-24.9 [facility] Comment on above: Result Comment: Perf ormed at: - [facility] [address] [id number] Mathematics Technician: Joss Arroyo PhD, Phone: [phone] Performed By: #### L 120.5576, N2117.6596 ####[facility] [address] [place], [address] Amylaseon 11-21-2024 KIMI 37 U/L Normal 28-100 [facility] Comment on above: Order Comment: Order Date: 11/21/24Order Info: [id number] - AMYOrder Info: 3040-3 - LIPASEOrder Info: [id number] - CRP Performed By: #### L 693.9391, T281.5741 ####[facility] [address] [place], [address] CRPon 11-21-2024 C-REACTIVE PROT < 3.00 Normal 0.0-3.0 [facility] Comment on above: Order Comment: Order Date: 11/21/24Order Info: [id number] - AMYOrder Info: 3040-3 - LIPASEOrder Info: [id number] - CRP Performed By: #### L 501.6710 ####[facility] [address] [place], [place], [address] Hemoglobin A1con 11-21-2024 HbA1c (Bld) [Mass fraction] 6.9 % High <=5.6 [facility] Comment on above: Order Comment: Order Date: 11/21/24 Order Info: [id number] - A1C Result Comment: Norm al < 5.7 % Prediabetic 5.7 - 6.4 % Diabetic >or= 6.5 % Please note range changes. Performed By: #### L 501.9985 #### [facility] [address] [place], [place], [address] Hemoglobin A1c percentageOrd ered By: Zeenat Medina on 11-21-2024 HbA1c (Bld) [Mass fraction] 6.9 % High <5.7 [facility] Comment on above: Normal < 5.7 % Predi abetic 5.7 - 6.4 % Diabetic >or= 6.5 % Please note range changes. Lipaseon 11-21-2024 Lipase [Catalytic activity/Vol] 22 U/L Normal 13-75 [facility] Comment on above: Order Comment: Order Date: 11/21/24Order Info: [id number] - AMYOrder Info: 3040-3 - LIPASEOrder Info: [id number] - CRP Result Comment: Plea note: LIPASE revised reference range effective 22. New Lipase methodology. Expected to produce lower values than the previous assay method. NEW Reference Range: 13 - 75 U/L Performed By: #### L 501.2400, L501.2450 ####[facility] [address] [place], [place], [address] Lipase measurementOrdered By : Zeenat Medina on 11-21-2024 Lipase [Catalytic activity/Vol] 22 U/L 13-75 [facility] Comment on above: Please note:LIPASE r evised reference range effective 22. New Lipase methodology. Expected to produce lower values than the previous assay method. NEW Reference Range: 13 - 75 U/L Microalb:Creat Ratio,Random URon 11-21-2024 Creatinine [Mass/Vol] 30.90 mg/dL Normal 28.00- 217. 00 [facility] Comment on above: Order Comment: Order Date: 11/21/24Order Info: [id number] - MIALB Performed By: #### L 502.0250, L3300.3500 ####[facility] [address] [place], [address] MALB:CREAT UNABLE TO CALCULATE Normal [facility] Comment on above: Order Comment: Order Date: 11/21/24Order Info: [id number] - MIALB Performed By: #### L 502.0250, L3300.3500 ####[facility] [address] [place], [address] MICROALBUMIN,UR < 12.0 Normal NO RANGE EST. [facility] Comment on above: Order Comment: Order Date: 11/21/24Order Info: [id number] - MIALB Performed By: #### L 502.0250, L3300.3500 ####[facility] [address] [place], [address] Microalbumin/creat ratio urO rdered By: Zeenat Medina on 11-21-2024 Urine microalbumin/creatinin e ratio measurement UNABLE TO CALCULATE mg/g CRE [facility] Random urine creatinine stephanie urement (mass/volume)Ordered By: Zeenat Medina on 11-21-2024 Creatinine Unsp time (U) [Mass/Vol] 30.90 mg/dL 28.00-217. 00 [facility] Serum or plasma C reactive p rotein measurement (mass/volume)Ordered By: Zeenat Medina on 11-21-2024 CRP [Mass/Vol] mg/L 0.0-3.0 [facility] Serum or plasma amylase stephanie urement (enzymatic activity/volume)Ordered By: Zeenat Medina on 11-21-2024 Amylase [Catalytic activity/Vol] 37 U/L 28-100 [facility] Serum or plasma insulin stephanie urement (mass/volume)Ordered By: Zeenat Medina on 11-21-2024 Insulin [Mass/Vol] 6.4 uIU/mL 2.6-24.9 [facility] Comment on above: Performed at: [place] [id number] Director: Joss Arroyo PhD, Phone: [phone] Urine albumin measurement [facility] detection limit of 20 mg/L or less (mass/volume)Ordered By: Zeenat Medina on 11-21-2024 Albumin DL <= 20 mg/L (U) [Mass/Vol] < 12.0 mg/L NO RANGE EST. [facility] Anion gap in Serum or Plasma Ordered By: Preston Mukherjee on 11-18-2024 Anion gap [Moles/Vol] 11 mmol/L 5-15 [facility] BUN/creatinine ratioOrdered By: Preston Mukherjee on 11-18-2024 Urea nitrogen/Creatinine [Mass ratio] 15.8 mg/mg 10-20 [facility] Bilirubin, totalOrdered By: Preston Mukherjee on 11-18-2024 Bilirubin [Mass/Vol] 0.40 mg/dL 0.00-1.30 [facility] Calculated very low density lipoprotein (VLDL) cholesterol measurementOrdered By: Perston Mukherjee on 11-18-2024 Calculated very low density lipoprotein (VLDL) cholesterol measurement 31 mg/dL 5-40 [facility] Carbon dioxide, total [Moles /volume] in Central venous bloodOrdered By: Preston Mukherjee on 11-18-2024 CO2 [Moles/Vol] 25.0 mmol/L 21.0-32.0 [facility] Chloride assayOrdered By: Matthew Mukherjee on 11-18-2024 Chloride [Moles/Vol] 104 mmol/L 98-108 [facility] Comprehensive Metabolic Prof ilon 11-18-2024 Albumin [Mass/Vol] 4.6 g/dL Normal 3.4-4.8 [facility] Comment on above: Performed By: #### L 501.7047, L501.8611, L506.1001, L500.4050, L500.4100 ####[facility] [address] [place], [address] Albumin/Globulin [Mass ratio] 1.6 {ratio} Normal 0.9-2.4 [facility] Comment on above: Performed By: #### L 501.9520, L501.9985, L506.1001, L500.4050, L500.4100 ####[facility] [address] [place], [address] ALK PHOS 47 U/L Normal 35-104 [facility] Comment on above: Performed By: #### L 501.9520, L501.9985, L506.1001, L500.4050, L500.4100 ####[facility] [address] [place], [address] ALT [Catalytic activity/Vol] 23 U/L Normal <=34 [facility] Comment on above: Performed By: #### L 501.9520, L501.9985, L506.1001, L500.4050, L500.4100 ####[facility] [address] [place], [address] AST [Catalytic activity/Vol] 25 U/L Normal <=31 [facility] Comment on above: Performed By: #### L 501.9520, L501.9985, L506.1001, L500.4050, L500.4100 ####[facility] [address] [place], [address] Bilirubin [Mass/Vol] 0.40 mg/dL Normal 0.00-1.30 [facility] Comment on above: Performed By: #### L 501.9520, L501.9985, L506.1001, L500.4050, L500.4100 ####[facility] [address] [place], [address] BUN/CRE 15.8 RATIO Normal 10-20 [facility] Comment on above: Performed By: #### L 501.9520, L501.9985, L506.1001, L500.4050, L500.4100 ####[facility] [address] [place], [address] Calcium [Mass/Vol] 9.9 mg/dL Normal 7.6-11.0 [facility] Comment on above: Performed By: #### L 501.9520, L501.9985, L506.1001, L500.4050, L500.4100 ####[facility] [address] [place], [address] Chloride [Moles/Vol] 104 mmol/L Normal 98-108 [facility] Comment on above: Performed By: #### L 501.9520, L501.9985, L506.1001, L500.4050, L500.4100 ####[facility] [address] [place], [address] CO2 [Moles/Vol] 25.0 mmol/L Normal 21.0-32.0 [facility] Comment on above: Performed By: #### L 501.9520, L501.9985, L506.1001, L500.4050, L500.4100 ####[facility] [address] [place], [address] Creatinine [Mass/Vol] 0.77 mg/dL Normal 0.70-1.20 [facility] Comment on above: Performed By: #### L 501.9520, L501.9985, L506.1001, L500.4050, L500.4100 ####[facility] [address] [place], [address] GAP 11 Normal 5-15 [facility] Comment on above: Performed By: #### L 501.9520, L501.9985, L506.1001, L500.4050, L500.4100 ####[facility] [address] [place], [address] GFR/1.73 sq M.predicted among non-blacks MDRD (S/P/Bld) [Vol rate/Area] 85 mL/min/{1.73_m2} Normal >60 [facility] Comment on above: Result Comment: mL/m in/1.73m2 CKD-EPI Creatinine Equation (2020) Performed By: #### L 501.9520, L501.9985, L506.1001, L500.4050, L500.4100 ####[facility] [address] [place], [address] Globulin (S) [Mass/Vol] 2.8 g/dL Normal 2.2-4.2 [facility] Comment on above: Performed By: #### L 501.9520, L501.9985, L506.1001, L500.4050, L500.4100 ####[facility] [address] [place], [address] Glucose [Mass/Vol] 124 mg/dL High 70-99 [facility] Comment on above: Performed By: #### L 501.9520, L501.9985, L506.1001, L500.4050, L500.4100 ####[facility] [address] [place], [address] Potassium [Moles/Vol] 4.7 mmol/L Normal 3.3-5.1 [facility] Comment on above: Performed By: #### L 501.9520, L501.9985, L506.1001, L500.4050, L500.4100 ####[facility] [address] [place], [address] Sodium [Moles/Vol] 141 mmol/L Normal 133-145 [facility] Comment on above: Performed By: #### L 501.9520, L501.9985, L506.1001, L500.4050, L500.4100 ####[facility] [address] [place], [address] T PROT 7.4 g/dL Normal 5.9-8.4 [facility] Comment on above: Performed By: #### L 501.9520, L501.9985, L506.1001, L500.4050, L500.4100 ####[facility] [address] [place], [address] Urea nitrogen [Mass/Vol] 12 mg/dL Normal 4-19 [facility] Comment on above: Performed By: #### L 501.9520, L501.9985, L506.1001, L500.4050, L500.4100 ####[facility] [address] [place], [address] Endocrinology Visit Reporton 11-18-2024 Endocrinology Visit Report [facility] [address] [place], [place] [address] OFFICE VISIT Date of Service: 11/18/24 MR#: [id number] Acct: [id number] Name: RANDEE MORTENSEN Rep #: [id number] : 1960 Provider: Nettie Cr Age/Sex: 64/F [place] [facility] [place]: Signed Intake Vital Signs 11/13/23 07:56 [...] 50 1 spray intranasal BID PRN 1 11/18/24 History mcg/actuation nasal ALLERGIES spray,suspension [...] Musc Musculoskeletal (more content not included)... Normal [facility] Glomerular filtration rate ( GFR) estimation/1.73 sq m using serum, plasma, or whole bOrdered By: Preston Mukherjee on 11-18-2024 GFR/1.73 sq M.predicted among non-blacks MDRD (S/P/Bld) [Vol rate/Area] 85 mL/min/{1.73_m2} >60 [facility] Comment on above: mL/min/1.73m2 CKD-EP I Creatinine Equation (2020) Hemoglobin A1con 11-18-2024 HbA1c (Bld) [Mass fraction] 7.2 % High <=5.6 [facility] Comment on above: Result Comment: Norm al < 5.7 % Prediabetic 5.7 - 6.4 % Diabetic >or= 6.5 % Please note range changes. Performed By: #### L 501.9520, L501.9985, L506.1001, L500.4050, L500.4100 ####[facility] [address] [place], [place], [id number] Hemoglobin A1c percentageOrd ered By: Preston Mukherjee on 11-18-2024 HbA1c (Bld) [Mass fraction] 7.2 % High <5.7 [facility] Comment on above: Normal < 5.7 % Predi abetic 5.7 - 6.4 % Diabetic >or= 6.5 % Please note range changes. LDL calc ser/plasOrdered By: Preston Mukherjee on 11-18-2024 Cholesterol in LDL [Mass/Vol] 87 mg/dL [facility] Comment on above: Suzwiwfqxg=384-203 m g/dL & Higher Pxfx=923 mg/dL or greater Laboratory - Chemistry and C hemistry - challengeOrdered By: Preston Mukherjee on 11-18-2024 AST [Catalytic activity/Vol] 25 U/L <32 [facility] Lipid Profileon 11-18-2024 CHOL:HDL 2.70 Normal [facility] Comment on above: Performed By: #### L 501.9520, L501.9985, L506.1001, L500.4050, L500.4100 ####[facility] [address] [place], [place], [address] Cholesterol [Mass/Vol] 186 mg/dL Normal <=200 [facility] Comment on above: Result Comment: Chol esterol level, Desirable <200 mg/dL Borderline high cholesterol 200-239 mg/dL High cholesterol >=240 mg/dL Recommendations of the NCEP Adult Treatment Panel for the following risk-cutoff thresholds for the [place] population. Performed By: #### L 501.9520, L501.9985, L506.1001, L500.4050, L500.4100 ####[facility] [address] [place], [address] Cholesterol in HDL [Mass/Vol] 69 mg/dL Normal [facility] Comment on above: Result Comment: Khloe onal Cholesterol Education Program (NCEP) guidelines: <40 mg/dL: Low HDL-cholesterol (major risk factor for CHD) >= 60 mg/dL: High HDL-cholesterol (negative risk factor for CHD) HDL-cholesterol is affected by a number of factors, e.g. smoking, exercise, hormones, sex and age. Performed By: #### L 501.9520, L501.9985, L506.1001, L500.4050, L500.4100 ####[facility] [address] [place], [address] Cholesterol in LDL [Mass/Vol] 87 mg/dL Normal [facility] Comment on above: Result Comment: Bord siceos=186-002 mg/dL Higher Kvfo=616 mg/dL or greater Performed By: #### L 501.9520, L501.9985, L506.1001, L500.4050, L500.4100 ####[facility] [address] [place], [address] Cholesterol in VLDL [Mass/Vol] 31 mg/dL Normal 5-40 [facility] Comment on above: Performed By: #### L 501.9520, L501.9985, L506.1001, L500.4050, L500.4100 ####[facility] [address] [place], [address] Triglyceride [Mass/Vol] 153 mg/dL Normal [facility] Comment on above: Result Comment: The drugs N-Acetylcysteine and Metamizole may falsely depress this assay. Normal range: <150 mg/dL Borderline High: 150-199 mg/dL High: 200-499 mg/dL Very High: >500 mg/dL Performed By: #### L 501.9520, L501.9985, L506.1001, L500.4050, L500.4100 ####[facility] [address] [place], [address] Potassium measurement (mass/ volume)Ordered By: Preston Mukherjee on 11-18-2024 Potassium (Unsp spec) [Mass/Vol] 4.7 mmol/L 3.3-5.1 [facility] Screening total cholesterol/ high density lipoprotein (HDL) cholesterol ratioOrdered By: Preston Mukherjee on 11-18-2024 Cholesterol.total/Chol esterol in HDL [Mass ratio] 2.70 {ratio} [facility] Serum creatinine measurement (mass/volume)Ordered By: Preston Mukherjee on 11-18-2024 Creatinine [Mass/Vol] 0.77 mg/dL 0.70-1.20 [facility] Serum globulin measurementOr dered By: Preston Mukherjee on 11-18-2024 Globulin (S) [Mass/Vol] 2.8 g/dL 2.2-4.2 [facility] Serum glucose measurement (m ass/volume)Ordered By: Preston Mukherjee on 11-18-2024 Glucose [Mass/Vol] 124 mg/dL High 70-99 [facility] Serum or plasma alanine rivas otransferase (ALT) measurementOrdered By: Preston Mukherjee on 11-18-2024 ALT [Catalytic activity/Vol] 23 U/L <35 [facility] Serum or plasma albumin stephanie urement (mass/volume)Ordered By: Preston Mukherjee on 11-18-2024 Albumin [Mass/Vol] 4.6 g/dL 3.4-4.8 [facility] Serum or plasma albumin/glob ulin mass ratioOrdered By: Preston Mukherjee on 11-18-2024 Albumin/Globulin [Mass ratio] 1.6 {ratio} 0.9-2.4 [facility] Serum or plasma alkaline carrillo sphatase measurementOrdered By: Preston Mukherjee on 11-18-2024 ALP [Catalytic activity/Vol] 47 U/L 35-104 [facility] Serum or plasma calcium stephanie urement (mass/volume)Ordered By: Preston Mukherjee on 11-18-2024 Calcium [Mass/Vol] 9.9 mg/dL 7.6-11.0 [facility] Serum or plasma cholesterol in HDL measurement (mass/volume)Ordered By: Preston Mukherjee on 11-18-2024 Cholesterol in HDL [Mass/Vol] 69 mg/dL >40 [facility] Comment on above: National Cholesterol Education Program (NCEP) guidelines:<40 mg/dL: Low HDL-cholesterol (major risk factor for CHD)>= 60 mg/dL: High HDL-cholesterol (negative risk factor for CHD)HDL-cholesterol is affected by a number of factors, e.g. smoking, exercise, hormones, sex and age. Serum or plasma cholesterol measurement (mass/volume)Ordered By: Preston Mukherjee on 11-18-2024 Cholesterol [Mass/Vol] 186 mg/dL <201 [facility] Comment on above: Cholesterol level, D esirable <200 mg/dLBorderline high cholesterol 200-239 mg/dLHigh cholesterol >=240 mg/dLRecommendations of the NCEP Adult Treatment Panel for the following risk-cutoff thresholds for the [place] population. Serum or plasma urea nitroge n measurement (mass/volume)Ordered By: Preston Mukherjee on 11-18-2024 Urea nitrogen [Mass/Vol] 12 mg/dL 4-19 [facility] Sodium levelOrdered By: Preston Mukherjee on 11-18-2024 Sodium [Moles/Vol] 141 mmol/L 133-145 [facility] TSH DL <= 0.005 mIU/L QnOrde red By: Preston Mukherjee on 11-18-2024 TSH Qn 1.110 uIU/mL 0.300-4.20 0 [facility] Thyroid Stim Hormone (TSH)on 11-18-2024 TSH 1.110 uIU/mL Normal 0.300-4.20 0 [facility] Comment on above: Performed By: #### L 501.9520, L501.9985, L506.1001, L500.4050, L500.4100 ####[facility] [address] [place], [address] Total proteinOrdered By: Ollie Mukherjee on 11-18-2024 Protein [Mass/Vol] 7.4 g/dL 5.9-8.4 [facility] Triglycerides measurementOrd ered By: Preston Mukherjee on 11-18-2024 Triglyceride [Mass/Vol] 153 mg/dL <199 [facility] Comment on above: The drugs N-Acetylcy steine and Metamizole may falsely depress this assay. Normal range: <150 mg/dLBorderline High: 150-199 mg/dLHigh: 200-499 mg/dLVery High: >500 mg/dL Vitamin D,25 Hydroxyon 11-18 Vitamin D 25-OH 45.8 ng/mL Normal 30-100 [facility] Comment on above: Result Comment: Trista min D Status Deficiency: <20 ng/mL (50nmol/L) Insufficiency: 20-30 ng/mL (50-75 nmol/L) Sufficiency: 30-100 ng/mL (75-250 nmol/L) Toxicity: >100 ng/mL (>250 nmol/L) Performed By: #### L 501.9520, L501.9985, L506.1001, L500.4050, L500.4100 ####[facility] [address] [place], [place], [address] OT General Evaluationon 0 OT General Evaluation [facility] [address] [place] [address] / REHABILITATION SERVICES INITIAL EVALUATION MR#: [id number] Acct: [id number] Name: RANDEE MORTENSEN Rep #: [id number] : 1960 64 From: Kelly Keating Referring Dr.: Dr. Zeenat Medina MD Status: REG [facility] Insurance: [employer] MCR Eval Date: SELF PAY INSURANCE Patient's Visit Information Visit Information Visit Information: RANDEE MORTENSEN is a 64 year old F, referred to Occupational Therapy by Zeenat Medina MD, with a diagnosis of Tenosynovitis. Date of Evaluation: 10/13/24 Occupational Therapist: Kelly Keating Subjective Subjective: Pt is a 64 y/o female referred by Dr. Zeenat Medina [place] [facility] [place] reports she has pain radiating from [...] Able to complete but with pain Yard: [place] Comments: Able to complete but with pain [...] 16.9 Flx/19.1 Ex L: 17.2 Flx/14.6 Ex Brass Roller: R:60# L:41# Lateral Pinch: R:14# L:14# Tripod [...] to be FAXED BACK to us at [phone] for Medicare purposes. Please let me know if there are questions or concerns regarding this plan of care. Physician Signature: Date: 10/13/24 7221 CC: Dr. Kimi Felix MD; Dr. Zeenat Medina MD OM Signed For Medicare only, by signing this I certify the plan of care. _ Physicians Signature Date Normal [facility] SCRN MAMM (CAD)W/MARCIN BILATo n 06-09-2024 SCRN MAMM (CAD)W/MARCIN BILAT [facility] [address] [place], [place] [address] SCRN MAMM (CAD)W/MARCIN BILAT MR#: [id number] Acct: [id number] Name: RANDEE MORTENSEN Rep #: [id number] : 1960 F 64 From: [place] MD PCP: Dr. Kimi Felix MD Status: [facility] Study: SCRN MAMM (CAD)W/MARCIN BILAT Date of Exam: 05/13 Exam# [id number] Ordering Dr: Kimi Felix MD PROCEDURE: SCRN [...] of the results by letter. Reading Location: [place] [address] CC: Dr. Kimi Felix MD Supervisor Long Goods: Signed Normal [facility] Leather Lacer Office Visit Reporton 05-25-2024 [facility] Office Visit Report [facility] [address], [address] [place] [address] OFFICE VISIT Date of Service: 05/25/24 MR#: [id number] Acct: [id number] Name: RANDEE MORTENSEN Rep #: [id number] : 1960 Provider: Dr. Hillary Torres DO Age/Sex: 64/F Location: [facility] [place] Status: Signed Intake Vital Signs 04/06/24 14:46 05/25/24 14:06 Height 5 ft 6 in 5 ft 6 in Weight: 155 lb 4 oz BMI 25.0 BP 121/80 H Intake Visit Reasons: discuss medication options Chief Complaint: Vaginal dryness and pain Black Belt Required: No Is patient in pain?: No [...] HPI Exam (more content not included)... Normal [facility] Hemoglobin A1con 04-18-2024 HbA1c (Bld) [Mass fraction] 6.3 % High 3.8-5.6 [facility] Comment on above: Result Comment: Norm al < 5.7 % Prediabetic 5.7 - 6.4 % Diabetic >or= 6.5 % Please note range changes. Performed By: #### L 5019985, L501.9520 #### [facility] [address] [place], [address] Thyroid Stim Hormone (TSH)on 04-18-2024 TSH 0.921 uIU/mL Normal 0.358-3.74 0 [facility] Comment on above: Performed By: #### L 501.9985, L501.9520 #### [facility] [address] [place], [address] Pelvic (Non )on Pelvic (Non ) [facility] [address] [address] Pelvic (Non ) MR#: [id number] Acct: [id number] Name: RANDEE MORTENSEN Rep #: [id number] : 1960 F 64 From: Francisco J wang DO PCP: Dr. Kimi Felix MD Status: REG CLI Study: Pelvic (Non ) Date of Exam: 04/15/24 Exam# [id number] Ordering Dr: Jaimee Dorsey NP AUTO BODY MAN -[id number] EXAM: US PELVIS TRANSABDOMINAL, COMPLETE CLINICAL INDICATION: [...] CC: RAMAN Dorsey; Dr. Kimi Felix MD Supervisor Long Goods: Signed Normal [facility] Genital Culture Comprehensiv eli 04-10-2024 VAC [...] S Vancomycin Islt JASON 1 S Normal [facility] Comment on above: Performed By: #### M 100.3200, M100.1999 #### [facility] [address] [facility] [id number] Gram Stainon 04-08-2024 GS Reason for Exam: Vag inal irritation Gram Stain 1+ Gram positive cocci in chains 3+ Gram positive rods No White Blood Cells No Gram negative diplococci Normal [facility] Comment on above: Performed By: #### M 100.3200, M100.1999 #### [facility] [address] [facility] [address] Leather Lacer Office Visit Reporton 04-06-2024 Leather Lacer Office Visit Report [facility] [address], [address] [place] [address] OFFICE VISIT Date of Service: 04/06/24 MR#: [id number] Acct: [id number] Name: RANDEE MORTENSEN Rep #: [id number] : 1960 Provider: RAMAN ventura Age/Sex: 64/F Location: [facility] [place] Status: Signed Intake Vital Signs 11/26/23 13:08 04/06/24 14:40 04/06/24 14:46 Height 5 ft 6 in 5 ft 6 in 5 ft 6 in Weight: 153 lb 4 oz BMI 24.7 BP 122/72 H Intake Visit Reasons: vaginal dryness and pain Chief Complaint: Vaginal dryness and pain Black Belt Required: No Is patient in pain?: No [...] and n (more content not included)... Normal [facility] Basophil percentageOrdered B y: Alexandre Andres on 05-13-2023 Basophil percentage < 1.0 mg/dL 0.55-1.02 [facility] No Panel InformationOrdered By: Alexandre Andres on 05-13-2023 Bedside Estimated GFR (eGFR) > 60.0000 mL/min >60 [facility] Culture, urineOrdered By: Yaakov Felix on 02-18-2023 Bacteria identified Cx Nom (U) Presumptive E. coli [facility] Basophil percentageOrdered B y: Kimi Felix on 02-17-2023 Basophil percentage 5-10 SEEN /hpf 0-5 [facility] Bilirubin Test strip Ql (U)O rdered By: Kimi Felix on 02-17-2023 Bilirubin Ql (U) Negative Negative [facility] Culture, urineOrdered By: Yaakov Felix on 02-17-2023 Bacteria identified Cx Nom (U) Presumptive E. coli [facility] Ketones Test strip Ql (U)Ord ered By: Kimi Felix on 02-17-2023 Ketones Ql (U) Negative Negative [facility] Mucus LM Ql (Urine sed)Order ed By: Kimi Felix on 02-17-2023 Mucus Ql (Urine sed) 0 SEEN /hpf [facility] Nitrite Test strip Ql (U)Ord ered By: Kimi Felix on 02-17-2023 Nitrite Ql (U) Positive Negative [facility] Protein Test strip Ql (U)Ord ered By: Kimi Felix on 02-17-2023 Protein Ql (U) 15 mg/dl Negative [facility] Squamous epithelial cells de tection in urine sediment by light microscopyOrdered By: Kimi Felix on 02-17-2023 Epithelial cells.squamous LM Ql (Urine sed) 0-5 SEEN /hpf 5-10 [facility] Urine blood detectionOrdered By: Kimi Felix on 02-17-2023 RBC Ql (U) 25 /ul Negative [facility] RBC Ql (U) 0-5 SEEN /hpf 0-5 [facility] Urine clarityOrdered By: Kimi Felix on 02-17-2023 Clarity (U) Sl. Cloudy Clear [facility] Urine color determinationOrd ered By: Kimi Felix on 02-17-2023 Color (U) Yellow Yellow [facility] Urine glucose detectionOrder ed By: Kimi Felix on 02-17-2023 Glucose Ql (U) Normal mg/dl Normal [facility] Urine leukocyte esterase det ection by dipstickOrdered By: Kimi Felix on 02-17-2023 Leukocyte esterase Test strip Ql (U) 100 /ul Negative [facility] Urine pHOrdered By: Kimi Brian iff on 02-17-2023 pH (U) 8.0 [pH] 5.0 - 8.0 [facility] Urine sediment bacteria coun t by microscopy (number/high power field)Ordered By: Kimi Felix on 02-17-2023 Bacteria LM.HPF (Urine sed) [#/Area] 3 /[HPF] None Seen [facility] Urine specific gravity measu rementOrdered By: Kimi Felix on 02-17-2023 Specific gravity (U) [Rel density] 1.015 1.002-1.03 0 [facility] Urobilinogen Auto test strip Ql (U)Ordered By: Kimi Felix on 02-17-2023 Urobilinogen Ql (U) Normal mg/dl Normal [facility] No Panel InformationOrdered By: Alexandre Andres on 01-10-2023 Giardia Antigen (JASON) [facility] Ova and parasitesOrdered By: Alexandre Andres on 01-10-2023 Ova and parasites identified LM Nom (Unsp spec) [facility] No Panel InformationOrdered By: Alexandre Andres on 01-09-2023 Stool Calprotectin 20 ug/g 0-120 [facility] Comment on above: Concentration Interp retation Follow-Up< 5 - 50 ug/g Normal None>50 -120 ug/g Borderline Re-evaluate in 4-6 weeks >120 ug/g Abnormal Repeat as clinically indicatedPerformed at: [facility] [id number] Director: Joss Arroyo PhD, Phone: [phone] at: [facility] [id number] Director: Dedrick Baron MD, Phone: [phone] Stool Neutral Fats Normal . [facility] Comment on above: Normal (<60 Droplets /HPF) Giardia Antigen (JASON) [facility] Ova and parasitesOrdered By: Alexandre Andres on 01-09-2023 Ova and parasites identified LM Nom (Unsp spec) [facility] Qualitative fecal fat or lip idsOrdered By: Alexandre Andres on 01-09-2023 Fat Ql (Stl) Normal . [facility] Comment on above: Normal (<100 Droplet s/HPF) Stool enteric pathogen panel by probe and target amplification methodOrdered By: Alexandre Andrse on 01-09-2023 Gastrointestinal pathogens panel SANJAY+probe (Stl) [facility] Stool gastrointestinal hemog lobin detection by immunologic methodOrdered By: Alexandre Andres on 01-09-2023 Lower GI hemoglobin IA Ql (Stl) [facility] Stool lactoferrin detection by immunoassayOrdered By: Alexandre Andres on 01-09-2023 Lactoferrin IA Ql (l) [facility] Absolute lymphocyte countOrd ered By: Alexandre Andres on 01-08-2023 Lymphocytes Auto (Unsp spec) [#/Vol] 1.84 10*3/uL 0.83-4.51 [facility] Basophil percentageOrdered B y: Alexandre Andres on 01-08-2023 Basophils/100 WBC (Bld) 0.6 % 0-1 [facility] Bilirubin [Mass/Vol] 0.10 mg/dL 0.20-1.00 [facility] Comment on above: For patients on eltr ombopag therapy, use of Dimension [place] TBIL is not recommended. Chloride [Moles/Vol] 103 mmol/L 98-107 [facility] Eosinophils/100 WBC (Bld) 0.7 % 0-5 [facility] Glucose [Mass/Vol] 165 mg/dL 74-106 [facility] Comment on above: Fasting Glucose resu lt greater than or equal to 126 mg/dL suggests DIABETES MELLITUS per A.D.A. criteria. Neutrophils (Bld) [#/Vol] 4.4 10*3/uL 2.0-7.7 [facility] Neutrophils/100 WBC (Bld) 64.0 % 47-70 [facility] Potassium [Moles/Vol] 3.5 mmol/L 3.5-5.1 [facility] Comment on above: Slight Hemolysis, Re sult may be falsely increased. Protein [Mass/Vol] 7.0 g/dL 6.4-8.2 [facility] Sodium [Moles/Vol] 137 mmol/L 136-145 [facility] WBC (Bld) [#/Vol] 6.9 10*3/uL 4.4-11.0 [facility] Blood erythrocytes count (nu mber/volume)Ordered By: Alexandre Andres on 01-08-2023 RBC (Bld) [#/Vol] 4.45 10*6/uL 4.2-5.4 [facility] Blood hemoglobin measurement (mass/volume)Ordered By: Alexandre Andres on 01-08-2023 Hemoglobin (Bld) [Mass/Vol] 13.4 g/dL 12.0-15.0 [facility] Blood lymphocytes/100 leukoc ytesOrdered By: Alexandre Andres on 01-08-2023 Lymphocytes/100 WBC (Bld) 26.8 % 19-41 [facility] Blood monocytes/100 leukocyt esOrdered By: Alexandre Andres on 01-08-2023 Monocytes/100 WBC (Bld) 7.6 % 0-10 [facility] Blood platelet mean volumeOr dered By: Alexandre Andres on 01-08-2023 Platelet mean volume (Bld) [Entitic vol] 9.7 fL 6.2-12.0 [facility] Determination of erythrocyte mean corpuscular volume (MCV)Ordered By: Alexandre Andres on 01-08-2023 MCV (RBC) [Entitic vol] 89.2 fL 81-99 [facility] Erythrocyte sedimentation ra teOrdered By: Alexandre Andres on 01-08-2023 ESR (Bld) [Velocity] 4 mm/h 0-30 [facility] Hematocrit Auto (Bld) [Volum e fraction]Ordered By: Alexandre Andres on 01-08-2023 Hematocrit (Bld) [Volume fraction] 39.7 % 37-47 [facility] - Chemistry and C hemistry - challengeOrdered By: Alexandre Andres on 01-08-2023 ALP [Catalytic activity/Vol] 49 U/L 45-117 [facility] ALT [Catalytic activity/Vol] 29 U/L 13-56 [facility] CO2 [Moles/Vol] 28.0 mmol/L 21.0-32.0 [facility] Globulin (S) [Mass/Vol] 3.4 g/dL 2.2-4.2 [facility] Urea nitrogen/Creatinine [Mass ratio] 12.9 mg/mg 10-20 [facility] - Hematology and Cell countsOrdered By: Alexandre Andres on 01-08-2023 Erythrocyte distribution width (RBC) [Entitic vol] 41.6 fL 35.1-43.9 [facility] Erythrocyte distribution width (RBC) [Ratio] 12.7 % 11.6-14.6 [facility] Immature granulocytes/100 WBC (Bld) 0.300 % 0.0-0.9 [facility] Comment on above: IG% - Immature Granu locytes (promyelocytes, myelocytes and metamyelocytes) > 1% indicates that a LEFT SHIFT is Present. MCH (RBC) [Entitic mass] 30.1 pg 27.0-32.0 [facility] Nucleated RBC/100 WBC (Bld) [Ratio] 0 % 0-5 [facility] MCHC Auto (RBC) [Mass/Vol]Or dered By: Alexandre Andres on 01-08-2023 MCHC (RBC) [Mass/Vol] 33.8 g/dL 32-36 [facility] No Panel InformationOrdered By: Alexandre Andres on 01-08-2023 Estimated GFR (MDRD) Amer 71 mL/min >60 [facility] Comment on above: GFR Calc Estimated GFR (MDRD) Non-Af Amer 59 mL/min >60 [facility] Comment on above: Non- GFR Calc Miscellaneous Test See comment [facility] Comment on above: TEST RESULT LIMITSVi [...] care providers to discuss this resultfurther at [phone]. To refer your patient forgenetic counseling through [facility], please call the scheduling line at .LIST OF ALL GENES IN PANELAPC VHL MSH2 PMS2 BRCA1 PALB2 EPCAMATM MLH1 MSH6 TP53 BRCA2 STK11 [id number] Information Specimen Type: Whole BloodIndication for Testing: [...] copies.Copy number variations are assessed by microarray kexnpvosfjo-yfbgjetw-ypcxv amplification assay (MLPA) todetect gross deletions and [...] amongothers, is complicated by the highly homologous BKV4SNlxwyomlopk. Deletions/duplications in PMS2CL have not beenassociated with [...] 01-08-2023 Platelets (Bld) [#/Vol] 256 10*3/uL 150-450 [facility] Serum or plasma C reactive p rotein measurement (mass/volume)Ordered By: Alexandre Andres on 01-08-2023 CRP [Mass/Vol] mg/L 0.0-3.0 [facility] Comment on above: C-Reactive Protein ( CRP) provides useful information for thediagnosis, therapy and monitoring of inflammatory processesand associated diseases. For the evaluation of Relative Riskfor Cardiovascular Disease, a High Sensitivity CRP (HSCRP)should be ordered. Serum or plasma albumin stephanie urement (mass/volume)Ordered By: Alexandre Andres on 01-08-2023 Albumin [Mass/Vol] 3.6 g/dL 3.2-5.0 [facility] Serum or plasma albumin/glob ulin mass ratioOrdered By: Alexandre Andres on 01-08-2023 Albumin/Globulin [Mass ratio] 1.1 {ratio} 0.9-2.4 [facility] Serum or plasma calcium stephanie urement (mass/volume)Ordered By: Alexandre Andres on 01-08-2023 Calcium [Mass/Vol] 8.8 mg/dL 8.5-10.1 [facility] Serum or plasma creatinine m easurement (mass/volume)Ordered By: Alexandre Andres on 01-08-2023 Creatinine [Mass/Vol] 1.01 mg/dL 0.55-1.02 [facility] Comment on above: The validity of the calculated GFR & GFRAA in patients over 70 years has not been determined. Clinical correlation is essential. Serum or plasma urea nitroge n measurement (mass/volume)Ordered By: Alexandre Andres on 01-08-2023 Urea nitrogen [Mass/Vol] 13 mg/dL 7-18 [facility] Thin prep Papanicolaou smear with manual screeningOrdered By: Alexandre Andres on 01-08-2023 Thin prep Papanicolaou smear with manual screening 24 U/L 15-37 [facility] Comment on above: Slight Hemolysis, Re sult may be falsely increased. Thin prep Papanicolaou smear with manual screening 6 5-15 [facility] Culture, urineOrdered By: Judith Romero on 12-31-2022 Bacteria identified Cx Nom (U) Presumptive E. coli [facility] Bacteria identified Cx Nom (U) Presumptive E. coli [facility] Basophil percentageOrdered B y: Rito Brewer on 12-22-2022 Basophil percentage 25-50 SEEN /hpf 0-5 [facility] Bilirubin Test strip Ql (U)O rdered By: Rito Brewer on 12-22-2022 Bilirubin Ql (U) Negative Negative [facility] Culture, urineOrdered By: St roxy Brewer on 12-22-2022 Bacteria identified Cx Nom (U) Mixed Gram Pos & Gram Neg Org [facility] Bacteria identified Cx Nom (U) Mixed Gram Pos & Gram Neg Org [facility] Ketones Test strip Ql (U)Ord ered By: Rito Brewer on 12-22-2022 Ketones Ql (U) 5 mg/dl Negative [facility] Laboratory - Chemistry and C hemistry - challengeon 12-22-2022 Bilirubin Ql (U) Negative [facility] Glucose Ql (U) Negative [facility] Ketones Ql (U) Negative [facility] pH (U) 7.5 [pH] [facility] Specific gravity (U) [Rel density] 1.005 [facility] Urobilinogen (U) [Mass/Vol] 0.1051366 mg/dL [facility] - Hematology and Cell countson 12-22-2022 Hemoglobin Ql (U) Negative [facility] - Specimen inform ationon 12-22-2022 Clarity (U) Clear [facility] Color (U) Nita [facility] - Urinalysison Nitrite Ql (U) Negative [facility] Protein Ql (U) Negative [facility] Mucus LM Ql (Urine sed)Order ed By: Rito Brewer on 12-22-2022 Mucus Ql (Urine sed) 0 SEEN /hpf [facility] Nitrite Test strip Ql (U)Ord ered By: Rito Brewer on 12-22-2022 Nitrite Ql (U) Negative Negative [facility] No Panel Informationon 12-22 Urine Leukocytes Positive [facility] Urine Non-Hemolyzed Blood Negative [facility] Protein Test strip Ql (U)Ord ered By: Rito Brewer on 12-22-2022 Protein Ql (U) Negative Negative [facility] Squamous epithelial cells de tection in urine sediment by light microscopyOrdered By: Rito Brewer on 12-22-2022 Epithelial cells.squamous LM Ql (Urine sed) 0-5 SEEN /hpf 5-10 [facility] Urine blood detectionOrdered By: Rito Brewer on 12-22-2022 RBC Ql (U) Negative Negative [facility] RBC Ql (U) 0 SEEN /hpf 0-5 [facility] Urine clarityOrdered By: Carlos Brewer on 12-22-2022 Clarity (U) Sl. Cloudy Clear [facility] Urine color determinationOrd ered By: Rito Brewer on 12-22-2022 Color (U) Yellow Yellow [facility] Urine glucose detectionOrder ed By: Rito Brewer on 12-22-2022 Glucose Ql (U) Normal mg/dl Normal [facility] Urine leukocyte esterase det ection by dipstickOrdered By: Rito Brewer on 12-22-2022 Leukocyte esterase Test strip Ql (U) 500 /ul Negative [facility] Urine pHOrdered By: Rito lee on 12-22-2022 pH (U) 7.0 [pH] 5.0 - 8.0 [facility] Urine sediment bacteria coun t by microscopy (number/high power field)Ordered By: Rito Brewer on 12-22-2022 Bacteria LM.HPF (Urine sed) [#/Area] 0 /[HPF] None Seen [facility] Urine specific gravity measu rementOrdered By: Rito Brewer on 12-22-2022 Specific gravity (U) [Rel density] 1.010 1.002-1.03 0 [facility] Urobilinogen Auto test strip Ql (U)Ordered By: Rito Brewer on 12-22-2022 Urobilinogen Ql (U) Normal mg/dl Normal [facility] No Panel Informationon 12-14 POC SARS CoV-2 Antigen Positive [facility] Laboratory - Chemistry and C hemistry - challengeon 11-29-2022 Ketones Ql (U) Negative [facility] pH (U) 6.0 [pH] [facility] Specific gravity (U) [Rel density] 1.005 [facility] - Hematology and Cell countson 11-29-2022 Hemoglobin Ql (U) Negative [facility] - Specimen inform ationon 11-29-2022 Clarity (U) Clear [facility] Color (U) Yellow [facility] - Urinalysison Nitrite Ql (U) Negative [facility] Protein Ql (U) Negative [facility] No Panel Informationon 11-29 Urine Leukocytes Positive [facility] Basophil percentageOrdered B y: Preston Mukherjee on 10-21-2022 Bilirubin [Mass/Vol] 0.30 mg/dL 0.20-1.00 [facility] Comment on above: For patients on eltr ombopag therapy, use of Dimension [place] TBIL is not recommended. Chloride [Moles/Vol] 105 mmol/L 98-107 [facility] Cholesterol [Mass/Vol] 209 mg/dL <200 [facility] Comment on above: <200 mg/dL Desirable 200-240 mg/dL Borderline >240 mg/dL High Risk Glucose [Mass/Vol] 96 mg/dL 74-106 [facility] Potassium [Moles/Vol] 4.1 mmol/L 3.5-5.1 [facility] Protein [Mass/Vol] 7.7 g/dL 6.4-8.2 [facility] Sodium [Moles/Vol] 139 mmol/L 136-145 [facility] Triglyceride [Mass/Vol] 334 mg/dL <199 [facility] Comment on above: The drugs N-Acetylcy steine and Metamizole may falsely depress this assay.Serum Triglycerides Reference Interval Normal <150 mg/dL Borderline high 150 - 199 mg/dL High 200 - 499 mg/dL Very High > or = 500 mg/dL Laboratory - Chemistry and C hemistry - challengeOrdered By: Preston Mukherjee on 10-21-2022 ALP [Catalytic activity/Vol] 54 U/L 45-117 [facility] ALT [Catalytic activity/Vol] 36 U/L 13-56 [facility] CO2 [Moles/Vol] 29.0 mmol/L 21.0-32.0 [facility] Free T4 [Mass/Vol] 1.48 ng/dL 0.76-1.46 [facility] Globulin (S) [Mass/Vol] 3.8 g/dL 2.2-4.2 [facility] Urea nitrogen/Creatinine [Mass ratio] 21.8 mg/mg 10-20 [facility] No Panel InformationOrdered By: Preston Mukherjee on 10-21-2022 Estimated GFR (MDRD) Amer 96 mL/min >60 [facility] Comment on above: GFR Calc Estimated GFR (MDRD) Non-Af Amer 79 mL/min >60 [facility] Comment on above: Non- GFR Calc Thyroid Stimulating Hormone (TSH) 0.84 uIU/mL 0.358-3.74 [facility] Vitamin D 25-Hydroxy 49.8 ng/mL [facility] Comment on above: Vitamin D 25(OH) Sta tus Range Deficiency <20 ng/mL (50nmol/L) Insufficiency 20 - 30 ng/mL (50 - 75 nmol/L) Sufficiency 30 - 100 ng/mL (75 - 250 nmol/L) Toxicity >100 ng/mL (>250 nmol/L) Serum or plasma albumin stephanie urement (mass/volume)Ordered By: Preston Mukherjee on 10-21-2022 Albumin [Mass/Vol] 3.9 g/dL 3.2-5.0 [facility] Serum or plasma albumin/glob ulin mass ratioOrdered By: Preston Mukherjee on 10-21-2022 Albumin/Globulin [Mass ratio] 1.0 {ratio} 0.9-2.4 [facility] Serum or plasma calcium stephanie urement (mass/volume)Ordered By: Preston Mukherjee on 10-21-2022 Calcium [Mass/Vol] 9.4 mg/dL 8.5-10.1 [facility] Serum or plasma cholesterol in HDL measurement (mass/volume)Ordered By: Preston Mukherjee on 10-21-2022 Cholesterol in HDL [Mass/Vol] 73 mg/dL >40 [facility] Comment on above: The drugs N-Acetylcy steine and Metamizole may falsely depress this assay. Reference Range HDL <40 mg/dL Low HDL Cholesterol HDL >or= 60 mg/dL High HDL Cholesterol Serum or plasma cholesterol in VLDL measurement (mass/volume)Ordered By: Preston Mukherjee on 10-21-2022 Cholesterol in VLDL [Mass/Vol] 67 mg/dL 5-40 [facility] Serum or plasma creatinine m easurement (mass/volume)Ordered By: Preston Mukherjee on 10-21-2022 Creatinine [Mass/Vol] 0.78 mg/dL 0.55-1.02 [facility] Comment on above: The validity of the calculated GFR & GFRAA in patients over 70 years has not been determined. Clinical correlation is essential. Serum or plasma low density lipoprotein (LDL) cholesterol measurement (mass/volume)Ordered By: Preston Mukherjee on 10-21-2022 Cholesterol in LDL [Mass/Vol] 69 mg/dL 0-130 [facility] Serum or plasma urea nitroge n measurement (mass/volume)Ordered By: Preston Mukherjee on 10-21-2022 Urea nitrogen [Mass/Vol] 17 mg/dL 7-18 [facility] Thin prep Papanicolaou smear with manual screeningOrdered By: Preston Mukherjee on 10-21-2022 Thin prep Papanicolaou smear with manual screening 22 U/L 15-37 [facility] Thin prep Papanicolaou smear with manual screening 5 5-15 [facility] No Panel Informationon 11-19 CA 19-9 Antigen 7 U/mL 0-35 [facility] Work Phone: Comment on above: [employer] El ectrochemiluminescence Immunoassay(ECLIA)Values obtained with different assay methods or kits cannotbe used interchangeably. Results cannot be interpreted asabsolute evidence of the presence or absence of malignantdisease.Performed at: [place] [id number] Director: Joss Arroyo PhD, Phone: [phone] CA 19-9 Antigen Serial Monitoring Not Reportable [facility] Work Phone: Basophil percentageon 2021 Bilirubin [Mass/Vol] 0.20 mg/dL 0.20-1.00 [facility] Work Phone: Comment on above: For patients on eltr ombopag therapy, use of Dimension [place] TBIL is not recommended. Chloride [Moles/Vol] 106 mmol/L 98-107 [facility] Work Phone: Cholesterol [Mass/Vol] 190 mg/dL <200 [facility] Work Phone: Comment on above: <200 mg/dL Desirable 200-240 mg/dL Borderline >240 mg/dL High Risk Glucose [Mass/Vol] 98 mg/dL 74-106 [facility] Work Phone: Potassium [Moles/Vol] 3.8 mmol/L 3.5-5.1 [facility] Work Phone: Protein [Mass/Vol] 7.5 g/dL 6.4-8.2 [facility] Work Phone: Sodium [Moles/Vol] 140 mmol/L 136-145 [facility] Work Phone: Triglyceride [Mass/Vol] 165 mg/dL <199 [facility] Work Phone: Comment on above: The drugs N-Acetylcy steine and Metamizole may falsely depress this assay.Serum Triglycerides Reference Interval Normal <150 mg/dL Borderline high 150 - 199 mg/dL High 200 - 499 mg/dL Very High > or = 500 mg/dL Laboratory - Chemistry and C hemistry - challengeon 10-21-2021 ALP [Catalytic activity/Vol] 46 U/L 45-117 [facility] Work Phone: ALT [Catalytic activity/Vol] 26 U/L 13-56 [facility] Work Phone: CO2 [Moles/Vol] 29.0 mmol/L 21.0-32.0 [facility] Work Phone: Free T4 [Mass/Vol] 1.33 ng/dL 0.76-1.46 [facility] Work Phone: Globulin (S) [Mass/Vol] 3.5 g/dL 2.2-4.2 [facility] Work Phone: Urea nitrogen/Creatinine [Mass ratio] 17.2 mg/mg 10-20 [facility] Work Phone: No Panel Informationon 10-21 Estimated GFR (MDRD) Amer 99 mL/min >60 [facility] Work Phone: Comment on above: GFR Calc Estimated GFR (MDRD) Non-Af Amer 82 mL/min >60 [facility] Work Phone: Comment on above: Non- GFR Calc Thyroid Stimulating Hormone (TSH) 0.83 uIU/mL 0.358-3.74 [facility] Work Phone: Vitamin D 25-Hydroxy 44.2 ng/mL [facility] Work Phone: Comment on above: Vitamin D 25(OH) Sta tus Range Deficiency <20 ng/mL (50nmol/L) Insufficiency 20 - 30 ng/mL (50 - 75 nmol/L) Sufficiency 30 - 100 ng/mL (75 - 250 nmol/L) Toxicity >100 ng/mL (>250 nmol/L) Serum or plasma albumin stephanie urement (mass/volume)on 10-21-2021 Albumin [Mass/Vol] 4.0 g/dL 3.2-5.0 [facility] Work Phone: Serum or plasma albumin/glob ulin mass ratioon 10-21-2021 Albumin/Globulin [Mass ratio] 1.1 {ratio} 0.9-2.4 [facility] Work Phone: Serum or plasma calcium stephanie urement (mass/volume)on 10-21-2021 Calcium [Mass/Vol] 9.3 mg/dL 8.5-10.1 [facility] Work Phone: Serum or plasma cholesterol in HDL measurement (mass/volume)on 10-21-2021 Cholesterol in HDL [Mass/Vol] 73 mg/dL >40 [facility] Work Phone: Comment on above: The drugs N-Acetylcy steine and Metamizole may falsely depress this assay. Reference Range HDL <40 mg/dL Low HDL Cholesterol HDL >or= 60 mg/dL High HDL Cholesterol Serum or plasma cholesterol in VLDL measurement (mass/volume)on 10-21-2021 Cholesterol in VLDL [Mass/Vol] 33 mg/dL 5-40 [facility] Work Phone: Serum or plasma creatinine m easurement (mass/volume)on 10-21-2021 Creatinine [Mass/Vol] 0.76 mg/dL 0.55-1.02 [facility] Work Phone: Comment on above: The validity of the calculated GFR & GFRAA in patients over 70 years has not been determined. Clinical correlation is essential. Serum or plasma low density lipoprotein (LDL) cholesterol measurement (mass/volume)on 10-21-2021 Cholesterol in LDL [Mass/Vol] 84 mg/dL 0-130 [facility] Work Phone: Serum or plasma urea nitroge n measurement (mass/volume)on 10-21-2021 Urea nitrogen [Mass/Vol] 13 mg/dL 7-18 [facility] Work Phone: Thin prep Papanicolaou smear with manual screeningon 10-21-2021 Thin prep Papanicolaou smear with manual screening 23 U/L 15-37 [facility] Work Phone: Thin prep Papanicolaou smear with manual screening 5 5-15 [facility] Work Phone: No Panel Informationon 06-26 CA 19-9 Antigen 7 U/mL 0-35 [facility] Work Phone: Comment on above: [employer] El ectrochemiluminescence Immunoassay(ECLIA)Values obtained with different assay methods or kits cannotbe used interchangeably. Results cannot be interpreted asabsolute evidence of the presence or absence of malignantdisease.Performed at: [place] [id number] Director: Joss Arroyo PhD, Phone: [phone] Initial Visit (Gastroenterol ogy)on 09-27-2020 Initial Visit (Gastroenterology) Diagnoses/Problems Assessed Irritable bowel syndrome with diarrhea (564.1) (K58.0) Orders Irritable bowel syndrome with diarrhea Start: Dicyclomine HCl - 20 MG Oral Tablet; 1 TAB 30 MINUTES BEFORE MEALS NEEDED FOR BOWEL SPASM Rx By: Marii Barreto; Dispense: 0 Days ; #:90 Tablet; Refill: 6;For: Irritable bowel syndrome with diarrhea; MAX = N; [facility] To: [id number] SocHx: Former cigarette smoker Tobacco Use Screening; [...] consent was requested and obtained from RANDEE MORTENSEN on this date, 09/27/2020 12:30 PM , for a telehealth visit. Diarrhea History of Present [id number] female seen today via virtual visit as [...] Oral Ta (more content not included)... Normal [employer] CNOVon 09-19-2017 CNOV Office Visit ([facility]) -------RANDEE MORTENSEN ([id number]) 1960 FDate Time Provider Department5/12/18 9:[address] [facility] During your visit today, we recorded the following information about you: Temperature Pulse Respiration Blood pressure 98 degrees 80/minute 18/minute 118/70 Weight 72.5 kgMohan Ashraf) 09/19/2017 10:04 AM SignedSubjectiveCheryl Leigh Mortensen is a 57 year old [...] ReactionSEASONAL [Other] 10/20/2008Date Reviewed: 09/19/2017Reviewed by: Halie Mace LPN - Fully AssessedReason for Visit: bilateral [...] ROOT EXTRACT 40 MG CAPSULE >> Halie Mace LPN 09/19/2017 9:48 AM >> HALIE MACE LPN Sat September 19, 2017 9:48 AM Not Taking SOY PRO PROTEIN ORAL POWDER >> Halie Mace TECHNICAL COMMUNICATOR 09/19/2017 9:48 AM >> HALIE MACE LPN Sat September 19, 2017 9:48 AM [...] Class: Suppress Questions Route: BOTH EYESEncounter Number: [id number] Status:Closed by MOHAN ASHRAF PA-C on 09/19/17 Normal [facility] PROGRESSon 09-19-2017 PROGRESS HNO ID: [id number] thor: Mohan Ashraf (Mirza)Service: (none)Author Type: Physician AssistantType: Progress NotesFiled: 09/19/2017 10:04 AMNote Text:SubjectiveHPIPazbigniew Leigh Mortensen is a 57 year old [...] (0.5 %) EYE OINTMENTMohan Ashraf PA-C Normal [facility] Office Visiton 02-03-2017 Documentation of current medications (procedure) Done Invalid Interpretation Code [facility] Work Phone: Protein mass conc Done Invalid Interpretation Code [employer] Work Phone: Tobacco smoking status NHIS Never smoker Invalid Interpretation Code [employer] Work Phone: Tobacco use CPHS Never smoker Invalid Interpretation Code [facility] Work Phone: External Other: Preferred Me thod of Contacton 05-10-2015 methcontact phone Invalid Interpretation Code [employer] Work Phone: Patient's prefered method of contact phone Invalid Interpretation Code [employer] Work Phone: Office Visiton 05-10-2015 cardiac risk group B Invalid Interpretation Code [employer] Work Phone: General cardiovascular disease 10Y risk [#] [place].D'Agostino 2 % Invalid Interpretation Code [employer] Work Phone: Clinical Lists Update: Prelo band saw runner 12-27-2014 Anion gap 8 mmol/L Invalid Interpretation Code [facility] Work Phone: [phone] Anion gap 4 molar conc 8 Invalid Interpretation Code [facility] Work Phone: [phone] basophils as percent of blood leukocytes, manual count 0.6 % Invalid Interpretation Code [facility] Work Phone: [phone] BUN/Creatinine Ratio 21.4 mg/mg High [facility] Work Phone: Calcium 8.9 mg/dL Invalid Interpretation Code [facility] Work Phone: Chloride 107 mmol/L Invalid Interpretation Code [facility] Work Phone: CO2 26.0 mmol/L Invalid Interpretation Code [facility] Work Phone: CO2 ppres (BldV) 26.0 mmol/L Invalid Interpretation Code [facility] Work Phone: Creatinine 0.70 mg/dL Invalid Interpretation Code [facility] Work Phone: [phone] eGFR (non-black) 112 mL/min/{1.73_m2} Invalid Interpretation Code [facility] Work Phone: [phone] eGFR (non-black) 92 mL/min/{1.73_m2} Invalid Interpretation Code [facility] Work Phone: eosinophils as percent of blood leukocytes, manual count 1.3 % Invalid Interpretation Code [facility] Work Phone: [phone] Erythrocytes (RBC) 4.38 10*6/uL Invalid Interpretation Code [facility] Work Phone: [phone] Glomerular Filtration Rate 112 mL/min/1.73m2 Invalid Interpretation Code [facility] Work Phone: [phone] Glucose 129 mg/dL High [facility] Work Phone: [phone] Glucose mass conc 129 mg/dL High [facility] Work Phone: Hematocrit (HCT) 37.9 % Invalid Interpretation Code [facility] Work Phone: [phone] Hemoglobin (HGB) 13.4 g/dL Invalid Interpretation Code [facility] Work Phone: [phone] Lymphocytes/100 leukocytes 35.2 % Invalid Interpretation Code [facility] Work Phone: [phone] MCH 30.6 pg Invalid Interpretation Code [facility] Work Phone: [phone] MCHC 35.4 g/dL Invalid Interpretation Code [facility] Work Phone: [phone] MCV 86.5 fL Invalid Interpretation Code [facility] Work Phone: [phone] Monocytes/100 leukocytes 8.0 % Invalid Interpretation Code [facility] Work Phone: [phone] neutrophils, band form as percent of blood leukocytes, manual count 54.9 % Invalid Interpretation Code [facility] Work Phone: [phone] Platelets 208 10*3/mm3 Invalid Interpretation Code [facility] Work Phone: [phone] PMV by Amy 9.4 fL Invalid Interpretation Code [facility] Work Phone: [phone] Potassium 3.8 mmol/L Invalid Interpretation Code [facility] Work Phone: [phone] RDW-CA 12.9 % Invalid Interpretation Code [facility] Work Phone: [phone] Sodium 141 mmol/L Invalid Interpretation Code [facility] Work Phone: Urea nitrogen 15 mg/dL Invalid Interpretation Code [facility] Work Phone: [phone] WBC (Leukocytes) 4.7 10*3/uL Invalid Interpretation Code [facility] Work Phone: Clinical Lists Update: Prelo band saw runner 01-21-2013 Alanine aminotransferase (ALT) 28 U/L Invalid Interpretation Code [facility] Work Phone: [phone] Albumin 4.0 g/dL Invalid Interpretation Code [facility] Work Phone: [phone] Alkaline phosphatase (ALP) 76 U/L Invalid Interpretation Code [facility] Work Phone: ALP enzyme act/vol (Bld) 76 U/L Invalid Interpretation Code [facility] Work Phone: [phone] Aspartate aminotransferase (AST) 18 U/L Invalid Interpretation Code [facility] Work Phone: [phone] Bilirubin (direct) 0.09 mg/dL Invalid Interpretation Code [facility] Work Phone: [phone] Bilirubin (total) 0.40 mg/dL Invalid Interpretation Code [facility] Work Phone: [phone] Cholesterol 179 mg/dL Invalid Interpretation Code [facility] Work Phone: [phone] HDL Cholesterol 71 mg/dL Invalid Interpretation Code [facility] Work Phone: [phone] LDL Cholesterol 90 mg/dL Invalid Interpretation Code [facility] Work Phone: [phone] Protein 7.4 g/dL Invalid Interpretation Code [facility] Work Phone: [phone] Triglyceride 88 mg/dL Invalid Interpretation Code [facility] Work Phone: [phone] very low density lipoproteins 18 mg/dL Invalid Interpretation Code [facility] Work Phone: [phone] Clinical Lists Update: Prelo band saw runner 05-10-2012 Thyroid stimulating hormone (TSH) 1.85 u[iU]/mL Invalid Interpretation Code [facility] Work Phone: [phone] triiodothyronine (t3) uptake, serum 32 % Invalid Interpretation Code [facility] Work Phone: [phone] Lab Report: [facility] 09-17-19 12 GE use only - for [employer] import when terms are not otherwise specified 7.5 g/dL Normal 6.4-8.2 [facility] Work Phone: [phone] TPROT 7.5 g/dL Normal 6.4-8.2 [facility] Work Phone: [phone] Replaced Document: Feng Gutiérrezon 09-08-2011 EKG QRS axis 70 deg Invalid Interpretation Code [facility] Work Phone: electrocardiogram interpretation Sinus Rhythm WITHIN NORMAL LIMITS Invalid Interpretation Code [facility] Work Phone: Interpretation Sinus Rhythm WITHIN NORMAL LIMITS Invalid Interpretation Code [facility] Work Phone: P [place] 50 deg Invalid Interpretation Code [facility] Work Phone: [phone] P wave axis, electrocardiogram 50 deg Invalid Interpretation Code [facility] Work Phone: NM Interval 180 ms Invalid Interpretation Code [facility] Work Phone: NM interval, electrocardiogram 180 ms Invalid Interpretation Code [facility] Work Phone: Pulse (Heart Rate) 62 /min Invalid Interpretation Code [facility] Work Phone: [phone] Pulse (Heart Rate) 414 ms Invalid Interpretation Code [facility] Work Phone: [phone] QRS axis, electrocardiogram 70 deg Invalid Interpretation Code [facility] Work Phone: [phone] QRS Duration 82 ms Invalid Interpretation Code [facility] Work Phone: [phone] QRS duration, electrocardiogram 82 ms Invalid Interpretation Code [facility] Work Phone: [phone] QT Interval new path ms Invalid Interpretation Code [facility] Work Phone: [phone] QT interval, electrocardiogram new path ms Invalid Interpretation Code [facility] Work Phone: [phone] T [place] 53 deg Invalid Interpretation Code [facility] Work Phone: [phone] T wave axis, electrocardiogram 53 deg Invalid Interpretation Code [facility] Work Phone: [phone] Office Visit: Rechecked UAon 04-17-2010 Albumin Ql (U) Negative Invalid Interpretation Code [facility] Work Phone: Bilirubin Ql (U) Negative Invalid Interpretation Code [facility] Work Phone: [phone] blood in urine (hemoglobin) by dipstick Negative Invalid Interpretation Code [facility] Work Phone: Glucose Test strip mass conc (U) Negative Invalid Interpretation Code [facility] Work Phone: [phone] Ketones mass conc (U) Negative Invalid Interpretation Code [facility] Work Phone: [phone] specific gravity, urine 1.005 Invalid Interpretation Code [facility] Work Phone: [phone] Urine, appearance clear Invalid Interpretation Code [facility] Work Phone: [phone] Urine, bilirubin presence Negative Invalid Interpretation Code [facility] Work Phone: Urine, color lt. yellow Invalid Interpretation Code [facility] Work Phone: [phone] Urine, glucose presence Negative Invalid Interpretation Code [facility] Work Phone: Urine, ketones presence Negative Invalid Interpretation Code [facility] Work Phone: [phone] Urine, leukocyte esterase presence Negative Invalid Interpretation Code [facility] Work Phone: Urine, nitrite presence Negative Invalid Interpretation Code [facility] [facility] Work Phone: Urine, pH 5.0 [pH] Invalid Interpretation Code [facility] Work Phone: Urine, protein Negative Invalid Interpretation Code [facility] Work Phone: Urine, urobilinogen presence Negative Invalid Interpretation Code [facility] Work Phone: Vital Signs Date Time Vital Sign Value Performing Clinician Faci rd 01-17-2025 08:07-0400 Body height 167.[address] Kimi Felix MD Work Phone: [facility] 01-17-2025 08:07-0400 Body mass index (BMI) [Ratio] 22.2 kg/m2 Dr. Kimi Felix MD Work Phone: [facility] 01-17-2025 08:07-0400 Body weight 62.[address] Kimi Felix MD Work Phone: [facility] 01-17-2025 08:07-0400 Diastolic blood pressure 95 mm[Hg] Dr. Kimi Felix MD Work Phone: [facility] 01-17-2025 08:07-0400 Heart rate 76 /min Dr. Kimi Felix MD Work Phone: [facility] 01-17-2025 08:07-0400 Systolic blood pressure 126 mm[Hg] Dr. Kimi Felix MD Work Phone: [facility] 12-26-2024 13:50-0400 Body height 167.[address] Kimi Felix MD Work Phone: [facility] 12-26-2024 13:50-0400 Body weight 62.[address] Kimi Felix MD Work Phone: [facility] 12-19-2024 08:49-0400 Body height 167.[address] Kimi Felix MD Work Phone: 7(457)437-299518 [place] [address] 12-19-2024 08:49-0400 Body mass index (BMI) [Ratio] 23.8 kg/m2 Dr. Kimi Felix MD Work Phone: 5(822)497-189453 [address] 12-19-2024 08:49-0400 Body weight 66.[address] Kimi Felix MD Work Phone: 0(829)415-802153 [address] 12-19-2024 08:49-0400 Diastolic blood pressure 91 mm[Hg] Dr. Kimi Felix MD Work Phone: 3(812)621-087822 [place] [address] 12-19-2024 08:49-0400 Heart rate 82 /min Dr. Kimi Felix MD Work Phone: 1(474)297-977622 [place] [address] 12-19-2024 08:49-0400 Systolic blood pressure 133 mm[Hg] Dr. Kimi Felix MD Work Phone: 3(020)720-121422 [place] [address] 11-29-2024 13:06-0400 Body height 167.[address] Kimi Felix MD Work Phone: 2(000)090-642022 [place] [address] 11-29-2024 13:06-0400 Body mass index (BMI) [Ratio] 23.8 kg/m2 Dr. Kimi Felix MD Work Phone: 9(810)385-926218 [place] [address] 11-29-2024 13:06-0400 Body weight 66.[address] Kimi Felix MD Work Phone: 2(498)051-962122 [place] [address] 11-29-2024 13:06-0400 Diastolic blood pressure 80 mm[Hg] Dr. Kimi Felix MD Work Phone: 2(330)394-145022 [place] [address] 11-29-2024 13:06-0400 Systolic blood pressure 132 mm[Hg] Dr. Kimi Felix MD Work Phone: 8(231)688-390322 [place] [address] 11-29-2024 09:53-0400 Diastolic blood pressure 61 mm[Hg] Dr. Kimi Felix MD Work Phone: 7(199)329-581653 [address] 11-29-2024 09:53-0400 Heart rate 70 /min Dr. Kimi Felix MD Work Phone: [facility] 11-29-2024 09:53-0400 Systolic blood pressure 115 mm[Hg] Dr. Kimi Felix MD Work Phone: [facility] 11-29-2024 09:21-0400 Body mass index (BMI) [Ratio] 23.8 kg/m2 Dr. Kimi Felix MD Work Phone: [facility] 11-29-2024 09:21-0400 Body temperature 96 [degF] Dr. Kimi Felix MD Work Phone: 1(190)442-994418 [place] [address] 11-29-2024 09:21-0400 Body weight 67.[address] Kimi Felix MD Work Phone: [facility] 11-29-2024 09:21-0400 Respiratory rate 16 /min Dr. Kimi Felix MD Work Phone: [facility] 11-29-2024 09:21-0400 SaO2% (BldA) [Mass fraction] 99 % Dr. Kimi Felix MD Work Phone: [facility] 11-18-2024 07:50-0400 Body height 167.[address] Kimi Felix MD Work Phone: 6(176)639-888418 [place] [address] 11-18-2024 07:50-0400 Body mass index (BMI) [Ratio] 24.3 kg/m2 Dr. Kimi Felix MD Work Phone: [facility] 11-18-2024 07:50-0400 Body weight 68.[address] Kimi Felix MD Work Phone: [facility] 11-18-2024 07:50-0400 Diastolic blood pressure 74 mm[Hg] Dr. Kimi Felix MD Work Phone: [facility] 11-18-2024 07:50-0400 Heart rate 62 /min Dr. Kimi Felix MD Work Phone: [facility] 11-18-2024 07:50-0400 SaO2% (BldA) [Mass fraction] 97 % Dr. Kimi Felix MD Work Phone: [facility] 11-18-2024 07:50-0400 Systolic blood pressure 119 mm[Hg] Dr. Kimi Felix MD Work Phone: [facility] 06-27-2023 15:21-0500 Body height 167.[address] Kimi Felix Work Phone: [facility] 06-27-2023 15:21-0500 Body mass index (BMI) [Ratio] 24.1 kg/m2 Dr. Kimi Felix Work Phone: [facility] 06-27-2023 15:21-0500 Body temperature 98.5 [degF] Dr. Kimi Felix Work Phone: [facility] 06-27-2023 15:21-0500 Body weight 67.[address] Kimi Felix Work Phone: [facility] 06-27-2023 15:21-0500 Diastolic blood pressure 85 mm[Hg] Dr. Kimi Felix Work Phone: [facility] 06-27-2023 15:21-0500 Heart rate 110 /min Dr. Kimi Felix Work Phone: [facility] 06-27-2023 15:21-0500 Respiratory rate 16 /min Dr. Kimi Felix Work Phone: [facility] 06-27-2023 15:21-0500 SaO2% (BldA) [Mass fraction] 98 % Dr. Kimi Felix Work Phone: [facility] 06-27-2023 15:21-0500 Systolic blood pressure 158 mm[Hg] Dr. Kimi Felix Work Phone: [facility] 06-08-2023 09:11-0500 Body height 170.[address] Kimi Felix Work Phone: [facility] 06-08-2023 09:04-0500 Body mass index (BMI) [Ratio] 24.5 kg/m2 Dr. Kimi Felix Work Phone: [facility] 06-08-2023 09:04-0500 Body weight 70.[address] Kimi Felix Work Phone: [facility] 06-08-2023 09:04-0500 Diastolic blood pressure 66 mm[Hg] Dr. Kimi Felix Work Phone: [facility] 06-08-2023 09:04-0500 Systolic blood pressure 110 mm[Hg] Dr. Kimi Felix Work Phone: 0(490)734-886818 [place] [address] 05-13-2023 13:35-0500 Diastolic blood pressure 68 mm[Hg] Dr. Kimi Felix Work Phone: 5(125)004-798818 [place] [address] 05-13-2023 13:35-0500 Heart rate 77 /min Dr. Kimi Felix Work Phone: [facility] 05-13-2023 13:35-0500 Respiratory rate 16 /min Dr. Kimi Felix Work Phone: [facility] 05-13-2023 13:35-0500 SaO2% (BldA) [Mass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 chronic Irritable bowel syndrome with constipation acute [facility] Work Phone: evaluation noteNo assessment information available [facility] Work Phone: evaluation note* Diagnosis Onset Date Resolution Status Encounter for routine gynecological examination noneactive [facility] Work Phone: evaluation note* Diagnosis Onset Date Resolution Status HLD (hyperlipidemia) chronic Hypothyroidism chronic Osteoporosis chronic [facility] Work Phone: evaluation note* Diagnosis Onset Date Resolution Status HLD (hyperlipidemia) chronic Hypothyroidism chronic Osteoporosis chronic UTI (urinary tract infection) acute COVID-19 acute Acute maxillary sinusitis, unspecified acute UTI (urinary tract infection) acute [facility] Work Phone: Evaluation note* Diagnosis Onset Date Resolution Status HLD (hyperlipidemia) chronic Hypothyroidism chronic Osteoporosis chronic UTI (urinary tract infection) resolved COVID-19 resolved UTI (urinary tract infection) resolved [facility] Work Phone: evaluation note* Diagnosis Onset Date Resolution Status HLD (hyperlipidemia) chronic Hypothyroidism chronic Osteoporosis chronic UTI (urinary tract infection) resolved COVID-19 resolved UTI (urinary tract infection) resolved Diarrhea acute Family history of pancreatic cancer acute Irritable bowel syndrome with constipation chronic [facility] Work Phone: evaluation note* Diagnosis Onset Date Resolution Status UTI (urinary tract infection) resolved COVID-19 resolved UTI (urinary tract infection) resolved Diarrhea acute Family history of pancreatic cancer acute Irritable bowel syndrome with constipation chronic [facility] Work Phone: evaluation note* Diagnosis Onset Date Resolution Status Diarrhea acute Family history of pancreatic cancer chronic Irritable bowel syndrome with constipation chronic Diarrhea acute Family history of pancreatic cancer chronic Irritable bowel syndrome with constipation chronic [facility] Work Phone: Evaluation note* Diagnosis Onset Date Resolution Status Diarrhea acute Family history of pancreatic cancer chronic Irritable bowel syndrome with constipation chronic [facility] Work Phone: Evaluation note* Diagnosis Onset Date Resolution Status Diarrhea acute Family history of pancreatic cancer chronic Irritable bowel syndrome with constipation chronic Atrophic vaginitis acute Encounter for routine gynecological examination noneactive [facility] Work Phone: Evaluation note* Diagnosis Onset Date Resolution Status Admit Date HLD (hyperlipidemia) chronic November 18, 2024 7:48am Hypothyroidism chronic November 18, 2024 7:48am Osteoporosis chronic November 18, 025 7:48am [facility] Work Phone: Reason for referral (narrative)No reason for referral [facility]: Summary Purpose Family History No Family History Records Found Relationship Condition Age at Onset Recorded Date/T mercedes Not Specified Osteoporosis Unknown High blood cholesterol Unknown Alcoholism Unknown Anemia Unknown Anxiety Unknown Depression Unknown Kidney disorder Unknown Hypertension Unknown father Malignant neoplasm Unknown aunt Malignant neoplasm of breast Unknown mother Malignant neoplasm Unknown Advance Directives No Advanced Directives Records Found Advance Directive Response Recorded Date/ Time Living Will No April 11 10:23am Power of Hydrogenation Operator No April 11, 2021 10:23am Advance Directive Response Recorded Date/ Time Living Will No April 11 9:23am Power of Hydrogenation Operator No April 11, 2021 9:23am Advance Directive Response Recorded Date/ Time Name of Medical Power of Hydrogenation Operator SIMRAN June 27, 2023 3:24pm Living Will Yes June 27 3:24pm Power of Hydrogenation Operator Yes June 27, 2023 3:24pm Advance Directive Response Recorded Date/ Time Living Will Yes February 17th, 2 024 4:24pm Do you have a Healthcare Power of Hydrogenation Operator? Yes June 27, 2023 4:24pm Chief Complaint [...] RT TRAPWZIUS STRAIN- LUMBAR. 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 for Visit Diarrhea Family history of pancreatic cancer Irritable bowel syndrome with constipation Atrophic vaginitis Encounter for routine gynecological examination Chief Complaint Urinary tract infect ion, site not specified BOWEL Constipation, unspecified POSSIBLE FISTULA; CONSTIPATION SCREENING 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 Kimi Felix MD Primary Care Prov ider, Attending Provider, Referring Provider Active Team Status: Inactive Member Role Status Dates Dr. Kimi Felix MD Primary Care Provider Active Jaimee Dorsey AUTO BODY MAN, AUTO BODY MAN-C Attending Provider, Referring Provider Active Team Status: Active Member Role Status Dates Dr. Kimi Felix MD Primary Care Provider Active Dr. Colten Mayes DO Referring Provider, Other Provi rene Active Dr. Kimberly Benjamin MD Attending Provider Active Team Status: Inactive Member Role Status Dates Dr. Kimi Felix MD Primary Care Provider Active Dr. Colten Mayse DO Attending Provider, Referring P rovider Active [...] MD Primary Care Provider Active Margoth Romero AUTO BODY MAN-C Attending Provider, Referr ing Provider Active Team [...] Dr. Melody Gaming MD Attending Provider, Referring P rovider Active Team [...] 2025 Team Status: Inactive Member Role/Relationship Status Dates Zeenat Medina MD Primary Care Provider Active St art: January 17, 2025 End: January 17, 2025 Zeenat Medina MD Referring Provider Active Start : January 17, 2025 End: January 17, 2025 Dr. Melody Gaming MD Attending Provider Active Start: January 17, 2025 End: January 17, 2025 Team Status: Active Member Role/Relationship Status Dates Zeenat Medina MD Primary care physician Active Team [...] BE BASED ON THE PRIMARY CLINICAL RECORDS. [facility] [employer] [facility]. provides no warranty or guarantee of the accuracy or completeness of information in this document.
[2025-04-15 19:08] LABS: H. PYLORI STOOL AG Negative (Negative)
[2025-04-18 20:08] LABS: Calprotectin, Stool 26 ug/g (0-120)
== END | disposition home or self-care (01) ==
PROVIDERS: PCP Family Medicine; Visit Provider Family Medicine
DX: K29.70 Gastritis, unspecified, without bleeding (principal)
CPT/HCPCS: 83993; 87338

== ENCOUNTER → 2025-04-28 | Outpatient (CLI) | payer SELFPAY ==
--- NOTE | 2025-04-28 07:53 | CT_ITS ---
PROCEDURE: LIMITED CHEST CT CARDIAC ONLY 04/28/2025 REASON FOR EXAM: SCREENING, HYPERCHOLESTEROLEMIA TECHNIQUE: Procedure Code: [id number] Modality: CT Procedure: LIMITED CHEST CT CARDIAC ONLY One or more dose reduction techniques were used (e.g., Automated exposure control, adjustment of the mA and/or kV according to patient size, use of iterative reconstruction technique). RADIATION DOSE SUMMARY: CTDlvol: 12.19 mGy DLP: 219.42 mGycm COMPARISON: Chest x-ray of 06/27/2023. CT/Limited Chest CT Cardiac Only IMPRESSION: Limited imaging of the lungs demonstrates no acute process. No pleural effusion or pneumothorax is seen in visualized areas. No adenopathy is noted. The visualized upper abdomen demonstrates no significant abnormality. Reading Location: [place] [address]
--- NOTE | 2025-05-14 17:53 | CA.SCORE ---
Calcium Scoring Date of Study:: 04/28/25 Indications Indications: Screening Coronary Calcium Scoring: High-resolution Computed Tomographic imaging of the chest was performed on [04/28/2025], with particular attention paid to the coronary arteries. Images from the examination were analyzed for the presence and extent of coronary artery calcification , using coronary calcium quantification software. The patient tolerated the procedure well and there were no complications. The results of the coronary calcification analysis are provided below. Findings Coronary Artery Left Main (LM): 0 Left Anterior Descending (LAD): 0 Left Circumflex (LCX): 0 Right Coronary Artery (RCA): 0 Total Agatston Score: 0 Percentile Rankin Calcium Scoring Interpretation: Different methods to categorize the overall amount of coronary plaque. Overall amount CAC SIS Visual of coronary plaque P1 Mild -100 <2 1-2 vessels with mild amount of plaque P2 Moderate 101-300 3-4 1-2 vessels with moderate amount, 3 vessels with mild amount of plaque P3 Severe 301-999 5-7 3 vessels with moderate amount, 1 vessel with severe amount of plaque P4 Extensive >1000 >8 2-3 vessels with severe amount of plaque Conclusion: No atherosclerotic plaquing noted
== END | disposition home or self-care (01) ==
LOC: CT 07:51
PROVIDERS: PCP Family Medicine; Referring Provider Family Medicine; Visit Provider Family Medicine
DX: E78.00 Pure hypercholesterolemia, unspecified (principal)
CPT/HCPCS: 75571; 76380